=== PATIENT | male | born 1935 | race Caucasian/White ===

== ENCOUNTER → 2016-03-27 | Day surgery (SDC) | payer OTHER ==
[~2016-03-27] VITALS: Ht 175.3 cm; Wt 104.3 kg
[~2016-03-27] MED LIST: ASPIRIN EC81 M1 PO; COUMADIN2 M1 PO; COUMADIN3 M1 PO; CRESTOR10 M1 PO; DIOVAN40 MG PO; FLEXERIL10 MG PO; GLIPIZIDE10 M2 PO; IMDUR30 MG PO; IPRATROPIUM BRO15 M1 NAS; JANUVIA50 M1 PO; LANTUS SOLOS100 U/ML SC; LOPRESSOR50 M1 PO; NITROSTAT0.4 M1 SL; PERCOCET 325 MG1 TA2 PO; TOUJEO SOL300 UNIT/1 SC; TRAMADOL HCL50 M1 PO; TRESIBA FL200 UNIT/1 SC; WARFARIN SODIUM3 M1 PO; ZETIA10 M1 PO
[2016-03-27 06:43] LABS: PT 13.9 SEC (9.4-12.5); PTT 33 SEC (25-37)
--- NOTE | 2016-03-27 08:54 | Operative Report ---
Operative/Inv Procedure Report Surgery Date: 03/27/16 Name of Procedure: Pacemaker generator change Pre-Operative Diagnosis: End of battery life Post-Operative Diagnosis: pacemaker generator change Estimated Blood Loss: scant Surgeon/Baked Goods Stock Clerk: DAMIAN MISHRA MD Anesthesia: moderate sedation Operative/Procedure Note Note: Informed consent obtained. Patient was brought to OR in a fasting state. Time out performed. Moderate sedation provided by aneshesia. Skin was infiltrated with 1% lidocaine. Incision was made over the old generator. Using dull and sharp dissection pacer pocket was enter and old generator was removed. Pacer leads were tested. He is in a. fibrillation. (V lead threshold was 0.5, Impedance 564, R wave 9.9). New generator was attached to the leads and screws were tightened. Pocket flushes with atb solution. Generator was introduced to the pocket and closed with 3 layers of Vicryl. Wound covered with steri strips and Tegaderm dressing. Patient was brought to same day surgery in stable condition. No complications.
== END ==
LOC: STS 03-26 07:30
PROVIDERS: Internal Medicine Cardiovascular Disease
DX: Z45.018 Encounter for adjustment and management of other part of cardiac pacemaker (principal); I48.2 Chronic atrial fibrillation; I25.10 Atherosclerotic heart disease of native coronary artery without angina pectoris; I73.9 Peripheral vascular disease, unspecified; Z79.01 Long term (current) use of anticoagulants; E11.9 Type 2 diabetes mellitus without complications; Z79.84 Long term (current) use of oral hypoglycemic drugs; Z87.891 Personal history of nicotine dependence
CPT/HCPCS: 36415; C1785-KX; J0690

== ENCOUNTER 2016-07-24 16:32 | Emergency (ER) | payer OTHER ==
[~2016-07-24] VITALS: Ht 177.8 cm; Wt 100.2 kg
[~2016-07-24 16:32] MED LIST changes: -COUMADIN2 M1 PO; -IPRATROPIUM BRO15 M1 NAS; -TRAMADOL HCL50 M1 PO; -TRESIBA FL200 UNIT/1 SC; -WARFARIN SODIUM3 M1 PO
--- NOTE | 2016-07-24 17:29 | ED MVC/FALL/TRAUMA COMPLAINT ---
See Addendum History of Present Illness General Chief Complaint: Fall Stated Complaint: LEFT SIDED PAIN, S/P FALL Source: patient Exam Limitations: no limitations Vital Signs & Intake/Output Vital Signs & Intake/Output Vital Signs Date Time Temp Pulse Resp B/P B/P Pulse O2 O2 Flow FiO2 Mean Ox Delivery Rate 07/25 2011 97.0 103 20 160/52 97 Room Air 07/24 1846 98.6 72 20 142/58 98 Room Air 07/24 1637 97.2 87 18 149/95 97 Room Air Allergies Coded Allergies: NO KNOWN ALLERGIES (03/24/16) Reconcile Medications Aspirin (Ecotrin*) 81 MG TABLET.DR 1 TAB PO QAM HEART/BLOOD (Reported) Ezetimibe (Zetia) 10 MG TABLET 1 TAB PO DAILY CHOLESTEROL (Reported) Glipizide 10 MG TABLET 1 TAB PO BID DM (Reported) Insulin Degludec (Tresiba Flextouch U-200) 200 UNIT/ML (3 ML) INSULN.PEN 32 UNITS SC DAILY DM (Reported) Ipratropium [place] 42 MCG (0.06 %) SPRAY 2 SPRAY LOW PRN RHINITIS (Reported) Metoprolol Tartrate (Lopressor) 50 MG TABLET 1 TAB PO BID HEART/BP (Reported) Nitroglycerin (Nitrostat) 0.4 MG TAB.SUBL 1 TAB SL AD PRN CHEST PAIN ( Reported) 1st sign of attack; may repeat every 5 minutes until relief; if pain persists after 3 tablets in 15 minutes, prompt medical att Rosuvastatin Calcium (Crestor) 10 MG TABLET 1 TAB PO DAILY CHOLESTEROL ( Reported) Sitagliptin Phosphate (Januvia) 50 MG TABLET 1 TAB PO QAM DM (Reported) Tramadol HCl 50 MG TABLET 1-2 TAB PO BIDP PRN pain Valsartan (Diovan) 40 MG TABLET 1 TAB PO DAILY BP (Reported) Warfarin Sodium 3 MG TABLET 1 TAB PO AD BLOOD THINNER (Reported) Warfarin Sodium (Coumadin) 2 MG TABLET 1 TAB PO AD BLOOD THINNER (Reported) Triage Note: 80 Y/O MALE C/O L SIDED RIB PAIN S/P FALL TODAY. STATES HIS FOOT GOT CAUGHT WHILE HE WAS GETTING THE MAIL AND HE FELL FORWARD STRIKING L SIDE ON GROUND. PT DENIES STRIKING HEAD OR LOC. STATES HE WAS ABLE TO GET UP BY HIMSELF. OFFERS NO ADDITIONAL COMPLAINTS AT THIS TIME Triage Nurses Notes Reviewed? yes Onset: Abrupt Duration: hour(s): Timing: single episode today Severity: moderate, severe Injuries/Fall Location: chest Method of Injury: fall Loss of Consciousness: no loss of consciousness No Modifying Factors: none HPI: 80-year-old male comes into emergency room for further evaluation of left-sided rib pain. Patient reports that he was going down his front steps when he tripped and fell on his left side. He denies hitting his head. He denies any neck pain. Left-sided rib pain. Denies any extremity injuries. He reports he has a small cut on his left knee. Sharp pain. Worse with a deep breath. Denies any other associated symptoms. (CARLOS CROWE) Past History Travel History Traveled to [place] past 21 day No Medical History Any Pertinent Medical History? 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 No (CARLOS CROWE) Review of Systems Review of Systems Constitutional: Reports: no symptoms. Eyes: Reports: no symptoms. Ears, Nose, Throat, Mouth: Reports: no symptoms. Respiratory: Reports: no symptoms. Cardiovascular: Reports: no symptoms. Gastrointestinal/Abdominal: Reports: no symptoms. Genitourinary: Reports: no symptoms. Musculoskeletal: Reports: see HPI. Skin: Reports: no symptoms. Neurological/Psychological: Reports: no symptoms. All Other Systems: Reviewed and Negative (CARLOS CROWE) Physical Exam Physical Exam General Appearance: well developed/nourished, alert, awake Head: atraumatic Eyes: Bilateral: normal appearance, EOMI. Ears, Nose, Throat, Mouth: hearing grossly normal, moist mucous membrane Neck: normal inspection Respiratory: normal breath sounds, no respiratory distress, left sided rib pain Cardiovascular: regular rate/rhythm Gastrointestinal: soft, non-tender Back: normal inspection Extremities: normal range of motion Neurologic/Psych: awake, alert, oriented x 3, normal gait, normal mood/affect Skin: intact, normal color Core Measures ACS in differential dx? No Severe Sepsis Present: No Septic Shock Present: No (CARLOS CROWE) Progress Differential Diagnosis: abd injury, C/T/L spine injury, ext injury, ICH, pelvis injury, pnemothorax, spinal cord injury, rib fxs Plan of Care: Orders Procedure Date/time Status PROTHROMBIN TIME 07/25 1903 Complete Laboratory Tests 07/24/161939: PT 13.5 H, INR 1.29 H Diagnostic Imaging: Viewed by Me: CT Scan. Discussed w/RAD: CT Scan. Radiology Impression: XAM TYPE: CAT - CT ABD & PELVIS W/O IV CONTRAS; CT CHEST WO IV CONTRAST EXAMINATION: CT CHEST, ABDOMEN AND PELVIS WITH CONTRAST CLINICAL INFORMATION: Fall. Left-sided pain. COMPARISON: None. TECHNIQUE: Multidetector volumetric CT imaging of the chest, abdomen and pelvis was obtained after the administration of 50 mL of intravenous Ultravist without immediate adverse reactions. DLP: 723.64 mGy-cm. FINDINGS: CT CHEST: Lungs: Emphysematous changes of lungs mostly affecting the upper lobes. There is a irregular spiculated nodule at the right lung apex measuring 1.3 x 0.6 x 2 cm. This is suspicious. No infiltrate. No focal consolidation. No bronchiectasis. Mediastinum: Status post median sternotomy for CABG. Surgical clips in the mediastinum. There is atherosclerotic vascular wall calcifications of aorta and iliac vessels and coronary arteries. No aneurysm. No bulky lymphadenopathy. Pacemaker lead in right atrium and right ventricle. Pleura: There is no pleural effusion. No pleural mass or thickening. No pneumothorax. Axilla: No lymphadenopathy. CT ABDOMEN AND PELVIS: LIVER, GALLBLADDER, AND BILIARY TREE: The liver is normal in size, shape, and attenuation. No focal hepatic lesion or biliary ductal dilatation is present. Status post cholecystectomy. PANCREAS: Fatty atrophy of the pancreas. No inflammation or mass. SPLEEN: Spleen normal in size and contour. No focal lesion. ADRENAL GLANDS: Adrenal glands are normal in size. No focal mass. KIDNEYS AND URETERS: Cortical cyst at the upper pole of left kidney measures 4.4 x 3 x 3.7 cm. No renal or ureteral calculus. There is no hydronephrosis. BLADDER: Unremarkable. GASTROINTESTINAL TRACT: Diverticulosis of the colon. Diverticula seen throughout the colon but are more numerous at the sigmoid. No diverticulitis. No bowel wall thickening or edema. Moderate volume of stool in the colon. The appendix is normal. Small bowel loops are normal. MESENTERY: No focal inflammation. No free fluid. No free air. ABDOMINAL WALL: There is a small umbilical hernia containing fat only. LYMPH NODES: Normal. VASCULAR: Extensive vascular calcifications throughout the abdomen and pelvis. 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 OSSEOUS STRUCTURES: There is slightly displaced fracture of the posterior left 10th and 11th ribs. Degenerative spondylosis of spine with disc height narrowing and endplate spurs and facet joint arthrosis. Status post median sternotomy. IMPRESSION: 1. Fracture of the left posterior 10th and 11th ribs. 2. Emphysematous changes of lungs. 3. Spiculated nodule in the right upper lobe is suspicious. Consider radiology interventional consult for consideration of biopsy. 4. Diverticulosis of colon. No acute change of bowel. 5. Status post cholecystectomy. 6. 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 Comments: 07/24/2016 8:33:02 PM Patient was able to ambulate with no difficulty. Case discussed with Dr. Palacios. Home health aide set up. Patient is alert and oriented here in the emergency room and clinically looks well. Patient given prescription for pain control and counseled on pain medication. Also discussed CAT scan results with patient he needs to go over them with his doctor for suspicious lung nodule as well as other nonspecific findings. (KIT FAGAN,CARLOS) Departure Departure Disposition: HOME OR SELF CARE Condition: Stable Clinical Impression Primary Impression: Ribs, multiple fractures Referrals: JERALD MCCORMACK,SILVA Suarez (PCP/Family) Additional Instructions: Take tramadol as needed for pain. Case management has persisted even sitting up some home health aide. Return if you are unable to manage at home or feel unsafe or have any other concerns worsening symptoms. Please go over all results of today's visit with your primary care doctor. Contact your primary care doctor to let them know you were here in the emergency room. There may be nonspecific findings which may not be related to your visit today here in the emergency room but may require further evaluation and chronic monitoring by your primary care doctor. If you had a laceration today the chance of foreign body always remains. You should follow-up with your primary care doctor for recheck in 3-5 days for a wound check. If you had an x-ray done there is a chance that a fracture could have been missed on initial read and you should follow-up with your primary care doctor for repeat x-rays if symptoms persist. If your blood pressure was elevated here in the emergency room please have rechecked by her primary care doctor within the next 48 hours by your primary care doctor. If you were prescribed a narcotic here in the emergency room or any type of controlled substances you're not allowed to drive while taking this medication or operate any type of heavy machinery. Narcotics can make you feel lightheaded dizziness nausea and can cause constipation. You may need to cloth picker a stool softener. Thank you for choosing emergency room. Please return to the emergency room immediately if you have any other concerns worsening of symptoms. Departure Forms: Customer Survey General Discharge Information Prescriptions: Current Visit Scripts Tramadol HCl 1-2 TAB PO BIDP PRN pain #20 TAB (CARLOS CROWE) PA/CREATIVE SERVICES DESIGNER Co-Sign Statement Statement: ED Attending supervision documentation- [X] I saw and evaluated the patient. I have also reviewed all the pertinent lab results and diagnostic results. I agree with the findings and the plan of care as documented in the PA's/CREATIVE SERVICES DESIGNER's documentation. [X] I have reviewed the ED Record and agree with the PA's/CREATIVE SERVICES DESIGNER's documentation. [] Additions or exceptions (if any) to the PAs/CREATIVE SERVICES DESIGNER's note and plan are summarized below: [Patient ambulated in the emergency department without difficulty and is stable for discharge.] (ACOSTA MCCORMACK,SAMMY Byrd)
[2016-07-24] MEDS ORDERED: WARFARIN SODIUM3 M1 PO (18:01)
[2016-07-24] MEDS ORDERED: COUMADIN2 M1 PO (18:02)
[2016-07-24] MEDS ORDERED: TRESIBA FL200 UNIT/1 SC (18:02)
[2016-07-24] MEDS ORDERED: IPRATROPIUM BRO15 M1 NAS (18:03)
--- NOTE | 2016-07-24 19:02 | CT SCAN REPORT ---
EXAMINATION: CT CHEST, ABDOMEN AND PELVIS WITH CONTRAST CLINICAL INFORMATION: Fall. Left-sided pain. COMPARISON: None. TECHNIQUE: Multidetector volumetric CT imaging of the chest, abdomen and pelvis was obtained after the administration of 50 mL of intravenous Ultravist without immediate adverse reactions. DLP: 723.64 mGy-cm. FINDINGS: CT CHEST: Lungs: Emphysematous changes of lungs mostly affecting the upper lobes. There is a irregular spiculated nodule at the right lung apex measuring 1.3 x 0.6 x 2 cm. This is suspicious. No infiltrate. No focal consolidation. No bronchiectasis. Mediastinum: Status post median sternotomy for CABG. Surgical clips in the mediastinum. There is atherosclerotic vascular wall calcifications of aorta and iliac vessels and coronary arteries. No aneurysm. No bulky lymphadenopathy. Pacemaker lead in right atrium and right ventricle. Pleura: There is no pleural effusion. No pleural mass or thickening. No pneumothorax. Axilla: No lymphadenopathy. CT ABDOMEN AND PELVIS: LIVER, GALLBLADDER, AND BILIARY TREE: The liver is normal in size, shape, and attenuation. No focal hepatic lesion or biliary ductal dilatation is present. Status post cholecystectomy. PANCREAS: Fatty atrophy of the pancreas. No inflammation or mass. SPLEEN: Spleen normal in size and contour. No focal lesion. ADRENAL GLANDS: Adrenal glands are normal in size. No focal mass. KIDNEYS AND URETERS: Cortical cyst at the upper pole of left kidney measures 4.4 x 3 x 3.7 cm. No renal or ureteral calculus. There is no hydronephrosis. BLADDER: Unremarkable. GASTROINTESTINAL TRACT: Diverticulosis of the colon. Diverticula seen throughout the colon but are more numerous at the sigmoid. No diverticulitis. No bowel wall thickening or edema. Moderate volume of stool in the colon. The appendix is normal. Small bowel loops are normal. MESENTERY: No focal inflammation. No free fluid. No free air. ABDOMINAL WALL: There is a small umbilical hernia containing fat only. LYMPH NODES: Normal. VASCULAR: Extensive vascular calcifications throughout the abdomen and pelvis. 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 OSSEOUS STRUCTURES: There is slightly displaced fracture of the posterior left 10th and 11th ribs. Degenerative spondylosis of spine with disc height narrowing and endplate spurs and facet joint arthrosis. Status post median sternotomy. IMPRESSION: 1. Fracture of the left posterior 10th and 11th ribs. 2. Emphysematous changes of lungs. 3. Spiculated nodule in the right upper lobe is suspicious. Consider radiology interventional consult for consideration of biopsy. 4. Diverticulosis of colon. No acute change of bowel. 5. Status post cholecystectomy. 6. 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
[2016-07-24] MEDS ORDERED: TRAMADOL HCL50 M1 PO (19:59)
[2016-07-24 20:06] LABS: PT 13.5 SEC (9.4-12.5)
[2016-07-24 20:12] VITALS: BP 160/52
--- NOTE | 2016-07-25 13:23 | NUR ---
07/25 CASE MGMT- CALL TO [facility] SPOKE WITH [facility] FAXED W10 AND FACE SHEET.
== END 2016-07-24 20:40 ==
LOC: ERH 16:32
PROVIDERS: Physician Assistant Medical
DX: S22.42XA Multiple fractures of ribs, left side, initial encounter for closed fracture (principal); S81.012A Laceration without foreign body, left knee, initial encounter; W10.9XXA Fall (on) (from) unspecified stairs and steps, initial encounter; Y93.01 Activity, walking, marching and hiking; Y92.9 Unspecified place or not applicable
CPT/HCPCS: 74176

== ENCOUNTER 2016-09-14 08:34 | Observation (INO) | payer OTHER ==
[~2016-09-14] VITALS: Ht 177.8 cm; Wt 90.7 kg
[~2016-09-14 08:34] MED LIST changes: +COUMADIN2 M1 PO; +IPRATROPIUM BRO15 M1 NAS; +TRAMADOL HCL50 M1 PO; +TRESIBA FL200 UNIT/1 SC; +WARFARIN SODIUM3 M1 PO
--- NOTE | 2016-09-14 08:40 | NUR ---
TRIAGE: 80 Y/O MALE BIBA FROM HOME. REPORTS NO BREAKFAST CONSUMPTION THIS MORNING - REPORTED TO FAMILY, "DID NOT FEEL WELL". FINGERSTICK ON SCENE NOTED TO BE 34. (1) TUBE OF ORAL GLUCOSE ADMINISTERED ON SCENE, D10 INFUSING UPON ARRIVAL. FINGERSTICK UPON ARRIVAL: 119. A&O X3 - COOPERATIVE. NO OTHER COMPLAINTS. FOOD TRAY PROVIDED.
--- NOTE | 2016-09-14 08:44 | NUR ---
food try provided
--- NOTE | 2016-09-14 09:11 | NUR ---
DR CISSE AT BEDSIDE.
--- NOTE | 2016-09-14 09:17 | ED GENERAL ADULT ---
History of Present Illness General Chief Complaint: General Adult Stated Complaint: HYPOGLYCEMIC Source: patient, old records Exam Limitations: no limitations Vital Signs & Intake/Output Vital Signs & Intake/Output Vital Signs Date Time Temp Pulse Resp B/P B/P Pulse O2 O2 Flow FiO2 Mean Ox Delivery Rate 09/17 0750 142/64 09/17 0750 142/64 09/17 0630 98.5 71 18 126/60 94 Room Air 09/16 2208 98.7 70 20 120/70 95 Room Air 09/16 2044 70 120/70 09/16 1453 98.2 66 20 124/60 93 Room Air ED Intake and Output 09/17 0000 09/16 1200 Intake Total 2200 Output Total 400 Balance 1800 Intake, Oral 2200 Output, Urine 400 Allergies Coded Allergies: NO KNOWN ALLERGIES (03/24/16) Reconcile Medications Aspirin (Ecotrin*) 81 MG TABLET.DR 1 TAB PO QAM HEART/BLOOD (Reported) Ezetimibe (Zetia) 10 MG TABLET 1 TAB PO DAILY CHOLESTEROL (Reported) Ipratropium [place] 42 MCG (0.06 %) SPRAY 2 SPRAY LOW PRN RHINITIS (Reported) Metformin HCl (Glucophage) 850 MG TABLET 1 TAB PO BID DM Metoprolol Tartrate (Lopressor) 50 MG TABLET 1 TAB PO BID HEART/BP (Reported) Rosuvastatin Calcium (Crestor) 10 MG TABLET 1 TAB PO DAILY CHOLESTEROL ( Reported) Valsartan (Diovan) 40 MG TABLET 1 TAB PO DAILY BP (Reported) Warfarin Sodium 3 MG TABLET 1 TAB PO AD BLOOD THINNER (Reported) Warfarin Sodium (Coumadin) 2 MG TABLET 1 TAB PO AD BLOOD THINNER (Reported) THURSDAY AND THURSDAY Triage Note: TRIAGE: 80 Y/O MALE BIBWendy FROM HOME. REPORTS NO BREAKFAST CONSUMPTION THIS MORNING - REPORTED TO FAMILY, "DID NOT FEEL WELL". FINGERSTICK ON SCENE NOTED TO BE 34. (1) TUBE OF ORAL GLUCOSE ADMINISTERED ON SCENE, D10 INFUSING UPON ARRIVAL. FINGERSTICK UPON ARRIVAL: 119. A&O X3 - COOPERATIVE. NO OTHER COMPLAINTS. FOOD TRAY PROVIDED. Triage Nurses Notes Reviewed? yes HPI: 80M PMH HTN, IDDM presenting with episode of confusion, altered speech, called EMS and was found to have a fingerstick of 32, given glucose by EMS, now back to normal. Per patient and family patient is confused and forgetful at baseline. He is currently at his baseline mental status and speech. He denies chest pain, palpitations, SOB, lightheadedness, headache, vision changes, neurological symptoms, abdominal pain, dysuria. He did not eat breakfast this morning, but had a normal dinner last night. He takes long acting insulin 32 units every morning but did not take it this morning. He also takes Glipizide 10mg BID which he took last night and this morning. He handles his own medications. No current complaints. Past History Travel History Traveled to [place] past 21 day No Medical History Any Pertinent Medical History? 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 No Review of Systems Review of Systems Constitutional: Reports: no symptoms. EENTM: Reports: no symptoms. Respiratory: Reports: no symptoms. Cardiovascular: Reports: no symptoms. GI: Reports: no symptoms. Genitourinary: Reports: no symptoms. Musculoskeletal: Reports: no symptoms. Skin: Reports: no symptoms. Neurological/Psychological: Reports: no symptoms. Hematologic/Endocrine: Reports: no symptoms. Immunologic/Allergic: Reports: no symptoms. All Other Systems: Reviewed and Negative Physical Exam Physical Exam General Appearance: well developed/nourished, no apparent distress, alert, awake , comfortable Head: atraumatic, normal appearance Eyes: Bilateral: normal appearance. Ears, Nose, Throat: normal ENT inspection Neck: normal inspection, supple, full range of motion Respiratory: normal breath sounds, no respiratory distress, quiet respiration Cardiovascular: regular rate/rhythm Gastrointestinal: soft, non-tender Back: normal inspection Extremities: normal inspection, normal range of motion, no edema Neurologic/Psych: no motor/sensory deficits, awake, alert, oriented x 3, normal gait, normal mood/affect, forgetful but coherent and cooperative Skin: intact, normal color Core Measures ACS in differential dx? No CVA/TIA Diagnosis: No Severe Sepsis Present: No Septic Shock Present: No Progress Differential Diagnoses I considered the following diagnoses in my evaluation of the patient: hypoglycemia, CVA, TIA, orthostatic hypotension, KS, ACS, trauma Plan of Care: Orders Procedure Date/time Status VITAMIN B12 09/17 634 Complete PROTHROMBIN TIME 09/17 599 Complete CBC WITHOUT DIFFERENTIAL 09/17 599 Complete BASIC ELECTROLYTES PLUS BUN&CR 09/17 599 Complete Discharge Patient 09/17 UNK Active Lab Add-on Test 09/17 UNK Active Laboratory Tests 09/17/16 0635: Anion Gap 11, Estimated GFR 36 L, BUN/Creatinine Ratio 24.4, Vitamin B12 480, PT 19.5 H, INR 1.87 H, CBC w Diff NO MAN DIFF REQ, RBC 3.80 L, MCV 90.2, MCH 30.6, RDW 14.6 H, MPV 7.4, Gran % 65.3, Lymphocytes % 20.0 L, Monocytes % 11.1 H, Eosinophils % 2.9, Basophils % 0.7, Absolute Granulocytes 4.3, Absolute Lymphocytes 1.3, Absolute Monocytes 0.7 H, Absolute Eosinophils 0.2, Absolute Basophils 0, PUBS MCHC 33.9 Fingerstick continues to drop despite adequate oral intake, latest was 51. Will start D5 1/2 NS and bring in for observation. (BETITO MCCORMACK,MILTON) Initial ED EKG: VENTRICULAR PACED, NO ST OR T-WAVE CHANGES, NO PRIOR FOR COMPARISON Departure Departure Disposition: STILL A PATIENT Condition: Stable Clinical Impression Primary Impression: Hypoglycemia Referrals: JERALD MCCORMACK,SILVA Suarez (PCP/Family) Departure Forms: Customer Survey General Discharge Information Prescriptions: Current Visit Scripts Metformin HCl (Glucophage) 1 TAB PO BID #60 TAB Observation Note Spoke With: JORGE MCCORMACK,PETE Physician Advisor Notified: HARJEET MCCORMACK,EMILY [address] Place Patient In: Non-ED OBS Care Area Rationale for Observation: My rational for observation is as follows persistent hypoglycemia on oral hypoglycemics, symptomatic on arrival, requires hourly fingerstick monitoring and IV fluids for glucose replacement, endocrine consult. Critical Care Note Critical Care Note Critical Care Time: 30-74 min
--- NOTE | 2016-09-14 09:47 | NUR ---
LABS WILSON AND SENT, LAV,SST,BLUE,ANDERS TOP.
[2016-09-14 10:01] LABS: ABSOLUTE BASOPHIL COUNT 0 /CUMM (0.0-0.2); ABSOLUTE EOSINOPHIL COUNT 0.1 /CUMM (0.0-0.7); ABSOLUTE GRANULOCYTE CT 7.1 /CUMM (1.4-6.5); ABSOLUTE LYMPH COUNT 0.6 /CUMM (1.2-3.4); ABSOLUTE MONOCYTE COUNT 0.5 /CUMM (0.10-0.60); BASOPHIL % 0.4 % (0.0-2.0); EOSINOPHIL % 0.9 % (0-5); HEMATOCRIT 36.1 % (42-52); MEAN CORPUSCULAR HGB 30.2 PG (27.0-31.0); MEAN CORPUSCULAR HGB CONC 32.9 G/DL (33.0-37.0); MEAN CORPUSCULAR VOLUME 91.6 FL (80.0-94.0); MEAN PLATELET VOLUME 7.2 FL (7.4-10.4); PLATELET COUNT 227 /CUMM (130-400); RBC DISTRIBUTION WIDTH 14.9 % (11.5-14.5); RED BLOOD CELL CT 3.94 /CUMM (4.70-6.10); WHITE BLOOD CELL COUNT 8.3 /CUMM (4.8-10.8)
[2016-09-14 10:14] LABS: GRANULOCYTE % 86.1 % (42.2-75.2)
--- NOTE | 2016-09-14 11:00 | NUR ---
RESTING COMFORTABLY. WILL CONTINUE TO MONITOR.
--- NOTE | 2016-09-14 13:10 | NUR ---
RESTING COMFORTABLY WILL CONTINUE TO MONITOR.
--- NOTE | 2016-09-14 15:11 | NUR ---
D5NS INFUSING AT 75ML/HOUR.
--- NOTE | 2016-09-14 15:15 | NUR ---
REPORT RECEIVED AND CARE OF PT ASSUMED
--- NOTE | 2016-09-14 15:28 | History & Physical ---
NAVNEET NOGUERA 09/14/16 1528: General Information and HPI MD Statement: I have seen and personally examined BOOM NICK and documented this H&P. The patient is a 80 year old M who presented with a patient stated chief complaint of [HYPOGLYCEMIA]. Source of Information: patient Exam Limitations: no limitations History of Present Illness: 80-year-old male with a past medical history of diabetes mellitus, CKD stage IV, hypertension, hyperlipidemia, dementia, atrial fibrillation status post pacemaker on Coumadin who presented to the ER with chief complaints of altered mental status including confusion and speech and was found to have low blood sugar with a fingerstick of 32 upon arrival of EMS. States that he got up this morning, got dressed, and the next thing he remembers was that he was sitting on the couch and family was asking whether he was fine. His niece called 911, and brought him to the hospital. No recent change in meds, has been eating and drinking fine, had a casserole last night for dinner. Denies fever, chills, cough, no recent upper respiratory infection, diarrhea, constipation, chest pain, shortness of breath, diaphoresis, nausea, feeling lightheadedness, passing out, abdominal pain. States that he took his meds last night. Spoke with the patient's niece who states she found him slumped on the couch at around 7:45 AM. He was in a position, taking deep sighs, had slurred speech and was also found to have one shoe on and one shoe off. Of note, he hadn't taken his medications because his medication box still showed meds that were in from Thursday. Patient stated got overly concerned that he may have a stroke as his right arm was jerking around and he wasn't really moving much of his left side. They decided to bring him to the ER. Of note patient did have a fall a few weeks ago which was purely mechanical in nature and he ended up breaking his ribs. He states that he was waiting for his mailman and tripped down the stairs. Of note he does have lung nodules on his CAT scan which was followed with a head CT which didn't show any tumor related activity. Allergies/Medications Allergies: Coded Allergies: NO KNOWN ALLERGIES (03/24/16) Home Med list Aspirin (Ecotrin*) 81 MG TABLET.DR 1 TAB PO QAM HEART/BLOOD (Reported) Ezetimibe (Zetia) 10 MG TABLET 1 TAB PO DAILY CHOLESTEROL (Reported) Glipizide 10 MG TABLET 1 TAB PO BID DM (Reported) Insulin Degludec (Tresiba Flextouch U-200) 200 UNIT/ML (3 ML) INSULN.PEN 32 UNITS SC DAILY DM (Reported) Ipratropium [place] 42 MCG (0.06 %) SPRAY 2 SPRAY LOW PRN RHINITIS (Reported) Metoprolol Tartrate (Lopressor) 50 MG TABLET 1 TAB PO BID HEART/BP (Reported) Rosuvastatin Calcium (Crestor) 10 MG TABLET 1 TAB PO DAILY CHOLESTEROL ( Reported) Sitagliptin Phosphate (Januvia) 50 MG TABLET 1 TAB PO QAM DM (Reported) Valsartan (Diovan) 40 MG TABLET 1 TAB PO DAILY BP (Reported) Warfarin Sodium (Coumadin) 2 MG TABLET 1 TAB PO AD BLOOD THINNER (Reported) THURSDAY AND THURSDAY Warfarin Sodium 3 MG TABLET 1 TAB PO AD BLOOD THINNER (Reported) Compliance With Home Meds: GOOD Past History Travel History Traveled to [place] past 21 day No Medical History Neurological: NONE Cardiovascular: AFIB, hypertension, hyperlipidemia, PACEMAKER Gastrointestinal: NONE Hepatic: NONE Renal: NONE Musculoskeletal: NONE Psychiatric: NONE Endocrine: diabetes Blood Disorders: NONE Cancer(s): NONE POWDER HAND/Reproductive: NONE Surgical History Surgical History: BYPASS PACEMAKER Past Family/Social History Family History Relations & Conditions if any Relation not specified for: *No pertinent family history Psychosocial History Where do you live? Home Who Do You Live With? niece Primary Language: Andorran Smoking Status: Former Smoker (50 pack year smokinig history) ETOH Use: denies use Illicit Drug Use: denies illicit drug use Functional Ability ADLs Independent: dressing, eating, toileting, bathing. Ambulation: cane, walker IADLs Independent: shopping. 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 Cardiovascular: Denies: chest pain, edema, orthopena, palpitations, peripheral edema, syncope. Respiratory: Denies: cough, orthopnea, short of breath, wheezing. GI: Denies: abdominal pain, constipation, diarrhea, nausea, vomiting. Genitourinary: Denies: discharge, hematuria, pain, urgency. Musculoskeletal: Denies: back pain. Neurological/Psychological: Denies: headache, numbness, tingling, tremors. Exam & Diagnostic Data Last 24 Hrs of Vital Signs/I&O Vital Signs Date Time Temp Pulse Resp B/P B/P Pulse O2 O2 Flow FiO2 Mean Ox Delivery Rate 09/14 1432 60 18 195/87 97 09/14 1124 96.6 64 16 180/72 98 Room Air Room Air 09/14 0838 96.3 68 16 185/74 98 Room Air Room Air Intake & Output 09/14 1600 09/14 0800 09/14 0000 Intake Total Output Total 300 Balance -300 Output, Urine 300 Patient 200 lb Weight Weight Estimated Measurement Method Physical Exam General Appearance Alert, Oriented X3, Cooperative, No Acute Distress HEENT Atraumatic, PERRLA, EOMI, dry mucous membranes Neck Supple, No JVD, No thryomegaly, No LAD Cardiovascular Normal S1, Normal S2, garde III/ systolic murmer heard best at RSB Lungs Clear to Auscultation, Normal Air Movement Abdomen Normal Bowel Sounds, Soft, No Tenderness, dsitended Neurological Normal Speech, Strength at 5/5 X4 Ext, Normal Tone, Sensation Intact, Cranial Nerves 3-12 NL, Reflexes 2+ Extremities b/l 1+ edema Vascular Normal Pulses, Pulses Symmetrical Last 24 Hrs of Labs/Ace: Laboratory Tests 09/14/16 0938: Anion Gap 11, Estimated GFR 45 L, BUN/Creatinine Ratio 21.3, Glucose 109 H, Calcium 9.8, Total Bilirubin 0.9, AST 32, ALT 39, Alkaline Phosphatase 65, Total Protein 7.1, Albumin 4.1, Globulin 3.0, Albumin/Globulin Ratio 1.4, CBC w Diff NO MAN DIFF REQ, RBC 3.94 L, MCV 91.6, MCH 30.2, RDW 14.9 H, MPV 7.2 L, Gran % 86.1 H, Lymphocytes % 6.9 L, Monocytes % 5.7, Eosinophils % 0.9, Basophils % 0.4, Absolute Granulocytes 7.1 H, Absolute Lymphocytes 0.6 L, Absolute Monocytes 0.5, Absolute Eosinophils 0.1, Absolute Basophils 0, PUBS MCHC 32.9 L Diagnostic Data EKG Results Ventricular paced rythm, HR: 65, no ST-T changes Assessment/Plan Assessment: 80-year-old male with a past medical history of diabetes mellitus, CK D stage IV hypertension, hyperlipidemia, A. fib status post pacemaker on Coumadin who presented to the ER with chief complaints of altered mental status including confusion and speech and was found to have low blood sugar with a fingerstick of 32. Vitals at the time of admission blood pressure 185/74, respiratory rate of 16, pulse 68, afebrile saturating 98% on room air. Labs pertinent for a white blood cell count of 8300, H&H of 11.9/36.1, MCV of 91.6 with a platelet count 227,000. Serum chemistries revealed a sodium of 141, potassium of 4.6, bicarbonate of 23, anion gap of 11, BUN 32 with a creatinine 1.5. Serum glucose of 109. LFTs unremarkable with an AST/ALT of 32/39, alkaline phosphatase of 65. In the ER he was started on D5 half-normal saline. His fingersticks ranged from 119, 134, 103, 91 and 51 Assessment and plan Placed under observation on general medicine for episodes of hypoglycemia. #Episode of hypoglycemia Most likely secondary to being on glipizide We'll hold off all oral hypoglycemic agents as of this point. Start him on D5 half-normal saline at [address] him on NovoLog sliding scale coverage blood sugars more than 200 every 4 hours Endocrinology consult in a.m. As per Dr. Lara continue to hold basal insulin for now Nutrition consult in a.m. #A. fib on Coumadin He is subtherapeutic on his INR. We'll dose him Coumadin 5 mg 1. Follow-up INR in a.m. #Hypertension Most likely secondary to not taking medications this morning. Start him on his home medications which include Cozaar 25 mg daily, metoprolol 50 mg twice a day #Hyperlipidemia Continue on atorvastatin 40 mg daily DVT prophylaxis On warfarin Diet Diabetic CODE STATUS Full code As Ranked By This Provider Problem List: 1. Hypoglycemia Core Measures/Miscellaneous Acute Coronary Syndrome ACS Diagnosis: No Cerebrovascular Accident CVA/TIA Diagnosis: No Congestive Heart Failure CHF Diagnosis: No VTE (View Protocol) VTE Risk Factors: Age > 40 [facility] prophylaxis d/t: No contraindications No VTE Pharm Prophylaxis d/t: No contraindications VTE Diagnosis: No VTE Type: NONE VTE Confirmed by (Test): NONE Sepsis (View Protocol) Severe Sepsis Present: No Septic Shock Septic Shock Present: No Miscellaneous Documentation Attending Case Discussed With: Dr. Lyle Primary Care Physician: JERALD MCCORMACK,SILVA Suarez Patient sees these Specialists None Level of Patient Care: General Medicine Resident Review Statement Resident Statement: admitted by resident JORGE MCCORMACKPETE 09/14/16 1855: Attending MD Review Statement Attending Statement Attending MD Statement: examined this patient, discuss w/resident/PA/EMPLOYMENT APPEALS EXAMINER, agreed w/resident/PA/EMPLOYMENT APPEALS EXAMINER, reviewed EMR data (avail), discussed with nursing, discussed with case mgmt, amended to note Attending Assessment/Plan: 80-year-old male with past medical history significant for insulin-dependent diabetes mellitus, CK D stage 3, hypertension, hyperlipidemia, A. fib status post pacemaker on Coumadin who was brought in by a bolus secondary to having altered mental state and found to be hypoglycemic. Patient's niece found him confused this morning. He lives with his niece. Patient is on both insulin as well as oral hypoglycemic agents for his diabetes. Apparently as reported by his knees he takes his medications regularly. Patient could not remember if his blood sugars are under good control or if he's been having episodes of hypoglycemia lately. He currently denies any complaints. His mental state is improved and almost back to baseline although he still forgetful. In the emergency room he was consistent hypoglycemic and he was started on D5 IV fluids. Most recent blood sugar was and 160s. Vital Signs Date Time Temp Pulse Resp B/P B/P Pulse O2 O2 Flow FiO2 Mean Ox Delivery Rate 09/14 1744 98.7 76 18 181/83 09/14 1714 98.7 76 18 181/83 94 Room Air 09/14 1432 60 18 195/87 97 09/14 1124 96.6 64 16 180/72 98 Room Air Room Air 09/14 0838 96.3 68 16 185/74 98 Room Air Room Air on exam; aox2, nad. cv; s1,s2, rrr< + systolic murmur. resp; clear abd; soft, nt, bs+ ext; no edema. Laboratory Tests 09/14 0938 Chemistry Sodium (137 - 145 mmol/L) 141 Potassium (3.5 - 5.1 mmol/L) 4.6 Chloride (98 - 107 mmol/L) 107 Carbon Dioxide (22 - 30 mmol/L) 23 Anion Gap (5 - 16) 11 BUN (9 - 20 mg/dL) 32 H Creatinine (0.7 - 1.2 mg/dL) 1.5 H Estimated GFR (>60 ml/min) 45 L BUN/Creatinine Ratio (7 - 25 %) 21.3 Glucose (65 - 99 mg/dL) 109 H Insulin Level (3.0 - 25.0 mIU/mL) 155.0 H Calcium (8.4 - 10.2 mg/dL) 9.8 Total Bilirubin (0.2 - 1.3 mg/dL) 0.9 AST (17 - 59 U/L) 32 ALT (21 - 72 U/L) 39 Alkaline Phosphatase (< 127 U/L) 65 Total Protein (6.3 - 8.2 g/dL) 7.1 Albumin (3.5 - 5.0 g/dL) 4.1 Globulin (1.9 - 4.2 gm/dL) 3.0 Albumin/Globulin Ratio (1.1 - 2.2 %) 1.4 Cortisol AM Sample (4.46 - 22.7 ug/dL) 21.2 Coagulation PT (9.4 - 12.5 SEC) 12.5 INR (0.90 - 1.17) 1.19 H Hematology CBC w Diff NO MAN DIFF REQ WBC (4.8 - 10.8 /CUMM) 8.3 RBC (4.70 - 6.10 /CUMM) 3.94 L Hgb (14.0 - 18.0 G/DL) 11.9 L Hct (42 - 52 %) 36.1 L MCV (80.0 - 94.0 FL) 91.6 MCH (27.0 - 31.0 PG) 30.2 RDW (11.5 - 14.5 %) 14.9 H Plt Count (130 - 400 /CUMM) 227 MPV (7.4 - 10.4 FL) 7.2 L Gran % (42.2 - 75.2 %) 86.1 H Lymphocytes % (20.5 - 51.1 %) 6.9 L Monocytes % (1.7 - 9.3 %) 5.7 Eosinophils % (0 - 5 %) 0.9 Basophils % (0.0 - 2.0 %) 0.4 Absolute Granulocytes (1.4 - 6.5 /CUMM) 7.1 H Absolute Lymphocytes (1.2 - 3.4 /CUMM) 0.6 L Absolute Monocytes (0.10 - 0.60 /CUMM) 0.5 Absolute Eosinophils (0.0 - 0.7 /CUMM) 0.1 Absolute Basophils (0.0 - 0.2 /CUMM) 0 PUBS MCHC (33.0 - 37.0 G/DL) 32.9 L EKG shows paced rhythm. A/P; 80-year-old male with past medical history significant for insulin- dependent diabetes mellitus, CK D stage 3, hypertension, hyperlipidemia, A. fib status post pacemaker on Coumadin is placed on general medicine observation with hypoglycemia. Patient will be kept on D5 IV fluids. Endocrine will be consulted. For now will cover him with sliding scale insulin. INR is subtherapeutic, please dose Coumadin at higher dose 5 mg today. Hold all oral hypoglycemics. Patient will need nutrition consult. Please continue the rest of the home medications. DVT prophylaxis: Patient on Coumadin with subtherapeutic INR therefore he will require heparin subcutaneous to the INR gets therapeutic for DVT prophylaxis. Full code.
--- NOTE | 2016-09-14 15:45 | NUR ---
PT FOOD TRAY ARRIVED AND PT EATING
--- NOTE | 2016-09-14 16:03 | NUR ---
PT COMPLETE FOOD TRAY 100% EATEN
[2016-09-14 16:19] LABS: PT 12.5 SEC (9.4-12.5)
--- NOTE | 2016-09-14 17:02 | NUR ---
PT HAS BED 224-1
--- NOTE | 2016-09-14 17:47 | NUR ---
ORAL MEDICATION GIVEN ORDERED. NOVOLOG HELD UNTIL MEAL AVAILABLE. PER DR NOGUERA AT 1730, PT TO CONTINUE D5-1/2 NS UNTIL COMPLETE PRIOR TO CHANGE TO D5-NS.
--- NOTE | 2016-09-14 18:32 | NUR ---
PT FOOD TRAY ARRIVED AND EATING
--- NOTE | 2016-09-14 19:03 | NUR ---
NURSE FELICE FROM FLOOR CALLED EXT#[id number]
--- NOTE | 2016-09-14 19:22 | NUR ---
ATTEMPT TO CALL HAND-OFF. NURSES IN REPORT
--- NOTE | 2016-09-14 19:56 | NUR ---
REPORT TO JENNIFER ALVAREZ ON 2NA
[2016-09-14 22:50] VITALS: BP 154/60
--- NOTE | 2016-09-15 03:26 | NUR ---
NURSING NOTE: LATE ENTRY. PT ARRIVED TO FLOOR VIA STRETCHER ON 09/14/16 @ 2030. PT ALERT TO PERSON AND PLACE BUT CONFUSED TO TIME. PT ON ROOM AIR, NO DISTRESS NOTED. VSS. PTS BLOOD SUGAR 201. I UNIT INSULIN GIVEN. PER ALMOND PASTE MOLDER SANA BENDER ORDERS FOR Q4 ACU CHECKS W/COVERAGE NEEDED. PT HAS MULTIPLE SCABS, DISCOLORATION, BRUISING, AND DRY FLAKY SKIN TO HIS BL UPPER ARMS. SCAB TO PTS L KNEE CAP WHICH HE STATES IS FROM A FALL ON HIS FRONT PORCH A FEW WEEKS AGO. BLANCHABLE REDNESS NOTED TO PTS BOTTOM. TRACE BLLE NOTED. BARRIER CREAM AND REPOSITIONING DONE. SKIN MAN COMPLETED. FALL PRECAUTIONS IN PLACE. SEIZURE PRECAUTIONS IN PLACE PER MD ORDER. MD SANA BENDER INFORMED THIS RN THAT PTS SUGAR GOES UP AND DOWN. PTS BLOOD SUGAR RECHECKED AT 0114 AND WAS 100. PT DENIES SYMPTOMS. PT VOIDING SMALL AMOUNTS IN URINAL. PT STATES HE AMBULATES W/ CANE AT HOME. PT GETTING 1 BAG OF D5 1/2 NS AT 75 ML/HR. PT DENIES PAIN AT THIS TIME. NUTRITION CONSULT IN PLACE. PT SHOWN HOW TO USE CALL LIGHT SYSTEM, INFORMATION PACKET GIVEN. WILL CONTINUE TO MONITOR.
[2016-09-15 06:21] VITALS: BP 138/76
--- NOTE | 2016-09-15 07:55 | PN- Housestaff ---
Subjective Follow-up For: Hypoglycemia Subjective: Pt is doing well today. Pt's BG readings have been between 76 and 200. Denies n/ v, dizziness, lethargy, fever/chills, SOB, cough, chest pain or palpitations. Review of Systems Constitutional: Denies: see HPI. Cardiovascular: Denies: see HPI. Respiratory: Denies: see HPI. Gastrointestinal: Denies: see HPI. Objective Last 24 Hrs of Vital Signs/I&O Vital Signs Date Time Temp Pulse Resp B/P B/P Pulse O2 O2 Flow FiO2 Mean Ox Delivery Rate 09/15 1502 97.5 75 20 124/70 95 Room Air 09/15 1040 65 138/76 09/15 1038 65 138/76 09/15 0621 98.4 65 20 138/76 93 Room Air 09/14 2353 154/60 09/14 2250 98.1 78 20 154/60 94 Room Air 09/14 1934 98.7 76 14 181/83 96 Room Air 09/14 1744 98.7 76 18 181/83 Intake & Output 09/15 1600 09/15 0800 09/15 0000 Intake Total 360 840 465 Output Total 600 1000 800 Balance -240 -160 -335 Intake, IV 600 225 Intake, Oral 360 240 240 Number 1 1 Bowel Movements Output, Urine 600 1000 800 Patient 200 lb 200 lb Weight Physical Exam General Appearance: Alert, Cooperative, No Acute Distress Cardiovascular: Regular Rate, Normal S1, Normal S2 Lungs: Clear to Auscultation Abdomen: Normal Bowel Sounds, Soft, No Tenderness Extremities: Normal Pulses Assessment/Plan Assessment: 80-year-old male with a past medical history of diabetes mellitus, CK D stage IV hypertension, hyperlipidemia, A. fib status post pacemaker on Coumadin who presented to the ER with chief complaints of altered mental status including confusion and speech and was found to have low blood sugar with a fingerstick of 32. Admitted to general medicine for management of the followin. Episode of hypoglycemia - Most likely secondary to being on glipizide + 32 units of Tresiba - has had multiple low BG readings at home - We'll hold off all oral hypoglycemic agents at this point - As per Dr. Lara: - q4 checks before meals and at bedtime - sliding scale change: - <200 --> give no insulin - 201 to 250 --> give 2 units - 251 to 300 --> give 3 units - 301 to 350 --> give 4 units - 351 to 400 --> give 5 units 2. A. fib on Coumadin - Has subtherapeutic on his INR: 1.30, goal: 2 to 3 - We'll dose him Coumadin 4 mg 1. - Follow-up INR in a.m. 3. Hypertension Most likely secondary to not taking medications this morning. Start him on his home medications which include Cozaar 25 mg daily, metoprolol 50 mg twice a day 4. Hyperlipidemia Continue on atorvastatin 40 mg daily DVT PPX: On warfarin Diet: Diabetic CODE STATUS: Full code Problem List: 1. Hypoglycemia Pain Ratin Pain Location: none Pain Goal: Remain pain free Pain Plan: none Tomorrow's Labs & Rationales: INR TSH T4
--- NOTE | 2016-09-15 08:04 | Cons- Endocrinology ---
General Information and HPI Consulting Request Date of Consult: 09/15/16 Requested By: medical team Reason for Consult: Uncontrolled diabetes and hypoglycemia Source of Information: patient, old records Exam Limitations: poor historian History of Present Illness: This 80-year-old male with a known history of diabetes mellitus type 2 was brought to the emergency room after a low blood sugar reaction at home. The patient's sugar was 32 in the field. He was found sighing and minimally responsive by his niece at home. He states he lives with his niece and her family. He was given 50% glucose in the field.. When he came to the emergency room he was awake. Apparently the patient is on 32 units of Tresiba at home as well as glipizide 10 mg twice a day. In speaking with the patient he states that he has low blood sugars more often than he would like. In June of this year he did fall and fractured some ribs. He states he tripped that time and does not associate that episode with low sugar. Allergies/Medications Allergies: Coded Allergies: NO KNOWN ALLERGIES (03/24/16) Home Med List: Aspirin (Ecotrin*) 81 MG TABLET.DR 1 TAB PO QAM HEART/BLOOD (Reported) Ezetimibe (Zetia) 10 MG TABLET 1 TAB PO DAILY CHOLESTEROL (Reported) Glipizide 10 MG TABLET 1 TAB PO BID DM (Reported) Insulin Degludec (Tresiba Flextouch U-200) 200 UNIT/ML (3 ML) INSULN.PEN 32 UNITS SC DAILY DM (Reported) Ipratropium [place] 42 MCG (0.06 %) SPRAY 2 SPRAY LOW PRN RHINITIS (Reported) Metoprolol Tartrate (Lopressor) 50 MG TABLET 1 TAB PO BID HEART/BP (Reported) Rosuvastatin Calcium (Crestor) 10 MG TABLET 1 TAB PO DAILY CHOLESTEROL ( Reported) Sitagliptin Phosphate (Januvia) 50 MG TABLET 1 TAB PO QAM DM (Reported) Valsartan (Diovan) 40 MG TABLET 1 TAB PO DAILY BP (Reported) Warfarin Sodium (Coumadin) 2 MG TABLET 1 TAB PO AD BLOOD THINNER (Reported) THURSDAY AND THURSDAY Warfarin Sodium 3 MG TABLET 1 TAB PO AD BLOOD THINNER (Reported) Review of Systems Review of Systems Constitutional: Denies: chills, fever. Cardiovascular: Denies: chest pain. Respiratory: Denies: short of breath. Musculoskeletal: Denies: joint swelling. Skin: Reports: no symptoms. 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 Home Who Do You Live With? niece Primary Language: Pashto Smoking Status: Former Smoker (50 pack year smokinig history) ETOH Use: denies use Illicit Drug Use: denies illicit drug use Functional Ability ADLs Independent: dressing, eating, toileting, bathing. Ambulation: cane, walker IADLs Independent: shopping. 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 Exam & Diagnostic Data Last 24 Hrs of Vital Signs/I&O Vital Signs Date Time Temp Pulse Resp B/P B/P Pulse O2 O2 Flow FiO2 Mean Ox Delivery Rate 09/15 0621 98.4 65 20 138/76 93 Room Air 09/14 2353 154/60 09/14 2250 98.1 78 20 154/60 94 Room Air 09/14 1934 98.7 76 14 181/83 96 Room Air 09/14 1744 98.7 76 18 181/83 09/14 1714 98.7 76 18 181/83 94 Room Air 09/14 1432 60 18 195/87 97 09/14 1124 96.6 64 16 180/72 98 Room Air Room Air 09/14 0838 96.3 68 16 185/74 98 Room Air Room Air Intake & Output 09/15 1600 09/15 0800 09/15 0000 Intake Total 840 465 Output Total 1000 800 Balance -160 -335 Intake, IV 600 225 Intake, Oral 240 240 Number 1 Bowel Movements Output, Urine 1000 800 Patient 200 lb Weight Physical Exam General Appearance: awake, lethargic Head: normal appearance Neck: normal inspection Respiratory: normal breath sounds Cardiovascular: regular rate/rhythm Gastrointestinal: normal bowel sounds, soft Extremities: normal inspection Skin: intact Assessment/Plan Assessment/Plan This 80-year-old male was treated as an outpatient with both Tresiba and glipizide for type 2 diabetes. He had a severe low sugar at home with change in his mental status. He was unable to recognize the sugar early enough to correct it himself. He was found by his niece barely responsive and an ambulance was called . The patient does have some underlying heart disease and atrial fibrillation. In addition he has chronic renal insufficiency stage III. At the present time I would discontinue the Tresiba and glipizide and observe his blood sugars. He is eating this morning. His sugar this morning before breakfast was 76 and after some apple juice was in the 90s. I would monitor the patient sugar 4 times a day before each meal and bedtime. We can change his sliding scale NovoLog to 3 times a day before meals only for sugars above 200. Sliding-scale NovoLog 3 times a day before meals should be less than 200 give no insulin, 201-250 give 2 units NovoLog, 251-300 give 3 units NovoLog, 301-350 give 4 units NovoLog, 351-400 give 5 units NovoLog. Low blood sugars are extremely dangerous to this patient. In a patient of this age we must modify our enthusiasm for tight control of diabetes and shoot for only moderate control because of the risk of hypoglycemia outweighs the risk of future complications. After observing his blood sugars in the hospital we can design a diabetic regimen for him to go home on. The patient's thyroid tests should be checked including a free T4 and TSH. Consult Acknowledgment - Thank you for your consult request.
[2016-09-15 09:28] LABS: PT 13.6 SEC (9.4-12.5)
[2016-09-15 09:32] LABS: ABSOLUTE BASOPHIL COUNT 0.1 /CUMM (0.0-0.2); ABSOLUTE EOSINOPHIL COUNT 0 /CUMM (0.0-0.7); ABSOLUTE GRANULOCYTE CT 7.8 /CUMM (1.4-6.5); ABSOLUTE LYMPH COUNT 1.5 /CUMM (1.2-3.4); ABSOLUTE MONOCYTE COUNT 0.9 /CUMM (0.10-0.60); BASOPHIL % 0.6 % (0.0-2.0); EOSINOPHIL % 0.5 % (0-5); GRANULOCYTE % 75.4 % (42.2-75.2); HEMATOCRIT 36.6 % (42-52); MEAN CORPUSCULAR HGB 30.5 PG (27.0-31.0); MEAN CORPUSCULAR HGB CONC 33.4 G/DL (33.0-37.0); MEAN CORPUSCULAR VOLUME 91.3 FL (80.0-94.0); MEAN PLATELET VOLUME 7.3 FL (7.4-10.4); PLATELET COUNT 245 /CUMM (130-400); RBC DISTRIBUTION WIDTH 14.6 % (11.5-14.5); RED BLOOD CELL CT 4.01 /CUMM (4.70-6.10); WHITE BLOOD CELL COUNT 10.3 /CUMM (4.8-10.8)
--- NOTE | 2016-09-15 12:58 | PN- Att Addend ---
Attending Addendum Attending Brief Note Patient seen and examined. Plan of care discussed with the medical team and the patient. Available lab work and radiology test reports were reviewed. Patient' s family is at the bedside. Patient is awake alert and denies any new complaints. He denies any lightheadedness or fever or chills. he denies any nausea vomiting. Vital Signs Date Time Temp Pulse Resp B/P B/P Pulse O2 O2 Flow FiO2 Mean Ox Delivery Rate 09/15 1040 65 138/76 09/15 1038 65 138/76 09/15 0621 98.4 65 20 138/76 93 Room Air 09/14 2353 154/60 09/14 2250 98.1 78 20 154/60 94 Room Air 09/14 1934 98.7 76 14 181/83 96 Room Air 09/14 1744 98.7 76 18 181/83 09/14 1714 98.7 76 18 181/83 94 Room Air 09/14 1432 60 18 195/87 97 Intake & Output 09/15 1600 09/15 0800 09/15 0000 Intake Total 840 465 Output Total 1000 800 Balance -160 -335 Intake, IV 600 225 Intake, Oral 240 240 Number 1 Bowel Movements Output, Urine 1000 800 Patient 200 lb 200 lb Weight Exam: General: Patient awake alert oriented without any distress CVS: S1 plus S2 without any murmur or gallops Chest: Few scattered crepitation without any wheeze. There is no respiratory distress. Abdomen: Soft nontender, bowel sound present, no guarding or rebound RADIOLOGY MANAGER: Awake alert oriented without any focal neuro deficit and follows command appropriately Extremities: No edema; no clubbing or cyanosis noted Laboratory Tests 09/15 0625 Chemistry Sodium (137 - 145 mmol/L) 139 Potassium (3.5 - 5.1 mmol/L) 5.0 Chloride (98 - 107 mmol/L) 105 Carbon Dioxide (22 - 30 mmol/L) 21 L Anion Gap (5 - 16) 13 BUN (9 - 20 mg/dL) 27 H Creatinine (0.7 - 1.2 mg/dL) 1.4 H Estimated GFR (>60 ml/min) 49 L BUN/Creatinine Ratio (7 - 25 %) 19.3 Coagulation PT (9.4 - 12.5 SEC) 13.6 H INR (0.90 - 1.17) 1.30 H Hematology CBC w Diff NO MAN DIFF REQ WBC (4.8 - 10.8 /CUMM) 10.3 RBC (4.70 - 6.10 /CUMM) 4.01 L Hgb (14.0 - 18.0 G/DL) 12.2 L Hct (42 - 52 %) 36.6 L MCV (80.0 - 94.0 FL) 91.3 MCH (27.0 - 31.0 PG) 30.5 RDW (11.5 - 14.5 %) 14.6 H Plt Count (130 - 400 /CUMM) 245 MPV (7.4 - 10.4 FL) 7.3 L Gran % (42.2 - 75.2 %) 75.4 H Lymphocytes % (20.5 - 51.1 %) 15.0 L Monocytes % (1.7 - 9.3 %) 8.5 Eosinophils % (0 - 5 %) 0.5 Basophils % (0.0 - 2.0 %) 0.6 Absolute Granulocytes (1.4 - 6.5 /CUMM) 7.8 H Absolute Lymphocytes (1.2 - 3.4 /CUMM) 1.5 Absolute Monocytes (0.10 - 0.60 /CUMM) 0.9 H Absolute Eosinophils (0.0 - 0.7 /CUMM) 0 Absolute Basophils (0.0 - 0.2 /CUMM) 0.1 PUBS MCHC (33.0 - 37.0 G/DL) 33.4 Assessment * Hyperglycemia- improved this morning Accu-Chek was 174; patient being followed by Dr. Lara * Stage III CKD * History of for diabetes * His fibrillation on Coumadin * History of hypertension * History of hyperlipidemia * Status post pacemaker Plan * Continue sliding scale * Can discontinue D5W infusion * Extended observation; May need admission if endocrinology wants to monitor new drug regimen in the hospital * Plan of care discussed with the family members who were at the bedside
[2016-09-15 15:02] VITALS: BP 124/70
--- NOTE | 2016-09-15 16:00 | NUR ---
WOUND CARE: REQUESTED BY NURSING STAFF TO EVALUATE PT FOR SKIN ALTERATION PRESENT ON ADMISSION TO UPPER AND LOWER EXT - PT OBSERVED IN BED RESTELESS PICKING AT UPPER EXT SCABS - PT NOTED WITH MULTIPLE DRIED SCABBED LESIONS TO UPPER EXT, KNEE AND LEGS WITHOUT EVIDENCE OF INFECTION - EASILY REDIRECTED RECOMMEDNATION: APPLY MOISTURIZER TWICE DAILY FB TUPIGRIP SIZE F FROM WRISTS TO ELBOWS
--- NOTE | 2016-09-15 23:19 | NUR ---
PT DISORIENTED AND IMPULSIVE, MULTIPLE ATTEMPS MADE TO GET OUT OF BED WITHOUT CALLING NURSE DESPITE CALL MANLEY WITHIN REACH AND BED ALARM ON. MD MADE AWARE. PATIENT SAFETY MONITOR ORDERED TO KEEP SAFE.
[2016-09-15 23:27] VITALS: BP 120/58
[2016-09-16 06:43] VITALS: BP 140/66
--- NOTE | 2016-09-16 07:22 | PN- Housestaff ---
Subjective Follow-up For: Hypoglycemia Subjective: I saw and examined the patient. Pt is impulsive and tries to get out of bed. A safety monitor was placed with him last night. Pt is doing well today. Pt's bg has been between 80 and 200. Pt denies n/v, abdominal pain, lightheadedness/ dizziness, chest pain, SOB. Review of Systems Constitutional: Denies: no symptoms. Cardiovascular: Denies: no symptoms. Respiratory: Denies: no symptoms. Gastrointestinal: Denies: no symptoms. Genitourinary: Denies: no symptoms. Musculoskeletal: Denies: no symptoms. Objective Last 24 Hrs of Vital Signs/I&O Vital Signs Date Time Temp Pulse Resp B/P B/P Pulse O2 O2 Flow FiO2 Mean Ox Delivery Rate 09/16 0801 120/62 09/16 0801 120/62 09/16 0643 98.1 60 18 140/66 94 Room Air 09/15 2327 97.9 71 20 120/58 94 Room Air 09/15 2214 120/58 09/15 1502 97.5 75 20 124/70 95 Room Air Intake & Output 09/16 1600 09/16 0800 09/16 0000 Intake Total 1500 450 Output Total 400 1025 Balance 1100 -575 Intake, Oral 1500 450 Output, Urine 400 1025 Physical Exam General Appearance: Alert, Cooperative, No Acute Distress HEENT: Atraumatic, PERRLA, Mucous Membr. moist/pink Cardiovascular: Regular Rate, Normal S1, Normal S2 Lungs: Clear to Auscultation Abdomen: Normal Bowel Sounds, Soft, No Tenderness Extremities: Normal Pulses Assessment/Plan Assessment: 80-year-old male with a past medical history of diabetes mellitus, CK D stage IV hypertension, hyperlipidemia, A. fib status post pacemaker on Coumadin who presented to the ER with chief complaints of altered mental status including confusion and speech and was found to have low blood sugar with a fingerstick of 32. Admitted to general medicine for management of the followin. Episode of hypoglycemia - Most likely secondary to being on glipizide + 32 units of Tresiba - has had multiple low BG readings at home - We'll hold off all oral hypoglycemic agents at this point - As per Dr. Lara: - q4 checks before meals and at bedtime - sliding scale change: - <200 --> give no insulin - 201 to 250 --> give 2 units - 251 to 300 --> give 3 units - 301 to 350 --> give 4 units - 351 to 400 --> give 5 units - place on Metformin 500mg BID (smaller dose due to Cr: 1.4) 2. A. fib on Coumadin - Has subtherapeutic on his INR: 1.63, goal: 2 to 3 - We'll dose him Coumadin 5 mg 1. - Follow-up INR in a.m. 3. Hypertension Most likely secondary to not taking medications this morning. Start him on his home medications which include Cozaar 25 mg daily, metoprolol 50 mg twice a day 4. Hyperlipidemia Continue on atorvastatin 40 mg daily DVT PPX: On warfarin Diet: Diabetic CODE STATUS: Full code Problem List: 1. Hypoglycemia Pain Ratin Pain Location: n/a Pain Goal: Remain pain free Pain Plan: n/a Tomorrow's Labs & Rationales: cbc bep
--- NOTE | 2016-09-16 07:58 | PN- Diabetes ---
Assessment/Plan Assessment: The patient states he feels okay. Apparently he became somewhat confused and has a sitter with him. He has had no further low blood sugars. Review of the patient's blood sugars yesterday revealed that he was 97 before breakfast, 174 before lunch, 202 before dinner, and 181 at bedtime. Morning his sugar is 82 Looking at all the readings above, only one sugar would be covered and that was the one that was over 200 before dinner with a small dose of NovoLog. Plan: Suggest that with regard to the patient's diabetes we need\ to leave him off any basal insulin since his fasting sugars are good. Sugars became somewhat elevated later in the day yesterday. Since his creatinine is now 1.4, we could place him on a small dose of metformin. Suggest begin metformin 500 mg twice a day before breakfast and before dinner. The patient needs a workup for dementia. He probably should have a CT scan of his head in view of the confusion and we need to measure his vitamin B12 level. Patient's thyroid tests are okay. Subjective Subjective: Feels okay Review of Systems Constitutional: Denies: chills, fever. Cardiovascular: Denies: chest pain. Respiratory: Denies: cough, short of breath. Gastrointestinal: Denies: abdominal pain. Objective Last 24 Hrs of Vital Signs/I&O Vital Signs Date Time Temp Pulse Resp B/P B/P Pulse O2 O2 Flow FiO2 Mean Ox Delivery Rate 09/16 0801 120/62 09/16 0801 120/62 09/16 0643 98.1 60 18 140/66 94 Room Air 09/157 97.9 71 20 120/58 94 Room Air 09/15 2214 120/58 09/15 1502 97.5 75 20 124/70 95 Room Air 09/15 1040 65 138/76 09/15 1038 65 138/76 Intake & Output 09/16 1600 09/16 0800 09/16 0000 Intake Total 450 Output Total 1025 Balance -575 Intake, Oral 450 Output, Urine 1025 Vital Signs Date Time Temp Pulse Resp B/P B/P Pulse O2 O2 Flow FiO2 Mean Ox Delivery Rate 09/16 0801 120/62 09/16 0801 120/62 09/16 0643 98.1 60 18 140/66 94 Room Air 09/15 2327 97.9 71 20 120/58 94 Room Air 09/15 2214 120/58 09/15 1502 97.5 75 20 124/70 95 Room Air 09/15 1040 65 138/76 09/15 1038 65 138/76 Intake & Output 09/16 1600 09/16 0800 09/16 0000 Intake Total 450 Output Total 1025 Balance -575 Intake, Oral 450 Output, Urine 1025 Physical Exam General Appearance: alert, awake Head: normal appearance Respiratory: normal breath sounds Cardiovascular: regular rate/rhythm Abdomen: normal bowel sounds Extremities: normal inspection Current Medications: Current Medications Sig/Maribel Start time Last Medication Dose Route Stop Time Status Admin Acetaminophen 650 MG Q6P PRN 09/14 1600 AC PO Acetaminophen/ 1 TAB Q6P PRN 09/14 1600 AC Hydrocodone Bitart PO Aspirin Buffered 81 MG QAM 09/14 1649 AC 09/16 PO 0801 Atorvastatin Calcium 40 MG 1700 09/14 1700 AC 09/15 PO 1742 Ezetimibe 10 MG DAILY 09/14 1649 AC 09/16 PO 0801 Heparin Sodium 5,000 UNIT Q8 09/14 2200 AC 09/16 (Porcine) SC 0629 Insulin Aspart 0 Q4 09/14 2200 AC 09/15 SC 1800 Losartan Potassium 25 MG DAILY 09/14 1651 AC 09/16 PO 0801 Metoprolol Tartrate 50 MG BID 09/14 2200 AC 09/16 PO 0801 Morphine Sulfate 2 MG Q4P PRN 09/14 1600 AC IV Patient Medication 1 ED .STK-MED ONE 09/15 1409 DC Teaching ED 09/15 1410 Warfarin Sodium 4 MG COUMADIN 1700 ONE 09/15 1700 DC 09/15 PO 09/15 1701 1742
--- NOTE | 2016-09-16 08:18 | PN- Att Addend ---
Attending Addendum Attending Brief Note Patient seen and examined. Plan of care discussed with the medical team and the patient. Available lab work and radiology test reports were reviewed. Patient is awake alert and denies any new complaints. He denies any lightheadedness or fever or chills. he denies any nausea vomiting. Vital Signs Date Time Temp Pulse Resp B/P B/P Pulse O2 O2 Flow FiO2 Mean Ox Delivery Rate 09/16 0801 120/62 09/16 0801 120/62 09/16 0643 98.1 60 18 140/66 94 Room Air 09/15 2327 97.9 71 20 120/58 94 Room Air 09/15 2214 120/58 09/15 1502 97.5 75 20 124/70 95 Room Air 09/15 1040 65 138/76 09/15 1038 65 138/76 Intake & Output 09/16 1600 09/16 0800 09/16 0000 Intake Total 450 Output Total 1025 Balance -575 Intake, Oral 450 Output, Urine 1025 Exam: General: Patient awake alert oriented without any distress CVS: S1 plus S2 without any murmur or gallops Chest: Few scattered crepitation without any wheeze. There is no respiratory distress. 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 Lara * Stage III CKD * History of for diabetes * His fibrillation on Coumadin * History of hypertension * History of hyperlipidemia * Status post pacemaker Plan * Continue sliding scale * Agree with starting Glucophage 500 mg twice a day by mouth * Patient can be discharged home * Follow with PCP * Dementia workup can be done as outpatient * Ambulate patient with assist before discharge
[2016-09-16 14:53] VITALS: BP 124/60
[2016-09-16 22:08] VITALS: BP 120/70
[2016-09-17 06:30] VITALS: BP 126/60
--- NOTE | 2016-09-17 07:24 | PN- Housestaff ---
Subjective Follow-up For: Hypoglycemia Subjective: I saw and examined the patient. Pt is doing well today. Pt's bg has been between 82 and 238. Pt denies n/v, abdominal pain, lightheadedness/dizziness, chest pain, SOB. Review of Systems Constitutional: Denies: no symptoms. Cardiovascular: Denies: no symptoms. Respiratory: Denies: no symptoms. Gastrointestinal: Denies: no symptoms. Genitourinary: Denies: no symptoms. Musculoskeletal: Denies: no symptoms. Objective Last 24 Hrs of Vital Signs/I&O Vital Signs Date Time Temp Pulse Resp B/P B/P Pulse O2 O2 Flow FiO2 Mean Ox Delivery Rate 09/17 0750 142/64 09/17 0750 142/64 09/17 0630 98.5 71 18 126/60 94 Room Air 09/16 2208 98.7 70 20 120/70 95 Room Air 09/16 2044 70 120/70 Intake & Output 09/17 1600 09/17 0800 09/17 0000 Intake Total 700 Output Total Balance 700 Intake, Oral 700 Number 0 Bowel Movements Physical Exam General Appearance: Alert, Cooperative, No Acute Distress HEENT: Atraumatic, EOMI, Mucous Membr. moist/pink Cardiovascular: Regular Rate, Normal S1, Normal S2 Lungs: Clear to Auscultation Abdomen: Normal Bowel Sounds, Soft, No Tenderness Extremities: No Edema, Normal Pulses Assessment/Plan Assessment: 80-year-old male with a past medical history of diabetes mellitus, CK D stage IV hypertension, hyperlipidemia, A. fib status post pacemaker on Coumadin who presented to the ER with chief complaints of altered mental status including confusion and speech and was found to have low blood sugar with a fingerstick of 32. Admitted to general medicine for management of the followin. Episode of hypoglycemia - Most likely secondary to being on glipizide + 32 units of Tresiba and potentially taking too much (insulin level: 155) - has had multiple low BG readings at home - We'll hold off all oral hypoglycemic agents at this point - As per Dr. Lara: * q4 checks before meals and at bedtime * increased Metformin from 500mg BID to 850mg BID (smaller dose due to Cr: 1.4) * at home: check sugars before breakfast and before dinner, discontinue all meds except metformin 2. A. fib on Coumadin - Has subtherapeutic on his INR: 1.87, goal: 2 to 3 - Pt should continue home regimen of warfarin 3. Hypertension Most likely secondary to not taking medications this morning. Start him on his home medications which include Cozaar 25 mg daily, metoprolol 50 mg twice a day 4. Hyperlipidemia Continue on atorvastatin 40 mg daily 5. Confusion/Dementia: - pt is alert but not oriented to time, appears to be confused and forgetful which could have led to this admission as pt gives himself medicine and may have accidentally taken too much insulin (level: 155). - pt had normal B12 levels (480), TSH (2.220), T4 (1.23) and AM cortisol (21.2) - workup was started, but should be continued as outpatient. - pt had no indication of fall or head injury so CT of head was not performed this admission - consider head CT outpatient and completion of dementia workup by primary care provider DVT PPX: On warfarin Diet: Diabetic CODE STATUS: Full code Problem List: 1. Hypoglycemia Pain Ratin Pain Location: n/a Pain Goal: Remain pain free Pain Plan: n/a Tomorrow's Labs & Rationales: none
--- NOTE | 2016-09-17 07:37 | PN- Diabetes ---
Assessment/Plan Assessment: The patient states he feels better. He is less confused today. The patient was started on metformin yesterday but he did not receive the first dose until his suppertime meal. His blood sugars were 82 before breakfast, 190 before lunch, 238 before dinner, and to 75 at bedtime. This morning his fingerstick blood sugar was 132. A B12 level was not ordered as suggested Plan: Suggest increase the patient's metformin to 850 mg twice a day with breakfast and dinner. If the patient goes home today he can go home on metformin and a diabetic diet. He should monitor her sugars at home before breakfast and before supper. If they become significantly elevated and his diabetic regimen will be necessary. He should stay off insulin at present. There is no need to do Accu-Cheks every 4 hours. We can change them to 4 times a day before meals and bedtime while in the hospital and twice a day before breakfast and supper when at home. Subjective Subjective: Feels okay Objective Last 24 Hrs of Vital Signs/I&O Vital Signs Date Time Temp Pulse Resp B/P B/P Pulse O2 O2 Flow FiO2 Mean Ox Delivery Rate 09/17 0630 98.5 71 18 126/60 94 Room Air 09/16 2208 98.7 70 20 120/70 95 Room Air 09/16 2044 70 120/70 09/16 1453 98.2 66 20 124/60 93 Room Air 09/16 0801 120/62 18 0801 120/62 Intake & Output 09/17 0800 09/17 0000 09/16 1600 Intake Total 700 1500 Output Total 400 Balance 700 1100 Intake, Oral 700 1500 Number 0 Bowel Movements Output, Urine 400 Vital Signs Date Time Temp Pulse Resp B/P B/P Pulse O2 O2 Flow FiO2 Mean Ox Delivery Rate 09/17 0630 98.5 71 18 126/60 94 Room Air 09/16 2208 98.7 70 20 120/70 95 Room Air 09/16 2044 70 120/70 18 1453 98.2 66 20 124/60 93 Room Air 09/16 0801 120/62 18 0801 120/62 Intake & Output 09/17 0800 09/17 0000 09/16 1600 Intake Total 700 1500 Output Total 400 Balance 700 1100 Intake, Oral 700 1500 Number 0 Bowel Movements Output, Urine 400 Current Medications: Current Medications Sig/Maribel Start time Last Medication Dose Route Stop Time Status Admin Acetaminophen 650 MG Q6P PRN 09/14 1600 AC PO Acetaminophen/ 1 TAB Q6P PRN 09/14 1600 AC Hydrocodone Bitart PO Aspirin Buffered 81 MG QAM 09/14 1649 AC 09/16 PO 0801 Atorvastatin Calcium 40 MG 1700 09/14 1700 AC 09/16 PO 1657 Ezetimibe 10 MG DAILY 09/14 1649 AC 09/16 PO 0801 Heparin Sodium 5,000 UNIT Q8 09/14 2200 AC 09/17 (Porcine) SC 0543 Insulin Aspart 0 Q4 09/14 2200 AC 09/16 SC 2045 Losartan Potassium 25 MG DAILY 09/14 1651 AC 09/16 PO 0801 Metformin HCl 500 MG 0800,1700 09/16 1700 AC 09/16 PO 1657 Metoprolol Tartrate 50 MG BID 09/14 2200 AC 09/16 PO 2044 Morphine Sulfate 2 MG Q4P PRN 09/14 1600 AC IV Warfarin Sodium 4 MG COUMADIN 1700 ONE 09/16 1700 DC PO 09/16 1701 Warfarin Sodium 5 MG COUMADIN 1700 ONE 09/16 1700 DC 09/16 PO 09/16 1701 1657 Findings Pertinent Lab/Ace Results: Vital Signs Date Time Temp Pulse Resp B/P B/P Pulse O2 O2 Flow FiO2 Mean Ox Delivery Rate 09/17 0630 98.5 71 18 126/60 94 Room Air 09/16 2208 98.7 70 20 120/70 95 Room Air 09/16 2044 70 120/70 09/16 1453 98.2 66 20 124/60 93 Room Air 09/16 0801 120/62 09/16 0801 120/62 Intake & Output 09/17 0800 09/17 0000 09/16 1600 Intake Total 700 1500 Output Total 400 Balance 700 1100 Intake, Oral 700 1500 Number 0 Bowel Movements Output, Urine 400
[2016-09-17 07:50] VITALS: BP 142/64
[2016-09-17] MEDS ORDERED: GLUCOPHAGE500 M1 PO (08:05)
--- NOTE | 2016-09-17 08:09 | PN- Att Addend ---
Attending Addendum Attending Brief Note Patient seen and examined. Plan of care discussed with the medical team and the patient. Available lab work and radiology test reports were reviewed. Patient is awake alert and denies any new complaints. He denies any lightheadedness or fever or chills. he denies any nausea vomiting. Pt was able to walk with waker. Vital Signs Date Time Temp Pulse Resp B/P B/P Pulse O2 O2 Flow FiO2 Mean Ox Delivery Rate 09/17 0750 142/64 09/17 0750 142/64 09/17 0630 98.5 71 18 126/60 94 Room Air 09/16 2208 98.7 70 20 120/70 95 Room Air 09/16 2044 70 120/70 09/16 1453 98.2 66 20 124/60 93 Room Air Intake & Output 09/17 1600 09/17 0800 09/17 0000 Intake Total 700 Output Total Balance 700 Intake, Oral 700 Number 0 Bowel Movements Exam: General: Patient awake alert oriented without any distress CVS: S1 plus S2 without any murmur or gallops Chest: Few scattered crepitation without any wheeze. There is no respiratory distress. 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: Awake alert oriented without any focal neuro deficit and follows command appropriately Extremities: No edema; no clubbing or cyanosis noted Laboratory Tests 09/17 0635 Chemistry Sodium (137 - 145 mmol/L) 140 Potassium (3.5 - 5.1 mmol/L) 4.4 Chloride (98 - 107 mmol/L) 106 Carbon Dioxide (22 - 30 mmol/L) 23 Anion Gap (5 - 16) 11 BUN (9 - 20 mg/dL) 44 H Creatinine (0.7 - 1.2 mg/dL) 1.8 H Estimated GFR (>60 ml/min) 36 L BUN/Creatinine Ratio (7 - 25 %) 24.4 Vitamin B12 (239 - 931 pg/mL) 480 Coagulation PT (9.4 - 12.5 SEC) 19.5 H INR (0.90 - 1.17) 1.87 H Hematology CBC w Diff NO MAN DIFF REQ WBC (4.8 - 10.8 /CUMM) 6.6 RBC (4.70 - 6.10 /CUMM) 3.80 L Hgb (14.0 - 18.0 G/DL) 11.6 L Hct (42 - 52 %) 34.3 L MCV (80.0 - 94.0 FL) 90.2 MCH (27.0 - 31.0 PG) 30.6 RDW (11.5 - 14.5 %) 14.6 H Plt Count (130 - 400 /CUMM) 233 MPV (7.4 - 10.4 FL) 7.4 Gran % (42.2 - 75.2 %) 65.3 Lymphocytes % (20.5 - 51.1 %) 20.0 L Monocytes % (1.7 - 9.3 %) 11.1 H Eosinophils % (0 - 5 %) 2.9 Basophils % (0.0 - 2.0 %) 0.7 Absolute Granulocytes (1.4 - 6.5 /CUMM) 4.3 Absolute Lymphocytes (1.2 - 3.4 /CUMM) 1.3 Absolute Monocytes (0.10 - 0.60 /CUMM) 0.7 H Absolute Eosinophils (0.0 - 0.7 /CUMM) 0.2 Absolute Basophils (0.0 - 0.2 /CUMM) 0 PUBS MCHC (33.0 - 37.0 G/DL) 33.9 Assessment * Hyperglycemia- improved this morning Accu-Chek was 132; patient being followed by Dr. Lara * Stage III CKD- creatinine increased to 1.8 however this is close to his baseline * History of for diabetes * His fibrillation on Coumadin * History of hypertension * History of hyperlipidemia * Status post pacemaker Plan * Continue sliding scale * Patient can be discharged home * Follow with PCP * Dementia workup can be done as outpatient * increase dose of metformin to 850mg BID. Total time spent in preparation for discharge plan, patient education, and CMR preparation was 35 minutes.
--- NOTE | 2016-09-17 08:13 | Patient Discharge Instructions ---
Discharge Instructions General Discharge Information You were seen/treated for: Hypoglycemia Watch for these problems: 1. Dizziness, lightheadedness, confusion, falls 2. Fever, chills, nausea or vomitting Special Instructions: 1. Please follow up with your primary care provider in 1 week 2. Please follow up with your printing machine operator in 1 week 3. Please stop taking your home medications for diabetes 4. Please only take Metformin 5. Please check your sugars daily. monitor sugars at home before breakfast and before supper. 6. Start diabetic diet Diet Continue normal diet: No Recommended Diet: Diabetic Activity Full Activity/No Limits: No Activity Self Limited: Yes Acute Coronary Syndrome Inclusion Criteria At DC or during hospital stay patient has or had the following: ACS DIAGNOSIS No Discharge Core Measures Meds if any: Prescribed or Continued at Discharge Meds if any: NOT Prescribed or Continued at Discharge Congestive Heart Failure Inclusion Criteria At DC or during hospital stay patient has or had the following: CHF DIAGNOSIS No Discharge Core Measures Meds if any: Prescribed or Continued at Discharge Meds if any: NOT Prescribed or Continued at Discharge Cerebrovascular accident Inclusion Criteria At DC or during hospital stay patient has or had the following: CVA/TIA Diagnosis No Discharge Core Measures Meds if any: Prescribed or Continued at Discharge Meds if any: NOT Prescribed or Continued at Discharge Venous thromboembolism Inclusion Criteria VTE Diagnosis No VTE Type NONE VTE Confirmed by (Test) NONE Discharge Core Measures - Per Current guidelines, there needs to be overlap - treatment for the first 5 days of Warfarin therapy. - If discharged on Warfarin prior to 5 days of - overlap therapy, the patient will need to be - assessed for post discharge needs including - *Post discharge parental anticoagulation - *Warfarin and/or parental anticoagulation education - *Follow up date to check INR post discharge At least 5 days overlap therapy as Inpatient No Meds if any: Prescribed or Continued at Discharge Note: Overlap Therapy is Warfarin and Anticoagulant Meds if any: NOT Prescribed or Continued at Discharge
[2016-09-17 08:53] LABS: PT 19.5 SEC (9.4-12.5)
[2016-09-17 09:08] LABS: ABSOLUTE BASOPHIL COUNT 0 /CUMM (0.0-0.2); ABSOLUTE EOSINOPHIL COUNT 0.2 /CUMM (0.0-0.7); ABSOLUTE GRANULOCYTE CT 4.3 /CUMM (1.4-6.5); ABSOLUTE LYMPH COUNT 1.3 /CUMM (1.2-3.4); ABSOLUTE MONOCYTE COUNT 0.7 /CUMM (0.10-0.60); BASOPHIL % 0.7 % (0.0-2.0); EOSINOPHIL % 2.9 % (0-5); GRANULOCYTE % 65.3 % (42.2-75.2); HEMATOCRIT 34.3 % (42-52); MEAN CORPUSCULAR HGB 30.6 PG (27.0-31.0); MEAN CORPUSCULAR HGB CONC 33.9 G/DL (33.0-37.0); MEAN CORPUSCULAR VOLUME 90.2 FL (80.0-94.0); MEAN PLATELET VOLUME 7.4 FL (7.4-10.4); PLATELET COUNT 233 /CUMM (130-400); RBC DISTRIBUTION WIDTH 14.6 % (11.5-14.5); WHITE BLOOD CELL COUNT 6.6 /CUMM (4.8-10.8)
[2016-09-17] MEDS ORDERED: GLUCOPHAGE850 M2 PO ×2 (09:27→14:13)
--- NOTE | 2016-09-17 20:02 | Discharge Summary ---
Visit Information Visit Dates Admission Date: 09/14/16 Discharge Date: 09/17/16 Hospital Course Course Attending Physician: [place] MCCORMACK,JEREMIE Primary Care Physician: JERALD MCCORMACK,SILVA Suarez Hospital Course: 80-year-old male with a past medical history of diabetes mellitus, CKD stage IV hypertension, hyperlipidemia, A. fib status post pacemaker on Coumadin who presented to the ER with chief complaints of altered mental status including confusion and speech and was found to have low blood sugar with a fingerstick of 32. On admission: Vitals: blood pressure 185/74, respiratory rate of 16, pulse 68, afebrile saturating 98% on room air. Labs: white blood cell count of 8300, H&H of 11.9/36.1, MCV of 91.6 with a platelet count 227,000. Serum chemistries revealed a sodium of 141, potassium of 4.6, bicarbonate of 23, anion gap of 11, BUN 32 with a creatinine 1.5. Serum glucose of 109. LFTs unremarkable with an AST/ALT of 32/39, alkaline phosphatase of 65. In the ER he was started on D5 half-normal saline. His fingersticks ranged from 119, 134, 103, 91 and 51 Admitted to general medicine for management of the followin. Episode of hypoglycemia - Most likely secondary to being on glipizide + 32 units of Tresiba and potentially taking too much (insulin level: 155) - Has had multiple low BG readings at home - Stopped all home medications - Endocrinology was consulted. Appreciated recommendations. Per Dr. Lara: * q4 checks were done before meals and at bedtime * increased Metformin from 500mg BID to 850mg BID (smaller dose due to Cr: 1.8- close to baseline) * at home: check sugars before breakfast and before dinner, discontinue all meds except metformin 850mg BID 2. A. fib on Coumadin - Has subtherapeutic on his INR: 1.87, goal: 2 to 3 - Pt should continue home regimen of warfarin 3. Hypertension - Most likely secondary to not taking medications this morning. - Continue home medications: Cozaar 25 mg daily, metoprolol 50 mg twice a day 4. Hyperlipidemia - Continue on atorvastatin 40 mg daily 5. Confusion/Dementia: - Pt is alert but not oriented to time, appears to be confused and forgetful which could have led to this admission as pt gives himself medicine and may have accidentally taken too much insulin (level: 155). - Pt had normal B12 levels (480), TSH (2.220), T4 (1.23) and AM cortisol (21.2) - Workup was started, but should be continued as outpatient - Pt had no indication of fall or head injury so CT of head was not performed this admission - CT Head w/o Contrast (in 2014): showed no acute intracranial pathology, mild chronic microvascular ischemic changes are suspected throughout the supratentorial white matter. There is moderate diffuse prominence of the ventricles and sulcal spaces due to chronic volume loss. - Consider head CT outpatient and completion of dementia workup by primary care provider Allergies: Coded Allergies: NO KNOWN ALLERGIES (03/24/16) Disposition Summary Disposition Principal Diagnosis: Hypoglycemia Additional Diagnosis: Atrial fibrillation on Coumadin Hypertension Hyperlipidemia Confusion/Dementia Discharge Disposition: home health services Discharge Instructions General Discharge Information Code Status: Full Code Patient's Diet: Diabetic Patient's Activity: Walker dependent Follow-Up Instructions/Appts: 1. Follow up with PCP in 1 week 2. Follow up with Inspector Eyeglass in 1 week 3. Stop all home diabetic medications 4. Only take metformin 850mg twice a day 5. Check blood sugars before breakfast and before dinner daily 6. If pt has low blood sugars, nausea/vomitting, lightheadedness, confusion, fall, fever/chills, pt should call PCP or come to the ED. Medications at Discharge Discharge Medications: Stop taking the following medications: Sitagliptin Phosphate (Januvia) 50 MG TABLET ORAL Every Morning Glipizide (Glipizide) 10 MG TABLET ORAL TWICE DAILY Insulin Degludec (Tresiba Flextouch U-200) 200 UNIT/ML (3 ML) INSULN.PEN Inject into fatty tissue DAILY Qty = 27 Continue taking these medications: Aspirin (Ecotrin*) 81 MG TABLET.DR 1 Tablet ORAL Every Morning Comments: Last Taken:09/17/16 Time:9AM Valsartan (Diovan) 40 MG TABLET 1 Tablet ORAL DAILY Comments: Last Taken: Time:NOT GIVEN ON THIS ADMISSION Metoprolol Tartrate (Lopressor) 50 MG TABLET 1 Tablet ORAL TWICE DAILY Comments: Last Taken:09/17/16 Time:9AM Rosuvastatin Calcium (Crestor) 10 MG TABLET 1 Tablet ORAL DAILY Comments: Last Taken: Time:NOT GIVEN ON THIS ADMISSION Ezetimibe (Zetia) 10 MG TABLET 1 Tablet ORAL DAILY Comments: Last Taken:09/17/16 Time:9AM Warfarin Sodium (Warfarin Sodium) 3 MG TABLET 1 Tablet ORAL As Directed Qty = 90 Comments: Last Taken: Time:ALTERNATIVE DOSE GIVEN IN THE HOSPITAL Warfarin Sodium (Coumadin) 2 MG TABLET 1 Tablet ORAL As Directed Qty = 90 Instructions: THURSDAY AND THURSDAY Comments: Last Taken: Time:ALTERNATIVE DOSE GIVEN IN THE HOSPITAL Ipratropium [place] (Ipratropium [place]) 42 MCG (0.06 %) SPRAY 2 [place] In the nose as needed for RHINITIS Qty = 15 Comments: Last Taken: Time:NOT GIVEN ON THIS ADMISSION Start taking the following new medications: Metformin HCl (Glucophage) 850 MG TABLET 1 Tablet ORAL TWICE DAILY Qty = 60 No Refills Comments: Last Taken:09/17/16 Time:9AM Copies To: JERALD MCCORMACK,SILVA Suarez; BRYNN MCCORMACK,SAMMY Montalvo
== END 2016-09-17 13:20 | disposition home health service (06) ==
LOC: ERH 08:34 → ERHI 15:34 → 2NA 15:34 → ENRESERV 17:02 → ENTRNSPT 19:57 → EDTRNSPTSTS 20:15 → 2NA 20:29 → CMPTRNSPT 20:42 → ENPENDDIS 09-17 11:09 → 2NA 09-17 13:20
PROVIDERS: Internal Medicine; Internal Medicine Infectious Disease; Student in an Organized Health Care Education/Training Program; ADMIT Hospitalist
DX: E11.649 Type 2 diabetes mellitus with hypoglycemia without coma (principal); Z79.4 Long term (current) use of insulin; E11.22 Type 2 diabetes mellitus with diabetic chronic kidney disease; I12.9 Hypertensive chronic kidney disease with stage 1 through stage 4 chronic kidney disease, or unspecified chronic kidney disease; N18.4 Chronic kidney disease, stage 4 (severe); Z87.891 Personal history of nicotine dependence; E78.5 Hyperlipidemia, unspecified; I48.91 Unspecified atrial fibrillation; Z79.01 Long term (current) use of anticoagulants; F03.90 Unspecified dementia, unspecified severity, without behavioral disturbance, psychotic disturbance, mood disturbance, and anxiety; Z95.0 Presence of cardiac pacemaker
CPT/HCPCS: 36415; 82436; 86337; 93005; 93010; 96372; G0378; J1644; J7042

== ENCOUNTER 2017-04-06 11:58 | Inpatient (IN) | payer OTHER ==
[~2017-04-06] VITALS: Ht 177.8 cm; Wt 90.9 kg
[~2017-04-06 11:58] MED LIST changes: -COUMADIN2 M1 PO; +GLUCOPHAGE500 M1 PO; +GLUCOPHAGE850 M2 PO
--- NOTE | 2017-04-06 12:13 | ED GENERAL ADULT ---
History of Present Illness General Chief Complaint: Altered Mental Status Stated Complaint: LETHARGY AND COUGH Source: patient, family, old records, EMS Exam Limitations: poor historian Vital Signs & Intake/Output Vital Signs & Intake/Output Vital Signs Date Time Temp Pulse Resp B/P B/P Pulse O2 O2 Flow FiO2 Mean Ox Delivery Rate 04/07 1008 73 116/80 04/07 0919 96 Nasal 4.0L Cannula 04/07 0800 98.6 73 13 124/60 99 Nasal 50% Cannula 04/07 0800 99 Nasal 50% Cannula 04/07 0354 100 Nasal 50% Cannula 04/07 0206 99.8 04/07 0148 97 Nasal 50% Cannula 04/07 0100 102.1 02 0000 89 Venti Mask 55% 04/07 0000 102.1 76 32 116/62 89 Venti Mask 55% 04/06 2150 Nasal 6.0L Cannula 04/06 2148 88 20 140/74 04/06 1900 98.8 70 20 120/60 92 Nasal 2.0L Cannula 04/06 1900 92 Nasal 2.0L Cannula 04/06 1755 69 19 112/62 94 Nasal Cannula 04/06 1627 Room Air 04/06 1616 98.9 62 18 105/55 92 Nasal 2.0L Cannula 04/06 1356 99.8 90 18 130/63 95 02 1340 92 Nasal 2.0L Cannula ED Intake and Output 04/07 0000 02 1200 Intake Total 1661 Output Total 765 Balance 896 Intake, IV 1541 Intake, Oral 120 Output, Urine 765 Patient 205 lb 200 lb Weight Weight Bed scale Estimated Measurement Method Triage Note: PT BIBA FROM HOME WITH C/O INCREASED LETHARGY. PER EMS, PT WAS DIFFICULT TO AWAKEN THIS MORNING AROUND 0900. THEY WOKE HIM, GOT HIM FROM BED, CHECKED BLOOD GLUCOSE IN 250s AND GAVE HIM 6 UNITS NOVOLOG WITH BREAKFAST. FAMILY CONTACTED PCP WHO SUGGESTED HE BE BROUGHT TO THE ED. PT ARRIVES AWAKE, ALERT TO PERSON AND PLACE, PALE COMPLEXION. EMS REPORTS BG OF 356. O2 SAT IN 70s ON ARRIVAL ON RA. PLACED ON NC 2L; SAT IMPROVED TO 91% Triage Nurses Notes Reviewed? yes Onset: Gradual Duration: worse persistent since (1-2 DAYS) Timing: no prior history Injury Environment: home Severity: moderate No Modifying Factors: none HPI: Patient is an 81-year-old male with history of hypertension, diabetes, presenting from home via EMS with chief complaint of increased lethargy and altered mental status is been going on since this morning. According to family members and EMS patient was difficult to arouse this morning. They checked his blood glucose level and it was around 250. They then proceeded to give him NovoLog as directed with breakfast. They called the primary care physician who suggested that he go to the emergency department for evaluation. Patient reports generalized body weakness and fatigue. Denies any chest pain or palpitations. Patient denying any abdominal pain. Denies any diarrhea. Denies any urinary frequency or urgency or dysuria. Has not taken anything to help with symptoms at home. Patient does report that he received the influenza vaccine. According to the niece the patient went to bed around 5 PM yesterday without eating dinner, reported that he was very fatigued. He slept through the night, they checked on him around 9 AM this morning. Call the primary care physician who told them to wake him up and checked his blood glucose level. It was around 250. Patient then reported that he wanted T breakfast. He was able to eat in the left tibia without difficulty. His blood sugar remains stable, they called the primary care physician back in a suggested he come into the emergency department for evaluation. Patient denies any chest pain or palpitations. No shortness of breath. Patient's only complaint is generalized malaise and weakness. Denies any falls. DENIES any urinary frequency urgency or dysuria. (Jamilah FAGAN,Crys) Allergies Coded Allergies: NO KNOWN ALLERGIES (NONE 04/06/17) Reconcile Medications Aspirin (Ecotrin*) 81 MG TABLET.DR 1 TAB PO QAM HEART/BLOOD (Reported) Ezetimibe (Zetia) 10 MG TABLET 1 TAB PO DAILY CHOLESTEROL (Reported) Insulin Aspart, Recombinant (Novolog Flexpen) 100 UNIT/ML INSULN.PEN DIABETES ( Reported) Insulin Degludec (Tresiba Flextouch U-200) 200 UNIT/ML (3 ML) INSULN.PEN 16 UNITS SQ DAILY DIABETES (Reported) Ipratropium Zwingle 42 MCG (0.06 %) SPRAY 2 SPRAY LOW PRN RHINITIS (Reported) Metformin HCl (Glucophage) 850 MG TABLET 1 TAB PO BID DM Metoprolol Tartrate (Lopressor) 50 MG TABLET 1 TAB PO BID HEART/BP (Reported) Rosuvastatin Calcium (Crestor) 10 MG TABLET 1 TAB PO DAILY CHOLESTEROL ( Reported) Warfarin Sodium 3 MG TABLET 1 TAB PO AD BLOOD THINNER (Reported) (Priscilla MCCORMACK,Julia) Past History Medical History Any Pertinent Medical History? 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 No (Crys Bedolla) Review of Systems Review of Systems Constitutional: Reports: malaise, weakness. Comments Review of systems: See HPI, All other systems negative. Constitutional, no chills fever or weight loss HEENT: No visual changes no sore throat no congestion Cardiovascular: No chest pain ,palpitation , orthopnea or ankle swelling Skin, no jaundice no rashes Respiratory: No dyspnea sputum or hemoptysis GI: No nausea no vomiting : No dysuria No hematuria Muscle skeletal: no back pain, no neck pain, Neurologic: No numbness NO HEADACHES Psych: No stress anxiety or depression,. Heme/endocrine: No bruising no bleeding no polyuria or polydipsia Immunology: No splenectomy or history of AIDS (Crys Bedolla) Physical Exam Physical Exam General Appearance: no apparent distress, awake, lethargic, PALE Comments: Well-developed well-nourished person in no acute distress, LETHARGIC, PALE HEENT: extraocular motion intact, no nystagmus. Pupils equally round and reactive to light and accommodation. Nose is atraumatic. External auditory canal and Tympanic membranes clear. Pharynx normal. No swelling or edema. VERY DRY oral mucosa, dry lips. CRUSTING NOTED OVER UPPER EYELASHES BILATERALLY. Neck: Supple, no lymphadenopathy Back: NontendeR Cardiovascular: IRRegular rate and rhythms, POS AORTIC STENOSIS MURMUR, surgical incision noted over the chest into the abdomen, APPEARS VERY OLD. No surrounding erythema or edema. Nontender to palpation. Respiratory: Chest nontender. No respiratory distress.breath sounds clear to auscultation bilaterally Abdomen: Soft, mild pain to palpation in the lower quadrants bilaterally without rebound or guarding, nondistended, no appreciable organomegaly. Normal bowel sounds. No ascites Extremity: No edema, no calf tenderness to palpation, normal and equal pulses. Vending Machine Coin Collector strength is 2 out of 5 in upper and lower extremities. Shank Skinner strength is equal and symmetric bilaterally. Neuro: Alert oriented to person and place, confused about time and situation, motor sensory normal, cranial nerves II through XII grossly intact, Although take several redirection throughout exam. Skin: No appreciable rash on exposed skin, skin is warm and VERY dry. Psych: Mood and affect is normal, poor memory. Core Measures ACS in differential dx? Yes CVA/TIA Diagnosis: No Sepsis Present: No Sepsis Focused Exam Completed? No (Jamilah FAGAN,Crys) Physical Exam Head: atraumatic, normal appearance Eyes: Bilateral: normal appearance, PERRL, EOMI. Ears, Nose, Throat: normal pharynx, hearing grossly normal Neck: normal inspection, supple, full range of motion (Priscilla MCCORMACK,Julia) Progress Differential Diagnoses I considered the following diagnoses in my evaluation of the patient: Coronary syndrome, dehydration, electrolyte abnormality, pneumonia, bronchitis, influenza , TIA, CVA, respiratory failure Plan of Care: Orders Procedure Date/time Status ICU LAB BUNDLE 04/08 0500 Active CBC WITHOUT DIFFERENTIAL 04/08 0500 Active Transfer patient to 04/07 1113 Active Dominique, Insertion/Removal/Asses 04/07 0831 Active PROTHROMBIN TIME 04/07 0500 Complete ICU LAB BUNDLE 04/07 0500 Complete CBC WITHOUT DIFFERENTIAL 04/07 0500 Complete BLOOD CULTURE 04/07 0031 Active B-TYPE NATRIURETIC PEP (BNP) 04/07 0009 Complete TROPONIN LEVEL 04/07 0000 Complete EKG 04/07 0000 Active OXYGEN SETUP (GEN) 04/07 UNK Complete Transfer patient to 04/07 UNK Active Lab Add-on Test 04/07 UNK Active Consistent Carbohydrate 1 04/06 D Active ARTERIAL BLOOD GAS (GEN) 04/06 2336 Complete RT: Evaluation 04/06 2149 Active Weight 04/06 1922 Active VTE Mechanical Prophylaxis 04/06 1922 Active Vital Signs 04/06 1922 Active Turn and Reposition 04/06 1922 Active Teach/Educate 04/06 1922 Active Skin Integrity Protocol 04/06 1922 Active Skin/Pressure Ulcer Assess (Sk 04/06 1922 Active Precautions 04/06 1922 Active Pain Treatment and Response 04/06 192 Active Nutritional Intake, Monitor 04/06 192 Active Isolation 04/06 192 Active Activity/Ambulation 04/06 192 Active TROPONIN LEVEL 04/06 1800 Complete ICU LAB BUNDLE 04/06 1800 Complete EKG 04/06 1800 Active B-TYPE NATRIURETIC PEP (BNP) 04/06 1753 Complete Pathway - chart 04/06 1730 Active VRE ACTIVE SURVIELLANCE 04/06 1714 Active ACTIVE SURVEILLANCE NARES 04/06 1714 Active TRC EVALUATION (GEN) 04/06 1658 Complete Pathway - chart 04/06 1658 Active House Staff 04/06 1658 Active Code Status 04/06 1658 Active Intake & Output 04/06 1636 Active Dominique, Insertion/Removal/Asses 04/06 1635 Complete CULTURE,URINE 04/06 1635 Active Patient Data 04/06 1550 Active CULTURE,URINE 04/06 1546 Active STREP PNEUMO URINARY ANTIGEN 04/06 1546 Active LEGIONELLA URINARY ANTIGEN 04/06 1546 Active LOWER RESPIRATORY CULTURE 04/06 1546 Active ECHOCARDIOGRAM 04/06 1514 Active ED Holding Orders 04/06 1456 Active Admit to inpatient 04/06 1456 Active ARTERIAL BLOOD GAS (GEN) 04/06 1259 Complete THYROID STIMULATING HORMONE 04/06 1244 Complete FREE T4 04/06 1244 Complete VIRAL CULTURE 04/06 1212 Active OXYGEN SETUP CHG 04/06 UNK Complete AEROSOL CHG 04/06 UNK Complete OXYGEN 04/06 UNK Complete OXYGEN TRANSPORT 04/06 UNK Complete THERAPIST ORDERS 04/06 UNK Complete OXYGEN SETUP (GEN) 04/06 UNK Complete Lab Add-on Test 04/06 UNK Active Hemoccult 04/06 UNK Active FingerStick- Glucose 04/06 UNK Active Current Medications Sig/Maribel Start time Last Medication Dose Stop Time Status Admin Insulin Detemir 6 UNITS AT BEDTIME 04/07 2200 AC (Levemir) Aspirin Buffered 81 MG DAILY 04/07 1000 AC 04/07 (Ecotrin) 1008 Azithromycin 500 MG DAILY 04/07 1000 AC 04/07 (Zithromax) 1005 Dextrose/Water 250 ML (D5W) Ceftriaxone Sodium 1,000 MG DAILY 04/07 1000 AC 04/07 (Rocephin) 1005 Insulin Detemir 10 UNITS DAILY 04/07 1000 AC 04/07 (Levemir) 1006 Albuterol Sulfate 3 ML EVERY 4 HRS/AWAKE 04/07 0800 AC 04/07 (Proventil) 1209 Insulin Aspart 0 TIDAC 04/07 0800 AC 04/07 (NovoLOG) 1209 Ipratropium Zwingle 2.5 ML EVERY 4 HRS/AWAKE 04/07 0800 AC 04/07 (Atrovent) 1209 Acetaminophen 1,000 MG Q6P PRN 04/07 0030 AC 04/07 (Ofirmev) 0100 N/A 1 UNIT (No Carrier) Insulin Aspart 0 AT BEDTIME 04/06 2200 AC 04/06 (NovoLOG) 2157 Metoprolol Tartrate 25 MG BID 04/06 1915 AC 04/07 (Lopressor) 1008 Acetaminophen 650 MG Q6P PRN 04/06 1730 AC (Tylenol) Atorvastatin Calcium 40 MG 1700 04/06 1730 AC 04/06 (Lipitor) 1801 Ezetimibe 10 MG DAILY 04/06 1730 AC 04/07 (Zetia) 1006 Morphine Sulfate 2 MG Q4P PRN 04/06 173 AC (Morphine) Warfarin Sodium 2.5 MG COUMADIN 1700 ONE 04/06 1700 CAN (Coumadin) 04/06 170 Warfarin Sodium 2 MG COUMADIN 1700 ONE 04/06 1700 CAN (Coumadin) 04/06 170 Laboratory Tests 04/07/17 0442: Anion Gap 14, Estimated GFR 36 L, Glucose 269 H, Calcium 9.2, Phosphorus 3.0, Magnesium 2.0, Total Bilirubin 1.4 H, AST 111 H, ALT 43, Albumin 3.1 L, PT 29.3 H, INR 2.82 H, CBC w Diff NO MAN DIFF REQ, RBC 3.32 L, MCV 90.0, MCH 30.3, MCHC 33.7, RDW 14.0, MPV 7.4, Gran % 85.5 H, Lymphocytes % 8.0 L, Monocytes % 6.0, Eosinophils % 0, Basophils % 0.5, Absolute Granulocytes 8.3 H, Absolute Lymphocytes 0.8 L, Absolute Monocytes 0.6, Absolute Eosinophils 0, Absolute Basophils 0 04/07/17 0035: pH 7.50 H, pCO2 26 L, pO2 52 L, HCO3 20 L, ABG O2 Sat (Measured) 88.0 L, P- 50 (Temp Corrected) N, Carboxyhemoglobin 0.5 L, O2 Concentration % 55%, O2 Delivery Method V/M, Phlebotomy Draw Site RIGHT RADIAL 04/07/17 0009: Troponin I 18.80 *H, Hat-M-Aitjavkasjv Pept 19541 H 04/06/17 1753: Anion Gap 12, Estimated GFR 42 L, Glucose 339 H, Calcium 9.0, Phosphorus 2.7, Magnesium 2.1, Total Bilirubin 1.1, AST 98 H, ALT 33, Troponin I 29.50 *H, Pro- B-Natriuretic Pept 43741 H, Albumin 3.0 L 04/06/17 1610: Urine Color YEL, Urine Clarity CLEAR, Urine pH 6.0, Ur Specific [place] >= 1.030 , Urine Protein 30 H, Urine Ketones TRACE H, Urine Nitrite NEG, Urine Bilirubin NEG@ICTO, Urine Urobilinogen 0.2, Ur Leukocyte Esterase NEG, Ur Microscopic SEDIMENT EXAMINED, Urine RBC 3-5, Urine WBC RARE, Ur Epithelial Cells TRANS H, Urine Hemoglobin NEG, Urine Glucose 500 H 04/06/17 1531: Lactic Acid 1.7 04/06/17 1315: pH 7.46 H, pCO2 30 L, pO2 81, HCO3 21, ABG O2 Sat (Measured) 96.0, Carboxyhemoglobin 1.3 L, O2 Concentration % 6L, O2 Delivery Method NC, Phlebotomy Draw Site RIGHT RADIAL Microbiology 04/07 0052 URINE ROUT: Urine Culture - RECD 04/07 0045 BLOOD: Blood Culture - RECD 04/07 004 BLOOD: Blood Culture - RECD 04/06 1849 UPPER RESP: Surveillance Culture - RECD 04/06 185 GI: Surveillance Culture - RECD 04/06 161 URINE ROUT: Legionella Antigen - RES 04/06 161 URINE ROUT: Streptococcus pneumoniae Antigen (M - RES 04/06 161 URINE ROUT: Urine Culture - RES 04/06 1546 LOWER RESP: Respiratory Culture - COLB 04/06 154 LOWER RESP: Gram Stain - COLB 04/06/2017 2:36:01 PM spoke with NIECE extensively, she still wants patient to be full code at this time. She was aware of the current medical issues going on with the patient. Spoke with Dr. Fonseca, informed him of the positive troponin. Patient will be admitted to the ICU due to full CODE STATUS. Patient currently anticoagulated. Patient only complaint is generalized malaise and weakness. Patient does have EKG changes in the anterolateral leads. Diagnostic Imaging: Viewed by Me: Radiology Read, CT Scan. Discussed w/RAD: Radiology Read, CT Scan. Radiology Impression: ATIENT: BOOM NICK PRESENT AGE: 81 PATIENT ACCOUNT NO: [id number] : 34 LOCATION: ER ORDERING PHYSICIAN: Crys FAGAN SERVICE DATE: 04/06/17 EXAM TYPE: CAT - CT HEAD WO IV CONTRAST EXAMINATION: CT HEAD WITHOUT CONTRAST CLINICAL INFORMATION: Altered mental status. COMPARISON: 10/23/2014. TECHNIQUE: Contiguous axial imaging was performed from the skull base to vertex without intravenous administration of contrast. DLP: 673 mGy-cm FINDINGS: There is no evidence of acute intracranial hemorrhage or territorial infarction. No abnormal mass effect or midline shift is seen. Yanes to white matter differentiation is well preserved. No extra-axial fluid collections are identified. There is stable moderate generalized prominence of the ventricles, sulci, and extra-axial CSF spaces. There is stable mild to moderate hypoattenuation within the periventricular white matter of both hemispheres compatible with chronic microangiopathy. There is heavy atherosclerotic calcification involving the intradural vertebral arteries as well as the cavernous internal carotid arteries , unchanged. No acute osseous abnormalities. There is a retention cyst in the right maxillary sinus. The visualized nasal cavity and nasopharynx are clear. The mastoid air cells and middle ear cavities are clear. The temporal mandibular joints articulate normally. No acute soft tissue abnormalities. There have been bilateral ocular lens extractions and there are benign scleral calcifications bilaterally. IMPRESSION: No acute intracranial pathology. Stable moderate generalized volume loss and mild to moderate chronic microangiopathy. DICTATED BY: Monica Seymour MD DATE/TIME DICTATED:04/06/171337 SHAREPOINT ADMIN: NATALI DATE/TIME TRANSCRIBED:04/06/171337 CONFIDENTIAL, DO NOT COPY WITHOUT APPROPRIATE AUTHORIZATION. <Electronically signed in Other Vendor System> SIGNED BY: Monica Seymour MD 04/06/17 1345, ATIENT: BOOM NICK PRESENT AGE: 81 PATIENT ACCOUNT NO: [id number] : LOCATION: ER ORDERING PHYSICIAN: Crys FAGAN SERVICE DATE: 04/06/17-1212 EXAM TYPE: RAD - XRY-PORTABLE CHEST XRAY EXAMINATION: XR PORTABLE CHEST CLINICAL INFORMATION: Fever, shortness of breath, hypoxia COMPARISON: Chest CT 01/12/2017 TECHNIQUE: Portable frontal view of the chest was obtained. FINDINGS: There is right greater than left bilateral airspace opacity ( groundglass opacity) new from prior study. This is superimposed on a background of chronic emphysema. There are sternal wires, mediastinal vascular clips and a 2-lead pacemaker with contiguous, intact leads. Suture anchors in both humeral heads. No pleural effusion or pneumothorax. Normal heart size. Mildly tortuous aorta. IMPRESSION: New groundglass airspace opacity bilaterally concerning for multifocal infection. The pulmonary vascularity does not appear prominent and indistinct to suggest that this represents pulmonary edema. Other etiologies such as diffuse pulmonary hemorrhage, drug reaction, etc. could be considered in the appropriate clinical setting. DICTATED BY: Tres Queen MD DATE/TIME DICTATED:04/06/171303 SHAREPOINT ADMIN:NATALI DATE/TIME TRANSCRIBED:1303 CONFIDENTIAL, DO NOT COPY WITHOUT APPROPRIATE AUTHORIZATION. < Electronically signed in Other Vendor System> SIGNED BY: Tres Queen MD 04/06/17 1311 Initial ED EKG: ATRIAL FIBRILLATION AT 94 BPM, DEEP t WAVES IN Avl, v2 THROUGH v6 Prior EKG: changed (Jamilah FAGAN,Crys) Departure Departure Time of Disposition: 1437 Disposition: STILL A PATIENT Condition: Stable Clinical Impression Primary Impression: Acute coronary syndrome Secondary Impressions: Elevated troponin Lactic acidosis Pneumonia Qualifiers: Pneumonia type: due to unspecified organism Laterality: bilateral Lung location: unspecified part of lung Qualified Code: J18.9 - Pneumonia, unspecified organism Referrals: Koko MCCORMACK,Dayron Suarez (PCP/Family) Departure Forms: Customer Survey General Discharge Information Admission Note Spoke With: Cirilo Snow MD Documentation of Exam: Documentation of any treatments & extenuating circumstances including Concerns Regarding Discharge (functional status, medication knowledge or non-compliance, living conditions, etc.) that warrant an admission rather than observation: Patient requiring ICU level care for elevated troponin, EKG changes, telemetry monitoring, cardiology consultation, anticoagulation, serial breathing treatments, IV antibiotics for pneumonia, discharge at this time is medically harmful, case management discussion, potential rehabilitation placement after discharge due to weakness. Serial EKGs, serial troponins. (Crys Bedolla) PA/POULTRY SCIENTIST Co-Sign Statement Statement: ED Attending supervision documentation- [X] I saw and evaluated the patient. I have also reviewed all the pertinent lab results and diagnostic results. I agree with the findings and the plan of care as documented in the PA's/POULTRY SCIENTIST's documentation. [X] I have reviewed the ED Record and agree with the PA's/POULTRY SCIENTIST's documentation. [] Additions or exceptions (if any) to the PAs/POULTRY SCIENTIST's note and plan are summarized below: [D/W Dr. West and Dr Snow. Fever with weakness, lactic acidosis with new b/ l pulmonary infiltrates. Troponin 17 however no chest pain/weakness. Will treat infection and supportive measures, medical management of NSTEMI per Dr. Mckinley. Admitted to ICU. Niece would like patietn to remain Full CODE.] (Priscilla MCCORMACK,Julia) Critical Care Note Critical Care Note Critical Care Time: 30-74 min (Crys Bedolla)
[2017-04-06 13:00] LABS: ABSOLUTE BASOPHIL COUNT 0 /CUMM (0.0-0.2); ABSOLUTE EOSINOPHIL COUNT 0 /CUMM (0.0-0.7); ABSOLUTE GRANULOCYTE CT 6.5 /CUMM (1.4-6.5); ABSOLUTE LYMPH COUNT 0.2 /CUMM (1.2-3.4); ABSOLUTE MONOCYTE COUNT 0.5 /CUMM (0.10-0.60); BASOPHIL % 0.6 % (0.0-2.0); EOSINOPHIL % 0 % (0-5); HEMATOCRIT 31.2 % (42-52); MEAN CORPUSCULAR HGB 30.2 PG (27.0-31.0); MEAN CORPUSCULAR HGB CONC 33.8 G/DL (33.0-37.0); MEAN CORPUSCULAR VOLUME 89.3 FL (80.0-94.0); MEAN PLATELET VOLUME 7.3 FL (7.4-10.4); PLATELET COUNT 224 /CUMM (130-400); RBC DISTRIBUTION WIDTH 13.7 % (11.5-14.5); RED BLOOD CELL CT 3.49 /CUMM (4.70-6.10); WHITE BLOOD CELL COUNT 7.3 /CUMM (4.8-10.8)
--- NOTE | 2017-04-06 13:11 | RADIOLOGY REPORT ---
EXAMINATION: XR PORTABLE CHEST CLINICAL INFORMATION: Fever, shortness of breath, hypoxia COMPARISON: Chest CT 01/12/2017 TECHNIQUE: Portable frontal view of the chest was obtained. FINDINGS: There is right greater than left bilateral airspace opacity (groundglass opacity) new from prior study. This is superimposed on a background of chronic emphysema. There are sternal wires, mediastinal vascular clips and a 2-lead pacemaker with contiguous, intact leads. Suture anchors in both humeral heads. No pleural effusion or pneumothorax. Normal heart size. Mildly tortuous aorta. IMPRESSION: New groundglass airspace opacity bilaterally concerning for multifocal infection. The pulmonary vascularity does not appear prominent and indistinct to suggest that this represents pulmonary edema. Other etiologies such as diffuse pulmonary hemorrhage, drug reaction, etc. could be considered in the appropriate clinical setting.
[2017-04-06 13:19] LABS: GRANULOCYTE % 88.6 % (42.2-75.2)
--- NOTE | 2017-04-06 13:45 | CT SCAN REPORT ---
EXAMINATION: CT HEAD WITHOUT CONTRAST CLINICAL INFORMATION: Altered mental status. COMPARISON: 10/23/2014. TECHNIQUE: Contiguous axial imaging was performed from the skull base to vertex without intravenous administration of contrast. DLP: 673 mGy-cm FINDINGS: There is no evidence of acute intracranial hemorrhage or territorial infarction. No abnormal mass effect or midline shift is seen. Yanes to white matter differentiation is well preserved. No extra-axial fluid collections are identified. There is stable moderate generalized prominence of the ventricles, sulci, and extra-axial CSF spaces. There is stable mild to moderate hypoattenuation within the periventricular white matter of both hemispheres compatible with chronic microangiopathy. There is heavy atherosclerotic calcification involving the intradural vertebral arteries as well as the cavernous internal carotid arteries, unchanged. No acute osseous abnormalities. There is a retention cyst in the right maxillary sinus. The visualized nasal cavity and nasopharynx are clear. The mastoid air cells and middle ear cavities are clear. The temporal mandibular joints articulate normally. No acute soft tissue abnormalities. There have been bilateral ocular lens extractions and there are benign scleral calcifications bilaterally. IMPRESSION: No acute intracranial pathology. Stable moderate generalized volume loss and mild to moderate chronic microangiopathy.
[2017-04-06 13:46] LABS: PT 23.1 SEC (9.4-12.5); PTT 36 SEC (25-37)
--- NOTE | 2017-04-06 15:19 | History & Physical ---
Bria MCCORMACK,[facility] 04/06/17 1519: General Information and [facility] MD Statement: I have seen and personally examined BOOM NICK and documented this H&P. The patient is a 81 year old M who presented with a patient stated chief complaint of [lethargy, chest pain AND shortness of breath]. Source of Information: patient, family (NIECE) Exam Limitations: no limitations, poor historian History of Present Illness: The patient is an 81-year-old man with a past medical history of hypertension, hyperlipidemia, coronary artery disease status post CABG, atrial fibrillation status post pacemaker placement and on Coumadin for anticoagulation, diabetes mellitus, and prostate cancer. He was in his usual state of health until yesterday evening around suppertime when he was noted to be tired and sleepy. He went to bed around 5 PM which was earlier than usual without eating his supper and was increasingly lethargic. This morning the patient was difficult to arouse from his sleep and around 9 AM his blood sugar check was 250 mg/dl. He received 6 units of NovoLog and maintain their normal appetite and was able to eat breakfast. Around the same time this morning, the patient noticed some nonproductive cough associated with mild shortness of breath. He subsequently had an episode of chest pain which the patient could not characterize at this time but stated that this lasted only a short time. He also felt lightheaded and appeared pale, but denied diaphoresis, palpitations, or nausea. He also denied abdominal pains, change in bowel habits although he states that his last bowel movement had blood mixed with his stool. He denies subjective fevers however he did have a low grade fever of 100 F on presentation to the ER. He denied chills, dysuria or hematuria. He denied headaches, or localized weakness. On account of his symptoms his PCP Fidel Sutherland MD was called recommended that the patient come to the ER for further evaluation. 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 MOTHER FH: cholecystectomy BROTHER FH: myocardial infarction, Onset: 50-60. Psychosocial History Where do you live? Home Who Do You Live With? niece Primary Language: Italian Smoking Status: Former Smoker (Quit decades ago) ETOH Use: occasional use Functional Ability ADLs Independent: dressing, eating, toileting, bathing. Ambulation: cane, walker IADLs Independent: shopping. Review of Systems Review of Systems Constitutional: Reports: see HPI, malaise, weakness. Denies: chills, fever. EENTM: Denies: nasal congestion, nasal pain, throat pain. Cardiovascular: Denies: chest pain, edema, palpitations. Respiratory: Reports: cough, short of breath. Denies: sputum production. GI: Reports: bloody stool. Denies: abdominal pain, constipation, diarrhea. Genitourinary: Denies: dysuria, hematuria. Musculoskeletal: Denies: back pain, joint pain. Exam & Diagnostic Data Last 24 Hrs of Vital Signs/I&O Vital Signs Date Time Temp Pulse Resp B/P B/P Pulse O2 O2 Flow FiO2 Mean Ox Delivery Rate 04/06 1627 Room Air 04/06 1616 98.9 62 18 105/55 92 Nasal 2.0L Cannula 04/06 1356 99.8 90 18 130/63 95 04/06 1340 92 Nasal 2.0L Cannula 04/06 1222 77 Room Air 04/06 1205 100.0 81 16 144/65 77 Room Air Intake & Output 04/06 1600 04/06 0800 04/06 0000 Intake Total Output Total Balance Patient 200 lb Weight Weight Estimated Measurement Method Physical Exam General Appearance Alert, Oriented X3, Cooperative, No Acute Distress Skin No Rashes Skin Temp/Moisture Exam: Warm/Dry Sepsis Skin Exam (color): Normal for Ethnicity HEENT Atraumatic, PERRLA, EOMI, Mucous Membr. moist/pink Neck Supple, No JVD, No thryomegaly, +2 Carotid Pulse wo Bruit Lymphatic Cervical nl Cardiovascular Irregularly irregular Lungs Bilateral scattered crepitations Abdomen Normal Bowel Sounds, Soft, No Tenderness, No Hepatospenomegaly, No Masses Neurological Normal Speech, Strength at 5/5 X4 Ext, Normal Tone, Cranial Nerves 3-12 NL Extremities No Clubbing, No Edema, Normal Pulses Vascular Normal Pulses Sepsis Peripheral Pulse Location: Dorsalis Pedis Sepsis Peripheral Pulse Exam: Normal Sepsis Cap Refill Exam: <2 Sec Diagnostic Data EKG Results Atrial fib ablation. Heart rate 94 bpm. T-wave inversions in anterolateral leads: Leads 1, aVL and V1 through V6 with ST depressions. CXR Results New groundglass airspace opacity bilaterally concerning for multifocal infection. The pulmonary vascularity does not appear prominent and indistinct to suggest that this represents pulmonary edema. Other etiologies such as diffuse pulmonary hemorrhage, drug reaction, etc. could be considered in the appropriate clinical setting. Other Results Head CT IMPRESSION: No acute intracranial pathology. Stable moderate generalized volume loss and mild to moderate chronic microangiopathy. Chest CT IMPRESSION: 1. New diffuse ground-glass and patchy consolidative airspace opacities as detailed above are concerning for multifocal infectious process given the clinical history of fever and weakness. Possibility of pulmonary edema is thought to be very less likely given the appearance. Other differential possibilities may include inflammatory processes including drug reaction or diffuse pulmonary hemorrhage. Assessment/Plan Assessment: The patient is an 81-year-old man with a past medical history of hypertension, hyperlipidemia, coronary artery disease status post CABG, atrial fibrillation status post pacemaker placement and on Coumadin for anticoagulation, diabetes mellitus, and prostate cancer. He presents with a one-day history of generalized weakness and lethargy along with a nonproductive cough, chest pain and lightheadedness that started this morning. On presentation in the ER he had a low-grade fever of 100 Fahrenheit, with a pulse of 81 bpm and the blood pressure of 145 mmHg. However he was satting 77% on room air and this improved to 92% when was placed on 2 L of oxygen by nasal cannula. His white count is normal but, his chest x-ray and chest CT scan findings are consistent with pneumonia. His rapid flu is negative and it is noted that he did not have vaccination for flu. His chemistries show elevated BUN and creatinine which may be partly due to dehydration and he has received 2 L of normal saline bolus in the ER with stable blood pressure. He had a latic acid of 4 on admission which has trended down to 1.7. In addition he has elevated troponin and new anterolateral T-wave inversions and ST depressions which are consistent with an NSTEMI. He will be admitted to ICU for close monitoring of his NSTEMI, anticoagulation and treatment of his pneumonia. In addition his elevated blood glucose was monitored and corrected. Problem list 1. Community-acquired pneumonia with hypoxemic respiratory failure 2. NSTEMI 3. Hyperglycemia from diabetes mellitus 4. CKD stage III 5. History of Coronary artery disease status post CABG 6. A. fib status post pacemaker placement on Coumadin 7. History of hypertension Plan 1. Community-acquired pneumonia with hypoxemic respiratory failure * Admit to ICU * Follow-up blood cultures * Although patient already received 1 dose of antibiotics with ceftriaxone and azithromycin, will send sputum, urine cultures * Send urine Legionella and strep pneumo antigen; follow-up urinalysis * Continue IV ceftriaxone 1 g daily and IV azithromycin 500 mg daily * Patient received 2 L of normal saline and has normal blood pressures. We'll start IV normal saline at 75 mL an hour and monitor vital signs and blood pressure closely * Continue oxygen by nasal cannula to keep O2 sat greater than 92% * TRC evaluation for nebulizer therapy * Reduce home dose of metoprolol to 25 mg BID on account of borderline blood pressure 2. NSTEMI * ER physician Dr. Wells discussed with patient's counter cutter, Dr. Crews and he recommended continuing the patient on anticoagulation with his home dose of Coumadin. Patient's INR was 2.2 today * I also spoke with counter cutter, Dr. West and he recommended conservative management of patient's NSTEMI with continued anticoagulation with coumadin, continuing his aspirin home medication. He also recommended a reduced 25 mg BID dose of his metoprolol on account of his borderline blood pressure. He requested to be notified if patient becomes hemodynamically unstable * Reduce by mouth metoprolol to 25 mg BID on account of borderline blood pressures * Low-dose Coumadin 3 mg tonight * Daily INR and keep between 2-3 * Continue aspirin 81 daily * Will substitute this patient Crestor with atorvastatin 40 mg daily * Serial EKGs and troponins * Echocardiogram now * Follow Cardiology for additional recommendations * Add on TSH, free T4 3. Hyperglycemia from diabetes mellitus * Hold metformin and insulin Degludec home medications * As patient is on insulin Degludec 16 units daily at home, we will start levemir 6 units at bedtime and 10 units daily * Accu-Cheks 3 times a day before meals at bedtime * NovoLog sliding scale 3 times a day before meals at bedtime 4. CKD stage III * Current creatinine 1.7 BUN of 36 * Of note, patient received 2 L bolus of IV normal saline in the ER * Will continue IV normal saline at 75 mL an hour * Monitor creatinine and BUN 5. History of Coronary artery disease status post CABG * Continue aspirin * Reduce by mouth metoprolol to 25 mg BID on account of borderline blood pressures 6. A. fib status post pacemaker placement on Coumadin * Daily INR * Continue Coumadin according to INR 7. History of hypertension * Reduce by mouth metoprolol to 25 mg BID on account of borderline blood pressures * Monitor blood pressures closely DVT prophylaxis: By mouth Coumadin Diet: Consistent carb 1 diet Pain pathway around. Tylenol for mild to moderate pain; IV morphine for severe pain Please note patient lives with his niece Maciej Bedoya , and she is patient's primary contact and caregiver. As Ranked By This Provider Problem List: 1. Elevated troponin 2. Acute coronary syndrome 3. Pneumonia Qualifiers Pneumonia type: due to unspecified organism Laterality: bilateral Lung location : unspecified part of lung Qualified Code: J18.9 - Pneumonia, unspecified organism Core Measures/Misc (11/16) Acute Coronary Syndrome ACS Diagnosis: Yes Congestive Heart Failure Congestive Heart Failure Diagnosis No Cerebrovascular Accident CVA/TIA Diagnosis: No VTE (View Protocol) VTE Risk Factors Cancer/chemo/othr therapy No Mechanical VTE Prophylaxis d/t N/A MechProphylax Ordered No VTE Pharm Prophylaxis d/t NA PharmProphylax ordered Sepsis (View protocol) Sepsis Present: No Cirilo Snow MD 04/06/17 1544: General Information and HPI Allergies/Medications Home Med list Aspirin (Ecotrin*) 81 MG TABLET.DR 1 TAB PO QAM HEART/BLOOD (Reported) Ezetimibe (Zetia) 10 MG TABLET 1 TAB PO DAILY CHOLESTEROL (Reported) Insulin Aspart, Recombinant (Novolog Flexpen) 100 UNIT/ML INSULN.PEN DIABETES ( Reported) Insulin Degludec (Tresiba Flextouch U-200) 200 UNIT/ML (3 ML) INSULN.PEN 16 UNITS SQ DAILY DIABETES (Reported) Ipratropium [place] 42 MCG (0.06 %) SPRAY 2 SPRAY LOW PRN RHINITIS (Reported) Metformin HCl (Glucophage) 850 MG TABLET 1 TAB PO BID DM Metoprolol Tartrate (Lopressor) 50 MG TABLET 1 TAB PO BID HEART/BP (Reported) Rosuvastatin Calcium (Crestor) 10 MG TABLET 1 TAB PO DAILY CHOLESTEROL ( Reported) Warfarin Sodium 3 MG TABLET 1 TAB PO AD BLOOD THINNER (Reported) Attending MD Review Statement Attending Statement Attending MD Statement: examined this patient, discuss w/resident/PA/REMELT SUGAR BOILER, agreed w/resident/PA/REMELT SUGAR BOILER, discussed with family, reviewed EMR data (avail), discussed with nursing, discussed with case mgmt, reviewed images, amended to note Attending Assessment/Plan: Impression 81 year old man * new diffuse GGO and patchy consolidations - consistent with pneumonia - likely community acquired, this can also have CHF/pulmonary edema in the differential * spiculated lung nodule (previously seen 06/24/2016) unchnaged, this was PET negative 07/2016, other small scattered nodules * elevated troponins - likely type 2 NSTEMI - demand ischemia * CKD Plan -ceftriaxone, zithromax -cardiology consultation -trend troponins, trend ekgs -ECHO -anticoagulation per cardiology -lung nodules should be followed as outpatient - sees Dr. Clarke -jessica culture, sputum, legionella, strep ag DVT prophylaxis at all times TTS 40 min
[2017-04-06] MEDS ORDERED: TRESIBA FL200 UNIT/1 SQ (16:42)
[2017-04-06] MEDS ORDERED: NOVOLOG FL100 UNIT/1 SQ (16:45)
--- NOTE | 2017-04-06 16:45 | CT SCAN REPORT ---
EXAMINATION: CT CHEST WITHOUT CONTRAST CLINICAL INFORMATION: Fever and weakness. Rule out pneumonia. COMPARISON: Chest x-ray of 04/06/2017. CT chest of 01/12/2017 and 07/24/2016. TECHNIQUE: Multidetector volumetric CT imaging of the chest was done. Axial MIP volume rendering provided. Sagittal and coronal reformatted images were obtained. DLP: 412.33 mGy-cm FINDINGS: LUNGS: Moderate to severe changes of emphysema with upper lobe predominance are again noted however are better seen on the previous CT due to presence of new parenchymal abnormalities on the current examination. Diffuse ground-glass opacities are noted involving all the lobes. There are more consolidative opacities in the bilateral upper lobes posteriorly as well as bilateral lower lobes posteriorly in the mid chest. The greatest involvement is noted in the right upper and right lower lobes. An irregular somewhat elongated spiculated density in the right apex is again noted, without significant interval change compared to previous CT of 06/24/2016. It measures approximately 0.7 x 1.2 cm in AP and transverse dimensions (series 3 image 12). Note that this density did not demonstrate FDG uptake on previous PET/CT of 08/19/2016. A 4 mm subpleural nodule in the left upper lobe laterally (series 3 image 27) and a 3 mm nodule in the lingula (series 3 image 41) are stable since previous CT of 07/26/2016. A few scattered punctate calcified nodules are again noted bilaterally. MEDIASTINUM: Postsurgical changes of cardiac bypass are noted with multiple mediastinal surgical clips. There is cardiomegaly with greater enlargement of the left-sided cardiac chambers. A right-sided subcarinal lymph node measures 1.3 cm in short axis (series 2 image 35), previously 0.8 cm. No definite evidence of pathologically enlarged hilar lymph nodes. No pericardial effusion. Moderate calcific atherosclerosis of the aorta. The collapsed esophagus grossly appears unremarkable. Small hiatal hernia. Left pectoral bipolar pacemaker is in place with the pacer leads terminating in the right atrium and right ventricle. The trachea and central bronchi are well patent. Subcentimeter hypodense thyroid nodules are stable. PLEURA: Small left and trace right pleural effusions. No pleural plaques or thickening. AXILLA AND CHEST WALL SOFT TISSUES: No axillary lymphadenopathy. Bilateral mild symmetrical gynecomastia is redemonstrated. UPPER ABDOMEN: No focal adrenal nodule. 3.9 cm partially exophytic left renal upper pole cyst is partially seen. Stable [id number] pancreatic atrophy. The gallbladder is surgically absent. OSSEOUS STRUCTURES: The sternotomy is well fused. The sternotomy wires are intact. Changes of diffuse radiopathic skeletal hyperostosis are redemonstrated. No acute or suspicious osseous abnormality. A single surgical anchor is noted in the bilateral humeral heads. IMPRESSION: 1. New diffuse ground-glass and patchy consolidative airspace opacities as detailed above are concerning for multifocal infectious process given the clinical history of fever and weakness. Possibility of pulmonary edema is thought to be very less likely given the appearance. Other differential possibilities may include inflammatory processes including drug reaction or diffuse pulmonary hemorrhage. 2. Trace right and small left pleural effusions are new compared to last study. 3. Mildly prominent subcarinal lymph node is probably reactive. 4. Cardiomegaly. 5. A spiculated irregular right apical nodule and an additional 2 left lung 3-4 mm nodules are stable since previous CT of 07/26/2016. Known changes of emphysema. Consider followup chest CT in 3 to 6 months.
--- NOTE | 2017-04-06 17:03 | Admission Certification ---
Admission Certification Certification Statement - As attending physician, I certify that at the time of - admission, based on clinical presentation, severity of - symptoms, need for further diagnostic testing and - therapeutic interventions, and risk of adverse outcomes - without in-hospital treatment, in my clinical assessment, - this patient requires an acute hospital stay for a minimum - of two nights or longer. I have also considered psychsocial - factors such as support system, advanced age, financial - issues, cognitive issues, and failed out-patient treatments, - past re-admission history, safety of patient, and lack of - compliance as applicable. Specific rationale supporting this admission is: ICU admission for significant troponin elevation and CAP
--- NOTE | 2017-04-06 18:34 | Cons- Cardiology ---
General Information and HPI Consulting Request Date of Consult: 04/06/17 Requested By: Cirilo Snow MD Reason for Consult: Abnormal troponin Source of Information: patient, family Exam Limitations: no limitations History of Present Illness: I was asked by Dr. Snow to evaluate patient for abnormal troponin. 81 year old male with h/o SSS, chronic AF, PPM, CAD, CABG (more than 20 years ago), moderate , HTN, HLP, DM. According to his niece he was more tired and lethargic last night. He went to bed early and today in the morning she had hard time to wake him up and get out of the bed. His sugar was 280. She called Dr. Koko abraham recommended ER. Angel reports cough over the past 1-2 days. No dyspnea or chest pain but he is still somewhat confused. Allergies/Medications Allergies: Coded Allergies: NO KNOWN ALLERGIES (NONE 04/06/17) Home Med List: Aspirin (Ecotrin*) 81 MG TABLET.DR 1 TAB PO QAM HEART/BLOOD (Reported) Ezetimibe (Zetia) 10 MG TABLET 1 TAB PO DAILY CHOLESTEROL (Reported) Insulin Aspart, Recombinant (Novolog Flexpen) 100 UNIT/ML INSULN.PEN DIABETES ( Reported) Insulin Degludec (Tresiba Flextouch U-200) 200 UNIT/ML (3 ML) INSULN.PEN 16 UNITS SQ DAILY DIABETES (Reported) Ipratropium [place] 42 MCG (0.06 %) SPRAY 2 SPRAY LOW PRN RHINITIS (Reported) Metformin HCl (Glucophage) 850 MG TABLET 1 TAB PO BID DM Metoprolol Tartrate (Lopressor) 50 MG TABLET 1 TAB PO BID HEART/BP (Reported) Rosuvastatin Calcium (Crestor) 10 MG TABLET 1 TAB PO DAILY CHOLESTEROL ( Reported) Warfarin Sodium 3 MG TABLET 1 TAB PO AD BLOOD THINNER (Reported) Current Medications: Current Medications Sig/Maribel Start time Last Medication Dose Route Stop Time Status Admin Acetaminophen 650 MG Q6P PRN 04/06 1730 AC PO Acetaminophen 0 .STK-MED ONE 04/06 1411 DC IV Acetaminophen 1,000 MG ONCE ONE 04/06 1315 DC 04/06 N/A 1 UNIT IV 04/06 1329 1400 Albuterol Sulfate 3 ML ONCE ONE 04/06 1230 DC 04/06 INH 04/06 1231 1339 Aspirin 0 .STK-MED ONE 04/06 1752 DC PO Aspirin 0 .STK-MED ONE 04/06 1752 DC PO Aspirin 81 MG ONCE ONE 04/06 1730 DC 02 PO 04/06 1731 1801 Aspirin Buffered 81 MG DAILY 04/07 1000 AC PO Atorvastatin Calcium 40 MG 1700 04/06 1730 AC / PO 1801 Azithromycin 500 MG DAILY 04/07 1000 AC Dextrose/Water 250 ML IV Azithromycin 500 MG Q24H 04/06 1700 DC Sodium Chloride 250 ML IV Azithromycin 500 MG ONCE ONE 04/06 1315 DC 04/06 Dextrose/Water 250 ML IV 04/06 1414 1400 Ceftriaxone Sodium 1,000 MG DAILY 04/07 1000 AC IV Ceftriaxone Sodium 0 .STK-MED ONE 04/06 1411 DC .ROUTE Ceftriaxone Sodium 1,000 MG ONCE ONE 04/06 1315 DC 04/06 IV 04/06 1316 1400 Ezetimibe 10 MG DAILY 04/06 1730 AC 04/06 PO 1801 Insulin Aspart 0 TIDAC 04/07 0800 AC SC Insulin Aspart 0 AT BEDTIME 04/06 2200 AC SC Insulin Detemir 6 UNITS DAILY 04/07 1000 AC SC Ipratropium [place] 2.5 ML ONCE ONE 04/06 1230 DC 02 INH 04/06 1231 1339 Morphine Sulfate 2 MG Q4P PRN 04/06 1730 AC IV Sodium Chloride 1,000 ML .[id number] 04/06 1700 AC IV Sodium Chloride 1,000 ML BOLUS ONE 04/06 1330 DC 02 IV 04/06 1529 1400 Sodium Chloride 1,000 ML ONCE ONE 04/06 1315 AC / IV 04/06 2114 1400 Warfarin Sodium 3 MG COUMADIN 1700 ONE 04/06 1730 DC 02/ PO 04/06 1731 1802 Warfarin Sodium 2.5 MG COUMADIN 1700 ONE 04/06 1700 CAN PO 04/06 1701 Warfarin Sodium 2 MG COUMADIN 1700 ONE 04/06 1700 CAN PO 04/06 1701 Review of Systems Review of Systems Constitutional: Reports: fever, malaise, weakness. EENTM: Denies: no symptoms, see HPI, blurred vision, double vision, visual changes, eye pain, eye drainage, eye tearing, icterus, ear discharge, ear pain, ear redness, hearing changes, nasal congestion, epistaxis, nasal pain, throat pain, throat swelling, mouth pain, tooth pain. Cardiovascular: Denies: no symptoms, see HPI, chest pain, edema, orthopena, palpitations, peripheral edema, syncope. Respiratory: Reports: cough. Denies: no symptoms, see HPI, hemoptysis, orthopnea, short of breath, sputum production, stridor, wheezing. GI: Denies: no symptoms, see HPI, abdominal pain, bloating, constipation, diarrhea, distention, bowel incontinence, melena, nausea, bloody stool, changes in stool, vomiting, steatorrhea. Genitourinary: Denies: no symptoms, see HPI, discharge, dysuria, frequency, hematuria, hesitation, nocturia, pain, urgency. Musculoskeletal: Denies: no symptoms, see HPI, back pain, gout, joint pain, joint swelling, muscle pain, muscle stiffness, neck pain. Skin: Denies: no symptoms, see HPI, cysts, change in skin color, change in hair/nails, dryness, erythema, jaundice, lesions, lymphangitis, lumps, moles, rash. Neurological/Psychological: Denies: no symptoms, see HPI, anxiety, ataxia, cognitive dysfunction, confusion, depressed, dementia, emotional problems, headache, numbness, paresthesia, pre- existing deficit, petit mal seizures, tingling, tremors, tonic-clonic seizures, unable to move lower ext, unable to move upper ext, weakness, other. Hematologic/Endocrine: Denies: no symptoms, see HPI, bruising, bleeding, polyuria, polydipsia, other. Immunologic/Allergic: Denies: no symptoms, see HPI, splenectomy, HIV/AIDS, lymphadenopathy, other. Past History Travel History Traveled to [place] past 21 day No Medical History Neurological: NONE Cardiovascular: AFIB, hypertension, hyperlipidemia, PACEMAKER Gastrointestinal: NONE Hepatic: NONE Renal: Prostate cancer Musculoskeletal: NONE Psychiatric: NONE Endocrine: diabetes Blood Disorders: NONE Cancer(s): NONE CLINICAL PRODUCT SPECIALIST/Reproductive: NONE Surgical History Surgical History: BYPASS PACEMAKER Family History Relations & Conditions If Any: FATHER FH: myocardial infarction, Onset: 60+. MOTHER FH: cholecystectomy BROTHER FH: myocardial infarction, Onset: 50-60. Psychosocial History Where Do You Live? Home Who Do You Live With? niece Primary Language: Hungarian Smoking Status: Former Smoker (Quit decades ago) ETOH Use: occasional use Functional Ability ADLs Independent: dressing, eating, toileting, bathing. Ambulation: cane, walker IADLs Independent: shopping. Exam & Diagnostic Data Vital Signs and I&O Vital Signs Date Time Temp Pulse Resp B/P B/P Pulse O2 O2 Flow FiO2 Mean Ox Delivery Rate 04/06 1755 69 19 112/62 94 Nasal Cannula 04/06 1627 Room Air 04/06 1616 98.9 62 18 105/55 92 Nasal 2.0L Cannula 04/06 1356 99.8 90 18 130/63 95 04/06 1340 92 Nasal 2.0L Cannula 04/06 1222 77 Room Air 04/06 1205 100.0 81 16 144/65 77 Room Air Intake & Output 04/06 1600 04/06 0800 04/06 0000 04/05 1600 04/05 0800 04/05 0000 Intake Total Output Total Balance Patient 200 lb Weight Weight Estimated Measurement Method Physical Exam: No acute distress Skin-dry, no rash HEENT-PERRLA Neck-JVP normal, no bruits Lungs-bilateral crackles present Heart S1S2 irregular, 2/6 CED at the base Abdomen-soft, not tender, no organomegaly, BS+,no massess Extr-no edema, 1+ pulses, no cyanosis Neuro-non focal, not oriented to place and time Vascular-no bruits Labs/Ace Results: Laboratory Tests 04/06 04/06 04/06 1753 1610 1531 Chemistry Sodium Pending Potassium Pending Chloride Pending Carbon Dioxide Pending Anion Gap Pending BUN Pending Creatinine Pending Glucose Pending Lactic Acid (0.7 - 2.1 mmol/L) 1.7 Calcium Pending Phosphorus Pending Magnesium Pending Total Bilirubin Pending AST Pending ALT Pending Troponin I Pending Albumin Pending Urines Urine Color (YEL,AMB,STR) YEL Urine Clarity (CLEAR) CLEAR Urine pH (5.0 - 8.0) 6.0 Ur Specific [place] (1.001 - 1.035) >= 1.030 Urine Protein (NEG,<30 MG/DL) 30 H Urine Ketones (NEG) TRACE H Urine Nitrite (NEG) NEG Urine Bilirubin (NEG) NEG@ICTO Urine Urobilinogen (0.1 - 1.0 EU/dl) 0.2 Ur Leukocyte Esterase (NEG) NEG Ur Microscopic SEDIMENT EXAMINED Urine RBC (0 - 5 /HPF) 3-5 Urine WBC (0 - 2 /HPF) RARE Ur Epithelial Cells (NONE,FEW) TRANS H Urine Hemoglobin (NEG) NEG Urine Glucose (N MG/DL) 500 H 04/06 04/06 1315 1244 Blood Gas pH (7.35 - 7.45 PH) 7.46 H pCO2 (35 - 45 TORR) 30 L pO2 (80 - 100 TORR) 81 HCO3 (21 - 28 MEQ/L) 21 ABG O2 Sat (Measured) (>96.0 %) 96.0 Carboxyhemoglobin (1.5 - 5.0 %) 1.3 L O2 Concentration % 6L O2 Delivery Method NC Chemistry Sodium (137 - 145 mmol/L) 139 Potassium (3.5 - 5.1 mmol/L) 5.1 Chloride (98 - 107 mmol/L) 103 Carbon Dioxide (22 - 30 mmol/L) 19 L Anion Gap (5 - 16) 17 H BUN (9 - 20 mg/dL) 36 H Creatinine (0.7 - 1.2 mg/dL) 1.7 H Estimated GFR (>60 ml/min) 39 L BUN/Creatinine Ratio (7 - 25 %) 21.2 Glucose (65 - 99 mg/dL) 450 H Serum Osmolality (285 - 295 MOSM/KG) 315 H Lactic Acid (0.7 - 2.1 mmol/L) 4.2 H Calcium (8.4 - 10.2 mg/dL) 9.5 Total Bilirubin (0.2 - 1.3 mg/dL) 1.5 H AST (17 - 59 U/L) 89 H ALT (21 - 72 U/L) 34 Alkaline Phosphatase (< 127 U/L) 55 Troponin I (<0.11 ng/ml) 17.60 *H Total Protein (6.3 - 8.2 g/dL) 6.3 Albumin (3.5 - 5.0 g/dL) 3.5 Globulin (1.9 - 4.2 gm/dL) 2.8 Albumin/Globulin Ratio (1.1 - 2.2 %) 1.3 Coagulation PT (9.4 - 12.5 SEC) 23.1 H INR (0.90 - 1.17) 2.22 H APTT (25 - 37 SEC) 36 Hematology CBC w Diff NO MAN DIFF REQ WBC (4.8 - 10.8 /CUMM) 7.3 RBC (4.70 - 6.10 /CUMM) 3.49 L Hgb (14.0 - 18.0 G/DL) 10.6 L Hct (42 - 52 %) 31.2 L MCV (80.0 - 94.0 FL) 89.3 MCH (27.0 - 31.0 PG) 30.2 MCHC (33.0 - 37.0 G/DL) 33.8 RDW (11.5 - 14.5 %) 13.7 Plt Count (130 - 400 /CUMM) 224 MPV (7.4 - 10.4 FL) 7.3 L Gran % (42.2 - 75.2 %) 88.6 H Lymphocytes % (20.5 - 51.1 %) 3.4 L Monocytes % (1.7 - 9.3 %) 7.4 Eosinophils % (0 - 5 %) 0 Basophils % (0.0 - 2.0 %) 0.6 Absolute Granulocytes (1.4 - 6.5 /CUMM) 6.5 Absolute Lymphocytes (1.2 - 3.4 /CUMM) 0.2 L Absolute Monocytes (0.10 - 0.60 /CUMM) 0.5 Absolute Eosinophils (0.0 - 0.7 /CUMM) 0 Absolute Basophils (0.0 - 0.2 /CUMM) 0 Miscellaneous Phlebotomy Draw Site RIGHT RADIAL Toxicology Acetone Level (NEGATIVE) NEGATIVE Diagnostic Data EKG Results AF, deep T inversions in anterior leads CXR Results Bilateral infiltrates Other Results CT chest and head results reviewed. Assessment/Plan Assessment/Plan 81 year old male with h/o SSS, chronic AF, PPM, CAD, CABG (more than 20 years ago), moderate aortic stenosis, HTN, HLP, DM, CKD 3 presents with bilateral pneumonia and evidence of NSTEMI with abnormal ekg and elevated troponin. NSTEMI in the setting of acute infection. He is currently chest pain free, hemodynamically stable, more awake after iv fluids. Lactic acid is elevated and he is now being transported for abdominal CT scan. He is anticoagulated with warfarin. Plan: ICU serial troponins blood+sputum culture viral panel ekg in the morning echo tonight continue metoprolol, ASA, warfarin, statin abdominal CT being done now iv fluids overnight broad spectrum atbs as per pulmonary Medical management of CAD/NSTEMI for now in the setting of acute pneumonia, decompensated diabetes, renal insufficiency and absence of angina. Will decide at a later time based on clinical course regarding cathterization. Pland discussed in lenght with george Wing. Copies To: Koko MCCORMACK,Dayron Browne. Consult Acknowledgment - Thank you for your consult request.
[2017-04-06 19:00] VITALS: BP 120/60
--- NOTE | 2017-04-06 23:35 | Event Note ---
See Addendum Event Note Event Note: Patient developed worsening oxygen requirements and dyspnea tonight. He went from saturating 94 % on 2 L to only 88% on ventimask. Physical exam showed an elderly man with bilateral coarse crepitations on chest exam. Cardiovascular exam showed normal S1 and S 2 with elevated JVD. Chest X ray showed worsening pulmonary edema. IV lasix 40 mg was given with good diuresis. His O2 saturations were improved to 92% on ventimask. Patient spiked a fever to 102 F during this time so blood cultures were collected and IV acetaminophen started. ICU attending and injury prevention coordinator were notified. Multiple calls were placed to patient's marketing analytics analyst Dr. West's answering service who paged their on-call marketing analytics analyst for their service, Dr. Mendez. After no response was obtained a call was then placed to Abdifatah on-call Package Drier, Dr. Gee who recommended continued diuresis with IV Lasix. Plan * Place patient on High flow O2 * Will give repeat dose of IV lasix 40 mg in 6 hours
--- NOTE | 2017-04-06 23:45 | CT SCAN REPORT ---
EXAMINATION: CT ABDOMEN AND PELVIS WITHOUT CONTRAST CLINICAL INFORMATION: Fever. Lethargy. Sepsis. COMPARISON: PET/CT August 19, 2016 TECHNIQUE: Multidetector volumetric imaging was performed from the superior aspect of the liver through the pubic symphysis. Sagittal and coronal reformatted images were obtained on the technologist's workstation. DLP: 359.6 mGy-cm FINDINGS: LUNG BASES: Mosaic attenuation of the lungs at lung bases. There are small bilateral pleural effusion. Pacemaker right ventricle. LIVER, GALLBLADDER, AND BILIARY TREE: The liver is normal in size, shape, and attenuation. No focal hepatic lesion or biliary ductal dilatation is present. Status post cholecystectomy. PANCREAS: Unremarkable. SPLEEN: Unremarkable. ADRENAL GLANDS: Unremarkable. KIDNEYS AND URETERS: The kidneys are normal in size, shape, and attenuation. No hydronephrosis, hydroureter, or calculi seen. No perinephric stranding. There is a cortical cyst at the upper pole of left kidney measuring 4.1 x 4 cm x 3.8 cm. There is nonobstructive stone measuring 8 mm in the lower pole left kidney. There is a 2 mm stone lower pole of right kidney. There is no hydronephrosis. No ureteral calculi. BLADDER: Dominique catheter within the bladder. Bladder is empty. GASTROINTESTINAL TRACT: There is diffuse diverticulosis of colon. No diverticulitis. No acute change of the bowel. No bowel obstruction. There is no bowel wall thickening or edema. Moderate to large-volume of stool in the colon. The appendix is normal. The small bowel loops are unremarkable. MESENTERY: No inflammation. No free air or free fluid. ABDOMINAL WALL: No significant hernia is appreciated. LYMPH NODES: Normal. VASCULAR: Atherosclerotic vascular wall calcifications throughout the abdomen and pelvis. There is a vascular stent in the left common iliac artery. PELVIC VISCERA: Radiotherapy seeds within the prostate. OSSEOUS STRUCTURES: Degenerative spondylosis spine with bridging osteophytes and nonbridging endplate spurs of the vertebrae. Multilevel facet joint arthrosis. IMPRESSION: 1. No acute abnormality CT scan abdomen and pelvis. 2. Small bilateral pleural effusions. 3. Mosaic attenuation lung bases probably related to small airways disease.
--- NOTE | 2017-04-06 23:58 | RADIOLOGY REPORT ---
EXAMINATION: XR PORTABLE CHEST CLINICAL INFORMATION: Worsening hypoxemia. Abnormal chest sounds. COMPARISON: Chest x-ray April 06, 2017 , 12:13 PM TECHNIQUE: Portable frontal view of the chest was obtained. 11:24 PM FINDINGS: Status post median sternotomy for CABG. Pacemaker lead in right atrium and right ventricle. Heart size is normal. There is pulmonary vascular congestion with pulmonary edema. The severity has worsened since the exam previously performed today. There is increasing density in the lungs bilaterally. Orthopedic anchor in right humeral head. IMPRESSION: Worsening severity of the pulmonary edema since prior chest today.
[2017-04-07] VITALS: BP 116/62
[2017-04-07 05:36] LABS: PT 29.3 SEC (9.4-12.5)
[2017-04-07 05:37] LABS: ABSOLUTE BASOPHIL COUNT 0 /CUMM (0.0-0.2); ABSOLUTE EOSINOPHIL COUNT 0 /CUMM (0.0-0.7); ABSOLUTE GRANULOCYTE CT 8.3 /CUMM (1.4-6.5); ABSOLUTE LYMPH COUNT 0.8 /CUMM (1.2-3.4); ABSOLUTE MONOCYTE COUNT 0.6 /CUMM (0.10-0.60); BASOPHIL % 0.5 % (0.0-2.0); EOSINOPHIL % 0 % (0-5); GRANULOCYTE % 85.5 % (42.2-75.2); HEMATOCRIT 29.9 % (42-52); MEAN CORPUSCULAR HGB 30.3 PG (27.0-31.0); MEAN CORPUSCULAR HGB CONC 33.7 G/DL (33.0-37.0); MEAN PLATELET VOLUME 7.4 FL (7.4-10.4); PLATELET COUNT 182 /CUMM (130-400); RED BLOOD CELL CT 3.32 /CUMM (4.70-6.10); WHITE BLOOD CELL COUNT 9.6 /CUMM (4.8-10.8)
--- NOTE | 2017-04-07 07:46 | PN- Cardiology ---
Subjective Subjective: Patient awake, somewhat confused, no chest pain. Events noted, hypoxic, CXR showed CHF with infiltrates, received Lasix Review of Systems: ROS non obtainable due to confusion Objective Vital Signs and I&Os Vital Signs Date Time Temp Pulse Resp B/P B/P Pulse O2 O2 Flow FiO2 Mean Ox Delivery Rate 04/07 0354 100 Nasal 50% Cannula 04/07 0206 99.8 04/07 0148 97 Nasal 50% Cannula 04/07 0100 102.1 02 0000 89 Venti Mask 55% 04/07 0000 102.1 76 32 116/62 89 Venti Mask 55% 04/06 2150 Nasal 6.0L Cannula 04/06 2148 88 20 140/74 04/06 1900 98.8 70 20 120/60 92 Nasal 2.0L Cannula 04/06 1900 92 Nasal 2.0L Cannula 04/06 1755 69 19 112/62 94 Nasal Cannula 04/06 1627 Room Air 04/06 1616 98.9 62 18 105/55 92 Nasal 2.0L Cannula 04/06 1356 99.8 90 18 130/63 95 02 1340 92 Nasal 2.0L Cannula 04/06 1222 77 Room Air 04/06 1205 100.0 81 16 144/65 77 Room Air Intake & Output 04/07 0800 04/07 0000 04/06 1600 04/06 0800 04/06 0000 04/05 1600 Intake Total 325 1661 Output Total 970 765 Balance -645 896 Intake, IV 125 1541 Intake, Oral 200 120 Number 0 Bowel Movements Output, Urine 970 765 Patient 205 lb 200 lb Weight Weight Bed scale Estimated Measurement Method Physical Exam: No acute distress at rest Skin-dry, no rash HEENT-PERRLA Neck-JVP normal, no bruits Lungs-bilateral crackles present Heart S1S2 irregular, 2/6 CED at the base Abdomen-soft, not tender, no organomegaly, BS+,no massess Extr-trace edema, 1+ pulses, no cyanosis Neuro-non focal, not oriented to place and time Vascular-no bruits Current Medications: Current Medications Sig/Maribel Start time Last Medication Dose Route Stop Time Status Admin Acetaminophen 1,000 MG Q6P PRN 04/07 0030 AC 04/07 N/A 1 UNIT IV 0100 Acetaminophen 650 MG Q6P PRN 04/06 1730 AC PO Acetaminophen 0 .STK-MED ONE 04/06 1411 DC IV Acetaminophen 1,000 MG ONCE ONE 04/06 1315 DC 04/06 N/A 1 UNIT IV 04/06 1329 1400 Albuterol Sulfate 3 ML EVERY 4 HRS/AWAKE 04/07 0800 AC 02 INH 2100 Albuterol Sulfate 3 ML ONCE ONE 04/06 1230 DC 02 INH 04/06 1231 1339 Aspirin 0 .STK-MED ONE 04/06 1752 DC PO Aspirin 0 .STK-MED ONE 04/06 1752 DC PO Aspirin 81 MG ONCE ONE 04/06 1730 DC 02/ PO 04/06 1731 1801 Aspirin Buffered 81 MG DAILY 04/07 1000 AC PO Atorvastatin Calcium 40 MG 1700 04/06 1730 AC 04/06 PO 1801 Azithromycin 500 MG DAILY 04/07 1000 AC Dextrose/Water 250 ML IV Azithromycin 500 MG Q24H 04/06 1700 DC Sodium Chloride 250 ML IV Azithromycin 500 MG ONCE ONE 04/06 1315 DC 04/06 Dextrose/Water 250 ML IV 04/06 1414 1400 Ceftriaxone Sodium 1,000 MG DAILY 04/07 1000 AC IV Ceftriaxone Sodium 0 .STK-MED ONE 04/06 1411 DC .ROUTE Ceftriaxone Sodium 1,000 MG ONCE ONE 04/06 1315 DC 04/06 IV 04/06 1316 1400 Ezetimibe 10 MG DAILY 04/06 1730 AC 04/06 PO 1801 Furosemide 20 MG ONCE ONE 04/06 2345 DC 04/06 IV 04/06 2346 2350 Furosemide 20 MG ONCE ONE 04/06 2315 DC 04/06 IV 04/06 2316 2315 Insulin Aspart 0 TIDAC 04/07 0800 AC SC Insulin Aspart 0 AT BEDTIME 04/06 2200 AC 04/06 SC 2157 Insulin Detemir 6 UNITS DAILY 04/07 1000 AC SC Insulin Detemir 6 UNITS ONCE ONE 04/06 1930 DC 04/06 SC 04/06 193 1949 Ipratropium [place] 2.5 ML EVERY 4 HRS/AWAKE 04/07 0800 AC 04/06 INH 2100 Ipratropium [place] 2.5 ML ONCE ONE 04/06 1230 DC 02 INH 04/06 1231 1339 Metoprolol Tartrate 25 MG BID 04/06 1915 AC 04/06 PO 2148 Morphine Sulfate 2 MG Q4P PRN 04/06 1730 AC IV Sodium Chloride 1,000 ML .[id number] 04/06 1700 DC 04/06 IV 1906 Sodium Chloride 1,000 ML BOLUS ONE 04/06 1330 DC 04/06 IV 04/06 1529 1400 Sodium Chloride 1,000 ML ONCE ONE 04/06 1315 DC 04/06 IV 04/06 2114 1400 Warfarin Sodium 3 MG COUMADIN 1700 ONE 04/06 1730 DC 04/06 PO 04/06 173 1802 Warfarin Sodium 2.5 MG COUMADIN 1700 ONE 04/06 1700 CAN PO 04/06 1701 Warfarin Sodium 2 MG COUMADIN 1700 ONE 04/06 1700 CAN PO 04/06 170 Results Last 48 Hrs of Labs/Mics: Laboratory Tests 04/07/17 0442: Anion Gap 14, Estimated GFR 36 L, Glucose 269 H, Calcium 9.2, Phosphorus 3.0, Magnesium 2.0, Total Bilirubin 1.4 H, AST 111 H, ALT 43, Albumin 3.1 L, PT 29.3 H, INR 2.82 H, CBC w Diff NO MAN DIFF REQ, RBC 3.32 L, MCV 90.0, MCH 30.3, MCHC 33.7, RDW 14.0, MPV 7.4, Gran % 85.5 H, Lymphocytes % 8.0 L, Monocytes % 6.0, Eosinophils % 0, Basophils % 0.5, Absolute Granulocytes 8.3 H, Absolute Lymphocytes 0.8 L, Absolute Monocytes 0.6, Absolute Eosinophils 0, Absolute Basophils 0 04/07/17 0035: pH 7.50 H, pCO2 26 L, pO2 52 L, HCO3 20 L, ABG O2 Sat (Measured) 88.0 L, P- 50 (Temp Corrected) N, Carboxyhemoglobin 0.5 L, O2 Concentration % 55%, O2 Delivery Method V/M, Phlebotomy Draw Site RIGHT RADIAL 04/07/17 0009: Troponin I 18.80 *H 04/06/17 1753: Anion Gap 12, Estimated GFR 42 L, Glucose 339 H, Calcium 9.0, Phosphorus 2.7, Magnesium 2.1, Total Bilirubin 1.1, AST 98 H, ALT 33, Troponin I 29.50 *H, Albumin 3.0 L 04/06/17 1610: Urine Color YEL, Urine Clarity CLEAR, Urine pH 6.0, Ur Specific [place] >= 1.030 , Urine Protein 30 H, Urine Ketones TRACE H, Urine Nitrite NEG, Urine Bilirubin NEG@ICTO, Urine Urobilinogen 0.2, Ur Leukocyte Esterase NEG, Ur Microscopic SEDIMENT EXAMINED, Urine RBC 3-5, Urine WBC RARE, Ur Epithelial Cells TRANS H, Urine Hemoglobin NEG, Urine Glucose 500 H 04/06/17 1531: Lactic Acid 1.7 04/06/17 1315: pH 7.46 H, pCO2 30 L, pO2 81, HCO3 21, ABG O2 Sat (Measured) 96.0, Carboxyhemoglobin 1.3 L, O2 Concentration % 6L, O2 Delivery Method NC, Phlebotomy Draw Site RIGHT RADIAL 04/06/17 1244: Anion Gap 17 H, Estimated GFR 39 L, BUN/Creatinine Ratio 21.2, Glucose 450 H, Serum Osmolality 315 H, Lactic Acid 4.2 H, Calcium 9.5, Total Bilirubin 1.5 H , AST 89 H, ALT 34, Alkaline Phosphatase 55, Troponin I 17.60 *H, Total Protein 6.3, Albumin 3.5, Globulin 2.8, Albumin/Globulin Ratio 1.3, TSH 0.938, Free T4 0.99, PT 23.1 H, INR 2.22 H, APTT 36, CBC w Diff NO MAN DIFF REQ, RBC 3.49 L, MCV 89.3, MCH 30.2, MCHC 33.8, RDW 13.7, MPV 7.3 L, Gran % 88.6 H, Lymphocytes % 3.4 L, Monocytes % 7.4, Eosinophils % 0, Basophils % 0.6, Absolute Granulocytes 6.5, Absolute Lymphocytes 0.2 L, Absolute Monocytes 0.5, Absolute Eosinophils 0, Absolute Basophils 0, Acetone Level NEGATIVE Microbiology 04/06 1245 NASOPHARYN: Influenza Virus A & B Rapid Smear - COMP Recent Imaging Studies: CXR, CT brain, abdomen, chest results noted. Assessment/Plan Assessment/Plan 81 year old male with h/o SSS, chronic AF, PPM, CAD, CABG (more than 20 years ago), moderate aortic stenosis, HTN, HLP, DM, CKD 3 presents with bilateral pneumonia and evidence of NSTEMI with abnormal ekg and elevated troponin. NSTEMI in the setting of acute infection. He is currently chest pain free, but required more oxygen last night (hypoxic), febrile up to 102, CXR showed CHF, received Lasix with good response. Troponin now downtrending. Ekg unchanged showing anterolatera T inversions. He is anticoagulated with warfarin. Plan: metoprolol 25 mg po bid continue Warfarin, ASA, statin check BNP level lasix 40 mg iv x 1 today repeat CXR broad spectrum atbs as per pulmonary Medical management of CAD/NSTEMI for now in the setting of acute pneumonia, decompensated diabetes, renal insufficiency and absence of angina. Will decide at a later time based on clinical course regarding cathterization. Continue telemetry? Yes
--- NOTE | 2017-04-07 07:58 | PN- Resident CRCU ---
Aj MCCORMACK,Susan 04/07/17 0758: Subjective HPI/CRCU Issues: NSTEMI 24 Hour Events: Troponins have peaked since admission. Overnight the patient desaturated requiring high flow oxygen, however, this morning he has been transitioned to PR. Objective Vital Signs & I&O Last 8 Hrs of Vitals and I&O: Intake & Output 04/07 1600 Intake Total 1080 Output Total 1150 Balance -70 Intake, IV 280 Intake, Oral 800 Output, Urine 1150 Patient 193 lb Weight Weight Bed scale Measurement Method Exam General Appearance: alert, awake, mild distress Head: atraumatic, normal appearance Respiratory: chest non-tender, crackles Cardiovascular: systolic murmur, irregularly irregular Gastrointestinal: soft, non-tender Extremities: no edema Cranial Nerves: normal hearing, normal speech Skin: intact Skin Temp/Moisture Exam: Warm/Dry Sepsis Skin Exam (color): Normal for Ethnicity Current Medications: Current Medications Sig/Maribel Start time Last Medication Dose Route Stop Time Status Admin Acetaminophen 1,000 MG Q6P PRN 04/07 0030 AC 04/07 N/A 1 UNIT IV 0100 Acetaminophen 650 MG Q6P PRN 04/06 1730 AC PO Albuterol Sulfate 3 ML EVERY 4 HRS/AWAKE 04/07 0800 AC 04/07 INH 1209 Aspirin 0 .STK-MED ONE 04/06 1752 DC PO Aspirin 0 .STK-MED ONE 04/06 1752 DC PO Aspirin 81 MG ONCE ONE 04/06 1730 DC 04/06 PO 04/06 1731 1801 Aspirin Buffered 81 MG DAILY 04/07 1000 AC 04/07 PO 1008 Atorvastatin Calcium 40 MG 1700 04/06 1730 AC 04/06 PO 1801 Azithromycin 500 MG DAILY 04/07 1000 AC 04/07 Dextrose/Water 250 ML IV 1005 Azithromycin 500 MG Q24H 04/06 1700 DC Sodium Chloride 250 ML IV Ceftriaxone Sodium 1,000 MG DAILY 04/07 1000 AC 04/07 IV 1005 Ezetimibe 10 MG DAILY 04/06 1730 AC 04/07 PO 1006 Furosemide 40 MG ONCE ONE 04/07 0800 DC 04/07 IV 04/07 0801 0818 Furosemide 20 MG ONCE ONE 04/06 2345 DC 04/06 IV 04/06 2346 2350 Furosemide 20 MG ONCE ONE 04/06 2315 DC 04/06 IV 04/06 2316 2315 Insulin Aspart 0 TIDAC 04/07 0800 AC 04/07 SC 1209 Insulin Aspart 0 AT BEDTIME 04/06 2200 AC 04/06 SC 2157 Insulin Detemir 6 UNITS AT BEDTIME 04/07 2200 AC SC Insulin Detemir 6 UNITS DAILY 04/07 1000 DC SC Insulin Detemir 10 UNITS DAILY 04/07 1000 AC 04/07 SC 1006 Insulin Detemir 6 UNITS ONCE ONE 04/06 1930 DC 04/06 SC 04/06 193 194 Ipratropium [place] 2.5 ML EVERY 4 HRS/AWAKE 04/07 0800 AC 04/07 INH 1209 Metoprolol Tartrate 25 MG BID 04/06 1915 AC 04/07 PO 1008 Morphine Sulfate 2 MG Q4P PRN 04/06 1730 AC IV Sodium Chloride 1,000 ML .[id number] 04/06 1700 DC 04/06 IV 1906 Sodium Chloride 1,000 ML ONCE ONE 04/06 1315 DC 04/06 IV 04/06 2114 1400 Warfarin Sodium 3 MG COUMADIN 1700 ONE 04/07 1700 AC PO 04/07 1701 Warfarin Sodium 3 MG COUMADIN 1700 ONE 04/06 1730 DC 02/ PO 04/06 1731 1802 Warfarin Sodium 2.5 MG COUMADIN 1700 ONE 04/06 1700 CAN PO 04/06 1701 Warfarin Sodium 2 MG COUMADIN 1700 ONE 04/06 1700 CAN PO 04/06 1701 Impression/Plan Impression/Problem List Impression: 81-year-old man with a past medical history of hypertension, hyperlipidemia, coronary artery disease status post CABG, atrial fibrillation status post pacemaker placement and on Coumadin for anticoagulation, diabetes mellitus, and prostate cancer. He presents with a one-day history of generalized weakness and lethargy along with a nonproductive cough, chest pain and lightheadedness that started on the day of presentation. Assessment and Plan: Acute Hypoxic Respiratroy Failure likely secondary to CAP: * Blood and urine cultures show no growth so far. * Urine Legionella and strep pneumo antigen: negative * Continue IV ceftriaxone 1g and IV azithromycin 500 mg daily * Continue oxygen supplementation to keep O2 sat greater than 92%. Currently on 4L. Will wean off as tolerated. * TRC nebs as needed. * Will continue reduce home dose of metoprolol to 25 mg BID due to borderline low blood pressure. NSTEMI: * Patient's EKG showed ST depression with positive troponins on admission. * His troponins have peaked since admission. * No indication for IV heparin. * Reduce by mouth metoprolol to 25 mg BID on account of borderline blood pressures * Continue Coumadin 3 mg. Will dose it each day. * Daily INR. Target between 2-3 * Continue aspirin 81 daily * Will substitute Crestor with atorvastatin 40 mg daily * Echocardiogram shows EF of 40-45%. Moderate and hypokinesis of the septum and the inferior wall * Appreciate cardiology recs. * TSH, free T4 wnl Diabetes mellitus: * Hold metformin and insulin Degludec home medications * Levemir 10mg BID * Accu-Cheks * NovoLog sliding scale before meals and at bedtime History of Coronary artery disease status post CABG * Continue aspirin * Reduce by mouth metoprolol to 25 mg BID due to low blood pressures A. fib status post pacemaker placement: * Daily INR * Continue Coumadin according to INR History of hypertension * Continue reduce by mouth metoprolol to 25 mg BID due to borderline blood pressures * Monitor blood pressures closely DVT prophylaxis: Coumadin Diet: Consistent carb 1 diet Code Status: Full Code Please note patient lives with his niece Maciej Bedoya , and she is patient's primary contact and caregiver. Problem List: 1. Acute coronary syndrome Pain Ratin Tomorrow's Labs & Rationales: CBC, ICU bundle Plan DVT/Prophylaxis: pharmacological Cirilo Snow MD 04/07/17 1159: Attending MD Review Statement Attending Sign Off Attending Cosign Statement: I have: examined this patient, reviewed [facility] EMR data, personally reviewd images, discussd w/resident/PA/RADIOLOGY DIRECTOR, discussed mgmt plan w/abril, discussed mgmt plan w/CM, discussed mgmt plan w/pt, agreed w/resident/PA/RADIOLOGY DIRECTOR, amended to note. Other Findings: Impression 81 year old man * new diffuse GGO and patchy consolidations - consistent with pneumonia - likely community acquired, this can also have CHF/pulmonary edema in the differential * spiculated lung nodule (previously seen 06/24/2016) unchnaged, this was PET negative 07/2016, other small scattered nodules * elevated troponins - likely type 2 NSTEMI - demand ischemia * CKD Plan -ceftriaxone, zithromax -cardiology consultation appreciated -anticoagulation per cardiology -lung nodules should be followed as outpatient - sees Dr. Clarke DVT prophylaxis at all times TTS 35 min Downgrade to telemetry DVT prophylaxis at all times TTS 35 min Downgrade to telemetry
[2017-04-07 08:00] VITALS: BP 118/74; BP 124/60
--- NOTE | 2017-04-07 09:03 | RADIOLOGY REPORT ---
EXAMINATION: XR PORTABLE CHEST CLINICAL INFORMATION: Pulmonary edema. Worsening hypoxia. COMPARISON: Chest radiograph dated April 06, 2017. TECHNIQUE: Portable frontal view of the chest was obtained. FINDINGS: There are sternotomy sutures. There are surgical clips along the left heart border. Dual-lead pacemaker leads are unchanged in position. The heart is normal in size. There is improved aeration of the right lung compared with exam dated April 06, 2017. There is improved aeration of the left lung compared with prior examination from April 06, 2017. No pneumothorax. No large pleural effusion. There is a suture anchor within the right humeral head. IMPRESSION: Lungs demonstrate improved aeration bilaterally. Differential considerations for the groundglass airspace disease includes multifocal infection, diffuse pulmonary hemorrhage, and drug reaction. Pulmonary edema could also have a similar appearance.
--- NOTE | 2017-04-07 13:40 | ECHOCARDIOGRAM REPORT ---
BOOM NICK Age: 81 : 1935 Gender: M Exam Date: 04/06/2017 16:50 Exam Location: ER Ht (in): 70 Wt (lb): 200 BSA: 2.14 BP: 105 / 55 Ordering Physician: Julia Wells MD Referring Physician: Asif West M.D. Technologist: Kendal Palomino RDCS Room Number: [id number] Indications: MYOCARDIAL ISCHEMIA/[place] Rhythm: Atrial fibrillation Technical Quality: Fair FINDINGS Left Ventricle Normal size left ventricle. Moderate concentric left ventricular hypertrophy. Mildly decreased left ventricular systolic function with global hypokinesis. Left ventricular ejection fraction is estimated at 40-45 %. There is hypokinesis of the septum and the inferior wall. Right Ventricle Normal right ventricular size and function. Catheter/pacemaker wire in the right ventricular cavity. Right Atrium Normal right atrial size. Left Atrium Normal left atrial size. Mitral Valve Mitral valve thickened. Mild mitral regurgitation. Aortic Valve Diffuse thickening of the aortic valve cusps with reduced excursion. Moderate aortic stenosis. Trace aortic regurgitation. Tricuspid Valve Tricuspid valve not well visualized, grossly normal. Mild tricuspid regurgitation. No evidence of pulmonary hypertension. Pulmonic Valve Pulmonic valve not well visualized, grossly normal. Trace pulmonic regurgitation. Pericardium No pericardial effusion. Great Vessels Normal size aortic root. CONCLUSIONS Normal size left ventricle. Moderate concentric left ventricular hypertrophy. Mildly decreased left ventricular systolic function. There is hypokinesis of the septum and the inferior wall. Left ventricular ejection fraction is estimated at 40-45 %. Moderate aortic stenosis. Trace aortic regurgitation. Trace pulmonic regurgitation. Mild tricuspid regurgitation. Teofilo Xie M.D. (Electronically Signed) Final Date: 07 April 2017 13:39 MEASUREMENTS (Male / Female) Normal Values 2D ECHO LV Diastolic Diameter PLAX 5.0 cm 4.2 - 5.9 / 3.9 - 5.3 cm LV Systolic Diameter PLAX 3.7 cm 2.1 - 4.0 cm LV Fractional Shortening PLAX 26.0 % 25 - 46 % LV Ejection Fraction 2D Teich 50.8 % IVS Diastolic Thickness 1.5 cm LVPW Diastolic Thickness 1.5 cm LV Relative Wall Thickness 0.6 RV Internal Dim ED PLAX 2.8 cm 1.9 - 3.8 cm LVOT Diameter 2.2 cm Aortic Root Diameter 3.1 cm LA Systolic Diameter LX 3.8 cm 3.0 - 4.0 / 2.7 - 3.8 cm LA Volume 64.0 cm 18 - 58 / 22 - 52 cm Ascending Aorta Diameter 2.6 cm DOPPLER AV Peak Velocity 247.0 cm/s AV Peak Gradient 24.4 mmHg AV Mean Velocity 183.0 cm/s AV Mean Gradient 15.0 mmHg AV Velocity Time Integral 56.8 cm LVOT Peak Velocity 254.0 cm/s LVOT Peak Gradient 25.8 mmHg LVOT Mean Velocity 186.0 cm/s LVOT Mean Gradient 16.0 mmHg LVOT Velocity Time Integral 58.1 cm LVOT Stroke Volume 220.9 cm AV Area Cont Eq vti 3.9 cm AV Area Cont Eq pk 3.9 cm MV Peak Velocity 132.0 cm/s MV Peak Gradient 7.0 mmHg MV Mean Velocity 57.0 cm/s MV Mean Gradient 2.0 mmHg Mitral E Point Velocity 113.0 cm/s MV PHT Velocity 140.0 cm/s MV Deceleration [place] 650.0 cm/s MV Pressure Half Time 64.6 ms MV Area PHT 3.4 cm MV Deceleration Time 169.0 ms TR Peak Velocity 133.0 cm/s TR Peak Gradient 7.1 mmHg Right Atrial Pressure 5.0 mmHg Pulmonary Artery Systolic Pressu 12.1 mmHg Right Ventricular Systolic Press 12.1 mmHg LV E' Lateral Velocity 8.4 cm/s Mitral E to LV E' Lateral Ratio 13.5 LV E' Septal Velocity 4.9 cm/s Mitral E to LV E' Septal Ratio 23.2
[2017-04-07 16:00] VITALS: BP 128/70
[2017-04-07 20:47] VITALS: BP 142/78
[2017-04-08 07:08] VITALS: BP 120/60
--- NOTE | 2017-04-08 07:32 | PN- Cardiology ---
Subjective Subjective: Confused but no complaints Objective Vital Signs and I&Os Vital Signs Date Time Temp Pulse Resp B/P B/P Pulse O2 O2 Flow FiO2 Mean Ox Delivery Rate 04/08 0708 99.0 86 18 120/60 96 Nasal Cannula 04/07 2201 Nasal 4.0L Cannula 04/07 2153 95 152/72 04/07 2047 98.9 94 14 142/78 92 Nasal 5.0L Cannula 04/07 1630 92 Nasal 4.0L Cannula 04/07 1600 98 Nasal 4.0L Cannula 04/07 1600 97.7 74 18 128/70 98 Nasal 4.0L Cannula 04/07 1008 73 116/80 04/07 0919 96 Nasal 4.0L Cannula 04/07 0800 98.6 73 13 124/60 99 Nasal 50% Cannula 04/07 08 99 Nasal 50% Cannula Intake & Output 04/08 0800 / 0000 04/07 1600 04/07 0800 04/07 0000 04/06 1600 Intake Total 9998 481 4571 Output Total 366 049 9030 970 765 Balance -350 -635 -70 -645 896 Intake, IV 951 688 0431 Intake, Oral 800 200 120 Number 0 0 Bowel Movements Output, Urine 572 469 4176 970 765 Patient 193 lb 205 lb 200 lb Weight Weight Bed scale Bed scale Estimated Measurement Method Physical Exam: HEENT-PERRLA Neck-JVP normal, no bruits Lungs-improved crackles Heart-S1S2 irregular, 2/6SEM Abdomen-soft, not tender, BS+, no organomegaly Extr-trace edema, 2+ pulses Neuro-not oriented to place and time, non focal Assessment/Plan Assessment/Plan 81 year old male with h/o SSS, chronic AF, PPM, CAD, CABG (more than 20 years ago), moderate aortic stenosis, HTN, HLP, DM, CKD 3 presents with bilateral pneumonia and evidence of NSTEMI with abnormal ekg and elevated troponin. NSTEMI in the setting of acute infection. febrile up to 102, CXR showed CHF, received Lasix with good response. Plan: continue metoprolol 25 mg po bid continue Warfarin, ASA, statin lasix 40 mg iv x 1 today if creatinine below 2.0 repeat CXR Continue telemetry? Yes
[2017-04-08 08:06] LABS: ABSOLUTE BASOPHIL COUNT 0 /CUMM (0.0-0.2); ABSOLUTE EOSINOPHIL COUNT 0 /CUMM (0.0-0.7); ABSOLUTE GRANULOCYTE CT 6.4 /CUMM (1.4-6.5); ABSOLUTE MONOCYTE COUNT 0.6 /CUMM (0.10-0.60); BASOPHIL % 0.3 % (0.0-2.0); EOSINOPHIL % 0 % (0-5); GRANULOCYTE % 79.5 % (42.2-75.2); HEMATOCRIT 28.7 % (42-52); MEAN CORPUSCULAR HGB 30.5 PG (27.0-31.0); MEAN CORPUSCULAR HGB CONC 34.1 G/DL (33.0-37.0); MEAN CORPUSCULAR VOLUME 89.2 FL (80.0-94.0); MEAN PLATELET VOLUME 7.5 FL (7.4-10.4); PLATELET COUNT 186 /CUMM (130-400); RBC DISTRIBUTION WIDTH 13.8 % (11.5-14.5); RED BLOOD CELL CT 3.22 /CUMM (4.70-6.10); WHITE BLOOD CELL COUNT 8.1 /CUMM (4.8-10.8)
--- NOTE | 2017-04-08 08:22 | PN- Housestaff ---
Payal MCCORMACK,Steffanie 04/08/17 08: Subjective Follow-up For: Pneumonia, NSTEMI Complaints: no complaints Tele-Events Since Last Visit: Atrial fibrillation heart rate 81 Subjective: Patient was seen and examined at bedside today. No overnight events. Patient is alert, oriented 1, confused. He denies shortness of breath, chest pain, nausea, vomiting, difficulty in breathing. Review of Systems Constitutional: Reports: no symptoms. Cardiovascular: Reports: no symptoms. Respiratory: Reports: no symptoms. Gastrointestinal: Reports: no symptoms. Genitourinary: Reports: no symptoms. Musculoskeletal: Reports: no symptoms. Objective Last 24 Hrs of Vital Signs/I&O Vital Signs Date Time Temp Pulse Resp B/P B/P Pulse O2 O2 Flow FiO2 Mean Ox Delivery Rate 04/08 1035 68 04/08 0916 99 Nasal 4.0L Cannula 04/08 0900 94 Nasal 4.0L Cannula 04/08 0708 99.0 86 18 120/60 96 Nasal Cannula 04/07 2201 Nasal 4.0L Cannula 04/07 2153 95 152/72 04/07 2047 98.9 94 14 142/78 92 Nasal 5.0L Cannula 04/07 1630 92 Nasal 4.0L Cannula 04/07 1600 98 Nasal 4.0L Cannula 04/07 1600 97.7 74 18 128/70 98 Nasal 4.0L Cannula Intake & Output 04/08 1600 04/08 0800 04/08 0000 Intake Total Output Total 350 635 Balance -350 -635 Number 0 Bowel Movements Output, Urine 350 635 Patient 201 lb Weight Weight Bed scale Measurement Method Physical Exam General Appearance: Alert, Cooperative, No Acute Distress Cardiovascular: Normal S1, Normal S2, No Murmurs, IRREGULAR Lungs: Clear to Auscultation Abdomen: Soft, No Tenderness, No Hepatospenomegaly Neurological: Strength at 5/5 X4 Ext, Normal Tone, Sensation Intact Current Medications: Current Medications Sig/Maribel Start time Last Medication Dose Route Stop Time Status Admin Acetaminophen 1,000 MG Q6P PRN 04/07 0030 AC 04/07 N/A 1 UNIT IV 0100 Acetaminophen 650 MG Q6P PRN 04/06 1730 AC PO Albuterol Sulfate 3 ML BID 04/07 2200 AC 04/08 INH 0912 Albuterol Sulfate 3 ML EVERY 4 HRS/AWAKE 04/07 0800 DC 04/07 INH 1630 Aspirin Buffered 81 MG DAILY 04/07 1000 AC 02 PO 1034 Atorvastatin Calcium 40 MG 1700 04/06 1730 AC 04/07 PO 1729 Azithromycin 500 MG DAILY 04/07 1000 AC 04/08 Dextrose/Water 250 ML IV 1035 Ceftriaxone Sodium 1,000 MG DAILY 04/07 1000 AC 04/08 IV 1034 Ezetimibe 10 MG DAILY 04/06 1730 AC 04/08 PO 1034 Furosemide 40 MG ONCE ONE 04/08 0830 DC 04/08 IV 04/08 0831 1034 Insulin Aspart 0 TIDAC 04/07 0800 AC 04/08 SC 0844 Insulin Aspart 0 AT BEDTIME 04/06 2200 AC 04/06 SC 2157 Insulin Detemir 6 UNITS AT BEDTIME 04/07 2200 CAN SC Insulin Detemir 10 UNITS BID 04/07 2200 AC 04/08 SC 0844 Insulin Detemir 10 UNITS DAILY 04/07 1000 DC 04/07 SC 1006 Ipratropium [place] 2.5 ML BID 04/07 2200 AC 04/08 INH 0911 Ipratropium [place] 2.5 ML EVERY 4 HRS/AWAKE 04/07 0800 DC 04/07 INH 1630 Metoprolol Tartrate 25 MG BID 04/06 1915 AC 04/08 PO 1035 Morphine Sulfate 2 MG Q4P PRN 04/06 1730 AC IV Warfarin Sodium 3 MG COUMADIN 1700 ONE 04/07 1700 DC 04/07 PO 04/07 1701 1728 Last 24 Hrs of Lab/Ace Results Last 24 Hrs of Labs/Mics: Laboratory Tests 04/08/17 0650: Anion Gap 12, Estimated GFR 39 L, Glucose 222 H, Calcium 9.3, Phosphorus 3.1, Magnesium 2.0, Total Bilirubin 1.3, Direct Bilirubin 0.3, AST 79 H, ALT 44, Alkaline Phosphatase 47, Total Protein 5.8 L, Albumin 3.1 L, PT 25.8 H, INR 2.48 H, CBC w Diff NO MAN DIFF REQ, RBC 3.22 L, MCV 89.2, MCH 30.5, MCHC 34.1, RDW 13.8, MPV 7.5, Gran % 79.5 H, Lymphocytes % 12.2 L, Monocytes % 8.0, Eosinophils % 0, Basophils % 0.3, Absolute Granulocytes 6.4, Absolute Lymphocytes 1.0 L, Absolute Monocytes 0.6, Absolute Eosinophils 0, Absolute Basophils 0 Assessment/Plan Assessment: 81-year-old man with a past medical history of hypertension, hyperlipidemia, coronary artery disease status post CABG, atrial fibrillation status post pacemaker placement and on Coumadin for anticoagulation, diabetes mellitus, and prostate cancer. He presents with a one-day history of generalized weakness and lethargy along with a nonproductive cough, chest pain and lightheadedness that started on the day of presentation. Assessment and Plan: Acute Hypoxic Respiratroy Failure likely secondary to CAP: * Blood and urine cultures show no growth so far. * Urine Legionella and strep pneumo antigen: negative * Continue IV ceftriaxone 1g and IV azithromycin 500 mg daily PER pulmonology * Continue oxygen supplementation to keep O2 sat greater than 92%. Currently on 4L. Will wean off as tolerated. * TRC nebs as needed. * Will continue reduce home dose of metoprolol to 25 mg BID due to borderline low blood pressure. NSTEMI: * Patient's EKG showed ST depression with positive troponins on admission. * His troponins have peaked since admission. * No indication for IV heparin. * Continue Coumadin 3 mg. Will dose it each day. * Daily INR. Target between 2-3 * Continue aspirin 81 daily * Continue atorvastatin 40 mg daily * Echocardiogram shows EF of 40-45%. Moderate and hypokinesis of the septum and the inferior wall * Appreciate cardiology recs. * TSH, free T4 wnl Diabetes mellitus: * Hold metformin and insulin Degludec home medications * Levemir 10mg BID * Accu-Cheks * NovoLog sliding scale before meals and at bedtime History of Coronary artery disease status post CABG * Continue aspirin * Reduce by mouth metoprolol to 25 mg BID due to low blood pressures A. fib status post pacemaker placement: * Daily INR * Continue Coumadin according to INR History of hypertension * Continue metoprolol to 25 mg BID * Monitor blood pressures closely DVT prophylaxis: Coumadin Diet: Consistent carb 1 diet Code Status: Full Code Please note patient lives with his niece Maciej Bedoya , and she is patient's primary contact and caregiver. Plan-chest x-ray, physical therapy and wean oxygen as tolerated. Problem List: 1. Pneumonia 2. NSTEMI (non-ST elevated myocardial infarction) Pain Ratin Pain Location: NONE Pain Goal: Remain pain free Pain Plan: TYLENOL Tomorrow's Labs & Rationales: CBC,BEP Maureen MCCORMACK,Kikeevonnevishal 04/08/17 1413: Attending MD Review Statement Attending Statement Attending MD Statement: examined this patient, discuss w/resident/PA/CLINICAL TRAINING SPECIALIST, agreed w/resident/PA/CLINICAL TRAINING SPECIALIST, reviewed EMR data (avail), discussed with nursing, discussed with case mgmt, amended to note Attending Assessment/Plan: Patient seen and examined. Transferred out of the ICU overnight. EHR reviewed. Resting comfortably not in acute distress. Denies chest pain. Reports some shortness of breath. Reports nonproductive cough. He is afebrile and hemodynamically stable. No events on telemetry monitoring overnight. Creatinine level is stable. Cardiac enzymes are trending downwards. On examination he is not in acute distress. Heart sounds are irregular. Mild bilateral rhonchi. Abdomen soft and nontender. Trace peripheral edema. Continue current antibiotic regimen. If he remains afebrile overnight he may be transitioned to oral antibiotic therapy. Continue management for his non-ST elevation CT with aspirin therapy, beta liliane therapy and statin therapy. Patient is already on anticoagulation with Coumadin.
[2017-04-08 08:38] LABS: PT 25.8 SEC (9.4-12.5)
--- NOTE | 2017-04-08 10:55 | PN- Pulmonary ---
Subjective HPI/Critical Care Issues: pt seen and examined confused without new events on telemetry Objective Current Medications: Current Medications Sig/Maribel Start time Last Medication Dose Route Stop Time Status Admin Acetaminophen 1,000 MG Q6P PRN 04/07 0030 AC 04/07 N/A 1 UNIT IV 0100 Acetaminophen 650 MG Q6P PRN 04/06 1730 AC PO Albuterol Sulfate 3 ML BID 04/07 2200 AC 04/08 INH 0912 Albuterol Sulfate 3 ML EVERY 4 HRS/AWAKE 04/07 0800 DC 04/07 INH 1630 Aspirin Buffered 81 MG DAILY 04/07 1000 AC 04/08 PO 1034 Atorvastatin Calcium 40 MG 1700 04/06 1730 AC 04/07 PO 1729 Azithromycin 500 MG DAILY 04/07 1000 AC 04/08 Dextrose/Water 250 ML IV 1035 Ceftriaxone Sodium 1,000 MG DAILY 04/07 1000 AC 04/08 IV 1034 Ezetimibe 10 MG DAILY 04/06 1730 AC 04/08 PO 1034 Furosemide 40 MG ONCE ONE 04/08 0830 DC 04/08 IV 04/08 0831 1034 Insulin Aspart 0 TIDAC 04/07 0800 AC 04/08 SC 0844 Insulin Aspart 0 AT BEDTIME 04/06 2200 AC 04/06 SC 2157 Insulin Detemir 6 UNITS AT BEDTIME 04/07 2200 CAN SC Insulin Detemir 10 UNITS BID 04/07 2200 AC 04/08 SC 0844 Insulin Detemir 10 UNITS DAILY 04/07 1000 DC 04/07 SC 1006 Ipratropium [place] 2.5 ML BID 04/07 2200 AC 04/08 INH 0911 Ipratropium [place] 2.5 ML EVERY 4 HRS/AWAKE 04/07 0800 DC 04/07 INH 1630 Metoprolol Tartrate 25 MG BID 04/06 1915 AC 04/08 PO 1035 Morphine Sulfate 2 MG Q4P PRN 04/06 1730 AC IV Warfarin Sodium 3 MG COUMADIN 1700 ONE 04/07 1700 DC 04/07 PO 04/07 1701 1728 Vital Signs & I&O Last 24 Hrs of Vitals and I&O: Vital Signs Date Time Temp Pulse Resp B/P B/P Pulse O2 O2 Flow FiO2 Mean Ox Delivery Rate 04/08 1035 68 04/08 0816 99 Nasal 4.0L Cannula 04/08 899 94 Nasal 4.0L Cannula 02/07 0708 99.0 86 18 120/60 96 Nasal Cannula 04/07 2201 Nasal 4.0L Cannula 04/07 2153 95 152/72 04/07 2047 98.9 94 14 142/78 92 Nasal 5.0L Cannula 04/07 1630 92 Nasal 4.0L Cannula 04/07 1600 98 Nasal 4.0L Cannula 04/07 1600 97.7 74 18 128/70 98 Nasal 4.0L Cannula Intake & Output 04/08 1600 04/08 0800 04/08 0000 Intake Total Output Total 350 635 Balance -350 -635 Number 0 Bowel Movements Output, Urine 350 635 Patient 201 lb Weight Weight Bed scale Measurement Method Exam Other Physical Findings: gen awake heent ncat cvs s1, s2 lungs rare rhonchi abd soft ext trace edema confused Results Last 24 Hrs of Lab Results: Laboratory Tests 04/08/17 0650: Anion Gap 12, Estimated GFR 39 L, Glucose 222 H, Calcium 9.3, Phosphorus 3.1, Magnesium 2.0, Total Bilirubin 1.3, Direct Bilirubin 0.3, AST 79 H, ALT 44, Alkaline Phosphatase 47, Total Protein 5.8 L, Albumin 3.1 L, PT 25.8 H, INR 2.48 H, CBC w Diff NO MAN DIFF REQ, RBC 3.22 L, MCV 89.2, MCH 30.5, MCHC 34.1, RDW 13.8, MPV 7.5, Gran % 79.5 H, Lymphocytes % 12.2 L, Monocytes % 8.0, Eosinophils % 0, Basophils % 0.3, Absolute Granulocytes 6.4, Absolute Lymphocytes 1.0 L, Absolute Monocytes 0.6, Absolute Eosinophils 0, Absolute Basophils 0 Impression/Plan Impression/Plan Impression/Plan: Impression 81 year old man * new diffuse GGO and patchy consolidations - consistent with pneumonia - likely community acquired, this can also have CHF/pulmonary edema in the differential * spiculated lung nodule (previously seen 06/24/2016) unchnaged, this was PET negative 07/2016, other small scattered nodules * elevated troponins - likely type 2 NSTEMI - demand ischemia * CKD Plan -course of abx - ceftriaxone, zithromax -cardiology consultation appreciated -anticoagulation per cardiology -lung nodules should be followed as outpatient - sees Dr. Clarke DVT prophylaxis at all times call with any questions
[2017-04-08 14:47] VITALS: BP 110/60
--- NOTE | 2017-04-08 15:52 | Patient Discharge Instructions ---
Discharge Instructions General Discharge Information You were seen/treated for: Pneumonia pneumonia,NSTEMI Watch for these problems: In case of chest pain, chest pressure, shortness of breath, palpitation, nausea, abdominal pain and he scored the nearest emergency room Special Instructions: Please follow-up with the technology coach regarding your lung nodules as outpatient. Please follow up with your fill plant operator and PCP after your discharge. Please return to emergency if symptoms worsen. Diet Continue normal diet: No Recommended Diet: Diabetic Activity Full Activity/No Limits: No Activity Self Limited: Yes Acute Coronary Syndrome Inclusion Criteria At DC or during hospital stay patient has or had the following: ACS DIAGNOSIS Yes Discharge Core Measures Meds if any: Prescribed or Continued at Discharge Aspirin Yes Beta-Ruperto Yes Statin Yes Meds if any: NOT Prescribed or Continued at Discharge No ALBARO/ARB d/t EF>40% Congestive Heart Failure Inclusion Criteria At DC or during hospital stay patient has or had the following: CHF DIAGNOSIS No Discharge Core Measures Meds if any: Prescribed or Continued at Discharge Meds if any: NOT Prescribed or Continued at Discharge Cerebrovascular accident Inclusion Criteria At DC or during hospital stay patient has or had the following: CVA/TIA Diagnosis No Discharge Core Measures Meds if any: Prescribed or Continued at Discharge Meds if any: NOT Prescribed or Continued at Discharge Venous thromboembolism Inclusion Criteria VTE Diagnosis No VTE Type NONE VTE Confirmed by (Test) NONE Discharge Core Measures - Per Current guidelines, there needs to be overlap - treatment for the first 5 days of Warfarin therapy. - If discharged on Warfarin prior to 5 days of - overlap therapy, the patient will need to be - assessed for post discharge needs including - *Post discharge parental anticoagulation - *Warfarin and/or parental anticoagulation education - *Follow up date to check INR post discharge At least 5 days overlap therapy as Inpatient No Meds if any: Prescribed or Continued at Discharge Note: Overlap Therapy is Warfarin and Anticoagulant Meds if any: NOT Prescribed or Continued at Discharge
[2017-04-08 22:08] VITALS: BP 88/50
[2017-04-08 22:23] VITALS: BP 118/58
[2017-04-09 06:51] VITALS: BP 120/60
--- NOTE | 2017-04-09 06:56 | PN- Housestaff ---
Payal MCCORMACK,Steffanie 04/09/17 0655: Subjective Follow-up For: NSTEMI, pneumonia Complaints: no complaints Tele-Events Since Last Visit: Sinus paced rhythm heart rate 70 Subjective: Patient was seen and examined at bedside. He was sitting comfortably in his bed. He is on 3 L of nasal oxygen. No acute distress. He denies chest pain, chest pressure, nausea, vomiting, shortness of breath, palpitation. Review of Systems Constitutional: Reports: no symptoms. Cardiovascular: Reports: no symptoms. Respiratory: Reports: no symptoms. Gastrointestinal: Reports: no symptoms. Genitourinary: Reports: no symptoms. Musculoskeletal: Reports: no symptoms. Objective Last 24 Hrs of Vital Signs/I&O Vital Signs Date Time Temp Pulse Resp B/P B/P Pulse O2 O2 Flow FiO2 Mean Ox Delivery Rate 04/09 0953 Nasal 3.0L Cannula 04/09 0937 Nasal 3.0L Cannula 04/09 0933 70 120/60 04/09 0651 98.0 70 20 120/60 99 Nasal 3.0L Cannula 04/09 0000 Nasal 3.0L Cannula 04/08 2226 70 118/58 04/08 2223 118/58 04/08 2208 96.9 70 20 88/50 100 Nasal 3.0L Cannula 04/08 1657 94 Nasal 3.0L Cannula 04/08 1640 96 Nasal 3.0L Cannula 04/08 1447 98.1 70 20 110/60 99 Nasal 3.0L Cannula Intake & Output 04/09 1600 04/09 0800 04/09 0000 Intake Total Output Total 400 200 Balance -400 -200 Output, Urine 400 200 Physical Exam General Appearance: Alert, Cooperative, No Acute Distress HEENT: PERRLA Cardiovascular: Normal S1, Normal S2, No Murmurs Lungs: Normal Air Movement Abdomen: Soft, No Tenderness, No Hepatospenomegaly Neurological: Normal Speech, Strength at 5/5 X4 Ext, Normal Tone Extremities: No Edema Current Medications: Current Medications Sig/Maribel Start time Last Medication Dose Route Stop Time Status Admin Acetaminophen 1,000 MG Q6P PRN 04/07 0030 AC 04/07 N/A 1 UNIT IV 0100 Acetaminophen 650 MG Q6P PRN 04/06 1730 AC PO Albuterol Sulfate 3 ML BID 04/07 2200 AC 04/08 INH 1629 Amoxicillin/ 875 MG Q12 04/09 1000 AC 04/09 Clavulanate Potassium PO 0934 Aspirin Buffered 81 MG DAILY 04/07 1000 AC 04/09 PO 0933 Atorvastatin Calcium 40 MG 1700 04/06 1730 AC 04/08 PO 1618 Azithromycin 500 MG DAILY 04/07 1000 DC 04/08 Dextrose/Water 250 ML IV 1035 Ceftriaxone Sodium 1,000 MG DAILY 04/07 1000 DC 04/08 IV 1034 Ezetimibe 10 MG DAILY 04/06 1730 AC 04/09 PO 0932 Insulin Aspart 0 TIDAC 04/07 0800 AC 04/08 SC 1634 Insulin Aspart 0 AT BEDTIME 04/06 2200 AC 04/08 SC 2205 Insulin Detemir 10 UNITS BID 04/07 2200 AC 04/09 SC 0933 Ipratropium Aurelia 2.5 ML BID 04/07 2200 AC 04/08 INH 1629 Metoprolol Tartrate 25 MG BID 04/06 1915 AC 04/09 PO 0933 Morphine Sulfate 2 MG Q4P PRN 04/06 1730 AC IV Senna/Docusate Sodium 2 TAB DAILY 04/08 1715 AC 04/09 PO 0932 Warfarin Sodium 3 MG COUMADIN 1700 ONE 04/08 1730 DC PO 04/08 1731 Last 24 Hrs of Lab/Ace Results Last 24 Hrs of Labs/Mics: Laboratory Tests 04/09/17 0615: Anion Gap 12, Estimated GFR 39 L, BUN/Creatinine Ratio 30.6 H, PT 31.6 H, INR 3.04 H, CBC w Diff NO MAN DIFF REQ, RBC 3.01 L, MCV 89.5, MCH 30.4, MCHC 33.9, RDW 13.6, MPV 7.3 L, Gran % 67.6, Lymphocytes % 19.8 L, Monocytes % 9.9 H, Eosinophils % 1.9, Basophils % 0.8, Absolute Granulocytes 4.5, Absolute Lymphocytes 1.3, Absolute Monocytes 0.7 H, Absolute Eosinophils 0.1, Absolute Basophils 0.1 Assessment/Plan Assessment: 81-year-old man with a past medical history of hypertension, hyperlipidemia, coronary artery disease status post CABG, atrial fibrillation status post pacemaker placement and on Coumadin for anticoagulation, diabetes mellitus, and prostate cancer. He presents with a one-day history of generalized weakness and lethargy along with a nonproductive cough, chest pain and lightheadedness that started on the day of presentation. Assessment and Plan: Acute Hypoxic Respiratroy Failure likely secondary to CAP: * Blood and urine cultures show no growth so far. * Urine Legionella and strep pneumo antigen: negative * Continue IV ceftriaxone 1g and IV azithromycin 500 mg daily PER pulmonology * Continue oxygen supplementation to keep O2 sat greater than 92%. Currently on 4L. Will wean off as tolerated. * TRC nebs as needed. * Will continue reduce home dose of metoprolol to 25 mg BID due to borderline low blood pressure. We will discontinue IV antibiotics and started him on Augmentin. NSTEMI: * Patient's EKG showed ST depression with positive troponins on admission. * His troponins have peaked since admission. * No indication for IV heparin. * Continue Coumadin 3 mg. Will dose it each day. * Daily INR. Target between 2-3 * Continue aspirin 81 daily * Continue atorvastatin 40 mg daily * Echocardiogram shows EF of 40-45%. Moderate and hypokinesis of the septum and the inferior wall * Appreciate cardiology recs. * TSH, free T4 wnl Diabetes mellitus: * Hold metformin and insulin Degludec home medications * Levemir 10mg BID * Accu-Cheks * NovoLog sliding scale before meals and at bedtime History of Coronary artery disease status post CABG * Continue aspirin * Reduce by mouth metoprolol to 25 mg BID due to low blood pressures A. fib status post pacemaker placement: * Daily INR * Continue Coumadin according to INR History of hypertension * Continue metoprolol to 25 mg BID * Monitor blood pressures closely DVT prophylaxis: Coumadin Consistent carb 1 diet Code Status: Full Code Please note patient lives with his niece Maciej Bedoya , and she is patient's primary contact and caregiver. Physical therapy is suggested as short-term rehabilitation. Plan-chest x-ray today. Problem List: 1. NSTEMI (non-ST elevated myocardial infarction) 2. Pneumonia Pain Ratin Pain Location: none Pain Goal: Remain pain free Pain Plan: tylenol Tomorrow's Labs & Rationales: inr,bep Maureen MCCORMACK,Catrina 04/09/17 1200: Attending MD Review Statement Attending Statement Attending MD Statement: examined this patient, discuss w/resident/PA/NIGHT SUPERVISOR, agreed w/resident/PA/NIGHT SUPERVISOR, reviewed EMR data (avail), discussed with nursing, discussed with case mgmt, amended to note Attending Assessment/Plan: Patient seen and examined. Resting comfortably not in acute distress. No issues overnight. No new complaints this morning. Reports feeling better compared to presentation. No events on telemetry monitoring. He is maintaining saturation on 3 L of oxygen. On examination he has adequate entry bilaterally with mild bilateral rhonchi. Abdomen soft and nontender. He has no peripheral edema. Cardiology follow-up appreciated. Chest x-ray today shows improving pulmonary edema. Will administer a dose of Lasix intravenously today and transitioned to oral diuretics tomorrow. Continue antibiotic therapy for his community acquired pneumonia. Wean off oxygen supplementation as tolerated. Anticipate transition to oral antibiotic therapy tomorrow after the patient may be discharged. However due to his profound deconditioning he will need rehabilitation at the group home facility before being transitioned home. Patient has chronic normocytic anemia which is currently stable. Repeat hemoglobin levels tomorrow. This should be monitored by his primary care provider as an outpatient with further workup as indicated based on previous workup done by his primary care provider.
--- NOTE | 2017-04-09 07:32 | PN- Cardiology ---
Subjective Subjective: Patient appears more awake today. States he feels better. Objective Vital Signs and I&Os Vital Signs Date Time Temp Pulse Resp B/P B/P Pulse O2 O2 Flow FiO2 Mean Ox Delivery Rate 04/09 0651 98.0 70 20 120/60 99 Nasal 3.0L Cannula 04/09 0000 Nasal 3.0L Cannula 04/08 2226 70 118/58 04/08 2223 118/58 04/08 2208 96.9 70 20 88/50 100 Nasal 3.0L Cannula 04/08 1657 94 Nasal 3.0L Cannula 04/08 1640 96 Nasal 3.0L Cannula 04/08 1447 98.1 70 20 110/60 99 Nasal 3.0L Cannula 04/08 1035 68 04/08 0916 99 Nasal 4.0L Cannula 04/08 0900 94 Nasal 4.0L Cannula Intake & Output 04/09 0800 04/09 0000 04/08 1600 04/08 0800 04/08 0000 04/07 1600 Intake Total 850 1080 Output Total 400 200 600 621 860 0156 Balance -400 -200 250 -350 -635 -70 Intake, IV 250 280 Intake, Oral 600 800 Number 0 Bowel Movements Output, Urine 400 200 600 [phone] Patient 201 lb 193 lb Weight Weight Bed scale Bed scale Measurement Method Physical Exam: HEENT-PERRLA Neck-JVP normal, no bruits Lungs-improved crackles Heart-S1S2 irregular, 2/6SEM Abdomen-soft, not tender, BS+, no organomegaly Extr-trace edema, 2+ pulses Neuro-more awake and oriented, non focal Skin-dry, no rash Current Medications: Current Medications Sig/Maribel Start time Last Medication Dose Route Stop Time Status Admin Acetaminophen 1,000 MG Q6P PRN 04/07 0030 AC 04/07 N/A 1 UNIT IV 0100 Acetaminophen 650 MG Q6P PRN 04/06 1730 AC PO Albuterol Sulfate 3 ML BID 04/07 2200 AC 04/08 INH 1629 Amoxicillin/ 875 MG Q12 04/09 1000 AC Clavulanate Potassium PO Aspirin Buffered 81 MG DAILY 04/07 1000 AC 04/08 PO 1034 Atorvastatin Calcium 40 MG 1700 04/06 1730 AC 04/08 PO 1618 Azithromycin 500 MG DAILY 04/07 1000 DC 04/08 Dextrose/Water 250 ML IV 1035 Ceftriaxone Sodium 1,000 MG DAILY 04/07 1000 DC 04/08 IV 1034 Ezetimibe 10 MG DAILY 04/06 1730 AC 04/08 PO 1034 Furosemide 40 MG ONCE ONE 04/08 08 DC 04/08 IV 04/08 830 1034 Insulin Aspart 0 TIDAC 04/07 0800 AC 04/08 SC 1634 Insulin Aspart 0 AT BEDTIME 04/06 2199 AC 04/08 SC 2205 Insulin Detemir 10 UNITS BID 04/07 220 AC 04/08 SC 2205 Ipratropium Omer 2.5 ML BID 04/07 220 AC 04/08 INH 1629 Metoprolol Tartrate 25 MG BID 04/06 1915 AC 04/08 PO 1035 Morphine Sulfate 2 MG Q4P PRN 04/06 173 AC IV Senna/Docusate Sodium 2 TAB DAILY 04/08 1715 AC PO Warfarin Sodium 3 MG COUMADIN 1700 ONE 04/08 173 DC PO 04/08 1731 Results Last 48 Hrs of Labs/Mics: Laboratory Tests 04/09/17 0615: Sodium Pending, Potassium Pending, Chloride Pending, Carbon Dioxide Pending, Anion Gap Pending, BUN Pending, Creatinine Pending, BUN/Creatinine Ratio Pending , PT Pending, INR Pending, CBC w Diff Pending, WBC Pending, RBC Pending, Hgb Pending, Hct Pending, MCV Pending, MCH Pending, MCHC Pending, RDW Pending, Plt Count Pending, MPV Pending 04/08/17 0650: Anion Gap 12, Estimated GFR 39 L, Glucose 222 H, Calcium 9.3, Phosphorus 3.1, Magnesium 2.0, Total Bilirubin 1.3, Direct Bilirubin 0.3, AST 79 H, ALT 44, Alkaline Phosphatase 47, Total Protein 5.8 L, Albumin 3.1 L, PT 25.8 H, INR 2.48 H, CBC w Diff NO MAN DIFF REQ, RBC 3.22 L, MCV 89.2, MCH 30.5, MCHC 34.1, RDW 13.8, MPV 7.5, Gran % 79.5 H, Lymphocytes % 12.2 L, Monocytes % 8.0, Eosinophils % 0, Basophils % 0.3, Absolute Granulocytes 6.4, Absolute Lymphocytes 1.0 L, Absolute Monocytes 0.6, Absolute Eosinophils 0, Absolute Basophils 0 Assessment/Plan Assessment/Plan 81 year old male with h/o SSS, chronic AF, PPM, CAD, CABG (more than 20 years ago), moderate aortic stenosis, HTN, HLP, DM, CKD 3 presents with bilateral pneumonia and evidence of NSTEMI. Overall improved. Plan: continue metoprolol 25 mg po bid continue Warfarin, ASA, statin lasix 40 mg iv x 1 today if creatinine below 2.0, then stop repeat CXR tomorrow OOB, PT taper oxygen Continue telemetry? Yes
[2017-04-09 08:09] LABS: ABSOLUTE BASOPHIL COUNT 0.1 /CUMM (0.0-0.2); ABSOLUTE EOSINOPHIL COUNT 0.1 /CUMM (0.0-0.7); ABSOLUTE GRANULOCYTE CT 4.5 /CUMM (1.4-6.5); ABSOLUTE LYMPH COUNT 1.3 /CUMM (1.2-3.4); ABSOLUTE MONOCYTE COUNT 0.7 /CUMM (0.10-0.60); BASOPHIL % 0.8 % (0.0-2.0); EOSINOPHIL % 1.9 % (0-5); GRANULOCYTE % 67.6 % (42.2-75.2); MEAN CORPUSCULAR HGB 30.4 PG (27.0-31.0); MEAN CORPUSCULAR HGB CONC 33.9 G/DL (33.0-37.0); MEAN CORPUSCULAR VOLUME 89.5 FL (80.0-94.0); MEAN PLATELET VOLUME 7.3 FL (7.4-10.4); PLATELET COUNT 208 /CUMM (130-400); RBC DISTRIBUTION WIDTH 13.6 % (11.5-14.5); RED BLOOD CELL CT 3.01 /CUMM (4.70-6.10); WHITE BLOOD CELL COUNT 6.6 /CUMM (4.8-10.8)
[2017-04-09 08:14] LABS: PT 31.6 SEC (9.4-12.5)
--- NOTE | 2017-04-09 08:56 | Discharge Summary ---
Visit Information Visit Dates Admission Date: 04/06/17 Discharge Date: 04/10/17 Hospital Course Course Attending Physician: Catrina Reddy MD Primary Care Physician: Dayron Sutherland MD Hospital Course: 81 year old male with h/o SSS, chronic AF, PPM, CAD, CABG (more than 20 years ago), moderate aortic stenosis, HTN, HLP, DM, CKD 3 presented to the emergency department with shortness of breath, diagnosed as bilateral pneumonia and evidence of any systemic with abnormal EKG and elevated troponin. He was initially admitted in the ICU and later transferred to the telemetry unit for further management. Pneumonia was treated with IV antibiotics. He showed signs and symptoms of fluid overload as well and was given additional IV diuretics while watching his creatinine levels. Of note, he does not use additional oxygen at home, but was requiring 3 L of oxygen via nasal cannula, which was slowly tapered off. However due to his profound deconditioning, he will need short-term rehabilitation facility. His anemia has to be followed up with primary care physician as well as he is not actively bleeding, or hemolyzing. Of note, patient has imaging showing spiculated lung nodule (previously seen ) which is unchnaged, this was PET negative 07/2016, other small scattered nodules seen. There is noted by his waterside worker Dr. Cirilo Snow, for which the patient needs to follow-up on an outpatient basis as well. Allergies: Coded Allergies: NO KNOWN ALLERGIES (NONE 04/06/17) Pertinent Lab Results: Echocardiogram done on 04/07/2017: FINDINGS Left Ventricle Normal size left ventricle. Moderate concentric left ventricular hypertrophy. Mildly decreased left ventricular systolic function with global hypokinesis. Left ventricular ejection fraction is estimated at 40-45 %. There is hypokinesis of the septum and the inferior wall. Right Ventricle Normal right ventricular size and function. Catheter/pacemaker wire in the right ventricular cavity. Right Atrium Normal right atrial size. Left Atrium Normal left atrial size. Mitral Valve Mitral valve thickened. Mild mitral regurgitation. Aortic Valve Diffuse thickening of the aortic valve cusps with reduced excursion. Moderate aortic stenosis. Trace aortic regurgitation. Tricuspid Valve Tricuspid valve not well visualized, grossly normal. Mild tricuspid regurgitation. No evidence of pulmonary hypertension. Pulmonic Valve Pulmonic valve not well visualized, grossly normal. Trace pulmonic regurgitation. Pericardium No pericardial effusion. Great Vessels Normal size aortic root. CONCLUSIONS Normal size left ventricle. Moderate concentric left ventricular hypertrophy. Mildly decreased left ventricular systolic function. There is hypokinesis of the septum and the inferior wall. Left ventricular ejection fraction is estimated at 40-45 %. Moderate aortic stenosis. Trace aortic regurgitation. Trace pulmonic regurgitation. Mild tricuspid regurgitation. Teofilo Xie M.D. (Electronically Signed) Final Date: 07 April 2017 13:39 MEASUREMENTS (Male / Female) Normal Values 2D ECHO LV Diastolic Diameter PLAX 5.0 cm 4.2 - 5.9 / 3.9 - 5.3 cm LV Systolic Diameter PLAX 3.7 cm 2.1 - 4.0 cm LV Fractional Shortening PLAX 26.0 % 25 - 46 % LV Ejection Fraction 2D Teich 50.8 % IVS Diastolic Thickness 1.5 cm LVPW Diastolic Thickness 1.5 cm LV Relative Wall Thickness 0.6 RV Internal Dim ED PLAX 2.8 cm 1.9 - 3.8 cm LVOT Diameter 2.2 cm Aortic Root Diameter 3.1 cm LA Systolic Diameter LX 3.8 cm 3.0 - 4.0 / 2.7 - 3.8 cm LA Volume 64.0 cm 18 - 58 / 22 - 52 cm Ascending Aorta Diameter 2.6 cm DOPPLER AV Peak Velocity 247.0 cm/s AV Peak Gradient 24.4 mmHg AV Mean Velocity 183.0 cm/s AV Mean Gradient 15.0 mmHg AV Velocity Time Integral 56.8 cm LVOT Peak Velocity 254.0 cm/s LVOT Peak Gradient 25.8 mmHg LVOT Mean Velocity 186.0 cm/s LVOT Mean Gradient 16.0 mmHg LVOT Velocity Time Integral 58.1 cm LVOT Stroke Volume 220.9 cm AV Area Cont Eq vti 3.9 cm AV Area Cont Eq pk 3.9 cm MV Peak Velocity 132.0 cm/s MV Peak Gradient 7.0 mmHg MV Mean Velocity 57.0 cm/s MV Mean Gradient 2.0 mmHg Mitral E Point Velocity 113.0 cm/s MV PHT Velocity 140.0 cm/s MV Deceleration Blount 650.0 cm/s MV Pressure Half Time 64.6 ms MV Area PHT 3.4 cm MV Deceleration Time 169.0 ms TR Peak Velocity 133.0 cm/s TR Peak Gradient 7.1 mmHg Right Atrial Pressure 5.0 mmHg Pulmonary Artery Systolic Pressu 12.1 mmHg Right Ventricular Systolic Press 12.1 mmHg LV E' Lateral Velocity 8.4 cm/s Mitral E to LV E' Lateral Ratio 13.5 LV E' Septal Velocity 4.9 cm/s Mitral E to LV E' Septal Ratio 23.2 DICTATED BY: Teofilo Xie MD DATE/TIME DICTATED:04/07/171339 SEARCH MANAGER:NATALI DATE/TIME TRANSCRIBED:04/07/171339 CAT scan of the chest done on 04/06/2017: FINDINGS: LUNGS: Moderate to severe changes of emphysema with upper lobe predominance are again noted however are better seen on the previous CT due to presence of new parenchymal abnormalities on the current examination. Diffuse ground-glass opacities are noted involving all the lobes. There are more consolidative opacities in the bilateral upper lobes posteriorly as well as bilateral lower lobes posteriorly in the mid chest. The greatest involvement is noted in the right upper and right lower lobes. An irregular somewhat elongated spiculated density in the right apex is again noted, without significant interval change compared to previous CT of 06/24/2016. It measures approximately 0.7 x 1.2 cm in AP and transverse dimensions (series 3 image 12). Note that this density did not demonstrate FDG uptake on previous PET/CT of 08/19/2016. A 4 mm subpleural nodule in the left upper lobe laterally (series 3 image 27) and a 3 mm nodule in the lingula (series 3 image 41) are stable since previous CT of 07/26/2016. A few scattered punctate calcified nodules are again noted bilaterally. MEDIASTINUM: Postsurgical changes of cardiac bypass are noted with multiple mediastinal surgical clips. There is cardiomegaly with greater enlargement of the left-sided cardiac chambers. A right-sided subcarinal lymph node measures 1.3 cm in short axis (series 2 image 35), previously 0.8 cm. No definite evidence of pathologically enlarged hilar lymph nodes. No pericardial effusion. Moderate calcific atherosclerosis of the aorta. The collapsed esophagus grossly appears unremarkable. Small hiatal hernia. Left pectoral bipolar pacemaker is in place with the pacer leads terminating in the right atrium and right ventricle. The trachea and central bronchi are well patent. Subcentimeter hypodense thyroid nodules are stable. PLEURA: Small left and trace right pleural effusions. No pleural plaques or thickening. AXILLA AND CHEST WALL SOFT TISSUES: No axillary lymphadenopathy. Bilateral mild symmetrical gynecomastia is redemonstrated. UPPER ABDOMEN: No focal adrenal nodule. 3.9 cm partially exophytic left renal upper pole cyst is partially seen. Stable [id number] pancreatic atrophy. The gallbladder is surgically absent. OSSEOUS STRUCTURES: The sternotomy is well fused. The sternotomy wires are intact. Changes of diffuse radiopathic skeletal hyperostosis are redemonstrated. No acute or suspicious osseous abnormality. A single surgical anchor is noted in the bilateral humeral heads. IMPRESSION: 1. New diffuse ground-glass and patchy consolidative airspace opacities as detailed above are concerning for multifocal infectious process given the clinical history of fever and weakness. Possibility of pulmonary edema is thought to be very less likely given the appearance. Other differential possibilities may include inflammatory processes including drug reaction or diffuse pulmonary hemorrhage. 2. Trace right and small left pleural effusions are new compared to last study. 3. Mildly prominent subcarinal lymph node is probably reactive. 4. Cardiomegaly. 5. A spiculated irregular right apical nodule and an additional 2 left lung 3-4 mm nodules are stable since previous CT of 07/26/2016. Known changes of emphysema. Consider followup chest CT in 3 to 6 months. DICTATED BY: Dejuan MCCORMACK,Sheri DATE/TIME DICTATED:04/06/171553 SEARCH MANAGER:NATALI DATE/TIME TRANSCRIBED:04/06/171553 CAT scan of the abdomen/pelvis done on 04/06/2017: FINDINGS: LUNG BASES: Mosaic attenuation of the lungs at lung bases. There are small bilateral pleural effusion. Pacemaker right ventricle. LIVER, GALLBLADDER, AND BILIARY TREE: The liver is normal in size, shape, and attenuation. No focal hepatic lesion or biliary ductal dilatation is present. Status post cholecystectomy. PANCREAS: Unremarkable. SPLEEN: Unremarkable. ADRENAL GLANDS: Unremarkable. KIDNEYS AND URETERS: The kidneys are normal in size, shape, and attenuation. No hydronephrosis, hydroureter, or calculi seen. No perinephric stranding. There is a cortical cyst at the upper pole of left kidney measuring 4.1 x 4 cm x 3.8 cm. There is nonobstructive stone measuring 8 mm in the lower pole left kidney. There is a 2 mm stone lower pole of right kidney. There is no hydronephrosis. No ureteral calculi. BLADDER: Dominique catheter within the bladder. Bladder is empty. GASTROINTESTINAL TRACT: There is diffuse diverticulosis of colon. No diverticulitis. No acute change of the bowel. No bowel obstruction. There is no bowel wall thickening or edema. Moderate to large-volume of stool in the colon. The appendix is normal. The small bowel loops are unremarkable. MESENTERY: No inflammation. No free air or free fluid. ABDOMINAL WALL: No significant hernia is appreciated. LYMPH NODES: Normal. VASCULAR: Atherosclerotic vascular wall calcifications throughout the abdomen and pelvis. There is a vascular stent in the left common iliac artery. PELVIC VISCERA: Radiotherapy seeds within the prostate. OSSEOUS STRUCTURES: Degenerative spondylosis spine with bridging osteophytes and nonbridging endplate spurs of the vertebrae. Multilevel facet joint arthrosis. IMPRESSION: 1. No acute abnormality CT scan abdomen and pelvis. 2. Small bilateral pleural effusions. 3. Mosaic attenuation lung bases probably related to small airways disease. DICTATED BY: Sheldon Hernadez MD DATE/TIME DICTATED:04/06/172334 SEARCH MANAGER:NATALI DATE/TIME TRANSCRIBED:04/06/1723[address] done on 04/06/2017: FINDINGS: There is no evidence of acute intracranial hemorrhage or territorial infarction. No abnormal mass effect or midline shift is seen. Yanes to white matter differentiation is well preserved. No extra-axial fluid collections are identified. There is stable moderate generalized prominence of the ventricles, sulci, and extra-axial CSF spaces. There is stable mild to moderate hypoattenuation within the periventricular white matter of both hemispheres compatible with chronic microangiopathy. There is heavy atherosclerotic calcification involving the intradural vertebral arteries as well as the cavernous internal carotid arteries, unchanged. No acute osseous abnormalities. There is a retention cyst in the right maxillary sinus. The visualized nasal cavity and nasopharynx are clear. The mastoid air cells and middle ear cavities are clear. The temporal mandibular joints articulate normally. No acute soft tissue abnormalities. There have been bilateral ocular lens extractions and there are benign scleral calcifications bilaterally. IMPRESSION: No acute intracranial pathology. Stable moderate generalized volume loss and mild to moderate chronic microangiopathy. DICTATED BY: Monica Seymour MD DATE/TIME DICTATED:04/06/171337 SEARCH MANAGER:GARRETT DATE/TIME TRANSCRIBED:04/06/171337 Chest x-ray on admission on 04/06/2017: FINDINGS: There is right greater than left bilateral airspace opacity (groundglass opacity) new from prior study. This is superimposed on a background of chronic emphysema. There are sternal wires, mediastinal vascular clips and a 2-lead pacemaker with contiguous, intact leads. Suture anchors in both humeral heads. No pleural effusion or pneumothorax. Normal heart size. Mildly tortuous aorta. IMPRESSION: New groundglass airspace opacity bilaterally concerning for multifocal infection. The pulmonary vascularity does not appear prominent and indistinct to suggest that this represents pulmonary edema. Other etiologies such as diffuse pulmonary hemorrhage, drug reaction, etc. could be considered in the appropriate clinical setting. DICTATED BY: Tres Queen MD DATE/TIME DICTATED:04/06/171303 SEARCH MANAGER:GARRETT DATE/TIME TRANSCRIBED:04/06/171303 Disposition Summary Disposition Principal Diagnosis: Acute hypoxic respiratory failure Non-ST elevation myocardial infarction. Community-acquired pneumonia. Additional Diagnosis: Sick sinus syndrome. Status post pacemaker placement. Chronic atrial fibrillation. Coronary artery disease. Moderate aortic stenosis. Stage III chronic kidney disease. Hypertension. Diabetes mellitus. Discharge Disposition: SNF Discharge Instructions General Discharge Information Code Status: Full Code Patient's Diet: Consistent carbohydrate 1, diabetic diet. Patient's Activity: As tolerated, will require a walker Follow-Up Instructions/Appts: Follow-up with your primary care physician, and composite engineer after he gets discharged. We also need to follow-up with the lung doctor/waterside worker regarding her lung nodules after discharge. Please return to emergency if symptoms worsen. Medications at Discharge Discharge Medications: Stop taking the following medications: Metoprolol Tartrate (Lopressor) 50 MG TABLET ORAL TWICE DAILY Continue taking these medications: Aspirin (Ecotrin*) 81 MG TABLET.DR 1 Tablet ORAL Every Morning Comments: Last Taken:04/10/17 Time:9AM Rosuvastatin Calcium (Crestor) 10 MG TABLET 1 Tablet ORAL DAILY Comments: NOT TAKEN Ezetimibe (Zetia) 10 MG TABLET 1 Tablet ORAL DAILY Comments: Last Taken:04/10/17 Time:9AM Warfarin Sodium (Warfarin Sodium) 3 MG TABLET 1 Tablet ORAL As Directed Qty = 90 Comments: 1 MG GIVEN 04/09/16 @ 5PM Ipratropium [place] (Ipratropium [place]) 42 MCG (0.06 %) SPRAY 2 [place] In the nose as needed for RHINITIS Qty = 15 Comments: NOT GIVEN ON THIS ADMISSION Metformin HCl (Glucophage) 850 MG TABLET 1 Tablet ORAL TWICE DAILY Qty = 60 Comments: COVERED WITH INSULIN THIS ADMISSION Insulin Degludec (Tresiba Flextouch U-200) 200 UNIT/ML (3 ML) INSULN.PEN 16 Units SUB-Q DAILY Qty = 6 Insulin Aspart, Recombinant (Novolog Flexpen) 100 UNIT/ML INSULN.PEN Units SUB-Q THREE TIMES DAILY Qty = 15 Comments: Last Taken:04/09/17 Time:5PM Furosemide (Furosemide) 20 MG TABLET 1 Tablet ORAL DAILY Qty = 30 Comments: Last Taken:04/10/17 Time:9AM Start taking the following new medications: Metoprolol Tartrate (Metoprolol Tartrate) 25 MG TABLET 25 Milligram ORAL TWICE DAILY Qty = 60 No Refills Comments: Last Taken:04/10/17 Time:9AM Amoxicillin/Clavulanate Potass (Amox-Clav 875-125 MG Tablet) 875 MG-125 MG TABLET 875 Milligram ORAL EVERY 12 HOURS Qty = 11 No Refills Comments: Last Taken:04/10/17 Time:9AM Copies To: Koko MCCORMACK,Dayron Suarez; Jenna MCCORMACK,Asif; Gwendolyn MCCORMACK,Ciirlo Attending MD Review Statement Documenting Attending: Catrina Reddy MD Other Findings: Medically stable to be [facility] today.
--- NOTE | 2017-04-09 11:10 | RADIOLOGY REPORT ---
EXAMINATION: CR PORTABLE CHEST CLINICAL INFORMATION: Shortness of breath. Presumptive diagnosis of pneumonia. COMPARISON: Several prior chest x-rays, most recent of which is dated 04/07/2017. TECHNIQUE: Portable frontal view of the chest was obtained. FINDINGS: The patient is status post median sternotomy and CABG surgery. The cardiomediastinal silhouette is within normal limits in size. Pacer leads are seen in the right atrium and right ventricle, unchanged. Lungs are symmetrically inflated. The right CP angle is not fully included on this exam. There is mild central vascular congestion. Improvement in the previously seen diffuse reticular opacities is seen, consistent with improving interstitial edema. No focal dense consolidation seen. No effusion or pneumothorax noted. Bony structures grossly unremarkable. Nina are again noted along the lower left chest. Bilateral humeral head tacks are seen. IMPRESSION: 1. Right atrial and right ventricular pacer leads unchanged. 2. Improving interstitial pattern, likely representing improvement in pulmonary edema.
--- NOTE | 2017-04-09 11:58 | PN- Pulmonary ---
Subjective HPI/Critical Care Issues: pt seen and examined appears improved cxr improving as well Objective Current Medications: Current Medications Sig/Maribel Start time Last Medication Dose Route Stop Time Status Admin Acetaminophen 1,000 MG Q6P PRN 04/07 0030 AC 04/07 N/A 1 UNIT IV 0100 Acetaminophen 650 MG Q6P PRN 04/06 1730 AC PO Albuterol Sulfate 3 ML BID 04/07 2200 AC 04/08 INH 1629 Amoxicillin/ 875 MG Q12 04/09 1000 AC 04/09 Clavulanate Potassium PO 0934 Aspirin Buffered 81 MG DAILY 04/07 1000 AC 04/09 PO 0933 Atorvastatin Calcium 40 MG 1700 04/06 1730 AC 04/08 PO 1618 Azithromycin 500 MG DAILY 04/07 1000 DC 04/08 Dextrose/Water 250 ML IV 1035 Ceftriaxone Sodium 1,000 MG DAILY 04/07 1000 DC 04/08 IV 1034 Ezetimibe 10 MG DAILY 04/06 1730 AC 04/09 PO 0932 Furosemide 40 MG ONCE ONE 04/09 1130 DC IV 04/09 1131 Insulin Aspart 0 TIDAC 04/07 0800 AC 04/08 SC 1634 Insulin Aspart 0 AT BEDTIME 04/06 2200 AC 04/08 SC 2205 Insulin Detemir 10 UNITS BID 04/07 2200 AC 04/09 SC 0933 Ipratropium [place] 2.5 ML BID 04/07 2200 AC 04/08 INH 1629 Metoprolol Tartrate 25 MG BID 04/06 1915 AC 04/09 PO 0933 Morphine Sulfate 2 MG Q4P PRN 04/06 1730 AC IV Senna/Docusate Sodium 2 TAB DAILY 04/08 1715 AC 04/09 PO 0932 Warfarin Sodium 3 MG COUMADIN 1700 ONE 04/08 1730 DC PO 04/08 1731 Vital Signs & I&O Last 24 Hrs of Vitals and I&O: Vital Signs Date Time Temp Pulse Resp B/P B/P Pulse O2 O2 Flow FiO2 Mean Ox Delivery Rate 04/09 952 Nasal 3.0L Cannula 04/09 936 Nasal 3.0L Cannula 04/09 0833 70 120/60 04/09 0830 Nasal 3.0L Cannula 04/09 0651 98.0 70 20 120/60 99 Nasal 3.0L Cannula 04/09 0000 Nasal 3.0L Cannula 02/07 2226 70 118/58 02/07 2223 118/58 04/08 2208 96.9 70 20 88/50 100 Nasal 3.0L Cannula 04/08 1657 94 Nasal 3.0L Cannula 04/08 1640 96 Nasal 3.0L Cannula 04/08 1447 98.1 70 20 110/60 99 Nasal 3.0L Cannula Intake & Output 04/09 1600 04/09 0800 04/09 0000 Intake Total Output Total 400 200 Balance -400 -200 Output, Urine 400 200 Exam Other Physical Findings: gen awake heent ncat cvs s1, s2 lungs rare rhonchi abd soft ext trace edema confused Results Last 24 Hrs of Lab Results: Laboratory Tests 04/09/17 0615: Anion Gap 12, Estimated GFR 39 L, BUN/Creatinine Ratio 30.6 H, PT 31.6 H, INR 3.04 H, CBC w Diff NO MAN DIFF REQ, RBC 3.01 L, MCV 89.5, MCH 30.4, MCHC 33.9, RDW 13.6, MPV 7.3 L, Gran % 67.6, Lymphocytes % 19.8 L, Monocytes % 9.9 H, Eosinophils % 1.9, Basophils % 0.8, Absolute Granulocytes 4.5, Absolute Lymphocytes 1.3, Absolute Monocytes 0.7 H, Absolute Eosinophils 0.1, Absolute Basophils 0.1 Impression/Plan Impression/Plan Impression/Plan: Impression 81 year old man * new diffuse GGO and patchy consolidations - consistent with pneumonia - likely community acquired, this can also have CHF/pulmonary edema in the differential * spiculated lung nodule (previously seen 06/24/2016) unchnaged, this was PET negative 07/2016, other small scattered nodules * elevated troponins - likely type 2 NSTEMI - demand ischemia * CKD Plan -course of abx - ceftriaxone, zithromax -cardiology consultation appreciated -anticoagulation per cardiology -lung nodules should be followed as outpatient - sees Dr. Clarke DVT prophylaxis at all times call with any questions can repeat cxr a few weeks after completion of therapy
[2017-04-09 14:48] VITALS: BP 110/60
[2017-04-09 22:00] VITALS: BP 140/60
[2017-04-10 06:30] VITALS: BP 134/58
--- NOTE | 2017-04-10 07:08 | PN- Housestaff ---
Payal MCCORMACK,Steffanie 04/10/17 0707: Subjective Follow-up For: PNA,NSTEMI Complaints: no complaints Subjective: Pt was seen and examined at bediside. No overnight. No complaints. He denies chest pain, chest pressure, nausea, vomiting, abdominal pain, palpitation, short of breath Review of Systems Constitutional: Reports: no symptoms. Cardiovascular: Reports: no symptoms. Respiratory: Reports: no symptoms. Gastrointestinal: Reports: no symptoms. Genitourinary: Reports: no symptoms. Musculoskeletal: Reports: no symptoms. Objective Last 24 Hrs of Vital Signs/I&O Vital Signs Date Time Temp Pulse Resp B/P B/P Pulse O2 O2 Flow FiO2 Mean Ox Delivery Rate 04/10 1126 98.3 82 20 134/58 04/10 0910 Room Air 04/10 0851 82 134/58 04/10 0839 96 Room Air Room Air 04/10 0630 98.3 82 20 134/58 94 04/09 2357 Room Air 04/09 2200 70 140/60 04/09 2125 70 140/60 04/09 1840 97 Room Air Intake & Output 04/10 1600 04/10 0800 04/10 0000 Intake Total 200 200 Output Total 350 400 Balance -150 -200 Intake, Oral 200 200 Output, Urine 350 400 Physical Exam General Appearance: Alert, Oriented X3, Cooperative, No Acute Distress HEENT: PERRLA, EOMI, Mucous Membr. moist/pink Neck: No JVD, No thryomegaly, +2 Carotid Pulse wo Bruit Cardiovascular: Normal S1, Normal S2, No Murmurs Lungs: Normal Air Movement Abdomen: Soft, No Tenderness, No Hepatospenomegaly Neurological: Normal Speech, Normal Tone, Sensation Intact Current Medications: Current Medications Sig/Maribel Start time Last Medication Dose Route Stop Time Status Admin Acetaminophen 1,000 MG Q6P PRN 04/07 0030 DCD 04/07 N/A 1 UNIT IV 0100 Acetaminophen 650 MG Q6P PRN 04/06 1730 DCD PO Albuterol Sulfate 3 ML BID 04/07 2200 DC 04/10 INH 0838 Amoxicillin/ 875 MG Q12 04/09 1000 DCD 04/10 Clavulanate Potassium PO 0851 Aspirin Buffered 81 MG DAILY 04/07 1000 DCD 04/10 PO 0851 Atorvastatin Calcium 40 MG 1700 04/06 1730 DCD 04/09 PO 1732 Ezetimibe 10 MG DAILY 04/06 1730 DCD 04/10 PO 0852 Furosemide 20 MG DAILY 04/10 1000 CAN PO Furosemide 20 MG DAILY 04/10 1000 DCD 04/10 PO 0905 Insulin Aspart 0 TIDAC 04/07 08 DCD 04/10 SC 1211 Insulin Aspart 0 AT BEDTIME 04/06 2199 DCD 04/09 SC 2123 Insulin Detemir 10 UNITS BID 04/07 2199 DCD 04/10 SC 0905 Ipratropium [place] 2.5 ML BID 04/07 2199 DC 04/10 INH 0838 Metoprolol Tartrate 25 MG BID 04/06 1915 DCD 04/10 PO 0851 Morphine Sulfate 2 MG Q4P PRN 04/06 1729 DCD IV Senna/Docusate Sodium 2 TAB DAILY 04/08 171 DCD 04/10 PO 0851 Warfarin Sodium 1 MG COUMADIN 1700 ONE 04/09 1745 DC 04/09 PO 04/09 1746 1735 Last 24 Hrs of Lab/Ace Results Last 24 Hrs of Labs/Mics: Laboratory Tests 04/10/17 0620: Anion Gap 11, Estimated GFR 45 L, BUN/Creatinine Ratio 32.7 H, Iron 29 L, TIBC 279, % Saturation 10 L, Ferritin 173.0, Lactate Dehydrogenase 825 H, PT 28.1 H, INR 2.70 H, CBC w Diff NO MAN DIFF REQ, RBC 3.09 L, MCV 88.8, MCH 30.2, MCHC 34.0, RDW 14.0, MPV 7.2 L, Gran % 73.4, Lymphocytes % 13.4 L, Monocytes % 10.6 H, Eosinophils % 2.1, Basophils % 0.5, Absolute Granulocytes 4.9, Absolute Lymphocytes 0.9 L, Absolute Monocytes 0.7 H, Absolute Eosinophils 0.1, Absolute Basophils 0 04/10/17 0600: Haptoglobin Pending Assessment/Plan Assessment: 81-year-old man with a past medical history of hypertension, hyperlipidemia, coronary artery disease status post CABG, atrial fibrillation status post pacemaker placement and on Coumadin for anticoagulation, diabetes mellitus, and prostate cancer. He presents with a one-day history of generalized weakness and lethargy along with a nonproductive cough, chest pain and lightheadedness that started on the day of presentation. Assessment and Plan: Acute Hypoxic Respiratroy Failure likely secondary to CAP: * Blood and urine cultures show no growth so far. * Urine Legionella and strep pneumo antigen: negative * We started him on Augmentin yesterday and will continue the same for next 5 days. * Patient is weaned off oxygen * TRC nebs as needed. * Will continue reduce home dose of metoprolol to 25 mg BID due to borderline low blood pressure. NSTEMI: * Patient's EKG showed ST depression with positive troponins on admission. * His troponins have peaked since admission. * No indication for IV heparin. * Continue Coumadin 3 mg. Will dose it each day. * Daily INR. Target between 2-3 * Continue aspirin 81 daily * Continue atorvastatin 40 mg daily * Echocardiogram shows EF of 40-45%. Moderate and hypokinesis of the septum and the inferior wall * Appreciate cardiology recs. * TSH, free T4 wnl Diabetes mellitus: * Hold metformin and insulin Degludec home medications * Levemir 10mg BID * Accu-Cheks * NovoLog sliding scale before meals and at bedtime History of Coronary artery disease status post CABG * Continue aspirin * Reduce by mouth metoprolol to 25 mg BID due to low blood pressures A. fib status post pacemaker placement: * Daily INR * Continue Coumadin according to INR History of hypertension * Continue metoprolol to 25 mg BID * Monitor blood pressures closely DVT prophylaxis: Coumadin Consistent carb 1 diet Code Status: Full Code Please note patient lives with his niece Maciej Bedoya , and she is patient's primary contact and caregiver. Physical therapy is suggested as short-term rehabilitation. Patient is discharged to short-term rehabilitation today. Problem List: 1. NSTEMI (non-ST elevated myocardial infarction) 2. Pneumonia Pain Ratin Pain Location: none Pain Goal: Remain pain free Pain Plan: tylenol Tomorrow's Labs & Rationales: none Catrina Reddy MD 04/10/17 1044: Attending MD Review Statement Attending Statement Attending MD Statement: examined this patient, discuss w/resident/PA/MARKET RESEARCH LEAD, agreed w/resident/PA/MARKET RESEARCH LEAD, reviewed EMR data (avail), discussed with nursing, discussed with case mgmt, amended to note Attending Assessment/Plan: Patient seen and examined. Resting comfortably much in any acute distress. No issues overnight. He has been weaned off oxygen supplementation. He reports feeling better. He appears significantly less lethargic today. On examination he has good entry bilaterally with no added sounds. He has no peripheral edema. He is medically stable to be discharged today and will follow up with cardiology service as an outpatient.
--- NOTE | 2017-04-10 07:19 | PN- Cardiology ---
Subjective Subjective: Patient feels good, no chest pain,dyspnea or cough Objective Vital Signs and I&Os Vital Signs Date Time Temp Pulse Resp B/P B/P Pulse O2 O2 Flow FiO2 Mean Ox Delivery Rate 04/09 2357 Room Air 04/09 2200 70 140/60 04/09 2125 70 140/60 04/09 1840 97 Room Air 04/09 1448 98.0 80 20 110/60 98 04/09 1317 97 Nasal 2.0L Cannula 04/09 952 Nasal 3.0L Cannula 04/09 936 Nasal 3.0L Cannula 04/09 932 70 120/60 04/09 0830 Nasal 3.0L Cannula Intake & Output 04/10 0000 04/09 1600 04/09 0804/09 0000 04/08 1600 Intake Total 281 701 1351 850 Output Total 350 400 700 400 200 600 Balance -150 -200 300 -400 -200 250 Intake, IV 250 Intake, Oral 952 403 7531 600 Output, Urine 350 400 700 400 200 600 Patient 201 lb Weight Weight Bed scale Measurement Method Physical Exam: HEENT-PERRLa Neck-JVP normal, no bruits Lungs-minimal bibasilar crackles Heart-S1S2 irregular, 2/6 CED at the base Abdomen-soft, not tender, BS+, no organomegaly Extr-no edema, 2+ pulses, no cyanosis Neuro-more awake,non focal skin-dry, no rash Current Medications: Current Medications Sig/Maribel Start time Last Medication Dose Route Stop Time Status Admin Acetaminophen 1,000 MG Q6P PRN 04/07 0030 AC 04/07 N/A 1 UNIT IV 0100 Acetaminophen 650 MG Q6P PRN 04/06 1730 AC PO Albuterol Sulfate 3 ML BID 04/07 2200 AC 04/09 INH 1835 Amoxicillin/ 875 MG Q12 04/09 1000 AC 04/09 Clavulanate Potassium PO 2123 Aspirin Buffered 81 MG DAILY 04/07 1000 AC 04/09 PO 0933 Atorvastatin Calcium 40 MG 1700 04/06 1730 AC 04/09 PO 1732 Ezetimibe 10 MG DAILY 04/06 1730 AC 04/09 PO 0932 Furosemide 40 MG ONCE ONE 04/09 1130 DC /08 IV 04/09 1131 1237 Insulin Aspart 0 TIDAC 04/07 08 AC 04/09 SC 1735 Insulin Aspart 0 AT BEDTIME 04/06 2199 AC 04/09 SC 2123 Insulin Detemir 10 UNITS BID 04/07 220 AC 04/09 SC 212 Ipratropium [place] 2.5 ML BID 04/07 220 AC 04/09 INH 1835 Metoprolol Tartrate 25 MG BID 04/06 1915 AC 04/09 PO 2125 Morphine Sulfate 2 MG Q4P PRN 04/06 1730 AC IV Potassium Chloride 40 MEQ ONCE ONE 04/09 1415 DC 04/09 PO 04/09 1416 1731 Senna/Docusate Sodium 2 TAB DAILY 04/08 1715 AC 04/09 PO 0932 Warfarin Sodium 1 MG COUMADIN 1700 ONE 04/09 1745 DC 04/09 PO 04/09 1746 1735 Results Last 48 Hrs of Labs/Mics: Laboratory Tests 04/09/17 0615: Anion Gap 12, Estimated GFR 39 L, BUN/Creatinine Ratio 30.6 H, Magnesium 2.2, PT 31.6 H, INR 3.04 H, CBC w Diff NO MAN DIFF REQ, RBC 3.01 L, MCV 89.5, MCH 30.4, MCHC 33.9, RDW 13.6, MPV 7.3 L, Gran % 67.6, Lymphocytes % 19.8 L, Monocytes % 9.9 H, Eosinophils % 1.9, Basophils % 0.8, Absolute Granulocytes 4.5, Absolute Lymphocytes 1.3, Absolute Monocytes 0.7 H, Absolute Eosinophils 0.1, Absolute Basophils 0.1 Recent Imaging Studies: CXR improving Assessment/Plan Assessment/Plan 81 year old male with h/o SSS, chronic AF, PPM, CAD, CABG (more than 20 years ago), moderate aortic stenosis, HTN, HLP, DM, CKD 3 presents with bilateral pneumonia and evidence of NSTEMI+combined CHF. Overall improved, CXR improving as well Plan: continue metoprolol 25 mg po bid continue Warfarin, ASA, statin Lasix 20 mg po qd OK to d/c home or STR\ f/u with me in 2 weeks (will schedule) Continue telemetry? No
[2017-04-10 08:12] LABS: ABSOLUTE BASOPHIL COUNT 0 /CUMM (0.0-0.2); ABSOLUTE EOSINOPHIL COUNT 0.1 /CUMM (0.0-0.7); ABSOLUTE GRANULOCYTE CT 4.9 /CUMM (1.4-6.5); ABSOLUTE LYMPH COUNT 0.9 /CUMM (1.2-3.4); ABSOLUTE MONOCYTE COUNT 0.7 /CUMM (0.10-0.60); BASOPHIL % 0.5 % (0.0-2.0); EOSINOPHIL % 2.1 % (0-5); GRANULOCYTE % 73.4 % (42.2-75.2); HEMATOCRIT 27.4 % (42-52); MEAN CORPUSCULAR HGB 30.2 PG (27.0-31.0); MEAN CORPUSCULAR VOLUME 88.8 FL (80.0-94.0); MEAN PLATELET VOLUME 7.2 FL (7.4-10.4); PLATELET COUNT 231 /CUMM (130-400); RED BLOOD CELL CT 3.09 /CUMM (4.70-6.10); WHITE BLOOD CELL COUNT 6.7 /CUMM (4.8-10.8)
[2017-04-10 08:17] LABS: PT 28.1 SEC (9.4-12.5)
[2017-04-10] MEDS ORDERED: METOPROLOL TART25 M1 PO (08:49)
[2017-04-10] MEDS ORDERED: FUROSEMIDE20 M1 PO ×2 (08:49→09:56)
[2017-04-10] MEDS ORDERED: AMOX-CLAV 875-1 EACH PO (08:56)
--- NOTE | 2017-04-10 08:57 | PN- Student ---
Subjective Subjective: 81 year old male with a PMHx of HTN, HL, CAD s/p CABG, atrial fibrillation s/p pacemaker and on coumadin, DM, and prostate CA who was admitted to our service on 04/06/17 after presenting to the ED with a chief complaint of fatigue and difficulty to arouse with associated non productive cough, mild SOB, chest pain, lightheadedness, and pale appearing whose CXR supported a diagnosis of PNA, negative rapid flu test. Other active problems included NSTEMI found on EKG, elevated LA of 4 which subsequently declined to 1.7, an elevated BUN/Cr which did not correct with IV fluids. Overnight, he states he slept well and denied episodes of lightheadedness, chest pain, diaphoresis, or progressive fatigue. Objective Objective: DIAGNOSTIC DATA: EKG Results Atrial fib ablation. Heart rate 94 bpm. T-wave inversions in anterolateral leads: Leads 1, aVL and V1 through V6 with ST depressions. CXR Results [04/06/17] New groundglass airspace opacity bilaterally concerning for multifocal infection. The pulmonary vascularity does not appear prominent and indistinct to suggest that this represents pulmonary edema. Other etiologies such as diffuse pulmonary hemorrhage, drug reaction, etc. could be considered in the appropriate clinical setting. [04/06/17] Worsening severity of the pulmonary edema since prior chest today [04/07/17] Differentials include: multifocal infection, diffuse pulmonary hemorrhage, and drug reaction [04/09/17] Improving interstitial pattern, likely representing improvement in pulmonary edema Other Results Head CT IMPRESSION: No acute intracranial pathology. Stable moderate generalized volume loss and mild to moderate chronic microangiopathy. Chest CT IMPRESSION: 1. New diffuse ground-glass and patchy consolidative airspace opacities as detailed above are concerning for multifocal infectious process given the clinical history of fever and weakness. Possibility of pulmonary edema is thought to be very less likely given the appearance. Other differential possibilities may include inflammatory processes including drug reaction or diffuse pulmonary hemorrhage. ECHO CONCLUSIONS Normal size left ventricle. Moderate concentric left ventricular hypertrophy. Mildly decreased left ventricular systolic function. There is hypokinesis of the septum and the inferior wall. Left ventricular ejection fraction is estimated at 40-45 %. Moderate aortic stenosis. Trace aortic regurgitation. Trace pulmonic regurgitation. Mild tricuspid regurgitation. PHYSICAL EXAMINATION: General: Alert, oriented to place. Some cognitive decline noted compared to yesterday afternoon as he talked of his late as if she were still alive and present. Cardiovascular: RR, S1,S2, 3/6 CED and 2/6 diastolic murmur noted over all garcia. Pulmonary: Bronchial breath sounds noted b/l. No egophany. No crackes. GI: Soft, non tender Extremities: No edema Results Results: Laboratory Tests 04/10/17 0620: Sodium Pending, Potassium Pending, Chloride Pending, Carbon Dioxide Pending, Anion Gap Pending, BUN Pending, Creatinine Pending, BUN/Creatinine Ratio Pending , PT Pending, INR Pending, CBC w Diff Pending, WBC Pending, RBC Pending, Hgb Pending, Hct Pending, MCV Pending, MCH Pending, MCHC Pending, RDW Pending, Plt Count Pending, MPV Pending 04/09/17 0615: Anion Gap 12, Estimated GFR 39 L, BUN/Creatinine Ratio 30.6 H, Magnesium 2.2, PT 31.6 H, INR 3.04 H, CBC w Diff NO MAN DIFF REQ, RBC 3.01 L, MCV 89.5, MCH 30.4, MCHC 33.9, RDW 13.6, MPV 7.3 L, Gran % 67.6, Lymphocytes % 19.8 L, Monocytes % 9.9 H, Eosinophils % 1.9, Basophils % 0.8, Absolute Granulocytes 4.5, Absolute Lymphocytes 1.3, Absolute Monocytes 0.7 H, Absolute Eosinophils 0.1, Absolute Basophils 0.1 04/08/17 0650: Anion Gap 12, Estimated GFR 39 L, Glucose 222 H, Calcium 9.3, Phosphorus 3.1, Magnesium 2.0, Total Bilirubin 1.3, Direct Bilirubin 0.3, AST 79 H, ALT 44, Alkaline Phosphatase 47, Total Protein 5.8 L, Albumin 3.1 L, PT 25.8 H, INR 2.48 H, CBC w Diff NO MAN DIFF REQ, RBC 3.22 L, MCV 89.2, MCH 30.5, MCHC 34.1, RDW 13.8, MPV 7.5, Gran % 79.5 H, Lymphocytes % 12.2 L, Monocytes % 8.0, Eosinophils % 0, Basophils % 0.3, Absolute Granulocytes 6.4, Absolute Lymphocytes 1.0 L, Absolute Monocytes 0.6, Absolute Eosinophils 0, Absolute Basophils 0 Assessment/Plan Assessment: 81 year old male with a PMHx of HTN, HL, CAD s/p CABG, atrial fibrillation s/p pacemaker and on coumadin, DM, and prostate CA who was admitted to our service on 04/06/17 after presenting to the ED with a chief complaint of fatigue and difficulty to arouse with associated non productive cough, mild SOB, chest pain, lightheadedness, and pale appearing whose CXR supported a diagnosis of PNA, negative rapid flu test. Other active problems included NSTEMI found on EKG, elevated LA of 4 which subsequently declined to 1.7, an elevated BUN/Cr which did not correct with IV fluids. Problem list: CAP, NSTEMI, DM, CKD stage 3, CAD s/p CABG, afib s/p pacemaker, and HTN, Fe-deficient anemia, CED and diastolic murmur, elevated LDH. 1) CAP Evidence: CXR Groundglass airspace opacity b/l with improving intersitial pattern; negative rapid flu test. ABG 7.50, 26, 52, 20 as of 04/07/17. Current AG= 12. Bronchial breath sounds on PE. No egophany. Plan: Off O2, continue to monitor O2 saturation. Continue augmentin 875mg q12h. F/u on viral cultures. 2) NSTEMI Evidence: Atrial fib ablation. Heart rate 94 bpm. T-wave inversions in anterolateral leads: Leads 1, aVL and V1 through V6 with ST depressions. Troponin 18.80, Pro-BNP 47918 Plan: Continue ASA 81mg qd. Consider restarting coumadin. 3) DM Evidence: History. Urine glucose 500. Serum glucose >200. Plan: Consider titrating up SS insulin and outpatient f/u with endocrinology 4) CKD stage IIIb, nephrotic syndrome. Evidence: BUN/Cr 30.6 and eGFR 39. Blood TP 5.8 and albumin 3.1. Urine protein 30. Risk: Infection 2/2 lowered immunity. Hyperlipidemia. Thromboembolic events 2/2 loss of anticoagulant factors like ATIII. Hyperuremic symptoms. Plan: Ensure lipid levels are well controlled and continue lipid medications. Ensure properly anticoagulated with coumadin with INR of 2-3. Consider starting patient on an ACEi/ARB as these are renoprotective and help with cardiac remodeling. Ensure patient is up to date on vaccinations. Source: https://www.ncbi.nlm.nih.gov/pmc/articles/OXP0278524/ 5) CAD s/p CABG Evidence: History. Plan: Continue atorvostatin 40mg qd @ 1700 and ezetimibe 10mg qd. 6) Atrial Fibrillation s/p pacemaker Evidence: History. On ASA and coumadin. Plan: Continue anticoagulation therapy and consider outpatient f/u with cardiology. 7) HTN/HL Evidence: History. Well controlled with furosemide at 134/58. Goal is <150/<90. Lipid levels as of 02/15/17 TG 88, Chol 111, LDL 56, HDL 38 Plan: Continue furosemide 20mg qd and metoprolol 25mg BID; Continue atorvostatin 40mg qd @ 1700 and ezetimibe 10mg qd. Consider ordering lipids outpatient to ensure continued control. 8) Iron deficient anemia Evidence: H/H 9.3/27.4, Fe 29. 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 Plan: Consider hemoccult. Supplement Fe. 9) CED and diastolic murmurs Evidence: Noted on physical examination and confirmed with ECHO Plan: Continue BP and lipid medications 10) Elevated LDH of 825 Differentials: Malignancy, hemolysis, rhabdomyolysis Plan: Consider peripheral smear for evidence of extravacular hemolysis (ie schistocytes)
--- NOTE | 2017-04-10 10:54 | RADIOLOGY REPORT ---
EXAMINATION: CR PORTABLE CHEST CLINICAL INFORMATION: Undergoing diuretic therapy. Presumptive diagnosis of follow-up pneumonia, CHF. COMPARISON: Multiple prior chest x-rays, most recent of which is x-ray dated 04/09/2017. TECHNIQUE: Portable AP erect view of the chest was obtained. FINDINGS: The patient is status post median sternotomy and CABG surgery. Right atrial and right ventricular pacer leads are unchanged. The cardiomediastinal silhouette is borderline normal in size. No vascular congestion is seen. Lungs bilaterally are symmetrically expanded and demonstrate no evidence of pulmonary edema. There is slight residual diffuse increased reticular prominence in the right lung and the left lower lung, possibly representing subtle interstitial lung disease. No focal consolidation, effusion or pneumothorax is seen. Bony structures are unremarkable. IMPRESSION: 1. Interval resolution of pulmonary edema. 2. Slight diffuse reticular prominence in the lungs with relative sparing of the left upper lobe noted, perhaps due to subtle underlying interstitial lung disease. Clinical correlation requested.
[2017-04-10 11:26] VITALS: BP 134/58
== END 2017-04-10 13:10 | DRG 193 ==
LOC: ERH 11:58 → CRI 14:56 → 1NO 14:56 → ERHI 14:56 → ENRESERV 15:26 → EDBEDREQ 15:51 → ERHI 16:04 → ENTRNSPT 17:55 → EDTRNSPT 18:13 → EDTRNSPTSTS 18:13 → CRI 18:42 → CMPTRNSPT 18:43 → 1NO 04-07 20:44 → ENPENDDIS 04-10 11:15 → 1NO 04-10 13:10
PROVIDERS: Internal Medicine; Physician Assistant; Student in an Organized Health Care Education/Training Program
DX: J18.9 Pneumonia, unspecified organism (principal); J96.01 Acute respiratory failure with hypoxia; I21.4 Non-ST elevation (NSTEMI) myocardial infarction; I13.0 Hypertensive heart and chronic kidney disease with heart failure and stage 1 through stage 4 chronic kidney disease, or unspecified chronic kidney disease; E11.22 Type 2 diabetes mellitus with diabetic chronic kidney disease; E11.65 Type 2 diabetes mellitus with hyperglycemia; I48.2 Chronic atrial fibrillation; I50.9 Heart failure, unspecified; Z95.1 Presence of aortocoronary bypass graft; I35.0 Nonrheumatic aortic (valve) stenosis; N18.3 Chronic kidney disease, stage 3 (moderate); Z79.4 Long term (current) use of insulin; Z79.84 Long term (current) use of oral hypoglycemic drugs; D50.9 Iron deficiency anemia, unspecified; I25.10 Atherosclerotic heart disease of native coronary artery without angina pectoris; E78.5 Hyperlipidemia, unspecified; R91.8 Other nonspecific abnormal finding of lung field; Z87.891 Personal history of nicotine dependence; Z95.0 Presence of cardiac pacemaker; Z85.46 Personal history of malignant neoplasm of prostate
CPT/HCPCS: 1NP; CCU; 36415; 71045; 74176; 81001; 82436; 87040; 87070; 87086; 87449; 87450; 87804; 87804-59; 93005; 93010; 93306; 96374; 96375; 97110-GO; 97112-GO; 97161-GP; 97530-GO; 99291; J0131; J0456; J0696; J1940; J3490; J7040; J7060

== ENCOUNTER 2017-05-27 12:45 | Inpatient (IN) | payer OTHER ==
[~2017-05-27] VITALS: Ht 177.8 cm; Wt 86.4 kg
[~2017-05-27 12:45] MED LIST changes: +AMOX-CLAV 875-1 EACH PO; +COUMADIN1 M1 PO; +FUROSEMIDE20 M1 PO; +METOPROLOL TART25 M1 PO; +NOVOLOG FL100 UNIT/1 SQ; +TRESIBA FL200 UNIT/1 SQ; -WARFARIN SODIUM3 M1 PO
--- NOTE | 2017-05-27 13:47 | ED GENERAL ADULT ---
History of Present Illness General Chief Complaint: Male Genitourinary Problems Stated Complaint: ?UTI, WEAKNESS, INCONTINENCE Source: patient, family Exam Limitations: poor historian Vital Signs & Intake/Output Vital Signs & Intake/Output Vital Signs Date Time Temp Pulse Resp B/P B/P Pulse O2 O2 Flow FiO2 Mean Ox Delivery Rate 05/28 1420 97.1 60 20 118/58 97 Room Air 05/28 1126 Room Air Room Air 05/28 0910 97.6 59 20 124/66 05/28 0657 97.6 59 20 124/66 97 Room Air 05/27 2131 73 138/60 05/27 2004 97.3 78 20 112/50 95 Room Air 05/27 1950 Room Air 05/27 1847 97.8 69 18 144/66 98 Room Air Room Air 05/27 1754 97.9 64 18 128/58 99 Room Air 05/27 1554 96 Room Air Room Air ED Intake and Output 05/28 0000 05/27 1200 Intake Total 800 Output Total 0 Balance 800 Intake, IV 650 Intake, Oral 150 Number 0 Bowel Movements Output, Urine 0 Patient 190 lb Weight Weight Bed scale Measurement Method Allergies Coded Allergies: NO KNOWN ALLERGIES (NONE 04/06/17) Reconcile Medications Aspirin (Ecotrin*) 81 MG TABLET.DR 1 TAB PO QAM HEART/BLOOD (Reported) Ezetimibe (Zetia) 10 MG TABLET 1 TAB PO QPM CHOLESTEROL (Reported) Furosemide 20 MG TABLET 1 TAB PO BID WATER RETENTION (Reported) Insulin Aspart, Recombinant (Novolog Flexpen) 100 UNIT/ML INSULN.PEN DIABETES ( Reported) Insulin Degludec (Tresiba Flextouch U-200) 200 UNIT/ML (3 ML) INSULN.PEN 12 UNITS SQ DAILY DIABETES (Reported) Metoprolol Tartrate 25 MG TABLET 25 MG PO BID heart Rosuvastatin Calcium (Crestor) 10 MG TABLET 1 TAB PO QPM CHOLESTEROL ( Reported) Warfarin Sodium (Coumadin) 1 MG TABLET 1 TAB PO DAILY BLOOD THINNER (Reported ) Triage Note: RECEIVED 81 YO MALE WITH NIECE C/O BEING OFF BALANCE, SHAKY, MULTIPLE EPISODES OF INCONTINENCE, WEAKNESS. P REPORTS HIS LEGS DON'T WANT TO WORK. NO C/O CP/SOB, NO C/O N/V/D. Triage Nurses Notes Reviewed? yes Onset: Just prior to arrival Duration: week(s): (1) Timing: recent history Injury Environment: home Severity: mild, moderate No Modifying Factors: none HPI: 81 year old male with history of DM presents to the ER with urinary incontinence for the past one week but worse for the past 2 days. Patient denies any dysuria or hematuris. He is unable to make it to the toilet and reports increased frequency. No fever or chills. He also reports leg weakness for the past few years. He uses both a cane and walker at home, reports no falls. Patient was hospitalized in april for pneumonia and [place]. He lives at home with his niece who his is his primary conditioning room worker who has noticed a dramatic decline in his ability to walk and function for the last 2 days. He was just seen on Thursday by his physical therapist/occupational therapist and was doing well with them. They had intended to discharge him from their services after being home for a month from [facility] however today when they evaluated him and they noticed also that he had a dramatic decline in function and recommended he come to the hospital for evaluation. Past History Travel History Traveled to [facility] past 21 day No Medical History Any Pertinent Medical History? see below for history Neurological: NONE EENT: NONE Cardiovascular: AFIB, hypertension, hyperlipidemia, PACEMAKER Respiratory: NONE Gastrointestinal: NONE Hepatic: NONE Renal: Prostate cancer, ckd Musculoskeletal: NONE Psychiatric: NONE Endocrine: diabetes Blood Disorders: NONE Cancer(s): NONE STEM LEAD FORMER/Reproductive: NONE History of MRSA: No History of VRE: No History of CDIFF: No Surgical History Surgical History: cholecystectomy, BYPASS PACEMAKER Psychosocial History What is your primary language Slovak Tobacco Use: Quit >30 days ago ETOH Use: denies use Illicit Drug Use: denies illicit drug use Family History Family History, If Any: FATHER FH: myocardial infarction, Onset: 60+. MOTHER FH: cholecystectomy BROTHER FH: myocardial infarction, Onset: 50-60. Hx Contributory? No Review of Systems Review of Systems Constitutional: Denies: chills, fever. EENTM: Reports: no symptoms. Respiratory: Denies: cough, short of breath, sputum production. Cardiovascular: Denies: chest pain. GI: Denies: abdominal pain, nausea. Genitourinary: Reports: frequency, nocturia, urgency. Denies: discharge, dysuria, hematuria, hesitation. Musculoskeletal: Denies: back pain. Skin: Reports: no symptoms. Neurological/Psychological: Reports: no symptoms. Hematologic/Endocrine: Reports: polyuria. Denies: bruising, bleeding, polydipsia. Immunologic/Allergic: Denies: splenectomy. All Other Systems: Reviewed and Negative Physical Exam Physical Exam General Appearance: well developed/nourished, alert, awake, mild distress, moderate distress, PALE, DRY MUCUS MEMBRANES Head: atraumatic, normal appearance Eyes: Bilateral: PERRL, pale conjunctivae. Neck: normal inspection, supple, full range of motion Respiratory: normal breath sounds, chest non-tender, no respiratory distress Cardiovascular: systolic murmur (4/6) Peripheral Pulses: 2+ radial (R), 2+ radial (L) Gastrointestinal: normal bowel sounds, soft, non-tender Rectal: heme negative stool Extremities: no edema Neurologic/Psych: no motor/sensory deficits, alert, oriented x 3 Skin: intact, normal color, warm/dry Core Measures ACS in differential dx? Yes CVA/TIA Diagnosis: No Sepsis Present: No Sepsis Focused Exam Completed? No Progress Differential Diagnoses I considered the following diagnoses in my evaluation of the patient: [uti, prostatitis, HYPERGLYCEMIC, AMI, NSTEMI ] Plan of Care: Orders Procedure Date/time Status PROTHROMBIN TIME 05/29 0600 Active BASIC ELECTROLYTES PLUS BUN&CR 05/29 0600 Active Consistent Carbohydrate 3 05/28 B Active PROTHROMBIN TIME 05/28 0929 Complete CBC WITHOUT DIFFERENTIAL 05/28 0600 Complete BASIC ELECTROLYTES PLUS BUN&CR 05/28 0600 Complete Therapeutic Activities 05/28 UNK Complete PT EVAL LOW COMPLEX 20 MIN 05/28 UNK Complete Change service to 05/28 UNK Active Straight Cath 05/28 UNK Active Turn and Reposition 05/27 2037 Active Weight 05/27 2018 Active Vital Signs 05/27 2018 Active Teach/Educate 05/27 2018 Active Pain Treatment and Response 05/27 2018 Active Nutritional Intake, Monitor 05/27 2018 Active Isolation 05/27 2018 Active Intake & Output 05/27 2018 Active Patient Care Conference 05/27 2018 Active Activity/Ambulation 05/27 2018 Active PT Evaluate & Treat 05/27 1845 Active Pathway - chart 05/27 1845 Active House Staff 05/27 1845 Active Patient Data 05/27 1845 Active Code Status 05/27 1845 Active TROPONIN LEVEL 05/27 1823 Complete Patient Data 05/27 1734 Active ED Holding Orders 05/27 1728 Active Admit to inpatient 05/27 1728 Active Intake & Output 05/27 1553 Active VTE Mechanical Prophylaxis 05/27 UNK Active Vital Signs 05/27 UNK Active MISTAKE 05/27 UNK Active Telemetry/Silversmith Apprentice 05/27 UNK Active Intake & Output 05/27 UNK Complete FingerStick- Glucose 05/27 UNK Active Current Medications Sig/Maribel Start time Last Medication Dose Stop Time Status Admin Atorvastatin Calcium 40 MG 1700 05/28 1700 AC (Lipitor) Warfarin Sodium 3 MG COUMADIN 1700 ONE 05/28 1700 AC (Coumadin) 05/28 1701 Insulin Aspart 0 TIDAC 05/28 0800 AC 05/28 (NovoLOG) 1224 Ezetimibe 10 MG QPM 05/27 2200 AC 05/27 (Zetia) 2129 Insulin Detemir 10 UNITS BID 05/27 2200 AC 05/28 (Levemir) 0855 Metoprolol Tartrate 25 MG BID 05/27 220 AC 05/28 (Lopressor) 0910 Nystatin 1 LIZABETH BID PRN 05/27 2145 AC (Mycostatin) Aspirin Buffered 81 MG QAM 05/27 1901 AC 05/28 (Ecotrin) 0910 Acetaminophen 650 MG Q6P PRN 05/27 1845 AC (Tylenol) Laboratory Tests 05/28/17 1040: PT 15.8 H, INR 1.44 H 05/28/17 0620: Anion Gap 11, Estimated GFR 45 L, BUN/Creatinine Ratio 28.0 H, CBC w Diff NO MAN DIFF REQ, RBC 3.21 L, MCV 89.8, MCH 30.3, MCHC 33.8, RDW 15.3 H, MPV 7.9, Gran % 62.4, Lymphocytes % 22.3, Monocytes % 12.2 H, Eosinophils % 2.3, Basophils % 0.8, Absolute Granulocytes 3.4, Absolute Lymphocytes 1.2, Absolute Monocytes 0.7 H, Absolute Eosinophils 0.1, Absolute Basophils 0 05/27/17 1840: Troponin I 0.19 *H 05/27/17 1734: Urinalysis LIGHT H, Urine Color YEL, Urine Clarity HAZY H, Urine pH 5.5, Ur Specific [place] 1.020, Urine Protein TRACE H, Urine Ketones NEG, Urine Nitrite NEG, Urine Bilirubin NEG, Urine Urobilinogen 0.2, Ur Leukocyte Esterase NEG, Ur Microscopic SEDIMENT EXAMINED, Urine Hemoglobin SMALL H, Urine Glucose 100 H MILD ELEVATION OF TROPONIN, D/W DR MISHRA. NO CHEST PAIN. PATIENT IS ALREADY ON COUMADIN FOR HISTORY OF AFIB. WILL KEEP OVERNIGHT. U/A NOT SIGNIFICANT TO EXPLAIN WEAKNESS, INCONTINENCE. PATIENT WILL LIKELLY NEED PT CONSULT HE IS TOO WEAK TO GET UP. GENTLE IV HYDRATION STARTED. D/W CASE MANAGEMENT AND HOSPITALIST. Diagnostic Imaging: Viewed by Me: Radiology Read. Discussed w/RAD: Radiology Read. CXR Impression: PATIENT: BOOM NICK PRESENT AGE: 81 PATIENT ACCOUNT NO: [id number] : 34 LOCATION: [facility] ORDERING PHYSICIAN: Julia Wells MD SERVICE DATE: 05/27/17 EXAM TYPE: RAD - XRY-PORTABLE CHEST XRAY EXAMINATION: XR PORTABLE CHEST CLINICAL INFORMATION: Weakness COMPARISON: 04/10/17 TECHNIQUE: Portable frontal view of the chest was obtained. FINDINGS: Power source left pectoral soft tissues with leads projecting in the region of the right atrium and right ventricle. Evidence of sternotomy and mediastinal surgery. No consolidation or edema. There is a small opacity in the periphery of the right upper chest projecting between the anterolateral right second and third ribs which is unchanged over a short interval. No pneumothorax. There are surgical clips in the left cervical soft tissues. There is a surgical anchor associated with the left proximal humerus. I suspect resection of the distal clavicle on each side. IMPRESSION: No acute pneumonia. No edema. A curvilinear density in the right upper chest is likely overlying the patient. Small opacity in the periphery the right upper chest unchanged. Previous CT and PET/CT have been performed for further evaluation of the right apical nodule. DICTATED BY: Jake Mcghee MD DATE/TIME DICTATED:05/27/171521 INSIDE CONTRACTOR SALES:[employer] DATE/TIME TRANSCRIBED:05/27/171521 CONFIDENTIAL, DO NOT COPY WITHOUT APPROPRIATE AUTHORIZATION. <Electronically signed in Other Vendor System> SIGNED BY: Jake Mcghee MD 05/27/17 1530 Initial ED EKG: pacemaker rhythm Departure Departure Disposition: STILL A PATIENT Condition: Stable Clinical Impression Primary Impression: NSTEMI (non-ST elevated myocardial infarction) Secondary Impressions: Weakness Referrals: Koko MCCORMACK,Dayron Suarez (PCP/Family) Departure Forms: Customer Survey General Discharge Information Admission Note Spoke With: Avtar MCCORMACK,Dorene Spencer Documentation of Exam: Documentation of any treatments & extenuating circumstances including Concerns Regarding Discharge (functional status, medication knowledge or non-compliance, living conditions, etc.) that warrant an admission rather than observation: [ GENTLE HYDRATION, SERIAL EKG/TROPONIN, CARDIOLOGY EVALUATION DR MISHRA, CONSIDER ECHO, F/U URINE CULTURE, PT EVALUATION, CASE MANAGEMENT CONSULTATION] Critical Care Note Critical Care Note Critical Care Time: non-applicable
[2017-05-27 14:24] LABS: ABSOLUTE BASOPHIL COUNT 0.1 /CUMM (0.0-0.2); ABSOLUTE EOSINOPHIL COUNT 0 /CUMM (0.0-0.7); ABSOLUTE GRANULOCYTE CT 5.9 /CUMM (1.4-6.5); ABSOLUTE LYMPH COUNT 1.4 /CUMM (1.2-3.4); ABSOLUTE MONOCYTE COUNT 1.1 /CUMM (0.10-0.60); BASOPHIL % 1.7 % (0.0-2.0); EOSINOPHIL % 0.5 % (0-5); GRANULOCYTE % 69.3 % (42.2-75.2); HEMATOCRIT 32.1 % (42-52); MEAN CORPUSCULAR HGB 30.3 PG (27.0-31.0); MEAN CORPUSCULAR HGB CONC 33.7 G/DL (33.0-37.0); MEAN CORPUSCULAR VOLUME 90.2 FL (80.0-94.0); MEAN PLATELET VOLUME 7.4 FL (7.4-10.4); PLATELET COUNT 199 /CUMM (130-400); RBC DISTRIBUTION WIDTH 15.1 % (11.5-14.5); RED BLOOD CELL CT 3.56 /CUMM (4.70-6.10); WHITE BLOOD CELL COUNT 8.6 /CUMM (4.8-10.8)
[2017-05-27 14:29] LABS: PT 13.4 SEC (9.4-12.5); PTT 24 SEC (25-37)
--- NOTE | 2017-05-27 15:30 | RADIOLOGY REPORT ---
EXAMINATION: XR PORTABLE CHEST CLINICAL INFORMATION: Weakness COMPARISON: 04/10/17 TECHNIQUE: Portable frontal view of the chest was obtained. FINDINGS: Power source left pectoral soft tissues with leads projecting in the region of the right atrium and right ventricle. Evidence of sternotomy and mediastinal surgery. No consolidation or edema. There is a small opacity in the periphery of the right upper chest projecting between the anterolateral right second and third ribs which is unchanged over a short interval. No pneumothorax. There are surgical clips in the left cervical soft tissues. There is a surgical anchor associated with the left proximal humerus. I suspect resection of the distal clavicle on each side. IMPRESSION: No acute pneumonia. No edema. A curvilinear density in the right upper chest is likely overlying the patient. Small opacity in the periphery the right upper chest unchanged. Previous CT and PET/CT have been performed for further evaluation of the right apical nodule.
--- NOTE | 2017-05-27 17:38 | PN- Att Addend ---
Attending Addendum Attending Brief Note 81-year-old male fairly complex past medical history with multiple medical problems including diabetes on insulin, hypertension, sick sinus syndrome with a pacemaker and A. fib on Coumadin, CAD with remote history of CABG, Moderate and stage III CKD. He was recently here from April 06 to April 10 where his stay included an ICU stay and telemetry stay and he was treated for acute non-ST elevation PA, acute hypoxemic respiratory failure and pneumonia. He was discharged to short-term rehabilitation and was recently discharged from short- term rehabilitation and was getting outpatient physical therapy. He is brought in by his niece for weakness, difficulty with ambulation and malaise. There is also question of urinary incontinence. When he first came into the emergency room he appeared dehydrated with a blood pressure 100/70, dry mucosa and a BUN and creatinine of 52 and 2 that's about his usual baseline. His creatinine normally runs in the 1.7-1.8 range. He's gotten a fluid bolus and is actively getting IV fluids in the ER. They have to straight cath him for a urine specimen. His EKG is unchanged but his troponin is 0.2. He has no complaints of chest pain and I'm not sure if this troponin reflects the fact that his troponin was markedly elevated on his last admission and he has CKD or whether this is true new ischemic insult. We will bring him into telemetry, continue the gentle hydration (echo in April did show hypokinesis and an EF of 40-45%. ) And hold the Lasix watching his BUN and creatinine closely. Continue the insulin, continue the aspirin and continue the statin. The ED notified Dr. West his usual surgical attendant will see him in consult. His chest x-ray is not impressive for pneumonia and will follow- up in the UA to make sure there is no urinary tract infection. His INR is not therapeutic despite warfarin being listed on his medication sheet. We'll continue his warfarin, confirm the medications with his pharmacy and his neice. He certainly has no focality on exam suggestive of an acute stroke. We'll get a PT eval put him on DVT prophylaxis and follow closely.
--- NOTE | 2017-05-27 17:44 | History & Physical ---
[place] 05/27/17 1742: General Information and HPI MD Statement: I have seen and personally examined BOOM NICK and documented this H&P. The patient is a 81 year old M who presented with a patient stated chief complaint of generalized weakness, inability to ambulate and urinary incontinence for 1 day []. Source of Information: patient, family, old records Exam Limitations: poor historian History of Present Illness: 81 YO M with PMH of Angelita on coumadin, Sick sinus syndrom s/p PPM, CAD s/p CABG (more than 20 years ago), moderate aortic stenosis, HTN, HLP, DM, CKD 3 and prostate cancer brought to ED by her niece with chief complaint of generalized weakness, uninability to ambulate and generally incontinence for 1 day. According to patient he was feeling weak and unable to ambulate with urine draining continuous that started on Thursday. Before that patient was in his usual state of health after he being discharged from [facility] one month back and he was doing physiotherapy at home. The physical therapist saw the patient on Thursday. She told her niece that he is doing good and she will sign off and couple of days. On Thursday when she came to see him she found the patient very weak and he was not able to get out of his bed. Patient also reported having urinary incontinence and frequency. Patient denied any chest pain, shortness breath, palpitation, fever, chills, abdominal pain, lightheadedness, diarrhea, constipation and dysuria. According to his niece patient was eating drinking without any difficulty before Thursday. Patient doesn't know when did he saw his kiln packer last time. We' ll talk to her niece today on phone she told us that he didn't take his medication today except for insulin. Patient's INR is subtherapeutic for last couple of weeks and his primary care physician checking the INR. Last echocardiogram was done in April 2017 that showed ejection fraction 40- 45% with moderate aortic stenosis and moderate left ventricular hypertrophy. Last admission was in April 2017 and he was treated for bilateral pneumonia with the NSTEMI and CHF. Initially admitted in ICU and then downgraded to telemetry. ED course: Vitals: Temperature 96.5, pulse 74, respiratory rate 18, blood pressure 100/70, oxygen saturation 97% on room air Labs: WBC count 8.6, hemoglobin 10.8, hematocrit 32.1, platelet count 199, sodium 142, potassium 4.0, BUN 52, creatinine 2.0, BUN/creatinine ratio 26.0, glucose 264, calcium 10.4, AST 87, ALT 49, alkaline phosphatase 57, troponin 0.01, PT 13.4, INR 1.23 Allergies/Medications Allergies: Coded Allergies: NO KNOWN ALLERGIES (NONE 04/06/17) Home Med list Aspirin (Ecotrin*) 81 MG TABLET.DR 1 TAB PO QAM HEART/BLOOD (Reported) Ezetimibe (Zetia) 10 MG TABLET 1 TAB PO QPM CHOLESTEROL (Reported) Furosemide 20 MG TABLET 1 TAB PO BID WATER RETENTION (Reported) Insulin Aspart, Recombinant (Novolog Flexpen) 100 UNIT/ML INSULN.PEN DIABETES ( Reported) Insulin Degludec (Tresiba Flextouch U-200) 200 UNIT/ML (3 ML) INSULN.PEN 12 UNITS SQ DAILY DIABETES (Reported) Metoprolol Tartrate 25 MG TABLET 25 MG PO BID heart Rosuvastatin Calcium (Crestor) 10 MG TABLET 1 TAB PO QPM CHOLESTEROL ( Reported) Warfarin Sodium (Coumadin) 1 MG TABLET 1 TAB PO DAILY BLOOD THINNER (Reported ) Past History Travel History Traveled to [place] past 21 day No Medical History Neurological: NONE EENT: NONE Cardiovascular: AFIB, hypertension, hyperlipidemia, PACEMAKER Respiratory: NONE Gastrointestinal: NONE Hepatic: NONE Renal: Prostate cancer ckd Musculoskeletal: NONE Psychiatric: NONE Endocrine: diabetes Blood Disorders: NONE Cancer(s): NONE RESOURCE CONSERVATION SPECIALIST/Reproductive: NONE History of MRSA: No History of VRE: No History of CDIFF: No Surgical History Surgical History: cholecystectomy, BYPASS PACEMAKER Past Family/Social History Family History Relations & Conditions if any FATHER FH: myocardial infarction, Onset: 60+. MOTHER FH: cholecystectomy BROTHER FH: myocardial infarction, Onset: 50-60. Psychosocial History Who Do You Live With? niece Primary Language: Khmer ETOH Use: denies use Illicit Drug Use: denies illicit drug use Functional Ability ADLs Independent: dressing, eating, toileting, bathing. Ambulation: cane, walker IADLs Independent: shopping. Review of Systems Review of Systems Constitutional: Reports: weakness. EENTM: Reports: no symptoms. Cardiovascular: Reports: no symptoms. Respiratory: Reports: no symptoms. GI: Reports: no symptoms. Genitourinary: Reports: frequency. Musculoskeletal: Reports: no symptoms. Skin: Reports: no symptoms. Neurological/Psychological: Reports: no symptoms. Hematologic/Endocrine: Reports: no symptoms. Exam & Diagnostic Data Last 24 Hrs of Vital Signs/I&O Vital Signs Date Time Temp Pulse Resp B/P B/P Pulse O2 O2 Flow FiO2 Mean Ox Delivery Rate 05/27 1554 96 Room Air Room Air 05/27 1415 97.8 64 18 141/65 100 Room Air 05/27 1328 96.5 74 18 100/70 97 Room Air Intake & Output 05/27 1600 05/27 0800 05/27 0000 Intake Total 500 Output Total Balance 500 Intake, IV 500 Patient 194 lb Weight Weight Estimated Measurement Method Physical Exam General Appearance Alert, Oriented X3, Cooperative, No Acute Distress Skin No Rashes Skin Temp/Moisture Exam: Warm/Dry Sepsis Skin Exam (color): Normal for Ethnicity HEENT Atraumatic, PERRLA, EOMI, scab on right side of face after removal of growth by salesperson men's hats Neck Supple Cardiovascular Normal S1, Normal S2 Lungs Clear to Auscultation Abdomen Soft, No Tenderness Neurological Normal Speech, Strength at 5/5 X4 Ext, Normal Tone Extremities No Edema, chronic venous changes b/l Last 24 Hrs of Labs/Ace: Laboratory Tests 05/27/17 1734: Urine Color Pending, Urine Clarity Pending, Urine pH Pending, Ur Specific [place] Pending, Urine Protein Pending, Urine Ketones Pending, Urine Nitrite Pending, Urine Bilirubin Pending, Urine Urobilinogen Pending, Ur Leukocyte Esterase Pending, Ur Microscopic Pending, Urine Hemoglobin Pending, Urine Glucose Pending 05/27/17 1411: Anion Gap 14, Estimated GFR 32 L, BUN/Creatinine Ratio 26.0 H, Glucose 264 H, Calcium 10.4 H, Total Bilirubin 1.2, AST 87 H, ALT 49, Alkaline Phosphatase 57 , Troponin I 0.21 *H, Total Protein 7.0, Albumin 3.8, Globulin 3.2, Albumin/ Globulin Ratio 1.2, PT 13.4 H, INR 1.23 H, APTT 24 L, CBC w Diff NO MAN DIFF REQ, RBC 3.56 L, MCV 90.2, MCH 30.3, MCHC 33.7, RDW 15.1 H, MPV 7.4, Gran % 69.3, Lymphocytes % 15.9 L, Monocytes % 12.6 H, Eosinophils % 0.5, Basophils % 1.7, Absolute Granulocytes 5.9, Absolute Lymphocytes 1.4, Absolute Monocytes 1.1 H, Absolute Eosinophils 0, Absolute Basophils 0.1 Assessment/Plan Assessment: 81 YO M with PMH of Angelita on coumadin, Sick sinus syndrom s/p PPM, CAD s/p CABG (more than 20 years ago), moderate aortic stenosis, HTN, HLP, DM, CKD 3 and prostate cancer brought to ED by her niece with chief complaint of generalized weakness, uninability to ambulate and generally incontinence for 1 day. We will admit the patient on telemetry floor to rule out ACS considering patient 's significant cardiac history. Elevated troponin: -Patient troponin is elevated on admission possibly due to demand ischemia or could be due to his chronic kidney injury. -We will trend his troponin -We will continue his home medications -Cardiology consult Acute on chronic kidney injury; -Patient's baseline creatinine is 1.7 but on admission his creatinine is 2.0 -Possibly due to dehydration -Gentle IV hydration -We will hold Lasix for now -Avoid nephrotoxic medications -Follow-up input and output Urinary incontinence; -Possibly due to generalized weakness -We will check his potassium level -We will follow UA to rule out any infection -We will rule out BPH symptoms Subtherapeutic INR: -We will check his INR -We will dose his Coumadin according to INR History of Johanna sigala: -Continue Coumadin -We will follow his INR History of CHF status post CABG: -Continue home medications -Hold Lasix for now considering his acute on chronic kidney injury History of hypertension and hyperlipidemia: -Continue home medications. History of diabetes: -Accu-Cheks -Insulin NovoLog according to sliding scale -HbA1c DVT prophylaxis: -Mechanical and patient is already on warfarin CODE STATUS: Full code As Ranked By This Provider Problem List: 1. Weakness 2. Elevated troponin Core Measures/Misc (11/16) Acute Coronary Syndrome ACS Diagnosis: Yes Congestive Heart Failure Congestive Heart Failure Diagnosis No Cerebrovascular Accident CVA/TIA Diagnosis: No VTE (View Protocol) VTE Risk Factors Age>40 No Mechanical VTE Prophylaxis d/t N/A MechProphylax Ordered No VTE Pharm Prophylaxis d/t NA PharmProphylax ordered Sepsis (View protocol) Sepsis Present: No Haroon MCCORMACK,[facility] 05/27/17 2008: Resident Review Statement Resident Statement: examined this patient, discussed with software development intern, agreed with software development intern, discussed with family, reviewed images Other Findings: Mr. Nick is 81-year-old male with past medical history significant for diabetes mellitus, hypertension, sick sinus syndrome status post pacemaker, atrial fibrillation on Coumadin, CABG, moderate aortic stenosis, hyperlipidemia, CKD stage III, recent discharge April 10 after treated for pneumonia and an STEMI presented to ED from home with chief complaint of urine incontinence in 1 day and weakness for 2 days. Patient was recently discharged from [facility] a month ago after completed rehab status post his last hospitalization, was doing well however on Thursday the physical therapist who used to come home to evaluate him noticed weakness, today was worsening and asked him to go to ED for evaluation. Patient denied any abdominal pain, nausea, vomiting, chills, fever, weight loss. Problem list #Urine incontinence #Weakness #Subtherapeutic warfarin in setting of atrial fibrillation #Elevated tropes type II ME versus trending of his last elevated troponin during his last admission troponin was 18.8 on April 07, 2017 Plan -Admit to telemetry floor -Vitals every shift -Orthostatic -Ins and outs -Gentle hydration -Hold Lasix -Cardiac consultation was placed by ED -Continue home medication including warfarin -Accu-Chek and Levemir 10 twice daily and NovoLog sliding scale medium dose 3 times daily before meals -DVT prophylaxis Alps and warfarin -Diet diabetic diet, with sodium restriction -Code full Avtar MCCORMACK,Dorene 05/27/172128: Attending MD Review Statement Attending Statement Attending MD Statement: examined this patient, discuss w/resident/PA/DOVETAIL MACHINE OPERATOR, agreed w/resident/PA/DOVETAIL MACHINE OPERATOR, discussed with family, reviewed EMR data (avail), reviewed images Attending Assessment/Plan: See Medical brief addendum note
[2017-05-27 20:05] VITALS: BP 112/50
--- NOTE | 2017-05-27 21:32 | Admission Certification ---
Admission Certification Certification Statement - As attending physician, I certify that at the time of - admission, based on clinical presentation, severity of - symptoms, need for further diagnostic testing and - therapeutic interventions, and risk of adverse outcomes - without in-hospital treatment, in my clinical assessment, - this patient requires an acute hospital stay for a minimum - of two nights or longer. I have also considered psychsocial - factors such as support system, advanced age, financial - issues, cognitive issues, and failed out-patient treatments, - past re-admission history, safety of patient, and lack of - compliance as applicable. Specific rationale supporting this admission is: Dehydration, ARYA, weakness and inability to ambulate
[2017-05-28 06:57] VITALS: BP 124/66
--- NOTE | 2017-05-28 07:05 | Cons- Cardiology ---
General Information and HPI Consulting Request Date of Consult: 05/28/17 Requested By: Avtar MCCORMACK,Dorene Spencer Reason for Consult: abnormal troponin Source of Information: patient Exam Limitations: no limitations History of Present Illness: I was asked by Dr. Dorene Nova to evaluate patient for abnormal troponin. 81 year old male with h/o SSS, chronic AF, PPM, CAD, CABG (more than 20 years ago), moderate , HTN, HLP, DM admitted in April with CHF, mild LV dysfunction, NSTEMI (treated conservatively), pneumonia. Patient recovered well, I saw him 2 weeks ago and he has been doing well. He was brought by his niece yesterday due to weakness, fatigue, urinary incontinence. He does not c/o chest pain,dyspnea, palpitations, cough, fever or diarrhea. He now feels good. Allergies/Medications Allergies: Coded Allergies: NO KNOWN ALLERGIES (NONE 04/06/17) Home Med List: Aspirin (Ecotrin*) 81 MG TABLET.DR 1 TAB PO QAM HEART/BLOOD (Reported) Ezetimibe (Zetia) 10 MG TABLET 1 TAB PO QPM CHOLESTEROL (Reported) Furosemide 20 MG TABLET 1 TAB PO BID WATER RETENTION (Reported) Insulin Aspart, Recombinant (Novolog Flexpen) 100 UNIT/ML INSULN.PEN DIABETES ( Reported) Insulin Degludec (Tresiba Flextouch U-200) 200 UNIT/ML (3 ML) INSULN.PEN 12 UNITS SQ DAILY DIABETES (Reported) Metoprolol Tartrate 25 MG TABLET 25 MG PO BID heart Rosuvastatin Calcium (Crestor) 10 MG TABLET 1 TAB PO QPM CHOLESTEROL ( Reported) Warfarin Sodium (Coumadin) 1 MG TABLET 1 TAB PO DAILY BLOOD THINNER (Reported ) Current Medications: Current Medications Sig/Maribel Start time Last Medication Dose Route Stop Time Status Admin Acetaminophen 650 MG Q6P PRN 05/27 1845 AC PO Aspirin Buffered 81 MG QAM 05/27 1901 AC 05/27 PO 2128 Atorvastatin Calcium 40 MG 1700 05/28 1700 AC PO Ezetimibe 10 MG QPM 05/27 2200 AC 05/27 PO 2128 Insulin Aspart 0 TIDAC 05/28 0800 AC SC Insulin Detemir 10 UNITS BID 05/27 2200 AC 05/27 SC 2128 Metoprolol Tartrate 25 MG BID 05/27 2200 AC 05/27 PO 2130 Nystatin 1 LIZABETH BID PRN 05/27 2145 AC TOP Sodium Chloride 1,000 ML .[id number] 05/27 1845 AC 05/27 IV 2056 Sodium Chloride 500 ML BOLUS ONE 05/27 1515 DC 05/27 IV 05/27 1614 1545 Warfarin Sodium 2 MG COUMADIN 1700 ONE 05/27 191 DC 05/27 PO 05/27 Review of Systems Review of Systems Constitutional: Reports: malaise. Denies: no symptoms, see HPI, chills, diaphoresis, fever, weakness, unexplained weight loss. EENTM: Denies: no symptoms, see HPI, blurred vision, double vision, visual changes, eye pain, eye drainage, eye tearing, icterus, ear discharge, ear pain, ear redness, hearing changes, nasal congestion, epistaxis, nasal pain, throat pain, throat swelling, mouth pain, tooth pain. Cardiovascular: Denies: no symptoms, see HPI, chest pain, edema, orthopena, palpitations, peripheral edema, syncope. Respiratory: Denies: no symptoms, see HPI, cough, hemoptysis, orthopnea, short of breath, sputum production, stridor, wheezing. GI: Denies: no symptoms, see HPI, abdominal pain, bloating, constipation, diarrhea, distention, bowel incontinence, melena, nausea, bloody stool, changes in stool, vomiting, steatorrhea. Genitourinary: Denies: no symptoms, see HPI, discharge, dysuria, frequency, hematuria, hesitation, nocturia, pain, urgency. Musculoskeletal: Denies: no symptoms, see HPI, back pain, gout, joint pain, joint swelling, muscle pain, muscle stiffness, neck pain. Skin: Denies: no symptoms, see HPI, cysts, change in skin color, change in hair/nails, dryness, erythema, jaundice, lesions, lymphangitis, lumps, moles, rash. Neurological/Psychological: Denies: no symptoms, see HPI, anxiety, ataxia, cognitive dysfunction, confusion, depressed, dementia, emotional problems, headache, numbness, paresthesia, pre- existing deficit, petit mal seizures, tingling, tremors, tonic-clonic seizures, unable to move lower ext, unable to move upper ext, weakness, other. Hematologic/Endocrine: Denies: no symptoms, see HPI, bruising, bleeding, polyuria, polydipsia, other. Immunologic/Allergic: Denies: no symptoms, see HPI, splenectomy, HIV/AIDS, lymphadenopathy, other. Past History Travel History Traveled to [place] past 21 day No Medical History Blood Transfusion Hx: No Neurological: NONE EENT: NONE Cardiovascular: AFIB, hypertension, hyperlipidemia, PACEMAKER Respiratory: NONE Gastrointestinal: NONE Hepatic: NONE Renal: Prostate cancer ckd Musculoskeletal: NONE Psychiatric: NONE Endocrine: diabetes Blood Disorders: NONE Cancer(s): NONE LEAVE COORDINATOR/Reproductive: NONE Surgical History Surgical History: cholecystectomy, BYPASS PACEMAKER Family History Relations & Conditions If Any: FATHER FH: myocardial infarction, Onset: 60+. MOTHER FH: cholecystectomy BROTHER FH: myocardial infarction, Onset: 50-60. Psychosocial History Where Do You Live? Home Who Do You Live With? niece Services at Home: None Primary Language: Tajik Smoking Status: Former Smoker ETOH Use: denies use Illicit Drug Use: denies illicit drug use Functional Ability ADLs Independent: dressing, eating, toileting, bathing. Ambulation: cane, walker IADLs Independent: shopping. Exam & Diagnostic Data Vital Signs and I&O Vital Signs Date Time Temp Pulse Resp B/P B/P Pulse O2 O2 Flow FiO2 Mean Ox Delivery Rate 05/28 656 97.6 59 20 124/66 97 Room Air 05/27 2131 73 138/60 05/27 2004 97.3 78 20 112/50 95 Room Air 05/27 1950 Room Air 05/27 1847 97.8 69 18 144/66 98 Room Air Room Air 05/27 1754 97.9 64 18 128/58 99 Room Air 05/27 1554 96 Room Air Room Air 05/27 1415 97.8 64 18 141/65 100 Room Air 05/27 1328 96.5 74 18 100/70 97 Room Air Intake & Output 05/28 0805/28 0000 05/27 1600 05/27 0805/27 0000 05/26 1600 Intake Total 500 300 500 Output Total 0 Balance 500 300 500 Intake, IV 400 150 500 Intake, Oral 100 150 Number 0 Bowel Movements Output, Urine 0 Patient 190 lb 194 lb Weight Weight Bed scale Estimated Measurement Method Physical Exam: No acute distress Skin-no rash HEENT-PERRLA Neck-JVP normal Lungs-clear bilaterally Heart-S1S2 regular, 3/6 CED at the base radiating to both carotids ABdomen-soft, not tender, BS+, no organomegaly Extremity-no edema,no cyanosis, 2+ pulses Neuro-non focal Vascular-good distal pulses, bilateral carotid bruit likey referred from AV Labs/Ace Results: Laboratory Tests 05/27 05/27 1840 1734 Chemistry Troponin I (<0.11 ng/ml) 0.19 *H Urines Urinalysis LIGHT H Urine Color (YEL,AMB,STR) YEL Urine Clarity (CLEAR) HAZY H Urine pH (5.0 - 8.0) 5.5 Ur Specific [place] (1.001 - 1.035) 1.020 Urine Protein (NEG,<30 MG/DL) TRACE H Urine Ketones (NEG) NEG Urine Nitrite (NEG) NEG Urine Bilirubin (NEG) NEG Urine Urobilinogen (0.1 - 1.0 EU/dl) 0.2 Ur Leukocyte Esterase (NEG) NEG Ur Microscopic SEDIMENT EXAMINED Urine Hemoglobin (NEG) SMALL H Urine Glucose (N MG/DL) 100 H 05/27 1411 Chemistry Sodium (137 - 145 mmol/L) 142 Potassium (3.5 - 5.1 mmol/L) 4.0 Chloride (98 - 107 mmol/L) 98 Carbon Dioxide (22 - 30 mmol/L) 29 Anion Gap (5 - 16) 14 BUN (9 - 20 mg/dL) 52 H Creatinine (0.7 - 1.2 mg/dL) 2.0 H Estimated GFR (>60 ml/min) 32 L BUN/Creatinine Ratio (7 - 25 %) 26.0 H Glucose (65 - 99 mg/dL) 264 H Calcium (8.4 - 10.2 mg/dL) 10.4 H Total Bilirubin (0.2 - 1.3 mg/dL) 1.2 AST (17 - 59 U/L) 87 H ALT (21 - 72 U/L) 49 Alkaline Phosphatase (< 127 U/L) 57 Troponin I (<0.11 ng/ml) 0.21 *H Total Protein (6.3 - 8.2 g/dL) 7.0 Albumin (3.5 - 5.0 g/dL) 3.8 Globulin (1.9 - 4.2 gm/dL) 3.2 Albumin/Globulin Ratio (1.1 - 2.2 %) 1.2 Coagulation PT (9.4 - 12.5 SEC) 13.4 H INR (0.90 - 1.17) 1.23 H APTT (25 - 37 SEC) 24 L Hematology CBC w Diff NO MAN DIFF REQ WBC (4.8 - 10.8 /CUMM) 8.6 RBC (4.70 - 6.10 /CUMM) 3.56 L Hgb (14.0 - 18.0 G/DL) 10.8 L Hct (42 - 52 %) 32.1 L MCV (80.0 - 94.0 FL) 90.2 MCH (27.0 - 31.0 PG) 30.3 MCHC (33.0 - 37.0 G/DL) 33.7 RDW (11.5 - 14.5 %) 15.1 H Plt Count (130 - 400 /CUMM) 199 MPV (7.4 - 10.4 FL) 7.4 Gran % (42.2 - 75.2 %) 69.3 Lymphocytes % (20.5 - 51.1 %) 15.9 L Monocytes % (1.7 - 9.3 %) 12.6 H Eosinophils % (0 - 5 %) 0.5 Basophils % (0.0 - 2.0 %) 1.7 Absolute Granulocytes (1.4 - 6.5 /CUMM) 5.9 Absolute Lymphocytes (1.2 - 3.4 /CUMM) 1.4 Absolute Monocytes (0.10 - 0.60 /CUMM) 1.1 H Absolute Eosinophils (0.0 - 0.7 /CUMM) 0 Absolute Basophils (0.0 - 0.2 /CUMM) 0.1 Diagnostic Data EKG Results AF, VVI pacing CXR Results No acute disease Assessment/Plan Assessment/Plan 81 year old male with h/o SSS, chronic AF, PPM, CAD, CABG (more than 20 years ago), moderate , HTN, HLP, DM, CKD 3,recent NSTEMI, CHF, mild LV dysfunction, pneumonia presents with fatigue, urinary incontinence. Troponin borderline elevated but flat. Ekg shows paced rhythm. I suspect intravascular volume depletion, his BUN and creatinine is elevated compared to baseline. I doubt new ACS, troponin may be residual from last month NSTEMI or due to demand ischemia. No symptoms of acute CHF. AFis controlled with paced rhytm, INR not therapeutic. Plan: adjust warfarin to keep INR 2-3 continue metoprolol stop Lasix even for discharge iv fluids given overnight, OK to stop monitor renal function continue ASA, statin ambulate If renal function stable and he is able to ambulate, he can be discharged from cardiac standpoint. He is scheduled for nuclear stress test next week in our office for risk stratification post LA. Consult Acknowledgment - Thank you for your consult request.
--- NOTE | 2017-05-28 07:11 | PN- Housestaff ---
[facility] Subjective Follow-up For: Elevated troponin Acute on chronic kidney injury Subtherapeutic INR Urinary incontinence possibly due to secondary to BPH. Tele-Events Since Last Visit: Single pacing, patient remained in A. fib with heart rate 5967. Subjective: No overnight events. Patient remained afebrile. Seen and examined this morning. Patient is poor historian. He denied any chest pain, short of breath, nausea, vomiting, abdominal pain and dysuria. Patient told us that he is using urinale for urination and he is able to control his urine. Patient reported having weakness and he is below his baseline. We will get PT evaluation today. Review of Systems Constitutional: Reports: weakness. EENTM: Reports: no symptoms. Cardiovascular: Reports: no symptoms. Respiratory: Reports: no symptoms. Gastrointestinal: Reports: no symptoms. Genitourinary: Reports: no symptoms. Musculoskeletal: Reports: no symptoms. Neurological/Psychological: Reports: no symptoms. Objective Last 24 Hrs of Vital Signs/I&O Vital Signs Date Time Temp Pulse Resp B/P B/P Pulse O2 O2 Flow FiO2 Mean Ox Delivery Rate 05/28 0657 97.6 59 20 124/66 97 Room Air 05/27 2131 73 138/60 05/27 2004 97.3 78 20 112/50 95 Room Air 05/27 1950 Room Air 05/27 1847 97.8 69 18 144/66 98 Room Air Room Air 05/27 1754 97.9 64 18 128/58 99 Room Air 05/27 1554 96 Room Air Room Air 05/27 1415 97.8 64 18 141/65 100 Room Air 05/27 1328 96.5 74 18 100/70 97 Room Air Intake & Output 05/28 1600 05/28 0800 05/28 0000 Intake Total 700 300 Output Total 150 0 Balance 550 300 Intake, IV 600 150 Intake, Oral 100 150 Number 0 Bowel Movements Output, Urine 150 0 Patient 190 lb Weight Weight Bed scale Measurement Method Physical Exam General Appearance: Alert, Cooperative Skin: No Rashes Skin Temp/Moisture Exam: Warm/Dry Sepsis Skin Exam (color): Normal for Ethnicity HEENT: Atraumatic, PERRLA, EOMI Neck: Supple Cardiovascular: Normal S1, Normal S2 Lungs: Clear to Auscultation Abdomen: Soft, No Tenderness Neurological: Normal Speech, Normal Tone Extremities: No Edema, b/l chronic venous changes Assessment/Plan Assessment: 81 YO M with PMH of Angelita on coumadin, Sick sinus syndrom s/p PPM, CAD s/p CABG (more than 20 years ago), moderate aortic stenosis, HTN, HLP, DM, CKD 3 and prostate cancer brought to ED by her niece with chief complaint of generalized weakness, uninability to ambulate and generally incontinence for 1 day. We are following the patient on telemetry floor for following problems. Elevated troponin: -ACS is ruled out and not demand ischemia. -Trops are trended. -We will continue his home medications -From a cardiac standpoint patient is stable to be discharged. Patient is scheduled for outpatient stress test next month for risk stratification after [place]. -PT evaluation Acute on chronic kidney injury: -Patient's baseline creatinine is 1.7 but on admission his creatinine is 2.0 -Possibly due to dehydration -Gentle IV hydration -We will hold Lasix for now -Avoid nephrotoxic medications -Follow-up input and output Urinary incontinence: -UA is negative -Patient has has residual more than 200 mL we will straight cath him. -Possibly patient's urinary incontinence due to overflow incontinence secondary to BPH. Subtherapeutic INR: -We will check his INR -We will dose his Coumadin according to INR History of Johanna sigala: -Continue Coumadin -We will follow his INR History of CHF status post CABG: -EF from last echo is 40-45%, systolic heart failure. -Continue home medications -Hold Lasix for now considering his acute on chronic kidney injury History of hypertension and hyperlipidemia: -Continue home medications. History of diabetes: -Accu-Cheks -Insulin NovoLog according to sliding scale -HbA1c DVT prophylaxis: -Mechanical and patient is already on warfarin CODE STATUS: Full code Problem List: 1. Elevated troponin 2. Weakness 3. Urinary incontinence Pain Ratin Pain Location: none Pain Goal: Remain pain free Pain Plan: pain pathway Tomorrow's Labs & Rationales: bep/cbc/inr Margaux Thakkar 05/28/17 1557: Attending Review Statement Attending Statement Attending MD Statement: examined this patient, discuss w/resident/PA/SUTURE GAUGER, agreed w/resident/PA/SUTURE GAUGER, reviewed EMR data (avail), discussed with nursing, discussed with case mgmt Attending Assessment/Plan: ARYA on ckd- improved . Cr down to 1.5. Will dc fluids. INR- subtherapeutic- will give 3 mg coumadin tonight. PT consulted and they will reevaluate again tomorrow for final recommendations. d/w pt the care plan.
[2017-05-28 08:40] LABS: ABSOLUTE BASOPHIL COUNT 0 /CUMM (0.0-0.2); ABSOLUTE EOSINOPHIL COUNT 0.1 /CUMM (0.0-0.7); ABSOLUTE GRANULOCYTE CT 3.4 /CUMM (1.4-6.5); ABSOLUTE LYMPH COUNT 1.2 /CUMM (1.2-3.4); ABSOLUTE MONOCYTE COUNT 0.7 /CUMM (0.10-0.60); BASOPHIL % 0.8 % (0.0-2.0); EOSINOPHIL % 2.3 % (0-5); GRANULOCYTE % 62.4 % (42.2-75.2); HEMATOCRIT 28.8 % (42-52); MEAN CORPUSCULAR HGB 30.3 PG (27.0-31.0); MEAN CORPUSCULAR HGB CONC 33.8 G/DL (33.0-37.0); MEAN CORPUSCULAR VOLUME 89.8 FL (80.0-94.0); MEAN PLATELET VOLUME 7.9 FL (7.4-10.4); PLATELET COUNT 184 /CUMM (130-400); RBC DISTRIBUTION WIDTH 15.3 % (11.5-14.5); RED BLOOD CELL CT 3.21 /CUMM (4.70-6.10); WHITE BLOOD CELL COUNT 5.5 /CUMM (4.8-10.8)
[2017-05-28 11:13] LABS: PT 15.8 SEC (9.4-12.5)
[2017-05-28 14:20] VITALS: BP 118/58
[2017-05-29 06:47] VITALS: BP 120/62
--- NOTE | 2017-05-29 07:07 | PN- Housestaff ---
[facility] Subjective Follow-up For: Elevated troponin Acute on chronic kidney injury Subtherapeutic INR Tele-Events Since Last Visit: Single pacing with heart rate 60-77 with couple of PVCs Subjective: No overnight events. Patient remained afebrile overnight. Is seen and examined this morning. He denied any chest pain, short of breath, nausea, vomiting, abdominal pain and dysuria. He has pacemaker on the left side of the chest patient reported that he slept well and his appetite is improving. Patient walked around with PT yesterday with assist of 2. Review of Systems Constitutional: Reports: no symptoms. EENTM: Reports: no symptoms. Cardiovascular: Reports: no symptoms. Respiratory: Reports: no symptoms. Gastrointestinal: Reports: no symptoms. Genitourinary: Reports: no symptoms. Musculoskeletal: Reports: no symptoms. Neurological/Psychological: Reports: no symptoms. Objective Last 24 Hrs of Vital Signs/I&O Vital Signs Date Time Temp Pulse Resp B/P B/P Pulse O2 O2 Flow FiO2 Mean Ox Delivery Rate 05/29 0647 97.6 59 18 120/62 96 Room Air 05/28 2300 98.1 59 20 95 05/28 2137 74 144/66 05/28 1420 97.1 60 20 118/58 97 Room Air 05/28 1126 Room Air Room Air 05/28 0910 97.6 59 20 124/66 Intake & Output 05/29 1600 05/29 0800 05/29 0000 Intake Total 360 Output Total 200 475 Balance -200 -115 Intake, Oral 360 Output, Urine 200 475 Physical Exam General Appearance: Alert, Cooperative Skin: No Rashes Skin Temp/Moisture Exam: Warm/Dry Sepsis Skin Exam (color): Normal for Ethnicity HEENT: Atraumatic, PERRLA, EOMI Neck: Supple Cardiovascular: Normal S1, Normal S2 Lungs: Clear to Auscultation Abdomen: Soft, No Tenderness Neurological: Normal Speech, Normal Tone Extremities: No Edema, B/L chronic venous changes Assessment/Plan Assessment: 81 YO M with PMH of Angelita on coumadin, Sick sinus syndrom s/p PPM, CAD s/p CABG (more than 20 years ago), moderate aortic stenosis, HTN, HLP, DM, CKD 3 and prostate cancer brought to ED by her niece with chief complaint of generalized weakness, uninability to ambulate and generally incontinence for 1 day. We are following the patient on telemetry floor for following problems. Elevated troponin: -ACS is ruled out and not demand ischemia. -Trops are trended. -We will continue his home medications -From a cardiac standpoint patient is stable to be discharged. Patient is scheduled for outpatient stress test next month for risk stratification after [place]. -PT evaluation Acute on chronic kidney injury: -His creatinine level is close to his baseline. 1.5 yesterday -Encourage oral intake -We will hold Lasix for now -Avoid nephrotoxic medications -Follow-up input and output Urinary incontinence:(improving) -UA is negative -Possibly patient's urinary incontinence due to overflow incontinence secondary to BPH. Subtherapeutic INR: -We will check his INR -We will dose his Coumadin according to INR History of A. fib: -Continue Coumadin -We will follow his INR History of CHF status post CABG: -EF from last echo is 40-45%, systolic heart failure. -Continue home medications -Hold Lasix for now considering his acute on chronic kidney injury History of hypertension and hyperlipidemia: -Continue home medications. History of diabetes: -Accu-Cheks -Insulin NovoLog according to sliding scale -HbA1c DVT prophylaxis: -Mechanical and patient is already on warfarin CODE STATUS: Full code Problem List: 1. Weakness 2. Elevated troponin 3. [id number] kidney injury Pain Ratin Pain Location: none Pain Goal: Remain pain free Pain Plan: pain pathway Tomorrow's Labs & Rationales: bep/inr Wilbur Thakkarmaciel 05/29/17 1213: Attending MD Review Statement Attending Statement Attending MD Statement: examined this patient, discuss w/resident/PA/IC ENGINEER, agreed w/resident/PA/IC ENGINEER, reviewed EMR data (avail), discussed with nursing, discussed with case mgmt Attending Assessment/Plan: ARYA resolved. Pt back to baseline medically. INR subtherapeutic. will give 4 mg coumadin tonight. will await PT recommendations regarding disposition. STR vs home with home PT.
[2017-05-29 08:44] LABS: PT 16.2 SEC (9.4-12.5)
--- NOTE | 2017-05-29 08:53 | Patient Discharge Instructions ---
Discharge Instructions General Discharge Information You were seen/treated for: Elevated troponin Acute on chronic kidney injury Dehydration Subtherapeutic INR Watch for these problems: Chest pain, short of breath, sweating, nausea, vomiting, palpitation and lightheadedness If you experience any of these symptoms please come to hospital protocol to your primary care physician. Special Instructions: -Follow-up with primary care physician in one week. -Follow-up with your transmission worker in 1 week. -We'll holding Lasix considering dehydration and acute on chronic kidney injury. Please talk to your transmission worker to reassess to start Lasix. -His INR subtherapeutic so we will start coumadin 3mg daily and he will check INR on Thursday and then dose accordingly. Diet Recommended Diet: Heart Healthy Activity Activity Self Limited: Yes Acute Coronary Syndrome Inclusion Criteria At DC or during hospital stay patient has or had the following: ACS DIAGNOSIS No Discharge Core Measures Meds if any: Prescribed or Continued at Discharge Meds if any: NOT Prescribed or Continued at Discharge Congestive Heart Failure Inclusion Criteria At DC or during hospital stay patient has or had the following: CHF DIAGNOSIS No Discharge Core Measures Meds if any: Prescribed or Continued at Discharge Meds if any: NOT Prescribed or Continued at Discharge Cerebrovascular accident Inclusion Criteria At DC or during hospital stay patient has or had the following: CVA/TIA Diagnosis No Discharge Core Measures Meds if any: Prescribed or Continued at Discharge Meds if any: NOT Prescribed or Continued at Discharge Venous thromboembolism Inclusion Criteria VTE Diagnosis No VTE Type NONE VTE Confirmed by (Test) NONE Discharge Core Measures - Per Current guidelines, there needs to be overlap - treatment for the first 5 days of Warfarin therapy. - If discharged on Warfarin prior to 5 days of - overlap therapy, the patient will need to be - assessed for post discharge needs including - *Post discharge parental anticoagulation - *Warfarin and/or parental anticoagulation education - *Follow up date to check INR post discharge At least 5 days overlap therapy as Inpatient No Meds if any: Prescribed or Continued at Discharge Note: Overlap Therapy is Warfarin and Anticoagulant Meds if any: NOT Prescribed or Continued at Discharge
[2017-05-29 08:56] VITALS: BP 120/64
--- NOTE | 2017-05-29 13:12 | Discharge Summary ---
Visit Information Visit Dates Admission Date: 05/27/17 Discharge Date: 05/29/17 Hospital Course Course Attending Physician: Margaux Thakkar MD Primary Care Physician: Dayron Sutherland MD Hospital Course: 81 YO M with PMH of Angelita on coumadin, Sick sinus syndrom s/p PPM, CAD s/p CABG (more than 20 years ago), moderate aortic stenosis, HTN, HLP, DM, CKD 3 and prostate cancer brought to ED by her niece with chief complaint of generalized weakness, uninability to ambulate and generally incontinence for 1 day. ED course: Vitals: Temperature 96.5, pulse 74, respiratory rate 18, blood pressure 100/70, oxygen saturation 97% on room air Labs: WBC count 8.6, hemoglobin 10.8, hematocrit 32.1, platelet count 199, sodium 142, potassium 4.0, BUN 52, creatinine 2.0, BUN/creatinine ratio 26.0, glucose 264, calcium 10.4, AST 87, ALT 49, alkaline phosphatase 57, troponin 0.01, PT 13.4, INR 1.23 Elevated troponin: On admission patient's troponins were elevated. Serial EKGs and troponins were done to rule out ACS or demand ischemia. Troponins were trended, probably elevated troponins were from his previous admission one month back and also due to his chronic kidney injury. Cardiology consult was placed. Any possibility of ACS or demand ischemia was ruled out. Patient remained asymptomatic during the hospital stay. His home medications were continued. Court Usher cleared the patient to be discharged from cardiac standpoint after his assessment. Patient is already scheduled for outpatient cardiac stress test next month for risk stratification after [facility]. Patient was instructed to follow cardiology as outpatient for further recommendations in future. Acute on chronic kidney injury: Patient was admitted with acute on chronic kidney injury probably due to dehydration secondary to low oral intake. Gentle IV hydration was done. His BUN and creatinine levels were checked everyday. Nephrotoxic medications were provided. His Lasix was discontinued considering dehydration and acute on chronic kidney injury, emergency management coordinator agreed with the plane. Court Usher recommended to keep it discontinued even after the discharge and he will reassess the patient for Lasix dose doing his outpatient visit. Patient's creatinine level came back close to his baseline. Urinary incontinence: Patient's was negative for any infection. Probably it could be overflow incontinence due to BPH as patient's postvoiding residual volume was 350ml and straight cath was done. Later on patient remained asymptomatic and he didn't complain of any incontinence. Subtherapeutic INR: Patient was dosed with Coumadin according to INR to keep his INR in therapeutic range. Patient's Coumadin dose was changed from 1to3 mg every day. He was instructed to check his INR 2 days after the discharge and dose Coumadin according to INR to keep it between 2-3. Patient was instructed to follow his primary care physician for further recommendation and an INR check. History of A. fib: We continued his Coumadin. History of CHF status post CABG: Patient has systolic heart failure considering his ejection fraction 4045 percent. Will continued his home medication except Lasix that was discontinued considering his dehydration and acute on chronic kidney injury. His emergency management coordinator is aware of it. History of hypertension and hyperlipidemia: We continue home medications. History of diabetes: Accu-Cheks were done. Patient was given insulin NovoLog according to sliding scale and his blood sugar level remained under control. DVT prophylaxis: -Mechanical and patient is already on warfarin CODE STATUS: Full code Allergies: Coded Allergies: NO KNOWN ALLERGIES (NONE 04/06/17) Pertinent Lab Results: X-ray on 05/27/2017: IMPRESSION: No acute pneumonia. No edema. A curvilinear density in the right upper chest is likely overlying the patient. Small opacity in the periphery the right upper chest unchanged. Previous CT and PET/CT have been performed for further evaluation of the right apical nodule. WBC 5.5, hemoglobin 9.7, hematocrit 28.8, platelet count 184, sodium 142, potassium 4.0, BUN 34, creatinine 1.5, INR 1.48 Disposition Summary Disposition Principal Diagnosis: Elevated troponin Acute on chronic kidney injury Dehydration Subtherapeutic INR Additional Diagnosis: H/O A.fib HTN HLD DM Systolic heart failure Discharge Disposition: home health services Discharge Instructions General Discharge Information Code Status: Full Code Patient's Diet: Heart healthy diet Patient's Activity: Self limited Follow-Up Instructions/Appts: -Follow-up with primary care physician in one week. -Follow-up with your emergency management coordinator in 1 week. -We'll holding Lasix considering dehydration and acute on chronic kidney injury. Please talk to your emergency management coordinator to reassess to start Lasix. Medications at Discharge Discharge Medications: Stop taking the following medications: Warfarin Sodium (Coumadin) 1 MG TABLET ORAL DAILY Furosemide (Furosemide) 20 MG TABLET ORAL TWICE DAILY Qty = 30 Continue taking these medications: Aspirin (Ecotrin*) 81 MG TABLET.DR 1 Tablet ORAL Every Morning Comments: Last Taken:05/29/17 Time:9AM Rosuvastatin Calcium (Crestor) 10 MG TABLET 1 Tablet ORAL Every night Comments: Last Taken:05/28/17 GIVEN LIPITOR Time:5PM Ezetimibe (Zetia) 10 MG TABLET 1 Tablet ORAL Every night Comments: Last Taken:05/28/17 Time:9PM Insulin Degludec (Tresiba Flextouch U-200) 200 UNIT/ML (3 ML) INSULN.PEN 12 Units SUB-Q DAILY Qty = 6 Comments: Last Taken:05/29/17 GIVEN LEVIMIR Time:1000 Insulin Aspart, Recombinant (Novolog Flexpen) 100 UNIT/ML INSULN.PEN Units SUB-Q THREE TIMES DAILY Qty = 15 Comments: Last Taken:05/29/17 Time:12PM Metoprolol Tartrate (Metoprolol Tartrate) 25 MG TABLET 25 Milligram ORAL TWICE DAILY Qty = 60 Comments: Last Taken:05/29/17 Time:9AM Start taking the following new medications: Warfarin Sodium (Coumadin) 3 MG TABLET 1 Tablet ORAL DAILY Qty = 30 No Refills Instructions: Please check INR on 05/31/17 and dose accordingly to keep INR in therapeutic range(2-3). THANKS Comments: Last Taken:05/29/17 Time:7330 Copies To: Koko MCCORMACK,Dayron Suarez; Jenna MCCORMACK,Asif
[2017-05-29] MEDS ORDERED: COUMADIN3 M1 PO (13:38)
== END 2017-05-29 16:00 | disposition home health service (06) | DRG 683 ==
LOC: ERH 12:45 → ERHI 17:28 → 1NO 17:28 → ENRESERV 18:21 → ENTRNSPT 19:31 → EDTRNSPTSTS 19:47 → EDTRNSPT 19:47 → 1NO 19:51 → CMPTRNSPT 20:13 → 1NO 05-28 07:44 → ENPENDDIS 05-29 14:25 → 1NO 05-29 16:00
PROVIDERS: Emergency Medicine; Student in an Organized Health Care Education/Training Program
DX: N17.9 Acute kidney failure, unspecified (principal); I13.0 Hypertensive heart and chronic kidney disease with heart failure and stage 1 through stage 4 chronic kidney disease, or unspecified chronic kidney disease; E11.22 Type 2 diabetes mellitus with diabetic chronic kidney disease; I48.91 Unspecified atrial fibrillation; I49.5 Sick sinus syndrome; E86.0 Dehydration; I50.22 Chronic systolic (congestive) heart failure; E78.5 Hyperlipidemia, unspecified; R32 Unspecified urinary incontinence; R79.89 Other specified abnormal findings of blood chemistry; Z79.01 Long term (current) use of anticoagulants; Z79.4 Long term (current) use of insulin; Z95.0 Presence of cardiac pacemaker; N18.3 Chronic kidney disease, stage 3 (moderate); Z79.82 Long term (current) use of aspirin; Z90.49 Acquired absence of other specified parts of digestive tract; Z82.49 Family history of ischemic heart disease and other diseases of the circulatory system; Z95.1 Presence of aortocoronary bypass graft
CPT/HCPCS: 1NSP; 36415; 36592; 71045; 81001; 82436; 93005; 93010; 96360; 97116-GO; 97161-GP; 97530-GO; J7040

== ENCOUNTER 2017-07-14 10:44 | Inpatient (IN) | payer OTHER ==
[~2017-07-14] VITALS: Ht 177.8 cm; Wt 85.4 kg
--- NOTE | 2017-07-14 11:36 | ED AMS/SEIZURE/WEAK/DIZZY ---
History of Present Illness General Chief Complaint: General Adult Stated Complaint: FALL OUT OF BED SAT. NOW FEELING TIRED/WEAK/?AMS Source: patient, family Exam Limitations: clinical condition, confusion Vital Signs & Intake/Output Vital Signs & Intake/Output Vital Signs Date Time Temp Pulse Resp B/P B/P Pulse O2 O2 Flow FiO2 Mean Ox Delivery Rate 07/14 1750 98.9 77 22 157/89 98 Room Air 07/14 1512 75 162/67 98 07/14 1418 98.5 73 20 146/66 97 Room Air 07/14 1228 77 196/90 07/14 1216 Room Air 07/14 1131 140/70 07/14 1113 98.5 74 18 73/49 96 Allergies Coded Allergies: NO KNOWN ALLERGIES (NONE 04/06/17) Triage Note: PER NIECE, PT FELL 4 DAYS AGO, (UNWITNESSED), NOW C/O WEAKNESS WITH DIFFICULTY WALKING, POOR APPETITE, WITH INCONTNENCE. PT C/O LOWER ABDOMINAL PAIN. Triage Nurses Notes Reviewed? yes Onset: Abrupt Duration: day(s):, constant Timing: recent history Injury Environment: home No Modifying Factors: none HPI: 81-year-old male comes into the emergency room for further evaluation of increased confusion weakness. Patient reportedly fell out of the bed approximately 4 days ago. Since then he's been increasingly weak. Some increased confusion. Daughter reports that he has some baseline confusion but is significantly more confused. He couldn't get out of bed today As he was profoundly weak. He complained of some lower abdominal pain. He currently denies any pain. Denies any chest pain shortness of breath. This been no reports of vomiting. He is on Coumadin. (Yemi Lira) Reconcile Medications Aspirin (Ecotrin*) 81 MG TABLET. 1 TAB PO QAM HEART/BLOOD (Reported) Cholecalciferol (Vitamin D3) 1,000 UNIT TABLET 1 TAB PO DAILY VITAMIN SUPPORT (Reported) Ezetimibe (Zetia) 10 MG TABLET 1 TAB PO QPM CHOLESTEROL (Reported) Insulin Aspart, Recombinant (Novolog Flexpen) 100 UNIT/ML INSULN.PEN DIABETES ( Reported) Insulin Degludec (Tresiba Flextouch U-200) 200 UNIT/ML (3 ML) INSULN.PEN 13 UNITS SQ DAILY DIABETES (Reported) Metoprolol Tartrate 25 MG TABLET 25 MG PO BID heart Rosuvastatin Calcium (Crestor) 10 MG TABLET 1 TAB PO QPM CHOLESTEROL ( Reported) Warfarin Sodium (Coumadin) 3 MG TABLET 1 TAB PO DAILY Blood thinner Please check INR on 05/31/17 and dose accordingly to keep INR in therapeutic range(2-3). THANKS (Tyron Serrano DO) Past History Travel History Traveled to [place] past 21 day No Medical History Any Pertinent Medical History? 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 MOTHER FH: cholecystectomy BROTHER FH: myocardial infarction, Onset: 50-60. Hx Contributory? No (Yemi Lira) Review of Systems Review of Systems Constitutional: Reports: see HPI. EENTM: Reports: no symptoms. Respiratory: Reports: no symptoms. Cardiovascular: Reports: no symptoms. GI: Reports: no symptoms. Genitourinary: Reports: no symptoms. Musculoskeletal: Reports: see HPI. Skin: Reports: no symptoms. Neurological/Psychological: Reports: see HPI. Hematologic/Endocrine: Reports: no symptoms. Immunologic/Allergic: Reports: no symptoms. All Other Systems: Reviewed and Negative (Yemi Lira) Physical Exam Physical Exam General Appearance: alert, awake Head: atraumatic Eyes: Bilateral: normal appearance. Ears, Nose, Throat: normal ENT inspection, hearing grossly normal Neck: normal inspection Respiratory: normal breath sounds, no respiratory distress Cardiovascular: murmur, irregularly irregular Gastrointestinal: soft, tenderness Back: decreased range of motion Extremities: no edema, normal inspection Neurologic/Psych: awake, alert, oriented times x2 Skin: intact Core Measures ACS in differential dx? Yes CVA/TIA Diagnosis No Sepsis Present: No Sepsis Focused Exam Completed? No (Yemi Lira) Progress Differential Diagnosis: arrythmia, anemia, CVA/stroke, dehydration, encephalitis , electrolyte imbalance, GI bleed, intracranial Hem., intracranial mass/tumor, pneumonia, sepsis, UTI/pyelo Plan of Care: Orders Procedure Date/time Status Heart Healthy Diet 07/15 B Active Patient Data 07/14 1635 Active ED Holding Orders 07/14 1629 Active Admit to inpatient 07/14 1629 Active Vital Signs 07/14 1629 Active Code Status 07/14 1629 Active LACTIC ACID 07/14 1432 Active Intake & Output 07/14 1215 Active Add-on Test (ER Only) 07/14 1214 Active PARTIAL THROMBOPLASTIN TIME 07/14 1155 Complete PROTHROMBIN TIME 07/14 1155 Complete Straight Cath 07/14 1136 Active CULTURE,URINE 07/14 1132 Active BLOOD CULTURE 07/14 1132 Active URINALYSIS 07/14 1132 Complete TROPONIN LEVEL 07/14 1132 Complete LACTIC ACID 07/14 1132 Complete COMPREHENSIVE METABOLIC PANEL 07/14 1132 Complete CBC WITHOUT DIFFERENTIAL 07/14 1132 Complete EKG 07/14 1132 Active Laboratory Tests 07/14/17 1210: Urinalysis LIGHT H, Urine Color YEL, Urine Clarity CLEAR, Urine pH 6.0, Ur Specific [place] 1.025, Urine Protein 100 H, Urine Ketones TRACE H, Urine Nitrite NEG, Urine Bilirubin NEG, Urine Urobilinogen 0.2, Ur Leukocyte Esterase NEG, Ur Microscopic SEDIMENT EXAMINED, Urine RBC 25-50 H, Urine WBC RARE, Urine Mucus FEW, Urine Hemoglobin LARGE H, Urine Glucose >=1000 H 07/14/17 1155: Anion Gap 11, Estimated GFR 27 L, BUN/Creatinine Ratio 16.5, Glucose 277 H, Lactic Acid 2.0, Calcium 9.6, Total Bilirubin 2.2 H, AST 17, ALT 29, Alkaline Phosphatase 61, Troponin I 0.06, Total Protein 6.9, Albumin 3.6, Globulin 3.3, Albumin/Globulin Ratio 1.1, PT 47.1 *H, INR 4.26 *H, APTT 44 H, CBC w Diff NO MAN DIFF REQ, RBC 3.62 L, MCV 87.6, MCH 30.2, MCHC 34.5, RDW 13.5, MPV 7.2 L, Gran % 82.1 H, Lymphocytes % 8.1 L, Monocytes % 9.4 H, Eosinophils % 0, Basophils % 0.4, Absolute Granulocytes 8.0 H, Absolute Lymphocytes 0.8 L, Absolute Monocytes 0.9 H, Absolute Eosinophils 0, Absolute Basophils 0 Microbiology 07/14 1215 BLOOD: Blood Culture - RECD 07/14 1210 URINE ROUT: Urine Culture - RECD 07/14 1155 BLOOD: Blood Culture - RECD Diagnostic Imaging: Viewed by Me: CT Scan. Discussed w/RAD: CT Scan. Radiology Impression: PATIENT: BOOM NICK PRESENT AGE: 81 PATIENT ACCOUNT NO: [id number] : 34 LOCATION: [facility] ORDERING PHYSICIAN: Yemi FAGAN SERVICE DATE: 07/14/17 EXAM TYPE: CAT - CT CERV SPINE WO IV CONTRAST; CT HEAD WO IV CONTRAST EXAMINATION: CT HEAD WITHOUT CONTRAST CT CERVICAL SPINE WITHOUT CONTRAST CLINICAL INFORMATION: Trauma. Fall. COMPARISON: CT scan of the head 04/06/2017. TECHNIQUE: Multidetector CT imaging of the head and cervical spine was performed without the use of intravenous contrast. Coronal and sagittal reformatted images were generated at the technologist workstation. DLP: 928.82 mGy-cm. FINDINGS: CT head : There is no evidence of acute intracranial hemorrhage or territorial infarction. No abnormal mass-effect or midline shift is seen. Yanes to white matter differentiation is well preserved. No extra-axial fluid collections are identified. The ventricles and sulci commensurately prominent consistent with moderate diffuse volume loss, similar compared to the prior study. There are multiple areas of low attenuation in the periventricular and subcortical white matter, consistent with chronic microvascular ischemic change. There are are atheromatous calcifications of the cavernous internal carotid and vertebral arteries bilaterally. There are no acute osseous findings. There are no large scalp contusions or hematomas. There are sequelae of bilateral lens extractions. A retention cyst in the right maxillary sinus is partially visualized. The mastoid air cells and visualized portions of the other paranasal sinuses are well-aerated. CT cervical spine: There is a mild levoscoliosis. There is multilevel narrowing of intervertebral disc height. There are large flowing osteophytes anteriorly between the levels of C4-C5 and C7-T1. Lucencies between the osteophytes at C4-C5 and C5 C6 C1 are well-corticated with vacuum changes, consistent with chronic findings. Vertebral body heights are maintained. No acute fractures are demonstrated. There are multilevel facet arthropathic changes. The lateral masses of C1 and C2 are normally aligned. The dens is intact. The atlantooccipital articulations are normal. There are sequelae of a left carotid endarterectomy. There are atheromatous calcifications of the right carotid bifurcation. There are emphysematous changes at the lung apices bilaterally with biapical pleural scarring. IMPRESSION: 1. There are no acute bleeds or territorial infarcts. No masses are demonstrated. 2. There are no acute fractures. There are no large scalp contusions or hematomas. 3. There is diffuse volume loss and there are chronic microvascular ischemic changes. 4. There are no acute fractures or subluxations in the cervical spine. There are severe multilevel spondylitic changes. DICTATED BY: Karan Reza MD DATE/TIME DICTATED:07/14/171310 PYROTECHNICS PRESS TENDER:NATALI DATE/TIME TRANSCRIBED:1310 CONFIDENTIAL, DO NOT COPY WITHOUT APPROPRIATE AUTHORIZATION. < Electronically signed in Other Vendor System> SIGNED BY: Karan Reza MD 1330, PATIENT: BOOM NICK PRESENT AGE: 81 PATIENT ACCOUNT NO: [id number] : 34 LOCATION: [facility] ORDERING PHYSICIAN: Yemi FAGAN SERVICE DATE: 07/14/17 EXAM TYPE: CAT - CT ABD & PELVIS W/O IV CONTRAS; CT CHEST WO IV CONTRAST EXAMINATION: CT CHEST WITHOUT CONTRAST CT ABDOMEN AND PELVIS WITHOUT CONTRAST CLINICAL INFORMATION: Fall. Abdominal pain. Hypertension. Altered mental status. Rule out trauma. COMPARISON : CT abdomen pelvis dated 04/06/[address] chest dated 01/12/2017. PET and CT dated 08/19/2016 CT chest dated 07/24/2016. TECHNIQUE: Multidetector volumetric imaging was performed from the thoracic inlet through the pubic symphysis without intravenous contrast material. Sagittal and coronal images were reformatted. DOSE: 746.8 mGy-cm FINDINGS: -CHEST- LUNG: Pleural parenchymal scarring is again noted at the lung apices. At the right lung apex, there is a spiculated, partially calcified angular nodule measuring 1.3 x 0.9 cm which min unchanged from 07/24/2016. A perifissural nodule is present at the right minor fissure. No new or suspicious pulmonary nodules are identified. There is dependent atelectasis in the lower lobes. Multiple calcified granulomas are present in the left lower lobe. Centrilobular and paraseptal emphysema are moderate in severity. Dependent groundglass opacities in the lower lobes are most likely due to atelectasis. There is interlobular septal thickening in the lung bases which may be due to mild interstitial edema. MEDIASTINUM: Calcific atherosclerosis is present in the coronary arteries. Patient is status post CABG. Calcifications are present on the aortic valve. AICD leads terminate in the right atrium and right ventricle. Cardiomegaly is again noted with relative enlargement of the left heart. Previously seen right-sided subcarinal lymph node is again noted, measuring 1.2 cm in short axis, unchanged from prior. There is enlargement identified. Calcific atherosclerosis is present in the thoracic aorta. No aneurysmal dilatation. Thyroid gland is diminutive. PERICARDIUM/PLEURA : Trace left pleural effusion. Pleural peripheral scarring is present at the apices. CHEST WALL/AXILLA: Pleural parenchymal scarring is present at the apices. Mild gynecomastia. No axillary adenopathy. -ABDOMEN/PELVIS- LIVER, GALLBLADDER, BILIARY TREE: The liver is normal in size, shape, and attenuation. No focal hepatic lesion or biliary ductal dilatation is present. Gallbladder is surgically absent. PANCREAS: Mild atrophy. Otherwise unremarkable without focal abnormalities. SPLEEN: Unremarkable. ADRENAL GLANDS: Unremarkable. KIDNEYS AND URETERS: A 0.5 cm calculus is present within a lower pole calyx in the left kidney. There is moderate left hydroureteronephrosis. The right-sided hydronephrosis or hydroureter. Again seen is a 4.5 cm water density cyst at the anterior cortex of the left kidney. No right renal lesions are identified. Kidneys otherwise normal in size. No suspicious lesions are identified. BLADDER: Unremarkable. GASTROINTESTINAL TRACT: Stomach, small bowel, and colon are normal in caliber. No bowel wall thickening or surrounding inflammatory changes. There is marked diverticulosis in the colon diffusely. No acute diverticulitis. Appendix is normal. No intraperitoneal free fluid or free air. ABDOMINAL WALL: Tiny fat-containing umbilical hernia. No bowel involvement. VASCULATURE: Extensive calcific atherosclerosis is present in the abdominal aorta and its branch vessels. There is a stent in the left common iliac artery. The pattern of calcific atherosclerosis in the infrarenal abdominal aorta suggests a prior dissection. LYMPH NODES: No adenopathy.. PELVIC VISCERA: Radiotherapy seeds are present within the prostate. OSSEUS STRUCTURES: Multilevel degenerative disc disease is present in the right the thoracolumbar spine with large marginal osteophytes. There is scoliotic curvature with left convexity in the lumbar spine. Vertebral body heights are normal. No fractures are identified. Multiple old healed left-sided rib fractures are identified. No acute rib fractures are appreciated. Chronic changes of prior rotator cuff repairs are evident. 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 Mild osteoarthritis present in the hips. IMPRESSION: 1. No acute traumatic abnormalities in the chest, abdomen, and pelvis. No acute fractures are identified. 2. Moderate pulmonary emphysema and a trace left pleural effusion. A 1.3 cm spiculated nodule at the right lung apex which was PET negative on prior CT is unchanged since 07/24/2016. 3. A 0.5 cm calculus in the left lower renal pole. 4. Moderate left hydroureteronephrosis. No obstructing stones or clear cause of ureteral obstruction is identified. 5. Marked colonic diverticulosis. No acute diverticulitis. DICTATED BY: Maurice Frank MD DATE/TIME DICTATED:1349 PYROTECHNICS PRESS TENDER:NATALI DATE/TIME TRANSCRIBED:07/14/171349 CONFIDENTIAL, DO NOT COPY WITHOUT APPROPRIATE AUTHORIZATION. <Electronically signed in Other Vendor System> SIGNED BY: Maurice Frank MD 07/14/17 1412 Initial ED EKG: rate (74), AFIB, New T-wave inversions in V1 through V6, new T- wave inversion in lead 2 Prior EKG: changed (Wu FAGAN,Yemi) Departure Departure Disposition: STILL A PATIENT Condition: Stable Clinical Impression Primary Impression: Acute electrocardiogram changes Secondary Impressions: Acute kidney injury Referrals: Koko MCCORMACK,Dayron Suarez (PCP/Family) Departure Forms: Customer Survey General Discharge Information Admission Note Spoke With: Mark Robertson MD Documentation of Exam: Documentation of any treatments & extenuating circumstances including Concerns Regarding Discharge (functional status, medication knowledge or non-compliance, living conditions, etc.) that warrant an admission rather than observation: Cardiac telemetry. Serial troponins. Cardiac consultation. Repeat labs. Physical therapy consult. Patient can ambulate. (Yemi Lira) PA/STEVEDORING SUPERINTENDENT Co-Sign Statement Statement: ED Attending supervision documentation- [x] I saw and evaluated the patient. I have also reviewed all the pertinent lab results and diagnostic results. I agree with the findings and the plan of care as documented in the PA's/STEVEDORING SUPERINTENDENT's documentation. [] I have reviewed the ED Record and agree with the PA's/STEVEDORING SUPERINTENDENT's documentation. [] Additions or exceptions (if any) to the PAs/STEVEDORING SUPERINTENDENT's note and plan are summarized below: [] Saw and personally examined the patient and I agree with the PAs evaluation. His EKG shows diffuse T-wave inversions that are significantly changed from the prior tracing. On my exam he denied any complaints other than weakness. He has a Steri- Stripped wound to the right side of his cheek. He is pale. (Tyron Serrano DO)
[2017-07-14 12:07] LABS: ABSOLUTE BASOPHIL COUNT 0 /CUMM (0.0-0.2); ABSOLUTE EOSINOPHIL COUNT 0 /CUMM (0.0-0.7); ABSOLUTE LYMPH COUNT 0.8 /CUMM (1.2-3.4); ABSOLUTE MONOCYTE COUNT 0.9 /CUMM (0.10-0.60); BASOPHIL % 0.4 % (0.0-2.0); EOSINOPHIL % 0 % (0-5); GRANULOCYTE % 82.1 % (42.2-75.2); HEMATOCRIT 31.7 % (42-52); MEAN CORPUSCULAR HGB 30.2 PG (27.0-31.0); MEAN CORPUSCULAR HGB CONC 34.5 G/DL (33.0-37.0); MEAN CORPUSCULAR VOLUME 87.6 FL (80.0-94.0); MEAN PLATELET VOLUME 7.2 FL (7.4-10.4); PLATELET COUNT 245 /CUMM (130-400); RBC DISTRIBUTION WIDTH 13.5 % (11.5-14.5); RED BLOOD CELL CT 3.62 /CUMM (4.70-6.10); WHITE BLOOD CELL COUNT 9.8 /CUMM (4.8-10.8)
[2017-07-14] MEDS ORDERED: VITAMIN D31000 UNI2 PO (12:15)
[2017-07-14 12:46] LABS: PTT 44 SEC (25-37)
[2017-07-14 12:55] LABS: PT 47.1 SEC (9.4-12.5)
--- NOTE | 2017-07-14 13:30 | CT SCAN REPORT ---
EXAMINATION: CT HEAD WITHOUT CONTRAST CT CERVICAL SPINE WITHOUT CONTRAST CLINICAL INFORMATION: Trauma. Fall. COMPARISON: CT scan of the head 04/06/2017. TECHNIQUE: Multidetector CT imaging of the head and cervical spine was performed without the use of intravenous contrast. Coronal and sagittal reformatted images were generated at the technologist workstation. DLP: 928.82 mGy-cm. FINDINGS: CT head: There is no evidence of acute intracranial hemorrhage or territorial infarction. No abnormal mass-effect or midline shift is seen. Yanes to white matter differentiation is well preserved. No extra-axial fluid collections are identified. The ventricles and sulci commensurately prominent consistent with moderate diffuse volume loss, similar compared to the prior study. There are multiple areas of low attenuation in the periventricular and subcortical white matter, consistent with chronic microvascular ischemic change. There are are atheromatous calcifications of the cavernous internal carotid and vertebral arteries bilaterally. There are no acute osseous findings. There are no large scalp contusions or hematomas. There are sequelae of bilateral lens extractions. A retention cyst in the right maxillary sinus is partially visualized. The mastoid air cells and visualized portions of the other paranasal sinuses are well-aerated. CT cervical spine: There is a mild levoscoliosis. There is multilevel narrowing of intervertebral disc height. There are large flowing osteophytes anteriorly between the levels of C4-C5 and C7-T1. Lucencies between the osteophytes at C4-C5 and C5 C6 C1 are well-corticated with vacuum changes, consistent with chronic findings. Vertebral body heights are maintained. No acute fractures are demonstrated. There are multilevel facet arthropathic changes. The lateral masses of C1 and C2 are normally aligned. The dens is intact. The atlantooccipital articulations are normal. There are sequelae of a left carotid endarterectomy. There are atheromatous calcifications of the right carotid bifurcation. There are emphysematous changes at the lung apices bilaterally with biapical pleural scarring. IMPRESSION: 1. There are no acute bleeds or territorial infarcts. No masses are demonstrated. 2. There are no acute fractures. There are no large scalp contusions or hematomas. 3. There is diffuse volume loss and there are chronic microvascular ischemic changes. 4. There are no acute fractures or subluxations in the cervical spine. There are severe multilevel spondylitic changes.
--- NOTE | 2017-07-14 14:12 | CT SCAN REPORT ---
EXAMINATION: CT CHEST WITHOUT CONTRAST CT ABDOMEN AND PELVIS WITHOUT CONTRAST CLINICAL INFORMATION: Fall. Abdominal pain. Hypertension. Altered mental status. Rule out trauma. COMPARISON: CT abdomen pelvis dated 04/06/[address] chest dated 01/12/2017. PET and CT dated 08/19/2016 CT chest dated 07/24/2016. TECHNIQUE: Multidetector volumetric imaging was performed from the thoracic inlet through the pubic symphysis without intravenous contrast material. Sagittal and coronal images were reformatted. DOSE: 746.8 mGy-cm FINDINGS: -CHEST- LUNG: Pleural parenchymal scarring is again noted at the lung apices. At the right lung apex, there is a spiculated, partially calcified angular nodule measuring 1.3 x 0.9 cm which min unchanged from 07/24/2016. A perifissural nodule is present at the right minor fissure. No new or suspicious pulmonary nodules are identified. There is dependent atelectasis in the lower lobes. Multiple calcified granulomas are present in the left lower lobe. Centrilobular and paraseptal emphysema are moderate in severity. Dependent groundglass opacities in the lower lobes are most likely due to atelectasis. There is interlobular septal thickening in the lung bases which may be due to mild interstitial edema. MEDIASTINUM: Calcific atherosclerosis is present in the coronary arteries. Patient is status post CABG. Calcifications are present on the aortic valve. AICD leads terminate in the right atrium and right ventricle. Cardiomegaly is again noted with relative enlargement of the left heart. Previously seen right-sided subcarinal lymph node is again noted, measuring 1.2 cm in short axis, unchanged from prior. There is enlargement identified. Calcific atherosclerosis is present in the thoracic aorta. No aneurysmal dilatation. Thyroid gland is diminutive. PERICARDIUM/PLEURA: Trace left pleural effusion. Pleural peripheral scarring is present at the apices. CHEST WALL/AXILLA: Pleural parenchymal scarring is present at the apices. Mild gynecomastia. No axillary adenopathy. -ABDOMEN/PELVIS- LIVER, GALLBLADDER, BILIARY TREE: The liver is normal in size, shape, and attenuation. No focal hepatic lesion or biliary ductal dilatation is present. Gallbladder is surgically absent. PANCREAS: Mild atrophy. Otherwise unremarkable without focal abnormalities. SPLEEN: Unremarkable. ADRENAL GLANDS: Unremarkable. KIDNEYS AND URETERS: A 0.5 cm calculus is present within a lower pole calyx in the left kidney. There is moderate left hydroureteronephrosis. The right-sided hydronephrosis or hydroureter. Again seen is a 4.5 cm water density cyst at the anterior cortex of the left kidney. No right renal lesions are identified. Kidneys otherwise normal in size. No suspicious lesions are identified. BLADDER: Unremarkable. GASTROINTESTINAL TRACT: Stomach, small bowel, and colon are normal in caliber. No bowel wall thickening or surrounding inflammatory changes. There is marked diverticulosis in the colon diffusely. No acute diverticulitis. Appendix is normal. No intraperitoneal free fluid or free air. ABDOMINAL WALL: Tiny fat-containing umbilical hernia. No bowel involvement. VASCULATURE: Extensive calcific atherosclerosis is present in the abdominal aorta and its branch vessels. There is a stent in the left common iliac artery. The pattern of calcific atherosclerosis in the infrarenal abdominal aorta suggests a prior dissection. LYMPH NODES: No adenopathy.. PELVIC VISCERA: Radiotherapy seeds are present within the prostate. OSSEUS STRUCTURES: Multilevel degenerative disc disease is present in the right the thoracolumbar spine with large marginal osteophytes. There is scoliotic curvature with left convexity in the lumbar spine. Vertebral body heights are normal. No fractures are identified. Multiple old healed left-sided rib fractures are identified. No acute rib fractures are appreciated. Chronic changes of prior rotator cuff repairs are evident. 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 Mild osteoarthritis present in the hips. IMPRESSION: 1. No acute traumatic abnormalities in the chest, abdomen, and pelvis. No acute fractures are identified. 2. Moderate pulmonary emphysema and a trace left pleural effusion. A 1.3 cm spiculated nodule at the right lung apex which was PET negative on prior CT is unchanged since 07/24/2016. 3. A 0.5 cm calculus in the left lower renal pole. 4. Moderate left hydroureteronephrosis. No obstructing stones or clear cause of ureteral obstruction is identified. 5. Marked colonic diverticulosis. No acute diverticulitis.
--- NOTE | 2017-07-14 16:50 | History & Physical ---
Rosa MCCORMACK,[place] 07/14/17 7529: General Information and HPI MD Statement: I have seen and personally examined BOOM NICK and documented this H&P. The patient is a 81 year old M who presented with a patient stated chief complaint of [ARYA on CKD, altered mental status]. Source of Information: family, old records Exam Limitations: dementia, poor historian History of Present Illness: Patient is an 81-year-old male with a PMH significant for A. fib on Coumadin, sick sinus syndrome status post pacemaker placement, CAD status post CABG approximately 2024 years ago, moderate aortic stenosis, HTN, HLD, DM, CKD stage III, prostate cancer who presented to the [facility] ED due to concerns of the neice that the patient is acting strangely and more confused than baseline, and also having mild complaints of abdominal pain and poor p.o. intake. Over the past several days the patient's niece who lives with the patient and his status full-time take sewing pattern layout technician, noticed that the patient was having poor p.o. intake. Patient claimed that he fell out of his bed 3 days prior to admission, however per the physical therapists who have been working with him, it is unlikely that he would have been able to get back up to about by himself and he phone. She also noted that he has been unsteady on his feet. He uses a cane at home for ambulation, and a walker when he is outside of the house. The niece has not witnessed any falls has seen him running into furniture. She also noted that the day prior to admission the patient had put his underwear on over his pants, patient is usually able to dress himself without issue. The day prior to admission the patient complained of mild abdominal pain, and apparently complained of abdominal pain while in the ED to the knees, but did not vocalize this complaint to any healthcare workers. She denies the patient complaining of any chest pain, chest discomfort, shortness of breath, loss of consciousness, fever, chills, nausea, vomiting, hematuria, bloody stool. Patient follows with Dr. West, Cardiology Allergies/Medications Allergies: Coded Allergies: NO KNOWN ALLERGIES (NONE 04/06/17) Home Med list Aspirin (Ecotrin*) 81 MG TABLET. 1 TAB PO QAM HEART/BLOOD (Reported) Cholecalciferol (Vitamin D3) 1,000 UNIT TABLET 1 TAB PO DAILY VITAMIN SUPPORT (Reported) Ezetimibe (Zetia) 10 MG TABLET 1 TAB PO QPM CHOLESTEROL (Reported) Insulin Aspart, Recombinant (Novolog Flexpen) 100 UNIT/ML INSULN.PEN DIABETES ( Reported) BEFORE MEALS Blood Insulin Sugar Units <80 0 81-150 0 151-200 2 251-300 4 301-350 6 351-400 8 >400 10 call MD >400 Call Doctor Insulin Degludec (Tresiba Flextouch U-200) 200 UNIT/ML (3 ML) INSULN.PEN 13 UNITS SQ DAILY DIABETES (Reported) Metoprolol Tartrate 25 MG TABLET 25 MG PO BID heart Rosuvastatin Calcium (Crestor) 10 MG TABLET 1 TAB PO QPM CHOLESTEROL ( Reported) Warfarin Sodium (Coumadin) 3 MG TABLET 1 TAB PO DAILY Blood thinner Please check INR on 05/31/17 and dose accordingly to keep INR in therapeutic range(2-3). THANKS Past History Travel History Traveled to [place] past 21 day No Medical History Neurological: NONE EENT: NONE Cardiovascular: AFIB, CAD, hypertension, hyperlipidemia, PACEMAKER Respiratory: NONE Gastrointestinal: NONE Hepatic: NONE Renal: Prostate cancer ckd Musculoskeletal: NONE Psychiatric: NONE Endocrine: diabetes Blood Disorders: NONE Cancer(s): NONE CAFETERIA SERVER/Reproductive: NONE History of MRSA: No History of VRE: No History of CDIFF: No Influenza Vaccine: 12/29/16 Surgical History Surgical History: cholecystectomy, BYPASS PACEMAKER Past Family/Social History Family History Relations & Conditions if any FATHER FH: myocardial infarction, Onset: 60+. MOTHER FH: cholecystectomy BROTHER FH: myocardial infarction, Onset: 50-60. Psychosocial History Who Do You Live With? niece Services at Home: Physical Therapy Primary Language: Polish ETOH Use: denies use Illicit Drug Use: denies illicit drug use Living Will? yes Functional Ability ADLs Independent: dressing, eating, toileting, bathing. Ambulation: cane, walker IADLs Independent: shopping. Review of Systems Review of Systems Constitutional: Denies: chills, fever, malaise. EENTM: Reports: no symptoms. Cardiovascular: Denies: chest pain, orthopena, palpitations, syncope. Respiratory: Denies: cough, short of breath. GI: Reports: abdominal pain. Denies: diarrhea, melena, nausea, bloody stool, vomiting. Genitourinary: Reports: no symptoms. Musculoskeletal: Reports: no symptoms. Exam & Diagnostic Data Last 24 Hrs of Vital Signs/I&O Vital Signs Date Time Temp Pulse Resp B/P B/P Pulse O2 O2 Flow FiO2 Mean Ox Delivery Rate 07/14 1512 75 162/67 98 07/14 1418 98.5 73 20 146/66 97 Room Air 07/14 1228 77 196/90 07/14 1216 Room Air 07/14 1131 140/70 07/14 1113 98.5 74 18 73/49 96 Intake & Output 07/14 1600 07/14 0800 07/14 0000 Intake Total 1000 Output Total Balance 1000 Intake, IV 1000 Patient 200 lb Weight Physical Exam General Appearance Alert, Cooperative, No Acute Distress, oriented to person but not place or time Skin Temp/Moisture Exam: Warm/Dry Cardiovascular Normal S1, Normal S2, irregularly irregular rhythm, 3/6 systolic murmur loudest at the base radiating to the R carotid Lungs Clear to Auscultation, Normal Air Movement Abdomen Normal Bowel Sounds, No Tenderness, mildly distended Neurological Normal Speech, Strength at 5/5 X4 Ext, Normal Tone, Sensation Intact, Cranial Nerves 3-12 NL Extremities No Clubbing, No Cyanosis, No Edema, abrasion on the R posterior arm and L knee Last 24 Hrs of Labs/Ace: Laboratory Tests 07/14/17 1845: Troponin I 0.06 07/14/17 184: Lactic Acid 1.2 07/14/17 1210: Urinalysis LIGHT H, Urine Color YEL, Urine Clarity CLEAR, Urine pH 6.0, Ur Specific [place] 1.025, Urine Protein 100 H, Urine Ketones TRACE H, Urine Nitrite NEG, Urine Bilirubin NEG, Urine Urobilinogen 0.2, Ur Leukocyte Esterase NEG, Ur Microscopic SEDIMENT EXAMINED, Urine RBC 25-50 H, Urine WBC RARE, Urine Mucus FEW, Urine Hemoglobin LARGE H, Urine Glucose >=1000 H 07/14/17 1155: Anion Gap 11, Estimated GFR 27 L, BUN/Creatinine Ratio 16.5, Glucose 277 H, Lactic Acid 2.0, Calcium 9.6, Total Bilirubin 2.2 H, AST 17, ALT 29, Alkaline Phosphatase 61, Troponin I 0.06, Total Protein 6.9, Albumin 3.6, Globulin 3.3, Albumin/Globulin Ratio 1.1, PT 47.1 *H, INR 4.26 *H, APTT 44 H, CBC w Diff NO MAN DIFF REQ, RBC 3.62 L, MCV 87.6, MCH 30.2, MCHC 34.5, RDW 13.5, MPV 7.2 L, Gran % 82.1 H, Lymphocytes % 8.1 L, Monocytes % 9.4 H, Eosinophils % 0, Basophils % 0.4, Absolute Granulocytes 8.0 H, Absolute Lymphocytes 0.8 L, Absolute Monocytes 0.9 H, Absolute Eosinophils 0, Absolute Basophils 0 Microbiology 07/14 1215 BLOOD: Blood Culture - RECD 07/14 1210 URINE ROUT: Urine Culture - RECD 07/14 1155 BLOOD: Blood Culture - RECD Diagnostic Data EKG Results a fib with HR 72, diffusely inverted T waves but difficult to compare with old, as patient is no longer paced Other Results CT Chest/abd/pelvis -CHEST- LUNG: Pleural parenchymal scarring is again noted at the lung apices. At the right lung apex, there is a spiculated, partially calcified angular nodule measuring 1.3 x 0.9 cm which min unchanged from 07/24/2016. A perifissural nodule is present at the right minor fissure. No new or suspicious pulmonary nodules are identified. There is dependent atelectasis in the lower lobes. Multiple calcified granulomas are present in the left lower lobe. Centrilobular and paraseptal emphysema are moderate in severity. Dependent groundglass opacities in the lower lobes are most likely due to atelectasis. There is interlobular septal thickening in the lung bases which may be due to mild interstitial edema. MEDIASTINUM: Calcific atherosclerosis is present in the coronary arteries. Patient is status post CABG. Calcifications are present on the aortic valve. AICD leads terminate in the right atrium and right ventricle. Cardiomegaly is again noted with relative enlargement of the left heart. Previously seen right-sided subcarinal lymph node is again noted, measuring 1.2 cm in short axis, unchanged from prior. There is enlargement identified. Calcific atherosclerosis is present in the thoracic aorta. No aneurysmal dilatation. Thyroid gland is diminutive. PERICARDIUM/PLEURA: Trace left pleural effusion. Pleural peripheral scarring is present at the apices. CHEST WALL/AXILLA: Pleural parenchymal scarring is present at the apices. Mild gynecomastia. No axillary adenopathy. -ABDOMEN/PELVIS- LIVER, GALLBLADDER, BILIARY TREE: The liver is normal in size, shape, and attenuation. No focal hepatic lesion or biliary ductal dilatation is present. Gallbladder is surgically absent. PANCREAS: Mild atrophy. Otherwise unremarkable without focal abnormalities. SPLEEN: Unremarkable. ADRENAL GLANDS: Unremarkable. KIDNEYS AND URETERS: A 0.5 cm calculus is present within a lower pole calyx in the left kidney. There is moderate left hydroureteronephrosis. The right-sided hydronephrosis or hydroureter. Again seen is a 4.5 cm water density cyst at the anterior cortex of the left kidney. No right renal lesions are identified. Kidneys otherwise normal in size. No suspicious lesions are identified. BLADDER: Unremarkable. GASTROINTESTINAL TRACT: Stomach, small bowel, and colon are normal in caliber. No bowel wall thickening or surrounding inflammatory changes. There is marked diverticulosis in the colon diffusely. No acute diverticulitis. Appendix is normal. No intraperitoneal free fluid or free air. ABDOMINAL WALL: Tiny fat-containing umbilical hernia. No bowel involvement. VASCULATURE: Extensive calcific atherosclerosis is present in the abdominal aorta and its branch vessels. There is a stent in the left common iliac artery. The pattern of calcific atherosclerosis in the infrarenal abdominal aorta suggests a prior dissection. LYMPH NODES: No adenopathy.. PELVIC VISCERA: Radiotherapy seeds are present within the prostate. OSSEUS STRUCTURES: Multilevel degenerative disc disease is present in the right the thoracolumbar spine with large marginal osteophytes. There is scoliotic curvature with left convexity in the lumbar spine. Vertebral body heights are normal. No fractures are identified. Multiple old healed left-sided rib fractures are identified. No acute rib fractures are appreciated. Chronic changes of prior rotator cuff repairs are evident. 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 Mild osteoarthritis present in the hips. IMPRESSION: 1. No acute traumatic abnormalities in the chest, abdomen, and pelvis. No acute fractures are identified. 2. Moderate pulmonary emphysema and a trace left pleural effusion. A 1.3 cm spiculated nodule at the right lung apex which was PET negative on prior CT is unchanged since 07/24/2016. 3. A 0.5 cm calculus in the left lower renal pole. 4. Moderate left hydroureteronephrosis. No obstructing stones or clear cause of ureteral obstruction is identified. 5. Marked colonic diverticulosis. No acute diverticulitis. CT head and C spine CT head: There is no evidence of acute intracranial hemorrhage or territorial infarction. No abnormal mass-effect or midline shift is seen. Yanes to white matter differentiation is well preserved. No extra-axial fluid collections are identified. The ventricles and sulci commensurately prominent consistent with moderate diffuse volume loss, similar compared to the prior study. There are multiple areas of low attenuation in the periventricular and subcortical white matter, consistent with chronic microvascular ischemic change. There are are atheromatous calcifications of the cavernous internal carotid and vertebral arteries bilaterally. There are no acute osseous findings. There are no large scalp contusions or hematomas. There are sequelae of bilateral lens extractions. A retention cyst in the right maxillary sinus is partially visualized. The mastoid air cells and visualized portions of the other paranasal sinuses are well-aerated. CT cervical spine: There is a mild levoscoliosis. There is multilevel narrowing of intervertebral disc height. There are large flowing osteophytes anteriorly between the levels of C4-C5 and C7-T1. Lucencies between the osteophytes at C4-C5 and C5 C6 C1 are well-corticated with vacuum changes, consistent with chronic findings. Vertebral body heights are maintained. No acute fractures are demonstrated. There are multilevel facet arthropathic changes. The lateral masses of C1 and C2 are normally aligned. The dens is intact. The atlantooccipital articulations are normal. There are sequelae of a left carotid endarterectomy. There are atheromatous calcifications of the right carotid bifurcation. There are emphysematous changes at the lung apices bilaterally with biapical pleural scarring. IMPRESSION: 1. There are no acute bleeds or territorial infarcts. No masses are demonstrated. 2. There are no acute fractures. There are no large scalp contusions or hematomas. 3. There is diffuse volume loss and there are chronic microvascular ischemic changes. 4. There are no acute fractures or subluxations in the cervical spine. There are severe multilevel spondylitic changes. Assessment/Plan Assessment: Patient is an 81-year-old male with a PMH significant for A. fib on Coumadin, sick sinus syndrome status post pacemaker placement, CAD status post CABG approximately 5 years ago, moderate aortic stenosis, HTN, HLD, DM, CKD stage III, prostate cancer who presented to the [facility] ED due to concerns of the neice that the patient is acting strangely and more confused than baseline, and also having mild complaints of abdominal pain and poor p.o. intake. VS on admission: T 98.5, P 74, RR 18, BP 73/49 (improved to 140/70), pulse ox 96 % on room air Pertinent labs labs: CBC unremarkable, BUN 38, creatinine 2.3, glucose 277, lactic acid 2.0 (trended down to 1.2), T bili 2.2, INR 4.77, UA showed proteinuria, ketonuria, RBCs with hemoglobin, glucosuria Problem list #Acute EKG changes #ARYA on CKD #Worsening cognitive decline in the setting of dementia #Supratherapeutic INR #Chronic medical problems Plan -Admit to telemetry -Continuous telemetry monitoring -Rule out ACS with serial troponins and EKGs -Cardiology consult placed with patient's manager hydraulic, Dr. West -We will avoid nephrotoxic medications -CT head, neck ruled out any acute pathology, with diffuse volume loss and chronic microvascular ischemic changes -CT chest, abdomen, pelvis showed moderate left hydroureteronephrosis with no obstructing stone seen, and on exam patient's abdomen is soft with very mild distention and no pain -We will avoid any nephrotoxic medications -Continue home medical regimen, hold warfarin until INR becomes therapeutic Diet: Diabetic diet, heart healthy DVT prophylaxis: Warfarin with subtherapeutic INR CODE STATUS: Full code As Ranked By This Provider Problem List: 1. Acute electrocardiogram changes 2. [id number] kidney injury Core Measures/Misc (11/16) Acute Coronary Syndrome ACS Diagnosis: No Congestive Heart Failure Congestive Heart Failure Diagnosis No Cerebrovascular Accident CVA/TIA Diagnosis: No VTE (View Protocol) VTE Risk Factors Age>40 No Mechanical VTE Prophylaxis d/t N/A MechProphylax Ordered No VTE Pharm Prophylaxis d/t NA PharmProphylax ordered Sepsis (View protocol) Sepsis Present: No Mark Robertson MD 07/14/171957: Attending MD Review Statement Attending Statement Attending Statement: examined this patient, discuss w/resident/PA/RESEARCH PROGRAMMER, agreed w/resident/PA/RESEARCH PROGRAMMER, reviewed EMR data (avail) Sonia Medina 07/14/172146: Resident Review Statement Resident Statement: examined this patient, discussed with university intern, agreed with university intern Other Findings: 80-year-old gentleman from home with a past medical history of diabetes mellitus , CKD stage IV hypertension, hyperlipidemia, A. fib on Coumadin, moderate aortic stenosis, sick sinus syndrome status post pacemaker placement, Coronary artery disease status post CABG, Chronic urinary incontinence, brought by nurse who is his primary sewing pattern layout technician for evaluation of worsening confusion and recent complaints of abdominal pain and decreased p.o. intake over the past few days. Patient also gives history of falling out of bed approximately 4 days ago prior to admission. Review of systems positive for difficulty walking. Vitals and examination as above. In ED he is documented as having hypotension (73/49) which improved within half an hour without any intervention to 140 x 70. Labs significant for acute on HPI on CKD, anemia of chronic disease, elevated T bili of 2.2, with normal ALP and liver enzymes, elevated INR at 4.26. EKG showed nonspecific ST-T wave changes in lateral leads. Imaging ruled out any acute bleed or fractures. CT abdomen and pelvis without contrast was significant for 0.5 cm calculus in the left lower renal pole. Moderate left hydroureteronephrosis. No obstructing stones or clear cause of ureteral obstruction is identified. Marked colonic diverticulosis. No acute diverticulitis. Problem list: Acute EKG changes Arya on CKD [possibly secondary to decreased p.o. intake versus dehydration versus hydroureteronephrosis Acute delirium on chronic dementia Supratherapeutic INR Atrial fibrillation coronary artery disease Diabetes Plan: Admit to telemetry floor, continuous telemetry monitoring Trend troponin EKG Cardiology consult with Dr. Fonseca in a.m. Last echo done April 2017 showed moderate ES, EF of 40-45% hypokinesis of the septum and LVH Avoid nephrotoxic medications Check orthostatics in a.m. We will be cautious with hydration as he has moderate We will continue monitor creatinine and assess for need for urology consult in a.m. We will continue his home meds except for warfarin Accu-Cheks, insulin sliding scale, continue long-acting insulin DVT prophylaxis supra therapeutic INR Diabetic diet Full code
[2017-07-14 18:32] VITALS: BP 156/80
[2017-07-14 19:34] VITALS: BP 162/70
[2017-07-14 23:13] VITALS: BP 130/84
[2017-07-15 06:24] VITALS: BP 136/84
--- NOTE | 2017-07-15 07:13 | PN- Housestaff ---
Rosa MCCORMACK,[place] 07/15/17 0712: Subjective Follow-up For: Hematuria Altered mental status EKG changes Tele-Events Since Last Visit: Johanna sigala with HR 70s90s Subjective: Patient was seen and examined at bedside. He is resting comfortably. He had no acute events overnight. He remains confused, but answers questions appropriately. When questioned he denies any abdominal pain which he had been complaining of to his niece/caregiver prior to admission. He has no complaints at this time, and denies any chest pain, shortness of breath, nausea, vomiting, fever, chills. Review of Systems Constitutional: Reports: see HPI. Objective Last 24 Hrs of Vital Signs/I&O Vital Signs Date Time Temp Pulse Resp B/P B/P Pulse O2 O2 Flow FiO2 Mean Ox Delivery Rate 07/15 0624 98.4 87 16 136/84 97 Room Air 07/14 2313 97.3 77 16 130/84 97 07/14 2117 83 160/78 07/14 1934 84 162/70 07/14 1930 98 Room Air 07/14 1832 98.9 75 20 156/80 96 Room Air 07/14 1750 98.9 77 22 157/89 98 Room Air 07/14 1512 75 162/67 98 07/14 1418 98.5 73 20 146/66 97 Room Air 07/14 1228 77 196/90 07/14 1216 Room Air 07/14 1131 140/70 07/14 1113 98.5 74 18 73/49 96 Intake & Output 07/15 0800 16 0000 07/14 1600 Intake Total 763 127 0058 Output Total 675 225 Balance -012 58 4001 Intake, IV 1000 Intake, Oral 200 320 Output, Urine 675 225 Patient 201 lb 200 lb Weight Weight Bed scale Measurement Method Physical Exam General Appearance: Alert, Cooperative, No Acute Distress, oriented only to person Skin Temp/Moisture Exam: Warm/Dry Cardiovascular: Regular Rate, irregularly irregular rhythm, 3/6 systolic murmur radiating to R carotid Lungs: Clear to Auscultation, Normal Air Movement Abdomen: mild distension, mild tenderness to palpation of the lower abdomen Neurological: Normal Speech, Normal Tone, Sensation Intact Extremities: No Clubbing, No Cyanosis, No Edema Current Medications: Current Medications Sig/Maribel Start time Last Medication Dose Route Stop Time Status Admin Aspirin Buffered 81 MG QAM 07/15 0900 AC PO Atorvastatin Calcium 40 MG 1700 07/15 1700 AC PO Cholecalciferol 1,000 IU DAILY 07/15 899 AC PO Ezetimibe 10 MG QPM 07/14 2099 AC 07/14 PO 2116 Insulin Aspart 0 TIDAC 07/15 08 AC SC Insulin Detemir 13 UNITS DAILY 07/15 899 AC SC Metoprolol Tartrate 25 MG BID 07/14 2099 AC 07/14 PO 2116 Last 24 Hrs of Lab/Ace Results Last 24 Hrs of Labs/Mics: Laboratory Tests 07/15/17 0850: CBC w Diff NO MAN DIFF REQ, RBC 3.69 L, MCV 87.4, MCH 29.8, MCHC 34.0, RDW 13.6 , MPV 7.2 L, Gran % 80.3 H, Lymphocytes % 9.0 L, Monocytes % 10.4 H, Eosinophils % 0, Basophils % 0.3, Absolute Granulocytes 8.9 H, Absolute Lymphocytes 1.0 L, Absolute Monocytes 1.1 H, Absolute Eosinophils 0, Absolute Basophils 0 07/15/17 0630: Anion Gap 14, Estimated GFR 27 L, BUN/Creatinine Ratio 15.7, Magnesium 1.9, PT 45.3 *H, INR 4.10 *H 07/15/17 0050: Troponin I 0.08 07/14/17 1845: Troponin I 0.06 07/14/17 1845: Lactic Acid 1.2 Assessment/Plan Assessment: Patient is an 81-year-old male with a PMH significant for A. fib on Coumadin, sick sinus syndrome status post pacemaker placement, CAD status post CABG approximately 2024 years ago, moderate aortic stenosis, HTN, HLD, DM, CKD stage III, prostate cancer who presented to the [facility] ED due to concerns of the neice that the patient is acting strangely and more confused than baseline, and also having mild complaints of abdominal pain and poor p.o. intake. VS on admission: T 98.5, P 74, RR 18, BP 73/49 (improved to 140/70), pulse ox 96 % on room air Pertinent labs labs: CBC unremarkable, BUN 38, creatinine 2.3, glucose 277, lactic acid 2.0 (trended down to 1.2), T bili 2.2, INR 4.77, UA showed proteinuria, ketonuria, RBCs with hemoglobin, glucosuria Problem list #Acute EKG changes Serial troponins have been negative. T-wave inversions seen on the EKG. patient denies any chest pain. -Given extensive cardiac history, consult was placed with Dr. West #ARYA on CKD CT scan showed moderate left hydroureteronephrosis with no clear source of obstruction -This is concerning given patient's history of prostate cancer, urology was consulted both for this finding and due to patient's hematuria. -Gentle IV hydration, patient had history of poor p.o. intake prior to presentation, we will monitor closely for volume overload given patient's history of aortic stenosis #Worsening cognitive decline in the setting of dementia, possible UTI Patient has small increase in white count today, CT evidence for hydroureteronephrosis -We will continue to monitor off of antibiotics and follow-up final culture results #Supratherapeutic INR, with hematuria Given patient's age and history of prostate malignancy, this is a concerning finding -Urology has been consulted -We will continue to monitor daily CBCs -Continue to hold warfarin, and monitor INR daily #Chronic medical problems -Continue rest of home medical regimen, holding warfarin -NovoLog sliding scale, Accu-Cheks 3 times daily before meals and at bedtime Diet: Diabetic diet, heart healthy DVT prophylaxis: Supratherapeutic INR, Alps CODE STATUS: Full code Problem List: 1. Hydroureteronephrosis 2. Capjs-hd-bukkuhk kidney injury Pain Ratin Pain Location: none Pain Goal: Remain pain free Pain Plan: pain pathway Tomorrow's Labs & Rationales: cbc, bep Mila Robertson MD 07/15/17 1117: Attending MD Review Statement Attending Statement Attending MD Statement: examined this patient, discuss w/resident/PA/WARRANTY MANAGER, agreed w/resident/PA/WARRANTY MANAGER, reviewed EMR data (avail) Attending Assessment/Plan: 81M PMH T2DM, CKD stage IV hypertension, HLD, paroxysmal atrial fibrillation on Coumadin, moderate aortic stenosis, sick sinus syndrome s/p pacemaker placement, CAD s/p CABG, chronic urinary incontinence admitted for weakness, delirium, acute on chronic kidney injury. Patient has no complaints and feels well. He appears weak. He is having mild hematuria with clots today. Hgb and vitals stable. 1. Deconditioning and generalized weakness 2. Acute on chronic kidney injury, stage 3 3. Acute EKG changes 4. Gross hematuria 5. Supratherapeutic INR Plan - Continue on telemetry - Cardiology and urology consults - Gentle IV hydration - Follow urine culture - Monitor renal function - PT eval - ALPS for DVT PPx
[2017-07-15 08:14] VITALS: BP 172/88
[2017-07-15 08:51] LABS: PT 45.3 SEC (9.4-12.5)
[2017-07-15 09:23] LABS: ABSOLUTE BASOPHIL COUNT 0 /CUMM (0.0-0.2); ABSOLUTE EOSINOPHIL COUNT 0 /CUMM (0.0-0.7); ABSOLUTE GRANULOCYTE CT 8.9 /CUMM (1.4-6.5); ABSOLUTE MONOCYTE COUNT 1.1 /CUMM (0.10-0.60); BASOPHIL % 0.3 % (0.0-2.0); EOSINOPHIL % 0 % (0-5); GRANULOCYTE % 80.3 % (42.2-75.2); HEMATOCRIT 32.3 % (42-52); MEAN CORPUSCULAR HGB 29.8 PG (27.0-31.0); MEAN CORPUSCULAR VOLUME 87.4 FL (80.0-94.0); MEAN PLATELET VOLUME 7.2 FL (7.4-10.4); PLATELET COUNT 255 /CUMM (130-400); RBC DISTRIBUTION WIDTH 13.6 % (11.5-14.5); RED BLOOD CELL CT 3.69 /CUMM (4.70-6.10); WHITE BLOOD CELL COUNT 11.1 /CUMM (4.8-10.8)
[2017-07-15 14:16] VITALS: BP 148/70
--- NOTE | 2017-07-15 16:50 | PN- Student ---
Subjective Subjective: No overnight events reported. Mr. Lau denies any abdominal pain, chest pain , palpitations, dizziness, n/v, diarrhea, or difficulty urinating. He also denied feeling feverish or having night sweats. His neice was present later this afternoon and was able to provide more information as the patient has been confused. She was able to clarify that the patient had a dermatologic procedure (Mohs surgery) with Dr. Mueller on the right side of his face, thursday on week ago on 07/08/17. He has stitches in place and had a f/u appoitment scheduled for 07/16/17 to have the stitches removed. His neice also reports that he was started on Keflex following the procedure, but did not start the medication until Thursday morning. Mr. Lau only recieved 2/5 days of his Keflex as he was not eating. Mr. Jj miller reports he has had decreased appetite since the weekend and last ate a bowl of cereal Thursday morning (07/13/17). She also reported that she first noticed a change when he was sleeping more, which also started over the weekend and on Thursday (07/13/17) went back to bed immediately after eating cereal. She states that at no time did she see Mr. Lau hit his head or lose conscioussness. She also stated that at no time while at home did he not know where he was, not recognize her or forget her name or the dogs name. In addition to his dermatologic procedure, he did have an appoitment with his PCP on 07/09/17. At this visit with Dr. Sutherland he had wax removed from his ears. Mr. Jj miller also confirmed that since his UT in April, PT has come to the house 2x per week. He uses a walker for longer distances and a cane for short distances. His neclara reports a baseline shuffling gate. Surgical Hx: Mohs procedure-dermatologic procedure right preauricular region 07/08/17 Broken right wrist 09/2014 Cataract surgery- 04/2014 Moh's procedure 2015 Skin cancer removal- top of head and right ear 2010, 2009 Pace maker - 03/28/2008 Colonoscopy- 03/16/2007 Radioactive seeds (prostate)- 04/01/2004 CABG-bypass- 10/1992 CCY-1986 Social: Lives with angela in shared living space, previous smoker quit 20-25 years ago (unknown pack years), no ETOH, no illicit drug use. Has a dog at home. Objective Objective: Current Medications Sig/Maribel Start time Last Medication Dose Route Stop Time Status Admin Aspirin Buffered 81 MG QAM 07/15 0900 AC 07/15 PO 0814 Atorvastatin Calcium 40 MG 1700 07/15 1700 AC PO Cholecalciferol 1,000 IU DAILY 07/15 0900 AC 07/15 PO 0814 Ezetimibe 10 MG QPM 07/14 2100 AC 07/14 PO 2117 Insulin Aspart 0 TIDAC 07/15 0800 AC 07/15 SC 1344 Insulin Detemir 13 UNITS DAILY 07/15 0900 AC 07/15 SC 0815 Metoprolol Tartrate 25 MG BID 07/14 2100 AC 07/15 PO 0814 Sodium Chloride 1,000 ML ONCE ONE 07/15 0930 AC 07/15 IV 07/15 2249 1014 Laboratory Tests 07/15 07/15 07/15 07/14 0850 0630 0050 1845 Chemistry Sodium (137 - 145 mmol/L) 136 L Potassium (3.5 - 5.1 mmol/L) 4.5 Chloride (98 - 107 mmol/L) 99 Carbon Dioxide (22 - 30 mmol/L) 23 Anion Gap (5 - 16) 14 BUN (9 - 20 mg/dL) 36 H Creatinine (0.7 - 1.2 mg/dL) 2.3 H Estimated GFR (>60 ml/min) 27 L BUN/Creatinine Ratio (7 - 25 %) 15.7 Magnesium (1.6 - 2.3 mg/dL) 1.9 Troponin I (<0.11 ng/ml) 0.08 0.06 Coagulation PT (9.4 - 12.5 SEC) 45.3 *H INR (0.90 - 1.17) 4.10 *H Hematology CBC w Diff NO MAN DIFF REQ WBC (4.8 - 10.8 /CUMM) 11.1 H RBC (4.70 - 6.10 /CUMM) 3.69 L Hgb (14.0 - 18.0 G/DL) 11.0 L Hct (42 - 52 %) 32.3 L MCV (80.0 - 94.0 FL) 87.4 MCH (27.0 - 31.0 PG) 29.8 MCHC (33.0 - 37.0 G/DL) 34.0 RDW (11.5 - 14.5 %) 13.6 Plt Count (130 - 400 /CUMM) 255 MPV (7.4 - 10.4 FL) 7.2 L Gran % (42.2 - 75.2 %) 80.3 H Lymphocytes % (20.5 - 51.1 %) 9.0 L Monocytes % (1.7 - 9.3 %) 10.4 H Eosinophils % (0 - 5 %) 0 Basophils % (0.0 - 2.0 %) 0.3 Absolute Granulocytes (1.4 - 6.5 /CUMM) 8.9 H Absolute Lymphocytes (1.2 - 3.4 /CUMM) 1.0 L Absolute Monocytes (0.10 - 0.60 /CUMM) 1.1 H Absolute Eosinophils (0.0 - 0.7 /CUMM) 0 Absolute Basophils (0.0 - 0.2 /CUMM) 0 07/14 1845 Chemistry Lactic Acid (0.7 - 2.1 mmol/L) 1.2 Vital Signs Date Time Temp Pulse Resp B/P B/P Pulse O2 O2 Flow FiO2 Mean Ox Delivery Rate 07/15 1416 97.9 75 16 148/70 96 Room Air 07/15 0814 88 172/88 07/15 0814 88 172/88 07/15 0800 Room Air 07/15 0624 98.4 87 16 136/84 97 Room Air 07/14 2313 97.3 77 16 130/84 97 07/14 2117 83 160/78 07/14 1934 84 162/70 07/14 1930 98 Room Air 07/14 1832 98.9 75 20 156/80 96 Room Air 07/14 1750 98.9 77 22 157/89 98 Room Air Intake & Output 07/15 1600 07/15 0800 07/15 0000 Intake Total 550 200 320 Output Total 450 675 225 Balance 100 -475 95 Intake, IV 310 Intake, Oral 240 200 320 Output, Urine 450 675 225 Patient 201 lb Weight Weight Bed scale Measurement Method EKG 07/15/17 Atrial fibrillation, with ventricular rate 78 bpm, no evidence of pacing spikes, T wave inversion in leads I, AvL, V1-V6, normal axis Physical Examination General apperance: AOx2 not to time, no evidence of acute distress CV: normal S1&S2, irreguraly iregular rhythm, ejection cresendo murmur heard throughout precordium best heard at the apex, holosystolic that radiates to the right carotid, nondisplaced PMI <2cm, ?palpable thrill at right 2nd intercostal space, murmur grade 4/6 Lungs: clear to ausculatation in posterior lung garcia, no evidence of rubs, rales, ronchi or wheezing Abdomen: normal bowel sounds, slightly distended and firm abdomen with slight tenderness in epigastric region GI/: errythema in groin region, some dried blood surrounding glans of penis, no evidence of open wounds or skin breakdown of groin, scrotum or penis Extremities: No evident peripheral edema, dorsal pedis, posterior tibial and radial artery pulses 2+ bilaterally Skin: approx 3 cm laceration right preauricular region with suture and steri strips in place, no peripheral edema noted, approx 1 cm scab on left knee Assessment/Plan Assessment: Mr. Lau is an 81 year old man with a PMHx significant for A. fib, SSS, CAD s/p CABG (1992), aortic stenosis, HTN, hyperlipidemia, DM, CKD stage III, prostate cancer s/p radiologic seed implantation, and skin cancer presented to the ED on 07/14/17 with increasing confusion and weakness over 3 days. These changes were noticed by his neice, with whom he lives with. His neice who is his primary zoo caretaker states that there is some mild baseline confusion but began to be concerned when she noticed Mr. Lau sleeping more than usual and on Thursday when he put his underwear on over his pants. Mr. Lau usually dresses and feeds himself without assistance, however his neice takes care of shopping and paying bills. She also reports that Mr. Lau has had decreased appettite over this time with his last meal being Thursday morning 07/13/17. After presenting to the ED he was subsequently admited to the telemetry unit for observation. Plan: Problem List: 1. EKG changes 2. ARYA 3. Confusion 4. Elevated INR 5. Normocytic Anemia 6. Chronic medical conditions #EKG changes: Last EKG on file from 3/28/18 indicates ventricular paced rhythm, however EKGs from 07/14 & 07/15 shows new T wave inversion in anterior and lateral leads, without evidence of pacing from pacemaker. Troponin x3 has been consistently negative. However patient has a history of UT in April, along with many previous procedures including CABG (1992). Mr. Lau has a history of a. fib and is also on coumadin as well as a baby aspirin daily. Mr. Lau' s pacemaker was placed in 2008. Patient's survival equipment repairer is Dr. West, and consultation request has been placed. -appreciate cardiology recommendations -continue on monitoring and evaluation advisor -continue serial troponin levels -Monitor EKG -consider pacemaker investigation #ARYA: Patient has history of CKD stage III, a well as presenting with elevated BUN and Cr. CT scan of abdomen showed moderate left hydroureteronephrosis and 0.5 cm calculus present within a lower pole calyx in the left kidnwy. Additionally, there is right sided hydronephrosis/hydrourter. However the kidneys are normal in size with no suspicious lesions. The patient is an insulin dependent diabetic and on u/a there was proteinuria and hematuria present. Given this history and lab findings I would consider starting an ACEI or ARB, as he also has persistently elevated blood pressure. It is also worth consideration that the patient has not had any oral intake of any kind since Thursday. The hematuria may also be related to the patient's elevated INR and due to this his coumadin was stopped and a request for urology consult was placed. -appreciate urology recommendations -DC coumadin -continue to monitor coag studies -consider starting ACEI or ARB -NaCl 0.9% IV fluid -avoid nephrotoxins #Confusion: Patient was brought in, due to concerns from his neice over increasing confusion. Patient had recent procedure done by dermatology, however the incision appeared clean with no evidence of infection. However the patient was given a 5 day course of Keflex following the procedure which he did not complete due to poor oral intake, only taking 2 of the 5 days. Patient denies feeling feverish and has been afebrile. Although there was a slight elevation of the patient's white blood cell count today. With CT abdomen findings consisting of hydrourteronephrosis it is possible he may have a UTI. So far urine culture has been negative for any organisms. CT of the chest also did not reveal any consolidation or fluid accumulation to indicate possible pneumonia. He also has had clear sounding lungs on ausculatation with no evidence of rub, ronchi or wheezing. Patient's CT of the brain revealed chronic microvascular ischemic changes, as well as internal carotid and vertebral artery calcifications. There was no evidence of acute intracranial bleeding or thromboembolism. However the ventricles were prominent and given his history of urinary incontenince, and mental status change as well consideration can be made for NPH. -Consider diagnostic/therapeutic LP -continue to monitor CBC -continue to monitor cultures -continue cardiac monitoring #Elevated INR: Patient has been on coumadin 3 mg PO QD for A. Fib. Patient had elevated INR and additional coag studies upon admission to the hospital. Coupled with hematuria for this reason coumadin was stopped. -continue to monitor off coumadin -follow coag studies #Normocytic Anemia: Decreased RBC, Hgb and Hct on lab work up. Patient has hematuria and is likely the reason for apparent anemia. However patient also has a history of , and consideration for Heyde's syndrome is being made. This is unlikely given the fact that there has been no reported bloody stools or coffee ground stool production, but FOBT will be performed. In addition given the patient has a history of unsteady gate differential included B12 deficiency, however macrocytic anemia would likely be present. -FOBT -hold coumadin -appreciate urology recommendations #Chronic medical conditions -Sutures in place, were to be removed 07/16/17, evaluate incision and possible removal of sutures tomorrow -continue diabetes monitoring and medications -hold coumadin DVT ppx: ALPS Diet: ADA diet Full code
[2017-07-15 22:05] VITALS: BP 144/78
[2017-07-16 06:25] VITALS: BP 118/58
--- NOTE | 2017-07-16 07:08 | PN- Housestaff ---
Rosa MCCORMACK,[place] 07/16/17 0707: Subjective Follow-up For: Hematuria AMS supratherapeutic INR Tele-Events Since Last Visit: 3 beat run of NSVT yesterday afternoon, other than that A. fib with some pacing heart rate 60s80s Subjective: Patient was seen and examined at bedside. He is resting comfortably. He had no acute events overnight. He is more alert and oriented today, oriented to person and place rather than just person. He states that he is hungry today, he has had poor p.o. intake so far on this admission but states that he was able to eat his entire breakfast this morning. He has no complaints currently, per the nursing staff his hematuria has resolved. He denies any chest pain, palpitations, nausea, vomiting, fever, chills. Review of Systems Constitutional: Reports: see HPI. Objective Last 24 Hrs of Vital Signs/I&O Vital Signs Date Time Temp Pulse Resp B/P B/P Pulse O2 O2 Flow FiO2 Mean Ox Delivery Rate 07/16 0625 98.1 82 20 118/58 97 07/15 2205 98.1 70 17 144/78 98 07/15 203 83 160/64 07/15 1416 97.9 75 16 148/70 96 Room Air 07/15 08 88 172/88 07/15 0814 88 172/88 07/15 0800 Room Air Intake & Output 07/16 0800 07/16 0000 07/15 1600 Intake Total 200 730 550 Output Total 250 525 450 Balance -50 205 100 Intake, IV 200 450 310 Intake, Oral 280 240 Output, Urine 250 525 450 Patient 192 lb Weight Physical Exam General Appearance: Alert, Cooperative, No Acute Distress, oriented x2, person and place Cardiovascular: Regular Rate, Normal S1, Normal S2, systolic murmur 3/6 Lungs: Clear to Auscultation, Normal Air Movement Abdomen: Normal Bowel Sounds, Soft, mild distension, no tenderness to palpation Current Medications: Current Medications Sig/Maribel Start time Last Medication Dose Route Stop Time Status Admin Aspirin Buffered 81 MG QAM 07/15 0900 AC 07/15 PO 0814 Atorvastatin Calcium 40 MG 1700 07/15 1700 AC 07/15 PO 1633 Cholecalciferol 1,000 IU DAILY 07/15 0900 AC 07/15 PO 0814 Ezetimibe 10 MG QPM 07/14 2100 AC 07/15 PO 203 Insulin Aspart 0 TIDAC 07/15 0800 AC 07/15 SC 1344 Insulin Detemir 13 UNITS DAILY 07/15 0900 AC 07/15 SC 0815 Metoprolol Tartrate 25 MG BID 07/14 2100 AC 07/15 PO 2030 Sodium Chloride 1,000 ML ONCE ONE 07/15 0930 DC 07/15 IV 07/15 2249 1014 Last 24 Hrs of Lab/Ace Results Last 24 Hrs of Labs/Mics: Laboratory Tests 07/16/17 0745: PT 33.8 H, INR 3.07 H 07/16/17 0615: Anion Gap 11, Estimated GFR 30 L, BUN/Creatinine Ratio 19.0, CBC w Diff NO MAN DIFF REQ, RBC 3.80 L, MCV 87.8, MCH 29.8, MCHC 33.9, RDW 13.9, MPV 7.5, Gran % 72.6, Lymphocytes % 14.0 L, Monocytes % 12.8 H, Eosinophils % 0.3, Basophils % 0.3, Absolute Granulocytes 7.2 H, Absolute Lymphocytes 1.4, Absolute Monocytes 1.3 H, Absolute Eosinophils 0, Absolute Basophils 0 Assessment/Plan Assessment: Patient is an 81-year-old male with a PMH significant for A. fib on Coumadin, sick sinus syndrome status post pacemaker placement, CAD status post CABG approximately 2024 years ago, moderate aortic stenosis, HTN, HLD, DM, CKD stage III, prostate cancer who presented to the [facility] ED due to concerns of the neice that the patient is acting strangely and more confused than baseline, and also having mild complaints of abdominal pain and poor p.o. intake. #Acute EKG changes EKGs were reviewed with the patient's microcomputer support specialist, Dr. West. Patient requires no further cardiac workup. Troponins were mildly elevated but have plateaued. -Patient will follow up with Dr. Joyner as an outpatient #ARYA on CKD Renal function mildly improvement. CT scan showed hydroureteronephrosis -Patient's p.o. intake is improving -Consult was placed to urology, we are waiting to hear back If not seen as inpatient, will refer as an outpatient #Worsening cognitive decline in the setting of dementia Patient's mental status improved today, he is now oriented 2 and appears more alert. His appetite is also improving -We will continue to monitor off of antibiotics and follow-up final culture results -PT is recommending STR -Anticipated discharge tomorrow if patient continues to show improvement #Supratherapeutic INR, with hematuria Hematuria has resolved -Urology has been consulted, will await recommendations -We will continue to monitor daily CBCs -Continue to hold warfarin, and monitor INR daily until it is within the therapeutic range #Chronic medical problems -Continue rest of home medical regimen, holding warfarin -NovoLog sliding scale, Accu-Cheks 3 times daily before meals and at bedtime Diet: Diabetic diet, heart healthy DVT prophylaxis: Supratherapeutic INR, Alps CODE STATUS: Full code Problem List: 1. Altered mental status 2. Hydroureteronephrosis 3. Husye-ar-dcmeeuv kidney injury Pain Ratin Pain Location: none Pain Goal: Remain pain free Pain Plan: pain pathway Tomorrow's Labs & Rationales: cbc, bep Mark Robertson MD 07/16/17 1246: Attending MD Review Statement Attending Statement Attending MD Statement: examined this patient, discuss w/resident/PA/DIAMOND SAW OPERATOR, agreed w/resident/PA/DIAMOND SAW OPERATOR, reviewed EMR data (avail) Attending Assessment/Plan: 81M PMH T2DM, CKD stage IV hypertension, HLD, paroxysmal atrial fibrillation on Coumadin, moderate aortic stenosis, sick sinus syndrome s/p pacemaker placement, CAD s/p CABG, chronic urinary incontinence admitted for weakness, delirium, acute on chronic kidney injury. Patient has no complaints and feels well. Mental status improved today, as did renal function. 1. Deconditioning and generalized weakness 2. Acute on chronic kidney injury, stage 3 3. Acute EKG changes 4. Gross hematuria 5. Supratherapeutic INR Plan - Continue on telemetry - Follow cardiology recommendations - Outpatient urology and cardiology follow up - Gentle IV hydration - Follow urine culture - Monitor renal function - PT eval - ALPS for DVT PPx - Anticipated discharge tomorrow
--- NOTE | 2017-07-16 07:33 | Cons- Cardiology ---
General Information and HPI Consulting Request Date of Consult: 07/16/17 Requested By: Mark Robertson MD Reason for Consult: Abnormal electrocardiogram Source of Information: patient, old records Exam Limitations: no limitations History of Present Illness: 81 year old male with h/o SSS, chronic AF, PPM, CAD, CABG (more than 20 years ago), moderate , HTN, HLP, DM admitted in April with CHF, mild LV dysfunction, NSTEMI (treated conservatively), pneumonia. Patient recovered well, but he was readmitted few weeks later with dehydration, diuretics were stopped. He underwent nuclear stress in our office 6 weeks ago which reveal inferolateral infarct but no significant ischemia. Patient was admitted 2 days ago with decreased appetite, "acting strangely", weakness, inability to perform ADL's. He lives with his niece. Angel currently does not report any chest pain, dyspnea, palpitations, or dizziness. Allergies/Medications Allergies: Coded Allergies: NO KNOWN ALLERGIES (NONE 04/06/17) Home Med List: Aspirin (Ecotrin*) 81 MG TABLET.DR 1 TAB PO QAM HEART/BLOOD (Reported) Cholecalciferol (Vitamin D3) 1,000 UNIT TABLET 1 TAB PO DAILY VITAMIN SUPPORT (Reported) Ezetimibe (Zetia) 10 MG TABLET 1 TAB PO QPM CHOLESTEROL (Reported) Insulin Aspart, Recombinant (Novolog Flexpen) 100 UNIT/ML INSULN.PEN DIABETES ( Reported) Insulin Degludec (Tresiba Flextouch U-200) 200 UNIT/ML (3 ML) INSULN.PEN 13 UNITS SQ DAILY DIABETES (Reported) Metoprolol Tartrate 25 MG TABLET 25 MG PO BID heart Rosuvastatin Calcium (Crestor) 10 MG TABLET 1 TAB PO QPM CHOLESTEROL ( Reported) Warfarin Sodium (Coumadin) 3 MG TABLET 1 TAB PO DAILY Blood thinner Please check INR on 05/31/17 and dose accordingly to keep INR in therapeutic range(2-3). THANKS Current Medications: Current Medications Sig/Maribel Start time Last Medication Dose Route Stop Time Status Admin Aspirin Buffered 81 MG QAM 07/15 0900 AC 07/15 PO 0814 Atorvastatin Calcium 40 MG 1700 / 1700 AC 07/15 PO 1633 Cholecalciferol 1,000 IU DAILY 07/15 0900 AC 07/15 PO 0814 Ezetimibe 10 MG QPM 07/14 2100 AC 07/15 PO 2031 Insulin Aspart 0 TIDAC 07/15 0800 07/15 UT 1344 Insulin Detemir 13 UNITS DAILY 07/15 0900 07/15 UT 0815 Metoprolol Tartrate 25 MG BID 07/14 2100 AC 07/15 PO 2030 Sodium Chloride 1,000 ML ONCE ONE 07/15 0930 DC 07/15 IV 07/15 4759 1014 Review of Systems Review of Systems Constitutional: Reports: malaise, weakness. Denies: no symptoms, see HPI, chills, diaphoresis, fever, unexplained weight loss. EENTM: Denies: no symptoms, see HPI, blurred vision, double vision, visual changes, eye pain, eye drainage, eye tearing, icterus, ear discharge, ear pain, ear redness, hearing changes, nasal congestion, epistaxis, nasal pain, throat pain, throat swelling, mouth pain, tooth pain. Cardiovascular: Denies: no symptoms, see HPI, chest pain, edema, orthopena, palpitations, peripheral edema, syncope. Respiratory: Denies: no symptoms, see HPI, cough, hemoptysis, orthopnea, short of breath, sputum production, stridor, wheezing. GI: Reports: abdominal pain. Denies: no symptoms, see HPI, bloating, constipation, diarrhea, distention, bowel incontinence, melena, nausea, bloody stool, changes in stool, vomiting, steatorrhea. Genitourinary: Denies: no symptoms, see HPI, discharge, dysuria, frequency, hematuria, hesitation, nocturia, pain, urgency. Musculoskeletal: Denies: no symptoms, see HPI, back pain, gout, joint pain, joint swelling, muscle pain, muscle stiffness, neck pain. Skin: Denies: no symptoms, see HPI, cysts, change in skin color, change in hair/nails, dryness, erythema, jaundice, lesions, lymphangitis, lumps, moles, rash. Neurological/Psychological: Reports: cognitive dysfunction. Denies: no symptoms, see HPI, anxiety, ataxia, confusion, depressed, dementia, emotional problems, headache, numbness, paresthesia, pre-existing deficit, petit mal seizures, tingling, tremors, tonic- clonic seizures, unable to move lower ext, unable to move upper ext, weakness, other. Hematologic/Endocrine: Denies: no symptoms, see HPI, bruising, bleeding, polyuria, polydipsia, other. Immunologic/Allergic: Denies: no symptoms, see HPI, splenectomy, HIV/AIDS, lymphadenopathy, other. 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 MOTHER FH: cholecystectomy BROTHER FH: myocardial infarction, Onset: 50-60. Psychosocial History Where Do You Live? Home Who Do You Live With? niece Services at Home: Physical Therapy Primary Language: Bengali Smoking Status: Former Smoker ETOH Use: denies use Illicit Drug Use: denies illicit drug use Living Will? yes Functional Ability ADLs Independent: dressing, eating, toileting, bathing. Ambulation: cane, walker IADLs Independent: shopping. Exam & Diagnostic Data Vital Signs and I&O Vital Signs Date Time Temp Pulse Resp B/P B/P Pulse O2 O2 Flow FiO2 Mean Ox Delivery Rate 07/16 0625 98.1 82 20 118/58 97 07/15 2205 98.1 70 17 144/78 98 07/15 2031 83 160/64 07/15 1416 97.9 75 16 148/70 96 Room Air 07/15 0814 88 172/88 07/15 0814 88 172/88 07/15 0800 Room Air Intake & Output 07/16 0800 07/16 0000 07/15 1600 07/15 0800 07/15 0000 07/14 1600 Intake Total 200 730 550 984 937 0300 Output Total 250 525 450 675 225 Balance -50 205 100 -178 59 1625 Intake, IV 200 949 233 6082 Intake, Oral 280 240 200 320 Output, Urine 250 525 450 675 225 Patient 192 lb 201 lb 200 lb Weight Weight Bed scale Measurement Method Physical Exam: No acute distress Skin-no rash HEENT-PERRLA Neck-JVP normal,supple Lungs-few bibasilar crackles Heart-S1S2 irregular, 2/6 CED at the base radiating to carotids Abdomen-soft,not tender, BS+, no organomegaly, no masses Vascular-2+ distal pulses, bilateral carotid bruits Extremities-no significant edema,no cyanosis, 2+ pulses Neuro-oriented to place, person, nono focal Labs/Ace Results: Laboratory Tests 07/16 07/15 07/15 0615 0850 0630 Chemistry Sodium (137 - 145 mmol/L) Pending 136 L Potassium (3.5 - 5.1 mmol/L) Pending 4.5 Chloride (98 - 107 mmol/L) Pending 99 Carbon Dioxide (22 - 30 mmol/L) Pending 23 Anion Gap (5 - 16) Pending 14 BUN (9 - 20 mg/dL) Pending 36 H Creatinine (0.7 - 1.2 mg/dL) Pending 2.3 H Estimated GFR (>60 ml/min) 27 L BUN/Creatinine Ratio (7 - 25 %) Pending 15.7 Magnesium (1.6 - 2.3 mg/dL) 1.9 Coagulation PT (9.4 - 12.5 SEC) 45.3 *H INR (0.90 - 1.17) 4.10 *H Hematology CBC w Diff Pending NO MAN DIFF REQ WBC (4.8 - 10.8 /CUMM) Pending 11.1 H RBC (4.70 - 6.10 /CUMM) Pending 3.69 L Hgb (14.0 - 18.0 G/DL) Pending 11.0 L Hct (42 - 52 %) Pending 32.3 L MCV (80.0 - 94.0 FL) Pending 87.4 MCH (27.0 - 31.0 PG) Pending 29.8 MCHC (33.0 - 37.0 G/DL) Pending 34.0 RDW (11.5 - 14.5 %) Pending 13.6 Plt Count (130 - 400 /CUMM) Pending 255 MPV (7.4 - 10.4 FL) Pending 7.2 L Gran % (42.2 - 75.2 %) 80.3 H Lymphocytes % (20.5 - 51.1 %) 9.0 L Monocytes % (1.7 - 9.3 %) 10.4 H Eosinophils % (0 - 5 %) 0 Basophils % (0.0 - 2.0 %) 0.3 Absolute Granulocytes (1.4 - 6.5 /CUMM) 8.9 H Absolute Lymphocytes (1.2 - 3.4 /CUMM) 1.0 L Absolute Monocytes (0.10 - 0.60 /CUMM) 1.1 H Absolute Eosinophils (0.0 - 0.7 /CUMM) 0 Absolute Basophils (0.0 - 0.2 /CUMM) 0 07/15 07/14 07/14 07/14 0050 1845 1845 1210 Chemistry Lactic Acid (0.7 - 2.1 mmol/L) 1.2 Troponin I (<0.11 ng/ml) 0.08 0.06 Urines Urinalysis LIGHT H Urine Color (YEL,AMB,STR) YEL Urine Clarity (CLEAR) CLEAR Urine pH (5.0 - 8.0) 6.0 Ur Specific [place] (1.001 - 1.035) 1.025 Urine Protein (NEG,<30 MG/DL) 100 H Urine Ketones (NEG) TRACE H Urine Nitrite (NEG) NEG Urine Bilirubin (NEG) NEG Urine Urobilinogen (0.1 - 1.0 EU/dl) 0.2 Ur Leukocyte Esterase (NEG) NEG Ur Microscopic SEDIMENT EXAMINED Urine RBC (0 - 5 /HPF) 25-50 H Urine WBC (0 - 2 /HPF) RARE Urine Mucus (FEW,NONE) FEW Urine Hemoglobin (NEG) LARGE H Urine Glucose (N MG/DL) >=1000 H 07/14 1155 Chemistry Sodium (137 - 145 mmol/L) 135 L Potassium (3.5 - 5.1 mmol/L) 5.0 Chloride (98 - 107 mmol/L) 100 Carbon Dioxide (22 - 30 mmol/L) 24 Anion Gap (5 - 16) 11 BUN (9 - 20 mg/dL) 38 H Creatinine (0.7 - 1.2 mg/dL) 2.3 H Estimated GFR (>60 ml/min) 27 L BUN/Creatinine Ratio (7 - 25 %) 16.5 Glucose (65 - 99 mg/dL) 277 H Lactic Acid (0.7 - 2.1 mmol/L) 2.0 Calcium (8.4 - 10.2 mg/dL) 9.6 Total Bilirubin (0.2 - 1.3 mg/dL) 2.2 H AST (17 - 59 U/L) 17 ALT (21 - 72 U/L) 29 Alkaline Phosphatase (< 127 U/L) 61 Troponin I (<0.11 ng/ml) 0.06 Total Protein (6.3 - 8.2 g/dL) 6.9 Albumin (3.5 - 5.0 g/dL) 3.6 Globulin (1.9 - 4.2 gm/dL) 3.3 Albumin/Globulin Ratio (1.1 - 2.2 %) 1.1 Coagulation PT (9.4 - 12.5 SEC) 47.1 *H INR (0.90 - 1.17) 4.26 *H APTT (25 - 37 SEC) 44 H Hematology CBC w Diff NO MAN DIFF REQ WBC (4.8 - 10.8 /CUMM) 9.8 RBC (4.70 - 6.10 /CUMM) 3.62 L Hgb (14.0 - 18.0 G/DL) 10.9 L Hct (42 - 52 %) 31.7 L MCV (80.0 - 94.0 FL) 87.6 MCH (27.0 - 31.0 PG) 30.2 MCHC (33.0 - 37.0 G/DL) 34.5 RDW (11.5 - 14.5 %) 13.5 Plt Count (130 - 400 /CUMM) 245 MPV (7.4 - 10.4 FL) 7.2 L Gran % (42.2 - 75.2 %) 82.1 H Lymphocytes % (20.5 - 51.1 %) 8.1 L Monocytes % (1.7 - 9.3 %) 9.4 H Eosinophils % (0 - 5 %) 0 Basophils % (0.0 - 2.0 %) 0.4 Absolute Granulocytes (1.4 - 6.5 /CUMM) 8.0 H Absolute Lymphocytes (1.2 - 3.4 /CUMM) 0.8 L Absolute Monocytes (0.10 - 0.60 /CUMM) 0.9 H Absolute Eosinophils (0.0 - 0.7 /CUMM) 0 Absolute Basophils (0.0 - 0.2 /CUMM) 0 Diagnostic Data EKG Results atrial fibrillation 80 bpm, early transition, T inversion in the anterolateral leads CXR Results CT chest abdomen-COPD, aortic atherosclerosis, left hydroureteronephrosis, diverticulosis Head CT-no acute abnormality Assessment/Plan Assessment/Plan 81 year old male with h/o SSS, chronic AF, PPM, CAD, CABG (more than 20 years ago), moderate , HTN, HLP, DM admitted in April with CHF, mild LV dysfunction, NSTEMI (treated conservatively), pneumonia (04/2017). Problems: 1. Abnormal ekg-patient is known to have CAD, I reviewed office ekg. he is mainly V paced. 1 ekg in the office showed anterior T inversion and I think current abnormal ekg is not new. No evidence of acute coronary syndrome. troponin is borderline elevated but flat. Recent nuclear stress revealed old inferolateral infarct but no ischemia. 2. ARF on CRI, left hydronephrosis by CT 3. Borderline troponin 4. Supratherapetuic INR-likely due to poor oral intake 5. Weakness-probably due to dehydration, ARF-no clinical evidence of infection, urine and blood cultures negative 6 Moderate aortic stenosis-stable, no clinical evidence of CHF 7. Permanent atrial fibrillation-rate controlled Plan: f/u labs today encourage oral fluid intake no need for more fluids unless he is unable to drink urology consult to assess left hydronephrosis continue ASA restart warfarin at lower dose when INR below 3.0 and if no hematuria continue statin, metoprolol no cardiac tests necessary at this time Consult Acknowledgment - Thank you for your consult request.
[2017-07-16 07:45] VITALS: BP 146/68
[2017-07-16 08:23] LABS: ABSOLUTE BASOPHIL COUNT 0 /CUMM (0.0-0.2); ABSOLUTE EOSINOPHIL COUNT 0 /CUMM (0.0-0.7); ABSOLUTE GRANULOCYTE CT 7.2 /CUMM (1.4-6.5); ABSOLUTE LYMPH COUNT 1.4 /CUMM (1.2-3.4); ABSOLUTE MONOCYTE COUNT 1.3 /CUMM (0.10-0.60); BASOPHIL % 0.3 % (0.0-2.0); EOSINOPHIL % 0.3 % (0-5); GRANULOCYTE % 72.6 % (42.2-75.2); HEMATOCRIT 33.4 % (42-52); MEAN CORPUSCULAR HGB 29.8 PG (27.0-31.0); MEAN CORPUSCULAR HGB CONC 33.9 G/DL (33.0-37.0); MEAN CORPUSCULAR VOLUME 87.8 FL (80.0-94.0); MEAN PLATELET VOLUME 7.5 FL (7.4-10.4); PLATELET COUNT 233 /CUMM (130-400); RBC DISTRIBUTION WIDTH 13.9 % (11.5-14.5); WHITE BLOOD CELL COUNT 9.9 /CUMM (4.8-10.8)
--- NOTE | 2017-07-16 08:28 | PN- Student ---
Subjective Subjective: /No overnight events. Patient is not complaining of any pain, and now has an appetite. He did not have a bowel movement last night or this morning. Mr. Lau had an appointment scheduled for this morning with his catalog specialist, Dr. Dorsey for suture removal following Moh's procedure on 07/08/17. Today Mr. Lau denies headache, n/v, chest pain, chest discomfort, difficulty breathing, abdominal pain, or dysuria. Objective Objective: Current Medications Sig/Maribel Start time Last Medication Dose Route Stop Time Status Admin Aspirin Buffered 81 MG QAM 07/15 0900 AC 07/16 PO 0746 Atorvastatin Calcium 40 MG 1700 07/15 1700 AC 07/15 PO 1633 Cholecalciferol 1,000 IU DAILY 07/15 0900 AC 07/16 PO 0746 Ezetimibe 10 MG QPM 07/14 2100 AC 07/15 PO 2031 Insulin Aspart 0 TIDAC 07/15 0800 AC 07/15 SC 1344 Insulin Detemir 13 UNITS DAILY 07/15 0900 AC 07/16 SC 0747 Metoprolol Tartrate 25 MG BID 07/14 2100 AC 07/16 PO 0746 Sodium Chloride 1,000 ML ONCE ONE 07/15 0930 DC 07/15 IV 07/15 2249 1014 Laboratory Tests 07/16 07/16 07/15 0745 0615 0850 Chemistry Sodium (137 - 145 mmol/L) 137 Potassium (3.5 - 5.1 mmol/L) 4.6 Chloride (98 - 107 mmol/L) 101 Carbon Dioxide (22 - 30 mmol/L) 25 Anion Gap (5 - 16) 11 BUN (9 - 20 mg/dL) 40 H Creatinine (0.7 - 1.2 mg/dL) 2.1 H Estimated GFR (>60 ml/min) 30 L BUN/Creatinine Ratio (7 - 25 %) 19.0 Coagulation PT Pending INR Pending Hematology CBC w Diff Pending NO MAN DIFF REQ WBC (4.8 - 10.8 /CUMM) Pending 11.1 H RBC (4.70 - 6.10 /CUMM) Pending 3.69 L Hgb (14.0 - 18.0 G/DL) Pending 11.0 L Hct (42 - 52 %) Pending 32.3 L MCV (80.0 - 94.0 FL) Pending 87.4 MCH (27.0 - 31.0 PG) Pending 29.8 MCHC (33.0 - 37.0 G/DL) Pending 34.0 RDW (11.5 - 14.5 %) Pending 13.6 Plt Count (130 - 400 /CUMM) Pending 255 MPV (7.4 - 10.4 FL) Pending 7.2 L Gran % (42.2 - 75.2 %) 80.3 H Lymphocytes % (20.5 - 51.1 %) 9.0 L Monocytes % (1.7 - 9.3 %) 10.4 H Eosinophils % (0 - 5 %) 0 Basophils % (0.0 - 2.0 %) 0.3 Absolute Granulocytes (1.4 - 6.5 /CUMM) 8.9 H Absolute Lymphocytes (1.2 - 3.4 /CUMM) 1.0 L Absolute Monocytes (0.10 - 0.60 /CUMM) 1.1 H Absolute Eosinophils (0.0 - 0.7 /CUMM) 0 Absolute Basophils (0.0 - 0.2 /CUMM) 0 Vital Signs Date Time Temp Pulse Resp B/P B/P Pulse O2 O2 Flow FiO2 Mean Ox Delivery Rate 07/16 0800 Room Air 07/16 0746 70 146/68 07/16 0745 70 146/68 07/16 0625 98.1 82 20 118/58 97 07/15 2205 98.1 70 17 144/78 98 07/15 2031 83 160/64 07/15 1416 97.9 75 16 148/70 96 Room Air Intake & Output 07/16 1600 07/16 0800 07/16 0000 Intake Total 200 730 Output Total 250 525 Balance -50 205 Intake, IV 200 450 Intake, Oral 280 Output, Urine 250 525 Patient 192 lb Weight Physical Exam General Apperance: AOx2, not oriented to time, no evidence of acute distress CV: normal S1 & S2, holosystolic cresendo type ejection murmur heard best at the apex but heard throughout the precordium that radiates to the right carotid, no palpable thrill, likely Grade 3/5 Pulm: Posterior lung garcia clear to ausculatation, no rubs, rales, ronchi or wheezes Abd: normal bowel sounds, slightly distended abdomen, tender in hypogastric region that elicits sensation of needing to urinate : no evidence of blood or errythema surrounding the penis or scrotum Extremities: no peripheral edema noted, 2+ pulses at dorsal pedis, posterior tibial, and radial arteries bilaterally Skin: approx 3 cm vertical inscion, on right side of face in preauricular region with sutures and steri strips in place, no surrounding edema, drainage, errythema or warmth Assessment/Plan Assessment: Mr. Lau is an 81 year old man with a PMHx signigicant for A. fib, SSS, CAD s/p CABG 1992, moderate , HTN, hyperlipidemia, DM, CKD stage III, prostate cancer s/p radiologic seed implantation and skin cancer presented to the ED on with increasing confusion and weakness. These symptoms were noticed by his neice with which Mr. Lau lives with. His neice who is his primary adult daycare coordinator states that there is some mild baseline confusion but began to be concerned when she noticed Mr. Lau sleeping more than usual and on Thursday when he put his underwear on over his pants. Mr. Lau usually dresses and feeds himself without assistance, however his neice takes care of shopping and paying bills. She also reports that Mr. Lau has had decreased appettite over this time with his last meal prior to hospitalization being Thursday morning 07/13/17. Mr. Lau reported a return in his appettite this morning and ate a full breakfast. Plan: Problem List: 1. EKG changes 2. ARYA 3. Confusion 4. Elevated INR 5. Normocytic Anemia 6. Chronic medical conditions #EKG changes: In comparisson to EKG from 05/27/17, which showed a ventricular paced rhythm. Mr. Lau's EKG since presenting to the hospital has shown T wave inversion in the anterior and lateral leads, without evidence of pacing. Troponin x3 have been negative. Given his extensive cardiac history and recent WA in April, on the differential acute WA was considered. However Dr. West was consulted and previous EKGs in his office do show T wave inversion in anterior leads. He also stated that a nuclear stress test performed after the patient's WA in April showed an old inferolateral infarct but no evidence of ischemia. Per Dr. Plavec's recommendations Coumadin will be restarted once his INR decreases below 3.0. Also on the differential, these EKG changes may be the result of Mr. Lau's pacemaker no longer firing for some reason. Either the sensory setting is such that his heart is overiding the need for pacing or the pacemaker itself is not operational. As he remains hemodynamically stable it would be appropriate for this to be investigated in an outpatient setting. -continue to monitor coagulation studies -continue cardiac monitoring -Restart Coumadin when INR falls below 3.0 -f/u with cardiology when discharged #ARYA: There has been slight improvement in patient's creatinine however his BUN is still elevated with slight increase. This may also be related to the patient' s poor oral intake and state of dehydration. Now that he is more alert and has a return in appetite, these numbers should improve with adequate oral intake of fluids. However the patient's urine did also indicate proteinuria, which given his history of DM may be contributing to the patient's ARYA. As the patient has been hypertensive and is excreting protein in the urine, he might benefit from the addition of an ACEI or ARB. This also may be influenced by the fact the patient may have some issue with urinary outlet obstruction. On PE the patient did have a tender, slightly distended lower abdomen that when pressed on did elicit the urge to urinate. Given his elevated INR, hematuria and blood draining from the meatus it was determined that the risk of traumatic dela cruz outweighed the benefit. However the patient's INR is downtrending towards the normal limit. For this reason urology was consulted. -appreciate urology recommendations -continue to monitor INR -continue to monitor I&O's -consider ACEI/ARB initiation #Confusion: Patient had an acute onset of confusion for a few days in duration. However Mr. Lau is more alert and is oriented x2 today just not oriented to time, this is an improvement from when he first presented to the hospital. On the differential was infectious causes however there was no evidence of fever or marked leukocytosis. Mr. Lau also had some urinary incontenince along with a history of unsteady gate and confusion which prompted NPH to be included on the differential as well, however CT of the head did not show overt enlargment of his ventricles. CT of the head also did not show any evidence of bleeding. Mr. Armando has had some lower abdominal tenderness on palpation, and when palpated states that he feels as if he needs to urinate. Given his history of Prostate cancer s/p seed implantation, he may have some outlet obstruction leading to urinary retention, thus leading to his hydrouretronephrosis and prompting a delerium type state. Due to patient's increased INR, evidence of hematuria, and blood coming from the penile meatus, it was determined the risk of a traumatic dela cruz outweighed the benefit, as Mr. Lau has been able to urinate. Urology consult was placed and also recommended by Dr. West after his cardiac consultation. -Appreciate urology recommendations -consider straight cath if INR falls wnl -continue to monitor for mental status changes #Elevated INR: Coagulation studies are improving off of coumadin, continue to withold coumadin and monitor INR, PT, PTT. Mr. Lights INR when he first presented indicated supratherapeutic range due to coumadin. He did have evidence of hematuria, and blood coming from his penile meatus during his hospitalization. However today there was no indication of fresh or dried blood around his penile or scrotal region. -Continue to monitor coagulation studies -Restart coumadin when INR drops below 3.0 #Normocytic Anemia: Labs today indicate improvement and is likely related to the hematuria he first presented with. As the patient has , Heyde's syndrome was thought of, however he did not have any indication of a GI bleed. 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 Anemia of chronic disease and Iron deficiency anemia are also on the differential, however with improvement in his hematolgic work up it is likely the combination of poor oral intake and hematuria contributed to these findings. -continue to monitor CBC -f/u with PCP #Chronic medical conditions -hold coumadin until INR drops below 3.0 -avoid nephrotoxins -3 running sutures, from Moh's procedure on 07/08/17 removed today, with no evidence of erythema, warm to touch or exudate. The edges of the incision were together with no areas of bleeding or drainage. Prior to the removal of the sutures it was discussed and approved for by Dr. Dorsey's office who is his catalog specialist. Mr. Lau will f/u with Dr. Dorsey upon discharge. DVT ppx: ALPS Diet: ADA/heart healthy diet full code
[2017-07-16 09:43] LABS: PT 33.8 SEC (9.4-12.5)
[2017-07-16 14:33] VITALS: BP 122/60
--- NOTE | 2017-07-16 16:53 | Discharge Summary ---
Visit Information Visit Dates Admission Date: 07/14/17 Discharge Date: 07/18/17 Hospital Course Course Attending Physician: Mark Robertson MD Primary Care Physician: Dayron Sutherland MD Hospital Course: 80-year-old gentleman from home with a past medical history significant for diabetes mellitus, CKD, hypertension, hyperlipidemia, A. fib on Coumadin, moderate aortic stenosis, A-V anna dysfunction status post pacemaker placement, Coronary artery disease status post CABG, Chronic urinary incontinence,admitted to [facility] for evaluation of worsening confusion, abdominal pain and decreased p.o. intake over a few days duration. Labs significant for acute on ARYA on CKD, anemia of chronic disease, elevated T bili of 2.2, with normal ALP and liver enzymes, elevated INR at 4.26. EKG showed nonspecific ST-T wave changes in lateral leads. CT head ruled out any acute bleed or fractures. CT abdomen and pelvis without contrast was significant for 0.5 cm calculus in the left lower renal pole. Moderate left hydroureteronephrosis. No obstructing stones or clear cause of ureteral obstruction is identified. Marked colonic diverticulosis. No acute diverticulitis. He was admitted to the telemetry floor and the following issues were addressed: Acute EKG changes EKGs were reviewed with the patient's shirrer, Dr. West. Troponins were negative X3 with no further EKG changes. Instructed to follow up with Dr. Joyner as an outpatient ARYA on CKD CT scan showed hydroureteronephrosis. Urology was consulted and he underwent left ureteroscopy with laser lithotripsy and stent placement. Multiple bladder stones and multiple midpole kidney stones without ureteral stones were noted . He tolerated the procedure well. Worsening cognitive decline in the setting of dementia There were no indication of underlying infection. Patient's mental status imoroved with mild hydration. His appetite is also noted to be improving. PT evaluated and recommended STR Supratherapeutic INR, with hematuria Hematuria resolved with stable H/H. INR was monitored daily and warfarin restarted once INR was in therapeutic range. INR on day of discharge was 2.21 and he was given 3mg of coumadin prior to discharge. Diabetic His fingerstick were well controlled and he was continued on his long acting and ISS surgical scar on the right side of face Patient had a Mohs procedure approximately 2 weeks prior to admission. Discussion was had with the office of Dr. Dorsey about suture removal, and sutures removed during his hospitalization. Diet: Diabetic diet/heart healthy DVT prophylaxis: Supratherapeutic INR, Alps CODE STATUS: Full code Allergies: Coded Allergies: NO KNOWN ALLERGIES (NONE 04/06/17) Significant Procedures: Operative/Inv Procedure Report Surgery Date: 07/17/17 Name of Procedure: left ureteroscopy with laser lithotripsy and stent placement Pre-Operative Diagnosis: presumed left ureteral stone with hydroureteronephrosis. left LP stone as well 5mm Post-Operative Diagnosis: same Estimated Blood Loss: scant Surgeon/Motorcycle Builder: Mark Robertson MD Anesthesia: laryngeal mask airway Drains: 6x 26cm stent Specimens: stones Complications: none Condition: stable Operative Indication: left ureterohydronephrosis Operative/Procedure Note Note: This an 81-year-old male with multiple medical problems with a history of bilateral kidney stones. He presented with mental status changes and change in behavior and was brought to [facility] by his niece. He has had loss of appetite and CT scan imaging revealed left hydroureteronephrosis with no stone appreciated on CAT scan causing the obstruction but he did have a 5 mm lower pole left kidney stone. Given his history of kidney stones bilaterally and hydroureteronephrosis with a K I on CK DD it was deemed appropriate to place a ureteral stent versus possible stone management prior to discharge. His niece was given the risks benefits and alternatives of the surgery and all questions were answered. Consent was obtained over the phone with the nurse Kinsey as a witness. Patient was identified in the holding area. Patient was brought to the operating placed on the operating table in supine position. IV antibiotics were infused. Timeout was performed. Patient was placed in the dorsolithotomy position and prepped and draped in standard sterile fashion. Cystoscopy was performed and bladder was globally inspected. There were 3 stones in the bladder that were removed with the graspers. The bladder was globally inspected and grade 1 trabeculation and no tumors or masses. Solo guidewire was placed into the left ureteral orifice up into the renal pelvis with fluoroscopic guidance. A semirigid ureteroscope was attempted to be passed but was unable to due to J hooking. A dual-lumen catheter was then used to place a superstiff wire. There was some difficulty in passing the dual-lumen catheter so a retropyelogram was performed. There was narrowing in the mid to lower ureter as well as J hooking at the UPJ. The superstiff wire was left in place and used to pass the 35 cm ureteral access sheath in hopes that the J hooking would be straightened out with the superstiff wire. 35 cm ureteral access sheath was then placed with the inner sheath first followed by the inner and outer sheath together over the Super Stiff wire. The digital flexible ureteroscope was then placed up into the renal pelvis and the calyces were examined. There were multiple stones seen in the midpole was one larger stone. The smaller stones were removed with the 0 tip basket first a total of approximately 15 stones. The larger stone was then fragmented with a 276 fiber and the fragments were removed with the 0 tip basket. The calyces were examined again upper middle and lower pole and no remaining stones or fragments were appreciated. The flexible ureteroscope was removed along with the access sheath as the ureter was examined on the way out. No remaining stones were appreciated. The Solo wire was then used to place a 6 x 26 cm ureteral access sheath using the cystoscopy. Stent was seen to be in good position and the wire was removed. KUB was taken. The bladder was emptied and there was no remaining stones in the bladder. Stones were sent for stone analysis. The patient tolerated the procedure well. He was transferred to the recovery room in stable condition. Findings: No ureteral stones. Multiple bladder stones and multiple midpole kidney stones. They were yellow in color and brittle in nature. DICTATED BY: Zuly Negrete MD DATE/TIME DICTATED:07/17/171853 CUSTOMER RETENTION SPECIALIST:RIP DATE/TIME TRANSCRIBED:07/17/171853 REPORT NUMBER:[id number] Disposition Summary Disposition Principal Diagnosis: Hydroureteronephrosis Additional Diagnosis: Altered mental status Diabetes mellitus Supratherapeutic INR Dementia ARYA on CKD Acute EKG changes Discharge Disposition: SNF Discharge Instructions General Discharge Information Code Status: Full Code Patient's Diet: Diabetic diet with 2 g sodium restriction Patient's Activity: As tolerated Follow-Up Instructions/Appts: follow up with primary care within two of weeks of disharge follow up with urologist within one week of dishcharge follow up with shirrer within two weeks of discharge Medications at Discharge Discharge Medications: Continue taking these medications: Aspirin (Ecotrin*) 81 MG TABLET. 1 Tablet ORAL Every Morning Comments: Last Taken:05/29/17 Time:9AM Rosuvastatin Calcium (Crestor) 10 MG TABLET 1 Tablet ORAL Every night Comments: Last Taken:05/28/17 GIVEN LIPITOR Time:5PM Ezetimibe (Zetia) 10 MG TABLET 1 Tablet ORAL Every night Comments: Last Taken:05/28/17 Time:9PM Insulin Degludec (Tresiba Flextouch U-200) 200 UNIT/ML (3 ML) INSULN.PEN 13 Units SUB-Q DAILY Qty = 6 Comments: Last Taken:05/29/17 GIVEN LEVIMIR Time:1000 Insulin Aspart, Recombinant (Novolog Flexpen) 100 UNIT/ML INSULN.PEN Units SUB-Q THREE TIMES DAILY Qty = 15 Instructions: BEFORE MEALS Blood Insulin Sugar Units <80 0 81-150 0 151-200 2 251-300 4 301-350 6 351-400 8 >400 10 call MD >400 Call Doctor Metoprolol Tartrate (Metoprolol Tartrate) 25 MG TABLET 25 Milligram ORAL TWICE DAILY Qty = 60 Comments: Last Taken:05/29/17 Time:9AM Warfarin Sodium (Coumadin) 3 MG TABLET 1 Tablet ORAL DAILY Qty = 30 Instructions: Please check INR on 05/31/17 and dose accordingly to keep INR in therapeutic range(2-3). THANKS Comments: Last Taken:05/29/17 Time:1445 Cholecalciferol (Vitamin D3) 1,000 UNIT TABLET 1 Tablet ORAL DAILY Copies To: Koko MCCORMACK,Dayron Suarez Attending Review Statement Documenting Attending: Mark Robertson MD
--- NOTE | 2017-07-16 17:06 | Cons- Urology ---
General Information and HPI Consulting Request Date of Consult: 07/15/17 Requested By: Mark Robertson MD Reason for Consult: gross hematuria Source of Information: old records Exam Limitations: unable to give history, not alert/orientated History of Present Illness: This is an 81-year-old male with a PMH of atrial fibrillation, sick sinus syndrome s/p pacemaker, CAD status post CABG 20 yrs ago, aortic stenosis, HTN, HLD, DM, CKD stage III, with a hx of prostate cancer who was brought to the ER by the neice due to change in behavior and more confused than baseline with complaints of abdominal pain and poor p.o. intake. She stated he recently fell and had been unsteady on his feet. He uses a cane at home for ambulation, and a walker when he is outside of the house. She denies the patient complaining of any chest pain, chest discomfort, shortness of breath, loss of consciousness, fever, chills, nausea, vomiting, hematuria, bloody stool. It is unclear when he was diagnosed with CaP and if he had any treatment for it. Unclear hx of He has had kidney stones in the past based on previous CT scans obtained in 04/19 and 07/16 which showed a stone on the right side at one time and no hydronephrosis on either side and left renal 8mm stone on 04/[address] scan 07/14/17, he had renal stone and hydroureteronephrosis on the left side. Allergies/Medications Allergies: Coded Allergies: NO KNOWN ALLERGIES (NONE 04/06/17) Home Med List: Aspirin (Ecotrin*) 81 MG TABLET.DR 1 TAB PO QAM HEART/BLOOD (Reported) Cholecalciferol (Vitamin D3) 1,000 UNIT TABLET 1 TAB PO DAILY VITAMIN SUPPORT (Reported) Ezetimibe (Zetia) 10 MG TABLET 1 TAB PO QPM CHOLESTEROL (Reported) Insulin Aspart, Recombinant (Novolog Flexpen) 100 UNIT/ML INSULN.PEN DIABETES ( Reported) Insulin Degludec (Tresiba Flextouch U-200) 200 UNIT/ML (3 ML) INSULN.PEN 13 UNITS SQ DAILY DIABETES (Reported) Metoprolol Tartrate 25 MG TABLET 25 MG PO BID heart Rosuvastatin Calcium (Crestor) 10 MG TABLET 1 TAB PO QPM CHOLESTEROL ( Reported) Warfarin Sodium (Coumadin) 3 MG TABLET 1 TAB PO DAILY Blood thinner Please check INR on 05/31/17 and dose accordingly to keep INR in therapeutic range(2-3). 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 MOTHER FH: cholecystectomy BROTHER FH: myocardial infarction, Onset: 50-60. Psychosocial History Where Do You Live? Home Who Do You Live With? niece Services at Home: Physical Therapy Primary Language: Ugandan Smoking Status: Former Smoker ETOH Use: denies use Illicit Drug Use: denies illicit drug use Living Will? yes Functional Ability ADLs Independent: dressing, eating, toileting, bathing. Ambulation: cane, walker IADLs Independent: shopping. Exam & Diagnostic Data Vital Signs and I&O Vital Signs Date Time Temp Pulse Resp B/P B/P Pulse O2 O2 Flow FiO2 Mean Ox Delivery Rate 07/16 1518 Room Air 07/16 1433 97.8 67 20 122/60 97 Room Air 07/16 0800 Room Air 07/16 0746 70 146/68 07/16 0745 70 146/68 07/16 0625 98.1 82 20 118/58 97 07/15 2205 98.1 70 17 144/78 98 07/15 2031 83 160/64 Intake & Output 07/16 1600 07/16 0800 07/16 0000 07/15 1600 07/15 0800 07/15 0000 Intake Total 910 200 730 550 200 320 Output Total 400 250 525 450 675 225 Balance 510 -50 205 100 -475 95 Intake, IV 10 200 450 310 Intake, Oral 900 280 240 200 320 Output, Urine 400 250 525 450 675 225 Patient 87.26 kg 87.26 kg 90.945 kg Weight Weight Bed scale Measurement Method Physical Exam General Appearance: no apparent distress, alert, awake, comfortable Head: atraumatic, normal appearance Eyes: Bilateral: normal appearance. Ears, Nose, Throat: normal ENT inspection Respiratory: no respiratory distress Gastrointestinal: soft, non-tender Rectal: deferred Back: normal inspection Extremities: no edema Neurologic/Psych: awake, alert Cranial Nerves: normal hearing, normal speech Skin: normal color, warm/dry Reproductive: one testicle Last 24 Hours of Labs: Laboratory Tests 07/16 07/16 0716 0606 Chemistry Sodium (137 - 145 mmol/L) 137 Potassium (3.5 - 5.1 mmol/L) 4.6 Chloride (98 - 107 mmol/L) 101 Carbon Dioxide (22 - 30 mmol/L) 25 Anion Gap (5 - 16) 11 BUN (9 - 20 mg/dL) 40 H Creatinine (0.7 - 1.2 mg/dL) 2.1 H Estimated GFR (>60 ml/min) 30 L BUN/Creatinine Ratio (7 - 25 %) 19.0 Coagulation PT (9.4 - 12.5 SEC) 33.8 H INR (0.90 - 1.17) 3.07 H Hematology CBC w Diff NO MAN DIFF REQ WBC (4.8 - 10.8 /CUMM) 9.9 RBC (4.70 - 6.10 /CUMM) 3.80 L Hgb (14.0 - 18.0 G/DL) 11.3 L Hct (42 - 52 %) 33.4 L MCV (80.0 - 94.0 FL) 87.8 MCH (27.0 - 31.0 PG) 29.8 MCHC (33.0 - 37.0 G/DL) 33.9 RDW (11.5 - 14.5 %) 13.9 Plt Count (130 - 400 /CUMM) 233 MPV (7.4 - 10.4 FL) 7.5 Gran % (42.2 - 75.2 %) 72.6 Lymphocytes % (20.5 - 51.1 %) 14.0 L Monocytes % (1.7 - 9.3 %) 12.8 H Eosinophils % (0 - 5 %) 0.3 Basophils % (0.0 - 2.0 %) 0.3 Absolute Granulocytes (1.4 - 6.5 /CUMM) 7.2 H Absolute Lymphocytes (1.2 - 3.4 /CUMM) 1.4 Absolute Monocytes (0.10 - 0.60 /CUMM) 1.3 H Absolute Eosinophils (0.0 - 0.7 /CUMM) 0 Absolute Basophils (0.0 - 0.2 /CUMM) 0 Imaging Results: CT scan with left 5mm LP stone and left hydroureteronephrosis Assessment/Plan Assessment/Plan 81yo male with mult med problems with hematuria, elevated CR and CT findings consistent with ureteral obstructing stone with hydroureteronephrosis. He has no flank pain. Recommend stent vs stone surgery for ureteral obstructing stone possibly. Will need to be NPO p MN. Obtain consent from Niece. Consult Acknowledgment - Thank you for your consult request.
[2017-07-16 20:14] VITALS: BP 122/54
[2017-07-16 22:18] VITALS: BP 142/60
[2017-07-17 06:19] VITALS: BP 146/57
--- NOTE | 2017-07-17 07:11 | PN- Housestaff ---
Rosa MCCORMACK,[place] 07/17/17 0711: Subjective Follow-up For: Hydroureteronephrosis Supratherapeutic INR Tele-Events Since Last Visit: Paced rhythm HR 60s70s Subjective: Patient was seen and examined at bedside. He was resting comfortably. He had no acute events overnight. He currently offers no complaints. He is again alert today, answering questions appropriately. States that he feels well. He denies any recurrence of his abdominal pain, and denies any recurrent hematuria. He also denies any chest pain, palpitations, shortness of breath, vomiting, fever, chills. Review of Systems Constitutional: Reports: see HPI. Objective Last 24 Hrs of Vital Signs/I&O Vital Signs Date Time Temp Pulse Resp B/P B/P Pulse O2 O2 Flow FiO2 Mean Ox Delivery Rate 07/17 0619 97.6 66 18 146/57 96 07/16 2218 97.9 62 20 142/60 98 Room Air 07/16 2014 78 122/54 07/16 2013 78 122/54 07/16 1518 Room Air 07/16 1433 97.8 67 20 122/60 97 Room Air 07/16 0800 Room Air 07/16 0746 70 146/68 07/16 0745 70 146/68 Intake & Output 07/17 0800 07/17 0000 07/16 1600 Intake Total 582 910 Output Total 200 475 400 Balance -200 107 510 Intake, IV 10 Intake, Oral 582 900 Output, Urine 200 475 400 Patient 193 lb 192 lb Weight Physical Exam General Appearance: Alert, Oriented X3, Cooperative, No Acute Distress Cardiovascular: Regular Rate, Normal S1, Normal S2, systolic murmur 3/6 Lungs: Clear to Auscultation, Normal Air Movement Abdomen: Normal Bowel Sounds, Soft, No Tenderness Neurological: Normal Speech, Normal Tone, Sensation Intact Extremities: No Clubbing, No Cyanosis, No Edema Current Medications: Current Medications Sig/Maribel Start time Last Medication Dose Route Stop Time Status Admin Aspirin Buffered 81 MG QAM 07/15 0900 AC 07/16 PO 0746 Atorvastatin Calcium 40 MG 1700 07/15 1700 AC 07/16 PO 1743 Cholecalciferol 1,000 IU DAILY 07/15 09 AC 07/16 PO 0746 Ezetimibe 10 MG QPM 07/14 2100 AC 07/16 PO 2014 Insulin Aspart 0 TIDAC 07/15 0800 AC 07/16 [place] 1744 Insulin Detemir 13 UNITS DAILY 07/15 0900 07/16 [place] 0747 Metoprolol Tartrate 25 MG BID 07/14 2100 07/16 PO 2014 Patient Medication 1 ED ONE ONE 07/16 1645 [facility] ED 07/16 1646 Assessment/Plan Assessment: Patient is an 81-year-old male with a PMH significant for A. fib on Coumadin, sick sinus syndrome status post pacemaker placement, CAD status post CABG approximately 2024 years ago, moderate aortic stenosis, HTN, HLD, DM, CKD stage III, prostate cancer who presented [facility] ED due to concerns of the neice that the patient is acting strangely and more confused than baseline, and also having mild complaints of abdominal pain and poor p.o. intake. #Acute EKG changes EKGs were reviewed with the patient's casino supervisor, Dr. West. Patient requires no further cardiac workup. Troponins were mildly elevated but have plateaued. -Patient will follow up with Dr. West as an outpatient #ARYA on CKD Renal function mildly improvement. CT scan showed hydroureteronephrosis -N.p.o. for urologic procedure, stent placement or stone surgery -This procedure was discussed with the patient's niece who is power of title attorney, she agrees to move forward with the procedure and understands the risks and benefits. -Patient n.p.o. pending urologic procedure #Worsening cognitive decline in the setting of dementia Patient's mental remains at baseline, per discussion with patient's niece yesterday, he is improving and close to baseline -PT is recommending STR #Supratherapeutic INR, with hematuria Hematuria has resolved -Urology has been consulted, will await recommendations -We will continue to monitor daily CBCs -Continue to hold warfarin, and monitor INR daily until it is within the therapeutic range #surgical scar on the right side of face Patient had a Mohs procedure approximately 2 weeks prior to admission. Discussion was had with the office of Dr. Dorsey about suture removal, and sutures removed at bedside yesterday. #Chronic medical problems -Continue rest of home medical regimen, holding warfarin -NovoLog sliding scale, Accu-Cheks 3 times daily before meals and at bedtime Diet: Diabetic diet, heart healthy DVT prophylaxis: Supratherapeutic INR, Alps CODE STATUS: Full code Problem List: 1. Hydroureteronephrosis 2. Acute kidney injury 3. Supratherapeutic INR Pain Ratin Pain Location: none Pain Goal: Remain pain free Pain Plan: pain pathway Tomorrow's Labs & Rationales: cbc, bep, INR Mark Robertson MD 07/17/17 1410: Attending MD Review Statement Attending Statement Attending MD Statement: examined this patient, discuss w/resident/PA/SUPERINTENDENT FISH HATCHERY, agreed w/resident/PA/SUPERINTENDENT FISH HATCHERY, reviewed EMR data (avail) Attending Assessment/Plan: 81M PMH T2DM, CKD stage IV hypertension, HLD, paroxysmal atrial fibrillation on Coumadin, moderate aortic stenosis, sick sinus syndrome s/p pacemaker placement, CAD s/p CABG, chronic urinary incontinence admitted for weakness, delirium, acute on chronic kidney injury. Patient has no complaints and feels well. Mental status improved today, as did renal function. Imaging shows obstructive stone with left hydroureteronephrosis. 1. Deconditioning and generalized weakness 2. Acute on chronic kidney injury, stage 3 3. Acute EKG changes 4. Gross hematuria 5. Supratherapeutic INR 6. Left hydroureteronephrosis Plan - Continue on telemetry - Will go for cystoscopy and stent placement today - Follow cardiology and urology recommendations - Outpatient urology and cardiology follow up on discharge - Gentle IV hydration - Follow urine culture - Monitor renal function - ALPS for DVT PPx - Anticipated discharge tomorrow to STR
[2017-07-17 08:16] LABS: PT 22.5 SEC (9.4-12.5)
[2017-07-17 08:20] LABS: ABSOLUTE BASOPHIL COUNT 0 /CUMM (0.0-0.2); ABSOLUTE EOSINOPHIL COUNT 0.3 /CUMM (0.0-0.7); ABSOLUTE GRANULOCYTE CT 4.8 /CUMM (1.4-6.5); ABSOLUTE LYMPH COUNT 1.2 /CUMM (1.2-3.4); ABSOLUTE MONOCYTE COUNT 0.9 /CUMM (0.10-0.60); BASOPHIL % 0.7 % (0.0-2.0); EOSINOPHIL % 3.9 % (0-5); GRANULOCYTE % 66.1 % (42.2-75.2); HEMATOCRIT 30.7 % (42-52); MEAN CORPUSCULAR HGB 29.8 PG (27.0-31.0); MEAN CORPUSCULAR HGB CONC 33.9 G/DL (33.0-37.0); MEAN PLATELET VOLUME 7.1 FL (7.4-10.4); PLATELET COUNT 249 /CUMM (130-400); RBC DISTRIBUTION WIDTH 13.8 % (11.5-14.5); RED BLOOD CELL CT 3.49 /CUMM (4.70-6.10); WHITE BLOOD CELL COUNT 7.3 /CUMM (4.8-10.8)
--- NOTE | 2017-07-17 13:58 | PN- Student ---
Subjective Subjective: No overnight events reported. Mr. Lau's only complaint this morning is some slight lightheadedness. He reports that he is not experiencing a room spinning sensation, n/v, visual disturbances, headache, palpatations, coughing, chest pain or discomfort. He was seen by urology yesterday and recommended ureteral stent placement to be done today. His niece, is his PA and consent will be obtained by urology with his niece. Objective Objective: Current Medications Sig/Maribel Start time Last Medication Dose Route Stop Time Status Admin Aspirin Buffered 81 MG QAM 07/15 0900 AC 07/16 PO 0746 Atorvastatin Calcium 40 MG 1700 07/15 1700 AC 07/16 PO 1743 Cholecalciferol 1,000 IU DAILY 07/15 0900 AC 07/16 PO 0746 Dextrose/Sodium 1,000 ML Q13H 07/17 0730 07/17 Chloride IV 0806 Ezetimibe 10 MG QPM 07/14 2100 AC 07/16 PO 2015 Insulin Aspart 0 TIDAC 07/15 0800 DE 07/16 UT 1744 Insulin Detemir 13 UNITS DAILY 07/15 0900 DE 07/16 UT 0747 Insulin Human Regular 0 Q6 07/17 0723 07/17 UT 1137 Metoprolol Tartrate 25 MG BID 07/14 2100 AC 07/17 PO 0805 Patient Medication 1 ED ONE ONE 07/16 1645 DE Teaching ED 07/16 1646 Laboratory Tests 07/17 0716 Chemistry Sodium (137 - 145 mmol/L) 142 Potassium (3.5 - 5.1 mmol/L) 3.8 Chloride (98 - 107 mmol/L) 104 Carbon Dioxide (22 - 30 mmol/L) 27 Anion Gap (5 - 16) 11 BUN (9 - 20 mg/dL) 43 H Creatinine (0.7 - 1.2 mg/dL) 1.9 H Estimated GFR (>60 ml/min) 34 L BUN/Creatinine Ratio (7 - 25 %) 22.6 Coagulation PT (9.4 - 12.5 SEC) 22.5 H INR (0.90 - 1.17) 2.05 H Hematology CBC w Diff NO MAN DIFF REQ WBC (4.8 - 10.8 /CUMM) 7.3 RBC (4.70 - 6.10 /CUMM) 3.49 L Hgb (14.0 - 18.0 G/DL) 10.4 L Hct (42 - 52 %) 30.7 L MCV (80.0 - 94.0 FL) 88.0 MCH (27.0 - 31.0 PG) 29.8 MCHC (33.0 - 37.0 G/DL) 33.9 RDW (11.5 - 14.5 %) 13.8 Plt Count (130 - 400 /CUMM) 249 MPV (7.4 - 10.4 FL) 7.1 L Gran % (42.2 - 75.2 %) 66.1 Lymphocytes % (20.5 - 51.1 %) 16.8 L Monocytes % (1.7 - 9.3 %) 12.5 H Eosinophils % (0 - 5 %) 3.9 Basophils % (0.0 - 2.0 %) 0.7 Absolute Granulocytes (1.4 - 6.5 /CUMM) 4.8 Absolute Lymphocytes (1.2 - 3.4 /CUMM) 1.2 Absolute Monocytes (0.10 - 0.60 /CUMM) 0.9 H Absolute Eosinophils (0.0 - 0.7 /CUMM) 0.3 Absolute Basophils (0.0 - 0.2 /CUMM) 0 Vital Signs Date Time Temp Pulse Resp B/P B/P Pulse O2 O2 Flow FiO2 Mean Ox Delivery Rate 07/17 0805 72 152/60 07/17 0619 97.6 66 18 146/57 96 07/16 2218 97.9 62 20 142/60 98 Room Air 07/16 2014 78 122/54 07/16 2013 78 122/54 07/16 1518 Room Air 07/16 1433 97.8 67 20 122/60 97 Room Air Intake & Output 07/17 1600 07/17 0800 07/17 0000 Intake Total 582 Output Total 200 475 Balance -200 107 Intake, Oral 582 Output, Urine 200 475 Patient 193 lb Weight Physical Exam: Gen apperance: AOx2, no evidence of acute distress, slightly pale CV: normal s1&s2, 3/6 cresendo type holosystolic ejection murmur heard throughout precordium best heard at the apex with radiation to the right carotid artery, no evidence of JVD, no palpable thrill or heave, PMI <2cm non displaced felt in midaxillary line at the 5th intercostal space Pulm: posterior lung garcia clear to ausculatation, no evidence of rubs, rales, ronchi or wheezing Abd: slight lower abdominal distension, normal bowel sounds, slight tenderness on palpation of hypogastric region that elicits the urge to urinate Ext: no evidence of peripheral edema, dorsal pedis, posterior tibal, and radial pulses bilaterally 2+ Skin: Patient has approx 3 cm scar along right side of face in the preauricular region s/p Moh's procedure on 07/08/17 with suture removal yesterday, no evidence of erythema, warmth, discharge or drainage Results Results: Laboratory Tests 07/17/17 0716: Anion Gap 11, Estimated GFR 34 L, BUN/Creatinine Ratio 22.6, PT 22.5 H, INR 2.05 H, CBC w Diff NO MAN DIFF REQ, RBC 3.49 L, MCV 88.0, MCH 29.8, MCHC 33.9, RDW 13.8, MPV 7.1 L, Gran % 66.1, Lymphocytes % 16.8 L, Monocytes % 12.5 H, Eosinophils % 3.9, Basophils % 0.7, Absolute Granulocytes 4.8, Absolute Lymphocytes 1.2, Absolute Monocytes 0.9 H, Absolute Eosinophils 0.3, Absolute Basophils 0 07/16/17 0745: PT 33.8 H, INR 3.07 H 07/16/17 0615: Anion Gap 11, Estimated GFR 30 L, BUN/Creatinine Ratio 19.0, CBC w Diff NO MAN DIFF REQ, RBC 3.80 L, MCV 87.8, MCH 29.8, MCHC 33.9, RDW 13.9, MPV 7.5, Gran % 72.6, Lymphocytes % 14.0 L, Monocytes % 12.8 H, Eosinophils % 0.3, Basophils % 0.3, Absolute Granulocytes 7.2 H, Absolute Lymphocytes 1.4, Absolute Monocytes 1.3 H, Absolute Eosinophils 0, Absolute Basophils 0 07/15/17 0850: CBC w Diff NO MAN DIFF REQ, RBC 3.69 L, MCV 87.4, MCH 29.8, MCHC 34.0, RDW 13.6 , MPV 7.2 L, Gran % 80.3 H, Lymphocytes % 9.0 L, Monocytes % 10.4 H, Eosinophils % 0, Basophils % 0.3, Absolute Granulocytes 8.9 H, Absolute Lymphocytes 1.0 L, Absolute Monocytes 1.1 H, Absolute Eosinophils 0, Absolute Basophils 0 07/15/17 0630: Anion Gap 14, Estimated GFR 27 L, BUN/Creatinine Ratio 15.7, Magnesium 1.9, PT 45.3 *H, INR 4.10 *H 07/15/17 0050: Troponin I 0.08 07/14/17 1845: Troponin I 0.06 07/14/17 1845: Lactic Acid 1.2 Assessment/Plan Assessment: Mr. Lau is an 81 year old man with a PMHx signigicant for A. fib, SSS, CAD s/p CABG 1992, moderate , HTN, hyperlipidemia, DM, CKD stage III, prostate cancer s/p radiologic seed implantation and skin cancer presented to the ED on with increasing confusion and weakness. These symptoms were noticed by his neice with which Mr. Lau lives with. Mr. Lau was admited to the telemtry unit for observation on 07/14/17 and over the course of his hospitalization has had increasing improvement in mentation as well as appetite. However due to pending urologic procedure to be performed today (07/17/17) the patient was made NPO since midnight. The procedure was discussed with his neice who is PA and consented via the urology team. As he is medically stable currently, pending surgical procedure he will likely be able to discharge tomorrow. Plan: Problem List: 1. EKG changes 2. ARYA 3. Confusion 4. Elevated INR 5. Normocytic Anemia 6. Chronic medical conditions #EKG changes: Dr. West was consulted and previous EKGs in his office do show T wave inversion in anterior leads. He also stated that a nuclear stress test performed after the patient's NE in April showed an old inferolateral infarct but no evidence of ischemia. Although the patient's INR is currently below 3, his coumadin will still be held as he is to undergo surgical placement of ureteral stent by urology today. Also on the differential, these EKG changes may be the result of Mr. Lau's pacemaker no longer firing for some reason. Either the sensory setting is such that his heart is overiding the need for pacing or the pacemaker itself is not operational. As he remains hemodynamically stable it would be appropriate for this to be investigated in an outpatient setting. -continue to monitor coagulation studies -continue cardiac monitoring -Restart Coumadin after procedure -f/u with cardiology when discharged #ARYA: There has been slight improvement in patient's creatinine however his BUN is still elevated with slight increase. This may also be related to the patient' s poor oral intake and state of dehydration. However the patient's urine did also indicate proteinuria, which given his history of DM may be contributing to the patient's ARYA. As the patient has been hypertensive and is excreting protein in the urine, he might benefit from the addition of an ACEI or ARB. This also may be influenced by the fact the patient may have some issue with urinary outlet obstruction. On PE the patient did have a tender, slightly distended lower abdomen that when pressed on did elicit the urge to urinate. Given his elevated INR, hematuria and blood draining from the meatus it was determined that the risk of traumatic dela cruz outweighed the benefit. However the patient's INR is downtrending towards the normal limit. Urology did see the patient yesterday and concluded that Mr. Lau would benefit with ureteral stent placement as the patient has a stone obstruction contributing to hydrouretronephrosis and post renal ARYA. -appreciate urology recommendations -prep for surgical placement of ureteral stent -continue to monitor INR -continue to monitor I&O's -consider ACEI/ARB initiation #Confusion: Patient had an acute onset of confusion for a few days in duration. However Mr. Lau is more alert and is oriented x2 today just not oriented to time, this is an improvement from when he first presented to the hospital. On the differential was infectious causes however there was no evidence of fever or marked leukocytosis. Mr. Lau also had some urinary incontenince along with a history of unsteady gate and confusion which prompted NPH to be included on the differential as well, however CT of the head did not show overt enlargment of his ventricles. CT of the head also did not show any evidence of bleeding. Mr. Armando has had some lower abdominal tenderness on palpation, and when palpated states that he feels as if he needs to urinate. Given his history of Prostate cancer s/p seed implantation, he may have some outlet obstruction leading to urinary retention, thus leading to his hydrouretronephrosis and prompting a delerium type state. Due to patient's increased INR, evidence of hematuria, and blood coming from the penile meatus, it was determined the risk of a traumatic dela cruz outweighed the benefit, as Mr. Lau has been able to urinate. Urology will place a ureteral stent in today and will likely help improve patient's urinary outflow as well as possibly improving his mentation. -Appreciate urology recommendations -OR prep for ureteral stent placement -continue to monitor for mental status changes #Elevated INR: Coagulation studies are improving off of coumadin, continue to withold coumadin and monitor INR, PT, PTT. Mr. Lau's INR when he first presented indicated supratherapeutic range due to coumadin. He did have evidence of hematuria, and blood coming from his penile meatus during his hospitalization. However there has been no indication of fresh or dried blood around his penile or scrotal region for the last 2 days. -Continue to monitor coagulation studies -Restart coumadin after procedure #Normocytic Anemia: Labs today indicate improvement and is likely related to the hematuria he first presented with. As the patient has , Heyde's syndrome was thought of, however he did not have any indication of a GI bleed. 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 Anemia of chronic disease and Iron deficiency anemia are also on the differential, however with improvement in his hematolgic work up it is likely the combination of poor oral intake and hematuria contributed to these findings. -continue to monitor CBC -f/u with PCP #Chronic medical conditions -hold coumadin until after surgical procedure despite INR being below 3 -avoid nephrotoxins -After discussion with Dr. Dorsey's office, 3 running sutures removed yesterday s/p Moh's procedure performed on 07/08/17 no evidence of infection, wound edges are intact DVT ppx: ALPS Diet: ADA/heart healthy diet full code
[2017-07-17 14:09] VITALS: BP 124/76
--- NOTE | 2017-07-17 15:20 | Patient Discharge Instructions ---
Discharge Instructions General Discharge Information You were seen/treated for: Hydroureteronephrosis. Watch for these problems: edy bleeding severe shortness of bleeding Special Instructions: Please follow up with your primary care within two of weeks of disharge Please follow up with your urologist within one week of dishcharge Please follow up with your commercial energy rater within two weeks of discharge Diet Continue normal diet: Yes Recommended Diet: Heart Healthy Acute Coronary Syndrome Inclusion Criteria At DC or during hospital stay patient has or had the following: ACS DIAGNOSIS No Discharge Core Measures Meds if any: Prescribed or Continued at Discharge Meds if any: NOT Prescribed or Continued at Discharge Congestive Heart Failure Inclusion Criteria At DC or during hospital stay patient has or had the following: CHF DIAGNOSIS No Discharge Core Measures Meds if any: Prescribed or Continued at Discharge Meds if any: NOT Prescribed or Continued at Discharge Cerebrovascular accident Inclusion Criteria At DC or during hospital stay patient has or had the following: CVA/TIA Diagnosis No Discharge Core Measures Meds if any: Prescribed or Continued at Discharge Meds if any: NOT Prescribed or Continued at Discharge Venous thromboembolism Inclusion Criteria VTE Diagnosis No VTE Type NONE VTE Confirmed by (Test) NONE Discharge Core Measures - Per Current guidelines, there needs to be overlap - treatment for the first 5 days of Warfarin therapy. - If discharged on Warfarin prior to 5 days of - overlap therapy, the patient will need to be - assessed for post discharge needs including - *Post discharge parental anticoagulation - *Warfarin and/or parental anticoagulation education - *Follow up date to check INR post discharge At least 5 days overlap therapy as Inpatient No Meds if any: Prescribed or Continued at Discharge Note: Overlap Therapy is Warfarin and Anticoagulant Meds if any: NOT Prescribed or Continued at Discharge
--- NOTE | 2017-07-17 18:57 | Operative Report ---
Operative/Inv Procedure Report Surgery Date: 07/17/17 Name of Procedure: left ureteroscopy with laser lithotripsy and stent placement Pre-Operative Diagnosis: presumed left ureteral stone with hydroureteronephrosis. left LP stone as well 5mm Post-Operative Diagnosis: same Estimated Blood Loss: scant Surgeon/Budget And Policy Analyst: Mark Robertson MD Anesthesia: laryngeal mask airway Drains: 6x 26cm stent Specimens: stones Complications: none Condition: stable Operative Indication: left ureterohydronephrosis Operative/Procedure Note Note: This an 81-year-old male with multiple medical problems with a history of bilateral kidney stones. He presented with mental status changes and change in behavior and was brought to [facility] by his niece. He has had loss of appetite and CT scan imaging revealed left hydroureteronephrosis with no stone appreciated on CAT scan causing the obstruction but he did have a 5 mm lower pole left kidney stone. Given his history of kidney stones bilaterally and hydroureteronephrosis with a K I on CK DD it was deemed appropriate to place a ureteral stent versus possible stone management prior to discharge. His niece was given the risks benefits and alternatives of the surgery and all questions were answered. Consent was obtained over the phone with the nurse Kinsey as a witness. Patient was identified in the holding area. Patient was brought to the operating placed on the operating table in supine position. IV antibiotics were infused. Timeout was performed. Patient was placed in the dorsolithotomy position and prepped and draped in standard sterile fashion. Cystoscopy was performed and bladder was globally inspected. There were 3 stones in the bladder that were removed with the graspers. The bladder was globally inspected and grade 1 trabeculation and no tumors or masses. Solo guidewire was placed into the left ureteral orifice up into the renal pelvis with fluoroscopic guidance. A semirigid ureteroscope was attempted to be passed but was unable to due to J hooking. A dual-lumen catheter was then used to place a superstiff wire. There was some difficulty in passing the dual-lumen catheter so a retropyelogram was performed. There was narrowing in the mid to lower ureter as well as J hooking at the UPJ. The superstiff wire was left in place and used to pass the 35 cm ureteral access sheath in hopes that the J hooking would be straightened out with the superstiff wire. 35 cm ureteral access sheath was then placed with the inner sheath first followed by the inner and outer sheath together over the Super Stiff wire. The digital flexible ureteroscope was then placed up into the renal pelvis and the calyces were examined. There were multiple stones seen in the midpole was one larger stone. The smaller stones were removed with the 0 tip basket first a total of approximately 15 stones. The larger stone was then fragmented with a 276 fiber and the fragments were removed with the 0 tip basket. The calyces were examined again upper middle and lower pole and no remaining stones or fragments were appreciated. The flexible ureteroscope was removed along with the access sheath as the ureter was examined on the way out. No remaining stones were appreciated. The Solo wire was then used to place a 6 x 26 cm ureteral access sheath using the cystoscopy. Stent was seen to be in good position and the wire was removed. KUB was taken. The bladder was emptied and there was no remaining stones in the bladder. Stones were sent for stone analysis. The patient tolerated the procedure well. He was transferred to the recovery room in stable condition. Findings: No ureteral stones. Multiple bladder stones and multiple midpole kidney stones. They were yellow in color and brittle in nature.
[2017-07-17 22:27] VITALS: BP 136/60
[2017-07-18 02:11] VITALS: BP 132/60
[2017-07-18 06:49] VITALS: BP 140/66
[2017-07-18 08:42] LABS: ABSOLUTE BASOPHIL COUNT 0.1 /CUMM (0.0-0.2); ABSOLUTE EOSINOPHIL COUNT 0.2 /CUMM (0.0-0.7); ABSOLUTE MONOCYTE COUNT 0.9 /CUMM (0.10-0.60); BASOPHIL % 0.8 % (0.0-2.0); EOSINOPHIL % 2.2 % (0-5); GRANULOCYTE % 73.9 % (42.2-75.2); HEMATOCRIT 30.3 % (42-52); MEAN CORPUSCULAR HGB 29.8 PG (27.0-31.0); MEAN CORPUSCULAR VOLUME 87.7 FL (80.0-94.0); PLATELET COUNT 280 /CUMM (130-400); RBC DISTRIBUTION WIDTH 14.1 % (11.5-14.5); RED BLOOD CELL CT 3.45 /CUMM (4.70-6.10); WHITE BLOOD CELL COUNT 8.1 /CUMM (4.8-10.8)
--- NOTE | 2017-07-18 08:52 | PN- Housestaff ---
Sonia Medina 07/18/17 0852: Subjective Follow-up For: Hydroureteronephrosis Supratherapeutic INR Tele-Events Since Last Visit: Paced rhythm HR 60s70s Subjective: seen and examined at bedside. He was resting comfortably. He had no acute events overnight. Offers no complaints. Answering questions appropriately. Denies any abdominal pain, chest pain, palpitations, shortness of breath, vomiting, fever, chills. Review of Systems Constitutional: Reports: see HPI. Objective Last 24 Hrs of Vital Signs/I&O Vital Signs Date Time Temp Pulse Resp B/P B/P Pulse O2 O2 Flow FiO2 Mean Ox Delivery Rate 07/18 0800 Room Air 07/18 0649 98.1 70 18 140/66 98 Room Air 07/18 0211 98.0 70 18 132/60 98 Room Air 07/17 2227 98.3 84 18 136/60 94 Room Air 07/17 2215 80 136/60 07/17 1600 93 Room Air 07/17 1409 97.6 69 18 124/76 93 Intake & Output 07/18 1600 07/18 0800 07/18 0000 Intake Total 120 170 Output Total 200 Balance 120 -30 Intake, IV 50 Intake, Oral 120 120 Output, Urine 200 Patient 188 lb Weight Physical Exam General Appearance: Alert, Cooperative, No Acute Distress Cardiovascular: Normal S1, Normal S2, systolic murmur loudest in aortic area with radiation to left carotids Lungs: Normal Air Movement Abdomen: Normal Bowel Sounds, Soft, No Tenderness Extremities: No Edema Last 24 Hrs of Lab/Ace Results Last 24 Hrs of Labs/Mics: Laboratory Tests 07/18/17 0655: Anion Gap 10, Estimated GFR 39 L, BUN/Creatinine Ratio 21.2, PT Pending, INR Pending, CBC w Diff Pending, WBC Pending, RBC Pending, Hgb Pending, Hct Pending, MCV Pending, MCH Pending, MCHC Pending, RDW Pending, Plt Count Pending, MPV Pending Assessment/Plan Assessment: 81-year-old male with a PMH significant for A. fib on Coumadin, sick sinus syndrome status post pacemaker placement, CAD status post CABG approximately 20 25 years ago, moderate aortic stenosis, HTN, HLD, DM, CKD stage III, prostate cancer admitted to [facility] for [facility] and altered mental status. Found to have a cat CKD as well as left hydroureteronephrosis. Currently postop day 1 status post laser lithotripsy and stent placement. #Acute EKG changes Patient requires no further cardiac workup. Troponins were mildly elevated but have plateaued. -Patient will follow up with Dr. West as an outpatient #ARYA on CKD Renal function improving CT scan showed hydroureteronephrosis. POD 1s/p left ureteroscopy with laser lithotripsy and stent placement. Patient tolerated the procedure well. #Worsening cognitive decline in the setting of dementia At baseline. PT is recommending STR #Supratherapeutic INR, with hematuria Hematuria has resolved, INR 2.21 today. Will dose coumdin 3 mg today #surgical scar on the right side of face Patient had a Mohs procedure approximately 2 weeks prior to admission. Discussion was had with the office of Dr. Dorsey about suture removal, and sutures removed. NovoLog sliding scale, Accu-Cheks 3 times daily before meals and at bedtime Diet: Diabetic diet, heart healthy DVT prophylaxis: Supratherapeutic INR, Alps CODE STATUS: Full code discharge to STR today Problem List: 1. Altered mental status 2. Hydroureteronephrosis Pain Ratin Pain Location: na Pain Goal: Pain 4 or less Pain Plan: current regimen Tomorrow's Labs & Rationales: none required Puneet Randhawa MD 07/18/17 1350: Attending MD Review Statement Attending Statement Attending MD Statement: examined this patient, discuss w/resident/PA/HEALTH ANALYTICS CONSULTANT, agreed w/resident/PA/HEALTH ANALYTICS CONSULTANT, reviewed EMR data (avail), discussed with nursing, amended to note Attending Assessment/Plan: The patient was seen and discussed with house staff. Status post ureteral stent. Doing well. OK to discharge to STR as planned.
[2017-07-18 09:00] LABS: PT 24.3 SEC (9.4-12.5)
[2017-07-18 09:56] VITALS: BP 112/70
[2017-07-18 14:26] VITALS: BP 148/62
[2017-07-18 14:49] VITALS: BP 148/62
== END 2017-07-18 16:20 | DRG 660 ==
LOC: ERH 10:44 → ERHI 16:29 → 1NO 16:29 → ENRESERV 16:52 → ENTRNSPT 17:55 → EDTRNSPT 18:04 → EDTRNSPTSTS 18:04 → 1NO 18:20 → CMPTRNSPT 18:27 → 1NO 07-17 21:04 → ENTRNSPT 07-17 21:48 → EDTRNSPTSTS 07-17 21:52 → CMPTRNSPT 07-17 22:11 → 1NO 07-18 16:20
PROVIDERS: Dermatology; Internal Medicine; Physician Assistant Medical
PROC: 0TCB8ZZ Extirpation of Matter from Bladder, Via Natural or Artificial Opening Endoscopic (ICD-10-PCS; principal; 2017-07-17)
PROC: 0TC18ZZ Extirpation of Matter from Left Kidney, Via Natural or Artificial Opening Endoscopic (ICD-10-PCS; 2017-07-17)
PROC: 0T778DZ Dilation of Left Ureter with Intraluminal Device, Via Natural or Artificial Opening Endoscopic (ICD-10-PCS; 2017-07-17)
DX: N17.9 Acute kidney failure, unspecified (principal); F05 Delirium due to known physiological condition; D68.9 Coagulation defect, unspecified; I48.91 Unspecified atrial fibrillation; E11.22 Type 2 diabetes mellitus with diabetic chronic kidney disease; E86.0 Dehydration; D63.1 Anemia in chronic kidney disease; E78.5 Hyperlipidemia, unspecified; E80.6 Other disorders of bilirubin metabolism; I12.9 Hypertensive chronic kidney disease with stage 1 through stage 4 chronic kidney disease, or unspecified chronic kidney disease; I25.10 Atherosclerotic heart disease of native coronary artery without angina pectoris; R94.31 Abnormal electrocardiogram [ECG] [EKG]; N13.30 Unspecified hydronephrosis; T45.515A Adverse effect of anticoagulants, initial encounter; Z79.01 Long term (current) use of anticoagulants; N18.3 Chronic kidney disease, stage 3 (moderate); Z79.4 Long term (current) use of insulin; F03.90 Unspecified dementia, unspecified severity, without behavioral disturbance, psychotic disturbance, mood disturbance, and anxiety; Z95.0 Presence of cardiac pacemaker; W19.XXXA Unspecified fall, initial encounter; Y92.009 Unspecified place in unspecified non-institutional (private) residence as the place of occurrence of the external cause; Z95.1 Presence of aortocoronary bypass graft; I35.0 Nonrheumatic aortic (valve) stenosis; Z85.46 Personal history of malignant neoplasm of prostate; Z79.82 Long term (current) use of aspirin
CPT/HCPCS: 1NSP; 36415; 36592; 74176; 81001; 82436; 87040; 87086; 93005; 93010; 97110-GO; 97116-GO; 97161-GP; 97530-GO; C2617; J0690; J1815; J7042

== ENCOUNTER 2017-09-04 13:48 | Inpatient (IN) | payer OTHER ==
[~2017-09-04] VITALS: Ht 177.8 cm; Wt 88.1 kg
[~2017-09-04 13:48] MED LIST changes: +VITAMIN D31000 UNI2 PO
--- NOTE | 2017-09-04 14:23 | ED GENERAL ADULT ---
History of Present Illness General Chief Complaint: Dizziness Stated Complaint: GEN WEAKNESS, DIABETIC, DIZZY Source: patient, NIECE Exam Limitations: poor historian Vital Signs & Intake/Output Vital Signs & Intake/Output Vital Signs Date Time Temp Pulse Resp B/P B/P Pulse O2 O2 Flow FiO2 Mean Ox Delivery Rate 09/09 0800 99 Room Air Room Air 09/09 0800 97.6 67 18 114/58 99 Room Air Room Air 09/09 0000 97 Room Air 09/08 2300 97.6 70 17 110/58 97 Room Air 09/08 2040 98.6 68 14 117/50 07/ 2040 98.1 68 14 117/50 09/08 1806 98.1 87 20 136/52 98 Room Air 09/08 1600 Room Air 09/08 1341 67 136/68 ED Intake and Output 09/09 0000 09/08 1200 Intake Total 510 0 Output Total 650 450 Balance -140 -450 Intake, IV 20 Intake, Oral 490 0 Number 0 Bowel Movements Output, Urine 650 450 Patient 185 lb Weight Weight Bed scale Measurement Method Allergies Coded Allergies: NO KNOWN ALLERGIES (NONE 04/06/17) Reconcile Medications Allopurinol 100 MG TABLET 1 TAB PO DAILY GOUT (Reported) Aspirin (Ecotrin*) 81 MG TABLET.DR 1 TAB PO QAM HEART/BLOOD (Reported) Cholecalciferol (Vitamin D3) 1,000 UNIT TABLET 1 TAB PO DAILY VITAMIN SUPPORT (Reported) Clopidogrel Bisulfate (Plavix) 75 MG TABLET 75 MG PO DAILY CAD Ezetimibe (Zetia) 10 MG TABLET 1 TAB PO QPM CHOLESTEROL (Reported) Hydralazine HCl 10 MG TABLET 20 MG PO TID CAD HOLD FOR SBP < 100 Insulin Aspart, Recombinant (Novolog Flexpen) 100 UNIT/ML INSULN.PEN DIABETES ( Reported) BEFORE MEALS Blood Insulin Sugar Units <80 0 81-150 0 151-200 2 251-300 4 301-350 6 351-400 8 >400 10 call MD >400 Call Doctor Insulin Degludec (Tresiba Flextouch U-200) 200 UNIT/ML (3 ML) INSULN.PEN 12 UNITS SQ DAILY DIABETES (Reported) Metoprolol Tartrate 25 MG TABLET 25 MG PO BID heart Nitroglycerin (Nitroglycerin Patch) 0.2 MG/HOUR PATCH.TD24 0.2 MG TOP DAILY CAD ON FOR 12 HOURS DAILY, HOLD FOR SBP <100 Rosuvastatin Calcium (Crestor) 10 MG TABLET 1 TAB PO QPM CHOLESTEROL ( Reported) Warfarin Sodium (Coumadin) 3 MG TABLET 1 TAB PO DAILY Blood thinner Please check INR on 05/31/17 and dose accordingly to keep INR in therapeutic range(2-3). THANKS Triage Note: 81M BIBA FROM HOME FOR INCREASED WEAKNESS, LETHARGY, ?AMS. ACCUCHECK 218. PT ENDORSES INCREASED INCONTINENCE, DENIES DYSURIA. SMELL STRONGLY OF MALODOROUS URINE. PALE ON ARRIVAL. DENIES CP/SOB BUT HYPOXIC ON RA FOR EMS IN HIGH 80'S - 91% ON ROOM AIR ON ARRIVAL. PLACED ON SUPPLIMENTAL O2 2L W GOOD EFFECT. APPEARS VERY WEAK, DIFFICULTY ANSWERING QUESTIONS DUE TO ENERGY EXERTED UPON ARRIVAL, PT STRAIGHT CATHED FOR 800CC CONCENTRATED KHADIJAH URINE. ALSO PT WAS FOUND TO BE INCONTINENT OF SOFT BROWN STOOL. GUIAIC NEGATIVE. Triage Nurses Notes Reviewed? yes Onset: Abrupt Duration: hour(s):, constant, continues in ED, waxing and waning Severity: severe HPI: Patient presents for evaluation of generalized weakness beginning this morning. Patient states he had trouble getting out of bed. Patient was evaluated by his primary care physician about 3 weeks ago due to tremors and a shuffling gait. Past History Travel History Traveled to [place] past 21 day No Medical History Any Pertinent Medical History? see below for history Neurological: NONE EENT: NONE Cardiovascular: AFIB, CAD, hypertension, hyperlipidemia, PACEMAKER Respiratory: NONE Gastrointestinal: NONE Hepatic: NONE Renal: Prostate cancer ckd Musculoskeletal: NONE Psychiatric: NONE Endocrine: diabetes Blood Disorders: NONE Cancer(s): NONE HOME CARE PHYSICAL THERAPIST/Reproductive: NONE History of MRSA: No History of VRE: No History of CDIFF: No Surgical History Surgical History: cholecystectomy, BYPASS PACEMAKER Psychosocial History Who do you live with Other (see notes) Services at Home Physical Therapy What is your primary language [place] Tobacco Use: Cognitive Impairment Family History Family History, If Any: FATHER FH: myocardial infarction, Onset: 60+. MOTHER FH: cholecystectomy BROTHER FH: myocardial infarction, Onset: 50-60. Hx Contributory? No Review of Systems Review of Systems Constitutional: Reports: weakness. EENTM: Reports: no symptoms. Respiratory: Reports: no symptoms. Cardiovascular: Reports: no symptoms. GI: Reports: no symptoms. Genitourinary: Reports: no symptoms. Musculoskeletal: Reports: no symptoms. Skin: Reports: no symptoms. Neurological/Psychological: Reports: no symptoms. Hematologic/Endocrine: Reports: no symptoms. Immunologic/Allergic: Reports: no symptoms. All Other Systems: Reviewed and Negative Physical Exam Physical Exam General Appearance: SEE BELOW Comments: Gen.: Well-nourished, well-developed, no acute respiratory distress. Head: Normocephalic, atraumatic. Eyes: Normal inspection bilaterally Ears: Normal inspection bilaterally Nose: Normal inspection Throat/mouth : Tacky mucosa Neck: Supple, full range of motion, no goiter Heart: Irregular rate and rhythm with systolic murmur throughout the precordium Lungs: Mild bibasilar crackles posteriorly with otherwise good air entry ( relatively poor inspiratory effort). Chest: Nontender Back: Normal range of motion Abdomen: Soft, nontender, nondistended, normal bowel sounds Extremities: Normal range of motion grossly, equal radial pulses, no cyanosis clubbing or edema Neurologic: Cranial nerves grossly intact, speech is clear, no apparent aphasia Skin: warm and dry Psychiatric: Calm, cooperative, no apparent delusions or hallucinations Core Measures ACS in differential dx? Yes CVA/TIA Diagnosis: No Sepsis Present: No Sepsis Focused Exam Completed? No Progress Differential Diagnoses I considered the following diagnoses in my evaluation of the patient: Plan of Care: Orders Procedure Date/time Status PROTHROMBIN TIME 09/09 0500 Complete CBC WITHOUT DIFFERENTIAL 09/09 0500 Complete BASIC ELECTROLYTES PLUS BUN&CR 09/09 0500 Complete Consistent Carbohydrate 2 09/08 L Active Dominique, Insertion/Removal/Asses 09/08 1059 Active Therapeutic Exercise 09/08 UNK Complete Gait Training 09/08 UNK Complete Nursing Misc 09/08 UNK Active Current Medications Sig/Maribel Start time Last Medication Dose Stop Time Status Admin Insulin Aspart 0 TIDAC 09/08 1700 AC 09/08 (NovoLOG) 1816 Nitroglycerin 0.2 MG DAILY 09/08 09 AC 09/08 (Transderm Nitro 5MG 09 (0.2MG/Hr)) Hydralazine HCl 20 MG TID 09/07 2100 AC 09/08 (Apresoline) 2040 Aspirin Buffered 325 MG QAM 09/06 899 AC 09/08 (Ecotrin) 0901 Clopidogrel Bisulfate 75 MG DAILY 09/06 899 AC 09/08 (Plavix) 09 Docusate Sodium 100 MG BID 09/06 899 AC 09/08 (Colace) 204 Polyethylene Glycol 17 GM DAILY 09/06 09 AC 09/08 (Miralax) 0901 Atorvastatin Calcium 40 MG 1700 09/05 1700 AC 09/08 (Lipitor) 181 Metoprolol Tartrate 25 MG BID 09/04 2099 AC 09/08 (Lopressor) 204 Acetaminophen 1,000 MG Q6H PRN 09/04 1944 AC (Ofirmev) N/A 1 UNIT (No Carrier) Morphine Sulfate 2 MG Q4P PRN 09/04 1944 AC (MORPHINE SULFATE) Laboratory Tests 09/09/17 0543: Anion Gap 8, Estimated GFR 49 L, BUN/Creatinine Ratio 27.9 H, PT 26.9 H, INR 2.45 H, CBC w Diff NO MAN DIFF REQ, RBC 3.36 L, MCV 87.3, MCH 29.7, MCHC 34.1, RDW 15.0 H, MPV 7.3 L, Gran % 68.0, Lymphocytes % 18.0 L, Monocytes % 10.5 H , Eosinophils % 2.8, Basophils % 0.7, Absolute Granulocytes 4.2, Absolute Lymphocytes 1.1 L, Absolute Monocytes 0.6, Absolute Eosinophils 0.2, Absolute Basophils 0 Diagnostic Imaging: Discussed w/RAD: Radiology Read. CXR Impression: PATIENT: BOOM NICK PRESENT AGE: 81 PATIENT ACCOUNT NO: [id number] : 34 LOCATION: [facility] [place] ORDERING PHYSICIAN: Tyron Golden MD SERVICE DATE: 09/04/17 EXAM TYPE: RAD - XRY-PORTABLE CHEST XRAY EXAMINATION: XR PORTABLE CHEST CLINICAL INFORMATION: Infiltrate CHF weakness COMPARISON: CT chest June 2017. Portable chest April 2017. TECHNIQUE: Portable frontal view of the chest was obtained. FINDINGS: Lungs and pleural spaces: There is hazy opacity to both lungs suspicious for mild edema no focal opacity. Sternotomy wires and dual-lead pacer again noted unchanged. Cardiac silhouette and pulmonary vascularity are normal. Aorta unremarkable. IMPRESSION: Findings suspicious for bilateral airspace disease likely pulmonary edema\E\CHF Postsurgical changes and pacer again noted. DICTATED BY: Puneet Alston MD DATE/TIME DICTATED:09/04/171517 MASTER FISHER:NATALI DATE/TIME TRANSCRIBED:07/06/18 / 1518 CONFIDENTIAL, DO NOT COPY WITHOUT APPROPRIATE AUTHORIZATION. <Electronically signed in Other Vendor System> SIGNED BY: Puneet Alston MD 09/04/17 1524 Initial ED EKG: rate (79), AFIB, nonspecific ST T wave chg Prior EKG: unchanged Comments: asa,plavix,heparin,nitro Departure Departure Disposition: STILL A PATIENT Condition: Stable Clinical Impression Primary Impression: Acute coronary syndrome Secondary Impressions: Elevated troponin Referrals: Koko MCCORMACK,Dayron Suarez (PCP/Family) Departure Forms: Customer Survey General Discharge Information Prescriptions: Current Visit Scripts Clopidogrel Bisulfate (Plavix) 75 MG PO DAILY #30 TAB Hydralazine HCl 20 MG PO TID #90 TAB HOLD FOR SBP < 100 Nitroglycerin (Nitroglycerin Patch) 0.2 MG TOP DAILY #30 PAT ON FOR 12 HOURS DAILY, HOLD FOR SBP <100 Admission Note Spoke With: Mario Watson MD Documentation of Exam: Documentation of any treatments & extenuating circumstances including Concerns Regarding Discharge (functional status, medication knowledge or non-compliance, living conditions, etc.) that warrant an admission rather than observation: Patient presented for generalized weakness. His emergency department evaluation reveals an elevated troponin level potentially indicating a non-ST segment elevation myocardial infarction. He is at high risk of dysrhythmias ongoing cardiac ischemia and mortality. He requires continuous cardiac monitoring and therefore cannot be treated safely as an outpatient. While in the hospital a patient should be treated with aspirin, beta blockers, IV heparin and nitroglycerin. Cardiology consultation should be considered. Serial troponins and EKGs should be obtained and treated accordingly. Echocardiogram and cardiac catheterization should be considered. Patient's medications should be reviewed and optimized. Given his generalized weakness physical therapy evaluation should be considered the patient is considered cardiovascularly stable. I feel this patient will require multiple day hospitalization. Critical Care Note Critical Care Note Critical Care Time: 30-74 min
[2017-09-04 15:13] LABS: PT 18.5 SEC (9.4-12.5); PTT 34 SEC (25-37)
[2017-09-04 15:18] LABS: ABSOLUTE BASOPHIL COUNT 0 /CUMM (0.0-0.2); ABSOLUTE EOSINOPHIL COUNT 0 /CUMM (0.0-0.7); ABSOLUTE GRANULOCYTE CT 7.8 /CUMM (1.4-6.5); ABSOLUTE LYMPH COUNT 0.7 /CUMM (1.2-3.4); ABSOLUTE MONOCYTE COUNT 0.7 /CUMM (0.10-0.60); BASOPHIL % 0.1 % (0.0-2.0); EOSINOPHIL % 0 % (0-5); GRANULOCYTE % 84.4 % (42.2-75.2); HEMATOCRIT 33.2 % (42-52); MEAN CORPUSCULAR HGB 29.6 PG (27.0-31.0); MEAN CORPUSCULAR HGB CONC 33.5 G/DL (33.0-37.0); MEAN CORPUSCULAR VOLUME 88.3 FL (80.0-94.0); MEAN PLATELET VOLUME 7.9 FL (7.4-10.4); PLATELET COUNT 185 /CUMM (130-400); RBC DISTRIBUTION WIDTH 15.1 % (11.5-14.5); RED BLOOD CELL CT 3.76 /CUMM (4.70-6.10); WHITE BLOOD CELL COUNT 9.2 /CUMM (4.8-10.8)
--- NOTE | 2017-09-04 15:25 | RADIOLOGY REPORT ---
EXAMINATION: XR PORTABLE CHEST CLINICAL INFORMATION: Infiltrate CHF weakness COMPARISON: CT chest June 2017. Portable chest April 2017. TECHNIQUE: Portable frontal view of the chest was obtained. FINDINGS: Lungs and pleural spaces: There is hazy opacity to both lungs suspicious for mild edema no focal opacity. Sternotomy wires and dual-lead pacer again noted unchanged. Cardiac silhouette and pulmonary vascularity are normal. Aorta unremarkable. IMPRESSION: Findings suspicious for bilateral airspace disease likely pulmonary edema\E\CHF Postsurgical changes and pacer again noted.
[2017-09-04] MEDS ORDERED: ALLOPURINOL100 M1 PO (15:26)
--- NOTE | 2017-09-04 19:24 | History & Physical ---
Venkata MCCORMACK,[facility] 09/04/171922: General Information and HPI MD Statement: I have seen and personally examined BOOM NICK and documented this H&P. The patient is a 81 year old M who presented with a patient stated chief complaint of lethargy. Source of Information: patient, old records Exam Limitations: poor historian History of Present Illness: 81 year old male with pmhx of CAD s/p CABG (more than 20 years ago), SSS status post permanent pacemaker placement, afib on coumadin, moderate aortic stenosis, HTN, HLP, DM, CKD 3, NSTEMI on 04/2017, is BIBA for evaluation of increased weakness/lethargy. Patient appears to be a very poor historian and when asked why he is at the hospital he replies "not really sure". He however does report a seven-day history of generalized weakness including having difficulties ambulating to the bathroom. At baseline patient uses a walker to ambulate around the house and lives with his niece. He denies any fever, chills , cough, abdominal pain, diarrhea, dysuria, sick contacts or recent travel. He does not endorse any chest pain, palpitation, shortness of breath, dizziness, diaphoresis, lower extremity edema, orthopnea, or any unintentional weight gain. Regarding his extensive cardiac history, he did present to [facility] ED in April 2017 for an NSTEMI with trended troponins peaking at 29.5. His last echo was also in april 2017 which showed septal and inferior wall hypokinesis and an EF of 40-45%. Records indicate that there was a recent stress test done which showed old inferior lateral infarct. Patient's computer applications engineer is Dr. Suazo. Past History Travel History Traveled to [place] past 21 day No Medical History Neurological: NONE EENT: NONE Cardiovascular: AFIB, CAD, hypertension, hyperlipidemia, PACEMAKER Respiratory: NONE Gastrointestinal: NONE Hepatic: NONE Renal: Prostate cancer ckd Musculoskeletal: NONE Psychiatric: NONE Endocrine: diabetes Blood Disorders: NONE Cancer(s): NONE ANESTHESIOLOGY FACULTY/Reproductive: NONE History of MRSA: No History of VRE: No History of CDIFF: No Surgical History Surgical History: cholecystectomy, BYPASS PACEMAKER Past Family/Social History Family History Relations & Conditions if any FATHER FH: myocardial infarction, Onset: 60+. MOTHER FH: cholecystectomy BROTHER FH: myocardial infarction, Onset: 50-60. Psychosocial History Who Do You Live With? niece Services at Home: Physical Therapy Primary Language: Honduran Living Will? yes Functional Ability ADLs Independent: dressing, eating, toileting, bathing. Ambulation: cane, walker IADLs Independent: shopping. Review of Systems Review of Systems Constitutional: Reports: see HPI. Exam & Diagnostic Data Last 24 Hrs of Vital Signs/I&O Vital Signs Date Time Temp Pulse Resp B/P B/P Pulse O2 O2 Flow FiO2 Mean Ox Delivery Rate 09/05 2131 95 Nasal 4.0L Cannula 09/05 2131 98.4 75 25 150/72 95 Nasal 4.0L Cannula 09/04 2010 97.4 77 18 132/58 09/04 1945 97.4 77 18 132/58 95 Nasal 2.0L Cannula 09/04 1858 164/86 09/04 1759 96 Nasal 2.0L Cannula 09/04 1758 81 18 162/74 90 Room Air Room Air 09/04 1715 98.0 71 18 186/77 97 Nasal 2.0L Cannula 09/04 1645 76 18 166/76 97 Nasal 2.0L Cannula 09/04 1545 78 18 170/86 98 Nasal 2.0L Cannula 09/04 1420 97 Nasal 2.0L Cannula 09/04 1355 98.9 80 16 136/63 91 Room Air Intake & Output 09/04 1600 09/04 0800 09/04 0000 Intake Total Output Total 800 Balance -800 Output, Urine 800 Physical Exam General Appearance Alert, Oriented X3, mildly lethargic Skin No Significant Lesion Skin Temp/Moisture Exam: Warm/Dry HEENT Atraumatic, Mucous Membr. moist/pink Neck Supple, No JVD, No LAD Lymphatic Cervical nl Cardiovascular Regular Rate, systolic murmur 3/5 prominent at RUSB Lungs Clear to Auscultation, Normal Air Movement Abdomen Normal Bowel Sounds, Soft, No Tenderness Neurological Normal Speech, Strength at 5/5 X4 Ext, Normal Tone, Sensation Intact, Reflexes 2+ Extremities No Clubbing, No Cyanosis, No Edema, Normal Pulses, No Tenderness/ Swelling Vascular Pulses Symmetrical Last 24 Hrs of Labs/Ace: Laboratory Tests 09/04/17 1847: Troponin I 13.70 *H 09/04/17 1453: Anion Gap 12, Estimated GFR 36 L, BUN/Creatinine Ratio 26.1 H, Glucose 245 H, Calcium 10.2, Total Bilirubin 1.6 H, AST 52, ALT 36, Alkaline Phosphatase 57, Troponin I 8.31 *H, Myi-C-Jetlhzvivig Pept 01907 H, Total Protein 7.0, Albumin 3.7, Globulin 3.3, Albumin/Globulin Ratio 1.1, TSH 1.540, PT 18.5 H, INR 1.69 H, APTT 34, CBC w Diff MAN DIFF ORDERED, RBC 3.76 L, MCV 88.3, MCH 29.6, MCHC 33.5, RDW 15.1 H, MPV 7.9, Gran % 84.4 H, Lymphocytes % 7.7 L, Monocytes % 7.8, Eosinophils % 0, Basophils % 0.1, Absolute Granulocytes 7.8 H, Absolute Lymphocytes 0.7 L, Absolute Monocytes 0.7 H, Absolute Eosinophils 0, Absolute Basophils 0, Platelet Estimate VERIFIED BY SMEAR, Polychromasia 1+, Poikilocytosis 1+, Basophilic Stippling SLIGHT, Anisocytosis 1+ 09/04/17 1415: Urine Color YEL, Urine Clarity CLEAR, Urine pH 6.0, Ur Specific [place] >= 1.030 , Urine Protein 100 H, Urine Ketones TRACE H, Urine Nitrite NEG, Urine Bilirubin NEG@ICTO, Urine Urobilinogen 0.2, Ur Leukocyte Esterase NEG, Ur Microscopic SEDIMENT EXAMINED, Urine RBC 5-10 H, Ur Epithelial Cells OCCAS, Urine Hemoglobin SMALL H, Urine Glucose 100 H Microbiology 09/04 2114 URINE ROUT: Urine Culture - RECD 09/04 2114 UPPER RESP: Surveillance Culture - RECD 09/04 2114 GI: Surveillance Culture - RECD 09/04 1414 URINE ROUT: Urine Culture - RECD Diagnostic Data EKG Results Anterolateral T wave inversion (chronic) Prominent v2-v2 R waves Assessment/Plan Assessment: 81-year-old gentleman with an extensive cardiac history including CAD status post CABG about 20 years ago, atrial fibrillation on Coumadin, sick sinus syndrome status post permanent pacemaker placement, recent NSTEMI, diabetes, present to [facility] ED for evaluation of lethargy and is found to have elevated troponins. No chest pain or any new significant EKG changes. Impression * NSTEMI. * Weakness * History of cardiac diseases: CAD, atrial fibrillation, sick sinus syndrome, HLD, HTN. * History of diabetes * History of chronic kidney disease. * History of chronic anemia, normocytic. Plan Keep nothing by mouth for now Admit to ICU with close cardiac monitoring. Start heparin drip per ACS protocol Hold coumadin Aspirin 325 mg now, and then continue 81 mg daily dose starting tomorrow Continue metoprolol 25 mg twice a day Atorvastatin 40 mg (patient reports already taking a statin today in the morning ) Nitroglycerin paste every 4 hours O2 supplementation to keep sats above 90% Started on Plavix per cardiology recommendation (patient is Plavix jovani, will consult with cardiology regarding loading dose if needed) Will trend troponins and EKG every 6 hours Echocardiogram tomorrow morning Given extensive cardiac history, if patient chooses to pursue aggressive measures he'll be a candidate for cath rather than a stress test. Accu-Cheks every 6 hours Novolin nothing by mouth scale Morphine as needed for chest pain Keep Trip in DVT prophylaxis; addressed by her pain drip CODE STATUS: full code As Ranked By This Provider Problem List: 1. NSTEMI (non-ST elevated myocardial infarction) 2. Weakness Core Measures/Misc (11/16) Acute Coronary Syndrome ACS Diagnosis: Yes Last Known EF % 45 Congestive Heart Failure Congestive Heart Failure Diagnosis No Cerebrovascular Accident CVA/TIA Diagnosis: No VTE (View Protocol) VTE Risk Factors Acute Medical Illness No Mechanical VTE Prophylaxis d/t N/A MechProphylax Ordered No VTE Pharm Prophylaxis d/t Other (on heparin gtts) Sepsis (View protocol) Sepsis Present: No If YES complete Sepsis Event Note If YES complete Sepsis Event Note [place] 09/05/17 0133: General Information and HPI MD Statement: I have seen and personally examined BOOM NICK and documented this H&P. The patient is a 81 year old M who presented with a patient stated chief complaint of [elevated Trop]. Allergies/Medications Allergies: Coded Allergies: NO KNOWN ALLERGIES (NONE 04/06/17) Home Med list Allopurinol 100 MG TABLET 1 TAB PO DAILY GOUT (Reported) Aspirin (Ecotrin*) 81 MG TABLET.DR 1 TAB PO QAM HEART/BLOOD (Reported) Cholecalciferol (Vitamin D3) 1,000 UNIT TABLET 1 TAB PO DAILY VITAMIN SUPPORT (Reported) Ezetimibe (Zetia) 10 MG TABLET 1 TAB PO QPM CHOLESTEROL (Reported) Insulin Aspart, Recombinant (Novolog Flexpen) 100 UNIT/ML INSULN.PEN DIABETES ( Reported) BEFORE MEALS Blood Insulin Sugar Units <80 0 81-150 0 151-200 2 251-300 4 301-350 6 351-400 8 >400 10 call MD >400 Call Doctor Insulin Degludec (Tresiba Flextouch U-200) 200 UNIT/ML (3 ML) INSULN.PEN 12 UNITS SQ DAILY DIABETES (Reported) Metoprolol Tartrate 25 MG TABLET 25 MG PO BID heart Rosuvastatin Calcium (Crestor) 10 MG TABLET 1 TAB PO QPM CHOLESTEROL ( Reported) Warfarin Sodium (Coumadin) 3 MG TABLET 1 TAB PO DAILY Blood thinner Please check INR on 05/31/17 and dose accordingly to keep INR in therapeutic range(2-3). THANKS Past Family/Social History Psychosocial History Smoking Status: Former Smoker ETOH Use: denies use Employment History Employment Retired Review of Systems Review of Systems Constitutional: Reports: see HPI. Comments 12 point review with no other findings except what is noted in the HPI Exam & Diagnostic Data Last 24 Hrs of Vital Signs/I&O Vital Signs Date Time Temp Pulse Resp B/P B/P Pulse O2 O2 Flow FiO2 Mean Ox Delivery Rate 09/05 0000 93 Nasal 3.0L Cannula 09/05 0000 98.8 75 28 150/72 93 Nasal 3.0L Cannula 09/05 2131 95 Nasal 4.0L Cannula 09/05 2131 98.4 75 25 150/72 95 Nasal 4.0L Cannula 09/04 2010 97.4 77 18 132/58 07/06 1945 97.4 77 18 132/58 95 Nasal 2.0L Cannula 09/04 1858 164/86 / 1759 96 Nasal 2.0L Cannula 09/04 1758 81 18 162/74 90 Room Air Room Air 07 1715 98.0 71 18 186/77 97 Nasal 2.0L Cannula 09/04 1645 76 18 166/76 97 Nasal 2.0L Cannula 09/04 1545 78 18 170/86 98 Nasal 2.0L Cannula 09/04 1420 97 Nasal 2.0L Cannula 09/04 1355 98.9 80 16 136/63 91 Room Air Intake & Output 09/05 0800 07/07 0000 07/06 1600 Intake Total 40.2 Output Total 360 800 Balance -319.8 -800 Intake, IV 40.2 Intake, Oral 0 Number 1 Bowel Movements Output, Urine 360 800 Patient 185 lb Weight Weight Bed scale Measurement Method Physical Exam General Appearance mildly lethargic, Not orient to place Skin No Significant Lesion HEENT Atraumatic, PERRLA, EOMI, Mucous Membr. moist/pink Neck Supple, No JVD, No LAD Cardiovascular Normal S1 (Irreg Irreg Holosystolic murmu) Lungs Clear to Auscultation, Normal Air Movement Abdomen Normal Bowel Sounds, Soft, No Tenderness Extremities No Clubbing, No Cyanosis, No Edema Last 24 Hrs of Labs/Ace: Laboratory Tests 09/05/17 0018: Troponin I 14.40 *H 09/04/17 2345: Troponin I Cancelled 09/04/17 1847: Troponin I 13.70 *H 09/04/17 1453: Anion Gap 12, Estimated GFR 36 L, BUN/Creatinine Ratio 26.1 H, Glucose 245 H, Calcium 10.2, Total Bilirubin 1.6 H, AST 52, ALT 36, Alkaline Phosphatase 57, Troponin I 8.31 *H, Dlt-F-Hjcfajfkhwg Pept 13007 H, Total Protein 7.0, Albumin 3.7, Globulin 3.3, Albumin/Globulin Ratio 1.1, TSH 1.540, PT 18.5 H, INR 1.69 H, APTT 34, CBC w Diff MAN DIFF ORDERED, RBC 3.76 L, MCV 88.3, MCH 29.6, MCHC 33.5, RDW 15.1 H, MPV 7.9, Gran % 84.4 H, Lymphocytes % 7.7 L, Monocytes % 7.8, Eosinophils % 0, Basophils % 0.1, Absolute Granulocytes 7.8 H, Absolute Lymphocytes 0.7 L, Absolute Monocytes 0.7 H, Absolute Eosinophils 0, Absolute Basophils 0, Platelet Estimate VERIFIED BY SMEAR, Polychromasia 1+, Poikilocytosis 1+, Basophilic Stippling SLIGHT, Anisocytosis 1+ 09/04/17 1415: Urine Color YEL, Urine Clarity CLEAR, Urine pH 6.0, Ur Specific [place] >= 1.030 , Urine Protein 100 H, Urine Ketones TRACE H, Urine Nitrite NEG, Urine Bilirubin NEG@ICTO, Urine Urobilinogen 0.2, Ur Leukocyte Esterase NEG, Ur Microscopic SEDIMENT EXAMINED, Urine RBC 5-10 H, Ur Epithelial Cells OCCAS, Urine Hemoglobin SMALL H, Urine Glucose 100 H Microbiology 09/04 2114 URINE ROUT: Urine Culture - RECD 09/04 2114 UPPER RESP: Surveillance Culture - RECD 09/04 2114 GI: Surveillance Culture - RECD 09/04 1415 URINE ROUT: Urine Culture - RECD Core Measures/Misc (11/16) Sepsis (View protocol) If YES complete Sepsis Event Note If YES complete Sepsis Event Note Attending MD Review Statement Attending Statement Attending MD Statement: examined this patient, discuss w/resident/PA/RADIOLOGY CLERK, agreed w/resident/PA/RADIOLOGY CLERK Attending Assessment/Plan: This patient is an 81-year-old white male with extensive past medical history as noted above. The patient presents with a 7 day history of increasing weakness and ambulation. He felt particularly bad today and was brought to the hospital. He is a poor historian and no family members were available to review. While in the emergency department he was found to have changes in EKG which is consistent with prior and an elevation in his troponins. The troponins continue to elevate and cardiology was contacted. The recommend patient was to manage medically per ED. Assessment and plan NSTEMI Heparin drip Nitropaste Aspirin Beta blockers Watch for fluid overload Still a full code and was unable to contact POA.
[2017-09-04 21:32] VITALS: BP 150/72
[2017-09-05] VITALS: BP 150/72
[2017-09-05 02:18] LABS: ABSOLUTE BASOPHIL COUNT 0 /CUMM (0.0-0.2); ABSOLUTE EOSINOPHIL COUNT 0 /CUMM (0.0-0.7); ABSOLUTE GRANULOCYTE CT 9.5 /CUMM (1.4-6.5); ABSOLUTE LYMPH COUNT 0.7 /CUMM (1.2-3.4); ABSOLUTE MONOCYTE COUNT 0.6 /CUMM (0.10-0.60); BASOPHIL % 0.3 % (0.0-2.0); EOSINOPHIL % 0 % (0-5); GRANULOCYTE % 87.8 % (42.2-75.2); HEMATOCRIT 32.8 % (42-52); MEAN CORPUSCULAR HGB CONC 34.1 G/DL (33.0-37.0); MEAN PLATELET VOLUME 7.7 FL (7.4-10.4); PLATELET COUNT 187 /CUMM (130-400); RBC DISTRIBUTION WIDTH 14.9 % (11.5-14.5); RED BLOOD CELL CT 3.73 /CUMM (4.70-6.10)
[2017-09-05 02:27] LABS: PTT 52 SEC (25-37)
[2017-09-05 02:42] LABS: WHITE BLOOD CELL COUNT 10.8 /CUMM (4.8-10.8)
[2017-09-05 08:00] VITALS: BP 110/74
--- NOTE | 2017-09-05 08:38 | Cons- CRCU ---
Bg Villalobos 09/05/17 0837: General Information and HPI Consulting Request Date of Consult: 09/05/17 Requested By: Dr. Bj Watson History of Present Illness: 81 y/o M with a PMH of CAD s/p CABG, atrial fib on coumadin, aortic stenosis, HTN, DM, CKD stage 3, NSTEMI on 04/2017, that was brought over lethargic to the ED. Patient is not a reliable narrator, giving out different details to the story that brought him to the ED to different providers. No family member was around to obtain more history initially; most of it was gotten through the patient's medical records. Niece (POA) and retail greeter was in the room in the afternoon and more history was able to be obtained: Pt has been progressively getting weaker for weeks from his normal baseline in which he ambulates with a walker. He had a visit to his PCP (Dr. Sutherland) and his progressive hypophonia and shuffling gait were concerning for Parkinson's. An appointment with the neurologist was arranged for later this august. On (09/03) patient was at his baseline, oriented and awake; there was then a sharp decline in his cognitive status thursday morning, though he was oriented to time, person and place as per the niece on ambulance arrival. Niece denies any fever, recent URI, chills, cough, abdominal pain, diarrhea, dysuria, sick contacts or recent travel. His high density talc coater operator is Dr. Strauss. Pt denies any chest pain, SOB, edema, orthopnea, or any unintentional weight loss. Pt has had prior admits to [facility]. On 04/19 pt presented with a NSTEMI with troponins peaking at 29.5. His last echo was also in 04/19 which showed septal and inferior wall hypokinesis and an EF of 40-45%. On 07/17 pt came in with AMS after a fall and was found to have nephrolithiasis with hydronephrosis s/p ureteral stenting. Pt was transferred to the ICU for medical management of NSTEMI. Allergies/Medications Allergies: Coded Allergies: NO KNOWN ALLERGIES (NONE 04/06/17) Home Med List: Allopurinol 100 MG TABLET 1 TAB PO DAILY GOUT (Reported) Aspirin (Ecotrin*) 81 MG TABLET. 1 TAB PO QAM HEART/BLOOD (Reported) Cholecalciferol (Vitamin D3) 1,000 UNIT TABLET 1 TAB PO DAILY VITAMIN SUPPORT (Reported) Ezetimibe (Zetia) 10 MG TABLET 1 TAB PO QPM CHOLESTEROL (Reported) Insulin Aspart, Recombinant (Novolog Flexpen) 100 UNIT/ML INSULN.PEN DIABETES ( Reported) BEFORE MEALS Blood Insulin Sugar Units <80 0 81-150 0 151-200 2 251-300 4 301-350 6 351-400 8 >400 10 call MD >400 Call Doctor Insulin Degludec (Tresiba Flextouch U-200) 200 UNIT/ML (3 ML) INSULN.PEN 12 UNITS SQ DAILY DIABETES (Reported) Metoprolol Tartrate 25 MG TABLET 25 MG PO BID heart Rosuvastatin Calcium (Crestor) 10 MG TABLET 1 TAB PO QPM CHOLESTEROL ( Reported) Warfarin Sodium (Coumadin) 3 MG TABLET 1 TAB PO DAILY Blood thinner Please check INR on 05/31/17 and dose accordingly to keep INR in therapeutic range(2-3). THANKS Current Medications: Current Medications Sig/Maribel Start time Last Medication Dose Route Stop Time Status Admin Acetaminophen 1,000 MG Q6H PRN 09/04 1944 AC N/A 1 UNIT IV Aspirin 325 MG ONCE ONE 09/04 2014 DC 09/04 PO 09/04 Aspirin 0 .STK-MED ONE 09/05 2003 DC PO Aspirin Buffered 81 MG QAM 09/05 0900 AC 09/05 PO 0900 Atorvastatin Calcium 40 MG 1700 09/05 1700 AC PO Clopidogrel Bisulfate 75 MG ONCE ONE 09/04 1845 DC 09/04 PO 09/04 1846 1914 Heparin Sodium 2,520 UNIT BOLUS ONE 09/05 0230 DC 09/05 (Porcine) IV 09/05 0231 0306 Heparin Sodium 25,000 UNIT Q24H 09/04 1845 AC 09/04 (Porcine) IV 1950 Sodium Chloride 500 ML Insulin Human Regular 0 Q6 09/04 2359 AC 09/05 SC 0551 Metoprolol Tartrate 25 MG BID 09/04 2100 AC 09/05 PO 0900 Metoprolol Tartrate 0 .STK-MED ONE 09/05 2003 DC PO Morphine Sulfate 2 MG Q4P PRN 09/04 194 AC IV Nitroglycerin 0.5 GM Q6 09/04 2359 AC 09/05 TOP 0551 Nitroglycerin 0 .STK-MED ONE 09/04 2004 DC TOP Nitroglycerin 0.5 GM Q6 09/04 195 DC 09/04 TOP 2011 Nitroglycerin 25 MG ONCE ONE 09/04 1844 DC Dextrose/Water 250 ML IV 09/04 1845 Review of Systems Review of Systems Constitutional: Denies: see HPI. Cardiovascular: Denies: chest pain, orthopena. Respiratory: Denies: hemoptysis, orthopnea, short of breath. GI: Reports: no symptoms. Past History Travel History Traveled to [place] past 21 day No Medical History Blood Transfusion Hx: No Neurological: NONE EENT: NONE Cardiovascular: AFIB, CAD, hypertension, hyperlipidemia, PACEMAKER Respiratory: NONE Gastrointestinal: NONE Hepatic: NONE Renal: Prostate cancer ckd Musculoskeletal: NONE Psychiatric: NONE Endocrine: diabetes Blood Disorders: NONE Cancer(s): NONE MERCERIZING RANGE FEEDER/Reproductive: NONE Surgical History Surgical History: cholecystectomy, BYPASS PACEMAKER Family History Relations & Conditions If Any: FATHER FH: myocardial infarction, Onset: 60+. MOTHER FH: cholecystectomy BROTHER FH: myocardial infarction, Onset: 50-60. Psychosocial History Where Do You Live? Home Who Do You Live With? niece Services at Home: Physical Therapy Primary Language: Tajik Smoking Status: Former Smoker ETOH Use: denies use Living Will? yes Functional Ability ADLs Independent: dressing, eating, toileting, bathing. Ambulation: cane, walker IADLs Independent: shopping. Employment History Employment: Retired Exam & Diagnostic Data Last 24 Hrs of Vital Signs/I&O Vital Signs Date Time Temp Pulse Resp B/P B/P Pulse O2 O2 Flow FiO2 Mean Ox Delivery Rate 09/05 08 96 Nasal 3.0L Cannula 09/05 08 98.8 70 21 110/74 96 Nasal 3.0L Cannula 09/05 0400 96 Nasal 3.0L Cannula 09/05 0000 93 Nasal 3.0L Cannula 09/05 0000 98.8 75 28 150/72 93 Nasal 3.0L Cannula 09/05 2131 95 Nasal 4.0L Cannula 09/05 2131 98.4 75 25 150/72 95 Nasal 4.0L Cannula 09/04 2010 97.4 77 18 132/58 09/04 194 97.4 77 18 132/58 95 Nasal 2.0L Cannula 09/04 1858 164/86 09/04 175 96 Nasal 2.0L Cannula 09/04 1758 81 18 162/74 90 Room Air Room Air 09/04 1715 98.0 71 18 186/77 97 Nasal 2.0L Cannula 09/04 1645 76 18 166/76 97 Nasal 2.0L Cannula 09/04 1545 78 18 170/86 98 Nasal 2.0L Cannula Intake & Output 09/05 1600 09/05 0800 07 0000 Intake Total 152.6 40.2 Output Total 400 360 Balance -247.4 -319.8 Intake, IV 152.6 40.2 Intake, Oral 0 0 Number 2 1 Bowel Movements Output, Urine 400 360 Patient 185 lb Weight Weight Bed scale Measurement Method Physical Exam General Appearance: thin, drowsy, hypophonic Head: atraumatic, normal appearance Neck: normal inspection, supple Respiratory: no respiratory distress, crackles, rhonchi Cardiovascular: regular rate/rhythm, edema, murmur Last 48 Hrs of Labs/Ace: Laboratory Tests 09/05/17 1119: Troponin I 13.60 *H 09/05/17 0815: APTT 96 H 09/05/17 0628: Troponin I 14.40 *H 09/05/17 0204: Anion Gap 11, Estimated GFR 45 L, Glucose 215 H, Calcium 10.3 H, Phosphorus 2.7, Magnesium 3.3 H, Total Bilirubin 1.9 H, AST 98 H, ALT 42, Albumin 3.6, APTT 52 H, CBC w Diff NO MAN DIFF REQ, RBC 3.73 L, MCV 88.0, MCH 30.0, MCHC 34.1, RDW 14.9 H, MPV 7.7, Gran % 87.8 H, Lymphocytes % 6.1 L, Monocytes % 5.8, Eosinophils % 0, Basophils % 0.3, Absolute Granulocytes 9.5 H, Absolute Lymphocytes 0.7 L, Absolute Monocytes 0.6, Absolute Eosinophils 0, Absolute Basophils 0 09/05/17 0018: Troponin I 14.40 *H 09/04/17 2345: Troponin I Cancelled 09/04/17 1847: Troponin I 13.70 *H 09/04/17 1453: Anion Gap 12, Estimated GFR 36 L, BUN/Creatinine Ratio 26.1 H, Glucose 245 H, Calcium 10.2, Total Bilirubin 1.6 H, AST 52, ALT 36, Alkaline Phosphatase 57, Troponin I 8.31 *H, Rgc-S-Qwwajcbykem Pept 83384 H, Total Protein 7.0, Albumin 3.7, Globulin 3.3, Albumin/Globulin Ratio 1.1, TSH 1.540, PT 18.5 H, INR 1.69 H, APTT 34, CBC w Diff MAN DIFF ORDERED, RBC 3.76 L, MCV 88.3, MCH 29.6, MCHC 33.5, RDW 15.1 H, MPV 7.9, Gran % 84.4 H, Lymphocytes % 7.7 L, Monocytes % 7.8, Eosinophils % 0, Basophils % 0.1, Absolute Granulocytes 7.8 H, Absolute Lymphocytes 0.7 L, Absolute Monocytes 0.7 H, Absolute Eosinophils 0, Absolute Basophils 0, Platelet Estimate VERIFIED BY SMEAR, Polychromasia 1+, Poikilocytosis 1+, Basophilic Stippling SLIGHT, Anisocytosis 1+ 09/04/17 1415: Urine Color YEL, Urine Clarity CLEAR, Urine pH 6.0, Ur Specific Advance >= 1.030 , Urine Protein 100 H, Urine Ketones TRACE H, Urine Nitrite NEG, Urine Bilirubin NEG@ICTO, Urine Urobilinogen 0.2, Ur Leukocyte Esterase NEG, Ur Microscopic SEDIMENT EXAMINED, Urine RBC 5-10 H, Ur Epithelial Cells OCCAS, Urine Hemoglobin SMALL H, Urine Glucose 100 H Diagnostic Data Other Results ECHO 04/19 Assessment/Plan CRCU Impression/Plan: 81 y/o M with a PMH of CAD s/p CABG, atrial fib on coumadin, aortic stenosis, HTN, DM, CKD stage 3, NSTEMI on 04/2017, that was brought over lethargic to the ED. He was found to have elevated trops (8.31) on admit. He was transferred to the ICU for management of NSTEMI. Dr. Wilkinson spoke to niece (Vincenzo Bedoya) on the phone who is POA, code status changed to DNR/DNI. IMPRESSION AND PLAN VS: BP 110/74 // RR: 21 O2 SAT: 97% 3l Nasal Cannula // T: 98.8 Respiratory Pt on 3L with 97% O2 sat on nasal cannula - crackles heard on auscultation bilaterally, more prominent on the bases. This is likely related to cardiac dysfunction and poor ambulation. ABGs ordered to assess acid-base status. -f/u ABGs Infection Pt has been afebrile since admission. There is no leukocytosis or other finding suggestive of active infection. Cardiac Mr. Lau has an extensive cardiac history of CAD s/p CABG, atrial fib on coumadin, aortic stenosis, DM, HTN and NSTEMI on 04/19. Pt has not complained of chest pain/discomfort but troponin of admit was 8.31 with EKG changes that are consistent to his prior EKGs. Troponin was trended 8.31->13.70 ->14.4->13.60 showing a decreaasing trend. Pt was full code on admit - DR. Wilkinson discussed the patient's status with niece who is POA, and code status was changed to DNR/ DNI. As per niece, the goal of therapy should be focused on returning patient to his baseline, rather than purse more aggresive and invasive measures. These feelings were echoed to me upon meeting her at bedside. His latest echo was done on 04/19 and showed septal and inferior wall hypokinesis with an EF of 40-45%. Another was ordered and done on the ICU on 09/05. -cardio consulted -F/u ekg and trop -f/u echo -ASA 325 mg qD, Plavix 75 mg qD -IV Hep -Atorvastatin 40 mg PO -NTG paste 1in q6 -Metoprolol 25 mg BID -f/u d-dimer Hematological Pt with low Hb on latest CBC (11.2), his baseline appears to be around that. This might be related to his kidney dysfunction as evidenced by his high creatinines going back to August 2014. -cbc in am Metabolic The patient's lethargy and decreased cognitive function can be related to a metabolic derangement. Patient with CKD whose Cr trend 1.8-> 1.5 is better than his baseline usually around 2's. His glucose has maintained in the 200s, though no aggresive management is needed in this critically ill patient. -Continue insulin sq 6U q6 -f/u Cr and BMP -Continue accuchecks Alimentary Pt is NPO. Neurological Pt at his baseline ambulates and has preserved cognitive function. During the past few months, Mr. Lau has started to show a shuffling gait, hypophonia and exhibiting some signs of dementia as per the niece. His progression and signs are indicative of a parkinsonian syndrome, however other metabolic causes of dementia such as hypothyroidism or pseudodementia should also be ruled out. Neurology was consulted. -f/u non enhanced CT -PT/OT eval -f/u Serum B12 -TSH DNI/DNR DVT Prophylaxis NPO Consult Acknowledgment - Thank you for your consult request. Kanchan MCCORMACK,[facility] 09/05/17 0954: General Information and HPI Allergies/Medications Current Medications: Current Medications Sig/Maribel Start time Last Medication Dose Route Stop Time Status Admin Acetaminophen 1,000 MG Q6H PRN 09/04 1945 AC N/A 1 UNIT IV Aspirin 325 MG ONCE ONE 09/04 2014 DC 09/04 PO 09/04 Aspirin 0 .STK-MED ONE 09/05 2003 DC PO Aspirin Buffered 81 MG QAM 09/05 0900 AC 09/05 PO 0900 Atorvastatin Calcium 40 MG 1700 09/05 1700 AC PO Clopidogrel Bisulfate 75 MG ONCE ONE 09/04 184 DC 09/04 PO 09/04 184 1914 Heparin Sodium 2,520 UNIT BOLUS ONE 09/05 0230 DC 09/05 (Porcine) IV 09/05 0231 0306 Heparin Sodium 25,000 UNIT Q24H 09/04 1845 AC 09/04 (Porcine) IV 1950 Sodium Chloride 500 ML Insulin Human Regular 0 Q6 09/04 2359 AC 09/05 SC 0551 Metoprolol Tartrate 25 MG BID 09/04 2100 AC 09/05 PO 0900 Metoprolol Tartrate 0 .STK-MED ONE 09/05 2003 DC PO Morphine Sulfate 2 MG Q4P PRN 09/04 194 IV Nitroglycerin 0.5 GM Q6 09/04 2359 AC 09/05 TOP 0551 Nitroglycerin 0 .STK-MED ONE 09/05 2003 DC TOP Nitroglycerin 0.5 GM Q6 09/04 1956 DC 09/04 TOP 2011 Nitroglycerin 25 MG ONCE ONE 09/04 184 DC Dextrose/Water 250 ML IV 09/04 184 Assessment/Plan CRCU Other Findings/Comments: Attending addendum Seen and examined independently This patient is an 81-year-old white male with extensive past medical history as noted above. The patient presents with a 7 day history of increasing weakness and ambulation. He is a poor historian and no family members were available to review. Now in the ICU with elevated trop Assessment and plan NSTEMI with sig elevated trop and Dr Wilkinson aware pt now on Heparin drip, Nitropaste, Aspirin, Beta blockers Recent lithortripsy with ureter stent DM Dementia CKD PLAN Cont current meds Cardio to see Heparin and other meds Antiplatelet rx Cont statin Echo Accucheks Will follow Pt is critically ill tts 38 mins Consult Acknowledgment - Thank you for your consult request.
[2017-09-05 08:51] LABS: PTT 96 SEC (25-37)
--- NOTE | 2017-09-05 10:13 | Cons- Cardiology ---
General Information and HPI Consulting Request Date of Consult: 09/05/17 Requested By: Mario Watson MD History of Present Illness: This patient is an 81 year old male with history of hypertension, dyslipidemia, diabetes, coronary artery disease s/p CABG, prior [place], atrial fibrillation, permanent pacemaker for SSS and aortic stenosis. At his baseline, this patient can walk to a minimal extent and can respond with one word, but appropriate, answers to questions. Over the past week this patient has become weak to the point of not being able to walk and has become less verbal. There are no reports of chest pain, pressure, tightness, shortness of breath, ligtheadedness or palpitations by the patient or his niece who takes care of him and is his power of personal injury attorney. In a discussion with his niece it was felt that we should try to bring the patient back to his baseline using conservative measures but the patient will be a DNR and invasive procedures will not be pursued. In the ER the patient was noted to have an elevated troponin which has risen to about 14 and stablilized. He had precordial T wave inversions consistent with ischemia that are improving. He is also noted to have renal insufficiency and a subtherapeutic INR. This past April the patient also had a NSTEMI that was treated conservatively and had a subsequent stress test in the office of Dr. West that was reportedly negative for ischemia. Allergies/Medications Allergies: Coded Allergies: NO KNOWN ALLERGIES (NONE 04/06/17) Home Med List: Allopurinol 100 MG TABLET 1 TAB PO DAILY GOUT (Reported) Aspirin (Ecotrin*) 81 MG TABLET. 1 TAB PO QAM HEART/BLOOD (Reported) Cholecalciferol (Vitamin D3) 1,000 UNIT TABLET 1 TAB PO DAILY VITAMIN SUPPORT (Reported) Ezetimibe (Zetia) 10 MG TABLET 1 TAB PO QPM CHOLESTEROL (Reported) Insulin Aspart, Recombinant (Novolog Flexpen) 100 UNIT/ML INSULN.PEN DIABETES ( Reported) BEFORE MEALS Blood Insulin Sugar Units <80 0 81-150 0 151-200 2 251-300 4 301-350 6 351-400 8 >400 10 call MD >400 Call Doctor Insulin Degludec (Tresiba Flextouch U-200) 200 UNIT/ML (3 ML) INSULN.PEN 12 UNITS SQ DAILY DIABETES (Reported) Metoprolol Tartrate 25 MG TABLET 25 MG PO BID heart Rosuvastatin Calcium (Crestor) 10 MG TABLET 1 TAB PO QPM CHOLESTEROL ( Reported) Warfarin Sodium (Coumadin) 3 MG TABLET 1 TAB PO DAILY Blood thinner Please check INR on 05/31/17 and dose accordingly to keep INR in therapeutic range(2-3). THANKS Review of Systems Review of Systems: A review of systems is unobtainable from this patient. Past History Travel History Traveled to [place] past 21 day No Medical History Blood Transfusion Hx: No Neurological: NONE EENT: NONE Cardiovascular: AFIB, aortic stenosis (moderate), CAD, hypertension, hyperlipidemia, NSTEMI, PACEMAKER for SSS Respiratory: NONE Gastrointestinal: NONE Hepatic: NONE Renal: Prostate cancer ckd Musculoskeletal: NONE Psychiatric: NONE Endocrine: diabetes Blood Disorders: NONE Cancer(s): NONE ORTHOPAEDIC NURSE/Reproductive: NONE Surgical History Surgical History: cholecystectomy, BYPASS PACEMAKER Family History Relations & Conditions If Any: FATHER FH: myocardial infarction, Onset: 60+. MOTHER FH: cholecystectomy BROTHER FH: myocardial infarction, Onset: 50-60. Psychosocial History Where Do You Live? Home Who Do You Live With? niece Services at Home: Physical Therapy Primary Language: Stateless Smoking Status: Former Smoker ETOH Use: denies use Living Will? yes Functional Ability ADLs Independent: dressing, eating, toileting, bathing. Ambulation: cane, walker IADLs Independent: shopping. Employment History Employment: Retired Exam & Diagnostic Data Vital Signs and I&O Vital Signs Date Time Temp Pulse Resp B/P B/P Pulse O2 O2 Flow FiO2 Mean Ox Delivery Rate 09/05 0800 96 Nasal 3.0L Cannula 09/05 0800 98.8 70 21 110/74 96 Nasal 3.0L Cannula 09/05 0400 96 Nasal 3.0L Cannula 09/05 0000 93 Nasal 3.0L Cannula 09/05 0000 98.8 75 28 150/72 93 Nasal 3.0L Cannula 09/05 2131 95 Nasal 4.0L Cannula 09/05 2131 98.4 75 25 150/72 95 Nasal 4.0L Cannula 09/04 2010 97.4 77 18 132/58 09/04 1944 97.4 77 18 132/58 95 Nasal 2.0L Cannula 09/04 1858 164/86 09/04 175 96 Nasal 2.0L Cannula 09/04 1758 81 18 162/74 90 Room Air Room Air 09/04 1715 98.0 71 18 186/77 97 Nasal 2.0L Cannula 09/04 1645 76 18 166/76 97 Nasal 2.0L Cannula 09/04 1545 78 18 170/86 98 Nasal 2.0L Cannula 09/04 1420 97 Nasal 2.0L Cannula 09/04 1355 98.9 80 16 136/63 91 Room Air Intake & Output 09/05 1600 09/05 0800 09/05 0000 09/04 1600 09/04 0800 09/04 0000 Intake Total 152.6 40.2 Output Total 400 360 800 Balance -247.4 -319.8 -800 Intake, IV 152.6 40.2 Intake, Oral 0 0 Number 2 1 Bowel Movements Output, Urine 400 360 800 Patient 185 lb Weight Weight Bed scale Measurement Method Physical Exam: General: WD/WN male in NAD; awake and slowly responsive with single work answers to questions HEENT: NC/AT, PERRL, EOMI Neck: no JVD, left carotid bruit Heart: irregularly irregular with 3/6 systolic murmur at the LLSB and 2/6 systolic murmur at the apex and RUSB Lungs: crackles at the bases bilaterally Abdomen: soft, mildly tender, +ve bowel sounds Extremities: no edema Assessment/Plan Assessment/Plan * This patient appears to have progression of baseline dementia or possibly undiagnosed Parkinson's disease. He has become much worse over the past week and cannot stand and is now speaking very quietly and responding with one word answers. He does not know why he is here and has no specific complaints. He does appear to be ruling in for a NSTEMI, which is the second such event in 6 months. In discussion with the patient's niece, Maciej Bedoya, who is the power of personal injury attorney, the patient will be a DNR and invasive treatment will be deferred. * Will review patient's echocardiogram. * Follow another set of cardiac enzymes. * Continue aspirin 325mg daily, Plavix 75mg daily and IV heparin. * Continue a statin, Metoprolol 25mg BID and NTG paste 1 inch Q 6 hours. * In consideration of mental status changes in the setting of atrial fibrillation with a susbtherapeutic INR I recommend a neurological consult. * check and ABG and D-dimer. * Check TFT's Consult Acknowledgment - Thank you for your consult request.
--- NOTE | 2017-09-05 10:47 | Cons- Neurology ---
General Information and HPI Consulting Request Date of Consult: 09/05/17 Requested By: Mario Watson MD History of Present Illness: This is an 81-year-old male who what was asked to evaluate for questionable parkinsonism/dementia. The history is obtained entirely from the chart and Dr. Wilkinson as the patient is currently an unreliable historian. The patient lives with a niece and was admitted after at least a several day history of increasing lethargy and weakness. He has an extensive cardiac history. He was found to have significantly elevated troponins and is being managed as an NSTEMI. The patient apparently ambulates at home with a walker. He was noted to have a soft voice. To the best of my knowledge there has been no exposure to neuroleptic drugs and no known history of stroke. His baseline mental status is unknown to me. Allergies/Medications Allergies: Coded Allergies: NO KNOWN ALLERGIES (NONE 04/06/17) Home Med List: Allopurinol 100 MG TABLET 1 TAB PO DAILY GOUT (Reported) Aspirin (Ecotrin*) 81 MG TABLET. 1 TAB PO QAM HEART/BLOOD (Reported) Cholecalciferol (Vitamin D3) 1,000 UNIT TABLET 1 TAB PO DAILY VITAMIN SUPPORT (Reported) Ezetimibe (Zetia) 10 MG TABLET 1 TAB PO QPM CHOLESTEROL (Reported) Insulin Aspart, Recombinant (Novolog Flexpen) 100 UNIT/ML INSULN.PEN DIABETES ( Reported) BEFORE MEALS Blood Insulin Sugar Units <80 0 81-150 0 151-200 2 251-300 4 301-350 6 351-400 8 >400 10 call MD >400 Call Doctor Insulin Degludec (Tresiba Flextouch U-200) 200 UNIT/ML (3 ML) INSULN.PEN 12 UNITS SQ DAILY DIABETES (Reported) Metoprolol Tartrate 25 MG TABLET 25 MG PO BID heart Rosuvastatin Calcium (Crestor) 10 MG TABLET 1 TAB PO QPM CHOLESTEROL ( Reported) Warfarin Sodium (Coumadin) 3 MG TABLET 1 TAB PO DAILY Blood thinner Please check INR on 05/31/17 and dose accordingly to keep INR in therapeutic range(2-3). THANKS Review of Systems Review of Systems: Unreliable Past History Travel History Traveled to [place] past 21 day No Medical History Blood Transfusion Hx: No Neurological: NONE EENT: NONE Cardiovascular: AFIB, aortic stenosis (moderate), CAD, hypertension, hyperlipidemia, NSTEMI, PACEMAKER for SSS Respiratory: NONE Gastrointestinal: NONE Hepatic: NONE Renal: Prostate cancer ckd Musculoskeletal: NONE Psychiatric: NONE Endocrine: diabetes Blood Disorders: NONE Cancer(s): NONE DIRECTOR MUSIC/Reproductive: NONE Surgical History Surgical History: cholecystectomy, BYPASS PACEMAKER Family History Relations & Conditions If Any: FATHER FH: myocardial infarction, Onset: 60+. MOTHER FH: cholecystectomy BROTHER FH: myocardial infarction, Onset: 50-60. Psychosocial History Where Do You Live? Home Who Do You Live With? niece Services at Home: Physical Therapy Primary Language: Pashto Smoking Status: Former Smoker ETOH Use: denies use Living Will? yes Functional Ability ADLs Independent: dressing, eating, toileting, bathing. Ambulation: cane, walker IADLs Independent: shopping. Employment History Employment: Retired Exam & Diagnostic Data Vital Signs and I&O Vital Signs Date Time Temp Pulse Resp B/P B/P Pulse O2 O2 Flow FiO2 Mean Ox Delivery Rate 09/05 08 96 Nasal 3.0L Cannula 09/05 08 98.8 70 21 110/74 96 Nasal 3.0L Cannula 09/05 0400 96 Nasal 3.0L Cannula 09/05 0000 93 Nasal 3.0L Cannula 09/05 0000 98.8 75 28 150/72 93 Nasal 3.0L Cannula 09/042 95 Nasal 4.0L Cannula 09/05 2131 98.4 75 25 150/72 95 Nasal 4.0L Cannula 09/04 2010 97.4 77 18 132/58 07/06 1945 97.4 77 18 132/58 95 Nasal 2.0L Cannula 09/04 1858 164/86 / 1759 96 Nasal 2.0L Cannula 09/04 1758 81 18 162/74 90 Room Air Room Air 09/04 1715 98.0 71 18 186/77 97 Nasal 2.0L Cannula 09/04 1645 76 18 166/76 97 Nasal 2.0L Cannula 09/04 1545 78 18 170/86 98 Nasal 2.0L Cannula 09/04 1420 97 Nasal 2.0L Cannula 09/04 1355 98.9 80 16 136/63 91 Room Air Intake & Output 07 1600 07/07 0800 07/ 0000 Intake Total 152.6 40.2 Output Total 400 360 Balance -247.4 -319.8 Intake, IV 152.6 40.2 Intake, Oral 0 0 Number 2 1 Bowel Movements Output, Urine 400 360 Patient 185 lb Weight Weight Bed scale Measurement Method Lethargic, elderly male in no acute distress. He was arousable from sleep. He knew that he was in [facility] and that the president was Soniya. He was bradyphrenic. He could not tell me the current month. The head was normocephalic. Myerson sign was absent. Pupils were equal. Extraocular movements were full. Affect was flat and there was a paucity of facial expression. He was markedly hypophonic. There was increased tone at the wrists bilaterally with cogwheeling. No resting tremor was visualized. There was no gross lateralizing weakness. Deep tendon reflexes were diffusely hypoactive. Plantar responses were flexor. There was no gross ataxia on [id number] testing. The gait could not be evaluated. Assessment/Plan Assessment: As noted by Dr. Wilkinson, there does indeed appear to be some extrapyramidal features on examination in the way of hypophonia and heightened tone with cogwheeling. This may reflect Parkinson's disease or a parkinsonian syndrome however, prior to initiating medications, I would wish to get further history from the family, obtain blood work and a nonenhanced CAT scan of the head to rule out multi-infarct disease and be able to examine him more fully, specifically to observe his gait and to perform a more in-depth mental status test Recommendations: We would recommend #1 TSH and B12 level #2 nonenhanced CAT scan of the head #3 PT and OT evaluations. We would be happy to follow him after he has recuperated from his IN and to reevaluate him either here at [facility] or in the office setting. Please feel free to call with any further questions. Consult Acknowledgment - Thank you for your consult request.
[2017-09-05 16:00] VITALS: BP 124/68
[2017-09-05 17:07] LABS: PTT 68 SEC (25-37)
[2017-09-05 20:34] LABS: PT 23.9 SEC (9.4-12.5)
[2017-09-06] VITALS: BP 128/54
[2017-09-06 03:31] LABS: ABSOLUTE BASOPHIL COUNT 0.1 /CUMM (0.0-0.2); ABSOLUTE EOSINOPHIL COUNT 0 /CUMM (0.0-0.7); ABSOLUTE GRANULOCYTE CT 6.7 /CUMM (1.4-6.5); ABSOLUTE LYMPH COUNT 1.1 /CUMM (1.2-3.4); ABSOLUTE MONOCYTE COUNT 0.7 /CUMM (0.10-0.60); BASOPHIL % 0.7 % (0.0-2.0); EOSINOPHIL % 0.5 % (0-5); GRANULOCYTE % 77.5 % (42.2-75.2); HEMATOCRIT 29.6 % (42-52); MEAN CORPUSCULAR HGB 29.9 PG (27.0-31.0); MEAN CORPUSCULAR HGB CONC 33.9 G/DL (33.0-37.0); MEAN CORPUSCULAR VOLUME 88.3 FL (80.0-94.0); MEAN PLATELET VOLUME 7.7 FL (7.4-10.4); PLATELET COUNT 172 /CUMM (130-400); RBC DISTRIBUTION WIDTH 15.5 % (11.5-14.5); RED BLOOD CELL CT 3.35 /CUMM (4.70-6.10); WHITE BLOOD CELL COUNT 8.7 /CUMM (4.8-10.8)
[2017-09-06 03:40] LABS: PT 26.1 SEC (9.4-12.5)
[2017-09-06 03:41] LABS: PTT 52 SEC (25-37)
--- NOTE | 2017-09-06 07:19 | ECHOCARDIOGRAM REPORT ---
BOOM NICK Age: 81 : 1935 Gender: M Exam Date: 09/05/2017 08:25 Exam Location: [facility] Ht (in): 72 Wt (lb): 187 BSA: 2.09 BP: 150 / 72 Ordering Physician: Xiomara Soto MD Referring Physician: Xiomara Soto MD Technologist: Fabi Yadav [facility] Room Number: 107 Indications: Rhythm: Atrial fibrillation with ventricular pacing Technical Quality: fair FINDINGS Left Ventricle Normal left ventricular size with moderate left ventricular hypertrophy. Moderate to severely decreased systolic function with severe anterior wall hypokinesis. .The ejection fraction is visually estimated at 25-30%. Right Ventricle The right ventricle is normal in size and function. A pacemaker lead is noted. Right Atrium The right atrium is normal in size. Left Atrium The left atrium is normal in size. The interatrial septum is intact. Mitral Valve The mitral valve is normal in structure and function. There is mild mitral regurgitation. Aortic Valve Mildly thickend and moderately scleroticl aortic valve with moderate stenosis. There is no aortic regurgitation. Tricuspid Valve The tricuspid valve is normal in structure and function. There is mild tricuspid regurgitation. Pulmonary artery systolic pressure is normal. Pulmonic Valve Structurally normal pulmonic valve. There is trace pulmonic regurgitation. Pericardium Normal pericardium without effusion. No pleural effusion. Great Vessels Normal aortic root dimension. The aortic arch and great vessels are well seen and are normal. CONCLUSIONS 1. Moderate to severely decreased EF of 25-30%. 2. Moderate left ventricular hypertrophy. 3. Mild mitral regurgitation. 4. Mild tricuspid regurgitation. 5. Trace pulmonic regurgitation. 6. Pacemaker lead noted. 7. Moderate aortic stenosis. Rajesh Wilkinson M.D. (Electronically Signed) Final Date: 06 September 2017 07:18 MEASUREMENTS (Male / Female) Normal Values 2D ECHO LV Diastolic Diameter PLAX 4.4 cm 4.2 - 5.9 / 3.9 - 5.3 cm LV Systolic Diameter PLAX 3.5 cm 2.1 - 4.0 cm LV Fractional Shortening PLAX 20.5 % 25 - 46 % LV Ejection Fraction 2D Teich 42.0 % IVS Diastolic Thickness 1.4 cm LVPW Diastolic Thickness 1.9 cm LV Relative Wall Thickness 0.8 LVOT Diameter 2.6 cm Aortic Root Diameter 3.7 cm LA Systolic Diameter LX 3.0 cm 3.0 - 4.0 / 2.7 - 3.8 cm LA Volume 68.0 cm 18 - 58 / 22 - 52 cm DOPPLER AV Peak Velocity 277.0 cm/s AV Peak Gradient 30.7 mmHg AV Mean Velocity 206.0 cm/s AV Mean Gradient 19.0 mmHg AV Velocity Time Integral 59.5 cm LVOT Peak Velocity 56.4 cm/s LVOT Peak Gradient 1.3 mmHg LVOT Mean Velocity 35.7 cm/s LVOT Mean Gradient 1.0 mmHg LVOT Velocity Time Integral 10.0 cm LVOT Stroke Volume 53.1 cm AV Area Cont Eq vti 0.9 cm AV Area Cont Eq pk 1.1 cm Mitral E Point Velocity 114.0 cm/s Mitral A Point Velocity 40.0 cm/s Mitral E to A Ratio 2.9 MV Deceleration Time 271.0 ms TR Peak Velocity 302.0 cm/s TR Peak Gradient 36.5 mmHg PV Peak Velocity 117.0 cm/s PV Peak Gradient 5.5 mmHg LV E' Lateral Velocity 11.6 cm/s Mitral E to LV E' Lateral Ratio 9.8 LV E' Septal Velocity 6.0 cm/s Mitral E to LV E' Septal Ratio 18.9
[2017-09-06 08:00] VITALS: BP 130/72
--- NOTE | 2017-09-06 08:19 | PN- Resident CRCU ---
Subjective HPI/CRCU Issues: NSTEMI Lethargy Mild Hypernatremia Dementia CKD 24 Hour Events: Seen and examined at [facility]. He is sleepy and appears lethargic, but is awoken by verbal stimuli. He had just returned from a CT head scan. He denies any chest pain,palpitation or shortness of breath. No acute o//n event reported by nursing staff or clinical research manager. His INR is 2.37 which is therapeutic. Objective Vital Signs & I&O Last 8 Hrs of Vitals and I&O: Intake & Output 09/06 1600 Intake Total Output Total Balance Patient 82.611 kg Weight Weight Bed scale Measurement Method Exam General Appearance: lethargic, sleepy Head: atraumatic Neck: normal inspection, supple Respiratory: no respiratory distress, lungs clear Cardiovascular: systolic murmur prominet at RUSB. Gastrointestinal: normal bowel sounds, soft Extremities: normal inspection, normal capillary refill, no edema Current Medications: Current Medications Sig/Maribel Start time Last Medication Dose Route Stop Time Status Admin Acetaminophen 1,000 MG Q6H PRN 09/04 1944 AC N/A 1 UNIT IV Aspirin Buffered 325 MG QAM 09/06 899 AC PO Aspirin Buffered 81 MG QAM 09/05 0900 DC 09/05 PO 0900 Atorvastatin Calcium 40 MG 1700 09/05 1700 AC 09/05 PO 1648 Clopidogrel Bisulfate 75 MG DAILY 09/06 899 AC PO Docusate Sodium 100 MG BID 09/06 899 AC PO Heparin Sodium 2,520 UNIT BOLUS ONE 09/06 0400 DC 09/06 (Porcine) IV 09/06 0401 0425 Heparin Sodium 25,000 UNIT Q24H 09/04 184 AC 09/05 (Porcine) IV 2210 Sodium Chloride 500 ML Insulin Aspart 0 TIDAC 09/06 1200 AC SC Insulin Human Regular 0 Q6 09/04 2359 DC 09/05 SC 2317 Metoprolol Tartrate 25 MG BID 09/04 2100 AC 09/05 PO 204 Morphine Sulfate 2 MG Q4P PRN 09/04 194 AC IV Nitroglycerin 0.5 GM Q6 09/04 2359 AC 09/06 TOP 0614 Polyethylene Glycol 17 GM DAILY 09/06 899 AC PO Warfarin Sodium 4 MG COUMADIN 1700 ONE 09/05 184 DC 09/05 PO 09/05 ECHO Findings: CONCLUSIONS 1. Moderate to severely decreased EF of 25-30%. 2. Moderate left ventricular hypertrophy. 3. Mild mitral regurgitation. 4. Mild tricuspid regurgitation. 5. Trace pulmonic regurgitation. 6. Pacemaker lead noted. 7. Moderate aortic stenosis. Impression/Plan Impression/Problem List Impression: 81 yo gentleman with extensive multiple comorbidities including CAD s/p CABG, SSS s/p PPM, afib, aortic stenosis, and Diabetes presented with 7 day history of lethargy and NSTEMI. Impression * NSTEMI * Lethargy * CKD Plan * Continue ICU * Continue with ASA/Plavix/NTG/Metoprolol for ACS/Heparin * Consider transitioning off Heparing after 48 hrs * Continue warfarin for afib to maintian INR of 2-3 * In the setting of ischemic cardiomyopathy with Left ventricular dysfunction ( EF<40%), patient may benefit from ACEIs, atleast a low dose. His CKD with creatinine of 1.4 ideally should not preclude him as he is most likely to have mortality benefit rather than worsening CKD. However, his age however might provide a counter argument. Will consult with cardiology regarding this issue. * Awaiting CT head scan results. * Will switch from NPO to carb 2 diet (patient passed bedside eval yesterday), will be careful to minimize aspiration, will hold off oral feeding if patient continues to be lethargic. * Continue accu checks tid &hs * Novolog sliding scale,low dose * Prognosis: poor. * DVT PPX: Addressed by heparin gtts and Coumadin. * Code status: DNR/DNI Problem List: 1. NSTEMI (non-ST elevated myocardial infarction) Pain Ratin Tomorrow's Labs & Rationales: icu bundle bep Plan DVT/Prophylaxis: pharmacological
--- NOTE | 2017-09-06 08:35 | CT SCAN REPORT ---
EXAMINATION: CT HEAD WITHOUT CONTRAST CLINICAL INFORMATION: Neurocognitive decline. COMPARISON: Head CT from 07/14/2017. TECHNIQUE: Contiguous axial imaging was performed from the skull base to vertex without intravenous administration of contrast. DLP: 621.7 mGy-cm FINDINGS: There is no evidence of acute intracranial hemorrhage or territorial infarction. No abnormal mass effect or midline shift is seen. Yanes to white matter differentiation is well preserved. No extra-axial fluid collections are identified. Mild chronic white matter microangiopathic changes are noted and there is moderate diffuse parenchymal volume loss, not significantly changed compared to prior imaging. The osseous structures and soft tissues are normal. The mastoid air cells are well aerated. There is a small retention cyst in the right maxillary sinus. IMPRESSION: No acute intracranial hemorrhage or territorial infarction. Moderate diffuse parenchymal volume loss and mild chronic white matter microangiopathy.
[2017-09-06 10:43] LABS: PTT 82 SEC (25-37)
--- NOTE | 2017-09-06 11:00 | PN- CRCU ---
Subjective HPI/Critical Care Issues: Seen and examined at [facility]. He is sleepy and appears lethargic, but is awoken by verbal stimuli. He had just returned from a CT head scan. He denies any chest pain,palpitation or shortness of breath. No acute o//n event reported by nursing staff or second chef. His INR is 2.37 which is therapeutic. Objective Current Medications: Current Medications Sig/Maribel Start time Last Medication Dose Route Stop Time Status Admin Acetaminophen 1,000 MG Q6H PRN 09/04 194 AC N/A 1 UNIT IV Aspirin Buffered 325 MG QAM 09/06 0900 AC 09/06 PO 1012 Aspirin Buffered 81 MG QAM 09/05 09 DC 09/05 PO 0900 Atorvastatin Calcium 40 MG 1700 09/05 1700 AC 09/05 PO 1648 Clopidogrel Bisulfate 75 MG DAILY 09/06 899 AC 09/06 PO 1012 Docusate Sodium 100 MG BID 09/06 899 AC 09/06 PO 1013 Heparin Sodium 2,520 UNIT BOLUS ONE 09/06 0400 DC 09/06 (Porcine) IV 09/06 0401 0425 Heparin Sodium 25,000 UNIT Q24H 09/04 1845 AC 09/05 (Porcine) IV 2210 Sodium Chloride 500 ML Insulin Aspart 0 TIDAC 09/06 1200 AC SC Insulin Human Regular 0 Q6 09/04 2359 DC 09/05 SC 2317 Metoprolol Tartrate 25 MG BID 09/04 2100 AC 09/06 PO 1012 Morphine Sulfate 2 MG Q4P PRN 09/04 194 AC IV Nitroglycerin 0.5 GM Q6 09/04 2359 AC 09/06 TOP 0614 Polyethylene Glycol 17 GM DAILY 09/06 09 AC 09/06 PO 1013 Warfarin Sodium 4 MG COUMADIN 1700 ONE 09/06 1700 AC PO 09/06 1701 Warfarin Sodium 4 MG COUMADIN 1700 ONE 09/05 1845 DC 09/05 PO 09/05 1846 2049 Vital Signs & I&O Last 24 Hrs of Vitals and I&O: Vital Signs Date Time Temp Pulse Resp B/P B/P Pulse O2 O2 Flow FiO2 Mean Ox Delivery Rate 09/06 1012 147/68 09/07 799 97.8 76 16 130/72 99 Nasal 2.0L Cannula 09/07 799 99 Nasal 2.0L Cannula 09/06 0400 99 Nasal 3.0L Cannula 09/06 0000 98 Nasal 3.0L Cannula 09/06 0000 97.1 67 17 128/54 98 Nasal 3.0L Cannula 09/05 2048 73 20 159/76 09/06 1999 100 Nasal 3.0L Cannula 09/05 1600 98.3 62 20 124/68 96 Nasal 3.0L Cannula 09/05 1400 96 Nasal 3.0L Cannula Intake & Output 09/06 0800 09/06 0000 Intake Total 156.2 292.2 Output Total 250 250 Balance -93.8 42.2 Intake, IV 156.2 122.2 Intake, Oral 170 Number 1 1 Bowel Movements Output, Urine 250 250 Patient 182 lb Weight Weight Bed scale Measurement Method Laboratory Tests 09/06 09/06 09/06 1000 0312 0312 Chemistry Sodium (137 - 145 mmol/L) 147 H Potassium (3.5 - 5.1 mmol/L) 4.0 Chloride (98 - 107 mmol/L) 113 H Carbon Dioxide (22 - 30 mmol/L) 24 Anion Gap (5 - 16) 11 BUN (9 - 20 mg/dL) 46 H Creatinine (0.7 - 1.2 mg/dL) 1.4 H Estimated GFR (>60 ml/min) 49 L Glucose (65 - 99 mg/dL) 121 H Calcium (8.4 - 10.2 mg/dL) 9.3 Phosphorus (2.5 - 4.5 mg/dL) 2.4 L Magnesium (1.6 - 2.3 mg/dL) 2.5 H Total Bilirubin (0.2 - 1.3 mg/dL) 1.8 H AST (17 - 59 U/L) 71 H ALT (21 - 72 U/L) 47 Troponin I (<0.11 ng/ml) 8.25 *H Albumin (3.5 - 5.0 g/dL) 3.1 L Coagulation PT (9.4 - 12.5 SEC) 26.1 H INR (0.90 - 1.17) 2.37 H APTT (25 - 37 SEC) 82 H 52 H D-Dimer High Sensitivty (0 - 243 ng/ml) 262 H Hematology CBC w Diff NO MAN DIFF REQ WBC (4.8 - 10.8 /CUMM) 8.7 RBC (4.70 - 6.10 /CUMM) 3.35 L Hgb (14.0 - 18.0 G/DL) 10.0 L Hct (42 - 52 %) 29.6 L MCV (80.0 - 94.0 FL) 88.3 MCH (27.0 - 31.0 PG) 29.9 MCHC (33.0 - 37.0 G/DL) 33.9 RDW (11.5 - 14.5 %) 15.5 H Plt Count (130 - 400 /CUMM) 172 MPV (7.4 - 10.4 FL) 7.7 Gran % (42.2 - 75.2 %) 77.5 H Lymphocytes % (20.5 - 51.1 %) 12.9 L Monocytes % (1.7 - 9.3 %) 8.4 Eosinophils % (0 - 5 %) 0.5 Basophils % (0.0 - 2.0 %) 0.7 Absolute Granulocytes (1.4 - 6.5 /CUMM) 6.7 H Absolute Lymphocytes (1.2 - 3.4 /CUMM) 1.1 L Absolute Monocytes (0.10 - 0.60 /CUMM) 0.7 H Absolute Eosinophils (0.0 - 0.7 /CUMM) 0 Absolute Basophils (0.0 - 0.2 /CUMM) 0.1 09/05 1615 1520 1119 0815 Blood Gas pH (7.35 - 7.45 PH) 7.46 H pCO2 (35 - 45 TORR) 33 L pO2 (80 - 100 TORR) 86 HCO3 (21 - 28 MEQ/L) 23 ABG O2 Sat (Measured) (>96.0 %) 96.0 Carboxyhemoglobin (1.5 - 5.0 %) 0.1 L O2 Concentration % 2L Temperature (97.0 - 100.0 FARH) 98.6 O2 Delivery Method NC Chemistry Troponin I (<0.11 ng/ml) 13.60 *H Coagulation PT (9.4 - 12.5 SEC) 23.9 H INR (0.90 - 1.17) 2.18 H APTT (25 - 37 SEC) 68 H 96 H Miscellaneous Phlebotomy Draw Site RIGHT RADIAL 09/05 09/05 09/05 0628 0204 0018 Chemistry Sodium (137 - 145 mmol/L) 146 H Potassium (3.5 - 5.1 mmol/L) 4.7 Chloride (98 - 107 mmol/L) 112 H Carbon Dioxide (22 - 30 mmol/L) 23 Anion Gap (5 - 16) 11 BUN (9 - 20 mg/dL) 45 H Creatinine (0.7 - 1.2 mg/dL) 1.5 H Estimated GFR (>60 ml/min) 45 L Glucose (65 - 99 mg/dL) 215 H Calcium (8.4 - 10.2 mg/dL) 10.3 H Phosphorus (2.5 - 4.5 mg/dL) 2.7 Magnesium (1.6 - 2.3 mg/dL) 3.3 H Total Bilirubin (0.2 - 1.3 mg/dL) 1.9 H AST (17 - 59 U/L) 98 H ALT (21 - 72 U/L) 42 Troponin I (<0.11 ng/ml) 14.40 *H 14.40 *H Albumin (3.5 - 5.0 g/dL) 3.6 Vitamin B12 (239 - 931 pg/mL) 521 Coagulation APTT (25 - 37 SEC) 52 H Hematology CBC w Diff NO MAN DIFF REQ WBC (4.8 - 10.8 /CUMM) 10.8 RBC (4.70 - 6.10 /CUMM) 3.73 L Hgb (14.0 - 18.0 G/DL) 11.2 L Hct (42 - 52 %) 32.8 L MCV (80.0 - 94.0 FL) 88.0 MCH (27.0 - 31.0 PG) 30.0 MCHC (33.0 - 37.0 G/DL) 34.1 RDW (11.5 - 14.5 %) 14.9 H Plt Count (130 - 400 /CUMM) 187 MPV (7.4 - 10.4 FL) 7.7 Gran % (42.2 - 75.2 %) 87.8 H Lymphocytes % (20.5 - 51.1 %) 6.1 L Monocytes % (1.7 - 9.3 %) 5.8 Eosinophils % (0 - 5 %) 0 Basophils % (0.0 - 2.0 %) 0.3 Absolute Granulocytes (1.4 - 6.5 /CUMM) 9.5 H Absolute Lymphocytes (1.2 - 3.4 /CUMM) 0.7 L Absolute Monocytes (0.10 - 0.60 /CUMM) 0.6 Absolute Eosinophils (0.0 - 0.7 /CUMM) 0 Absolute Basophils (0.0 - 0.2 /CUMM) 0 09/04 09/04 1595 1847 Chemistry Troponin I (<0.11 ng/ml) Cancelled 13.70 *H 09/04 1453 Chemistry Sodium (137 - 145 mmol/L) 146 H Potassium (3.5 - 5.1 mmol/L) 4.8 Chloride (98 - 107 mmol/L) 110 H Carbon Dioxide (22 - 30 mmol/L) 24 Anion Gap (5 - 16) 12 BUN (9 - 20 mg/dL) 47 H Creatinine (0.7 - 1.2 mg/dL) 1.8 H Estimated GFR (>60 ml/min) 36 L BUN/Creatinine Ratio (7 - 25 %) 26.1 H Glucose (65 - 99 mg/dL) 245 H Calcium (8.4 - 10.2 mg/dL) 10.2 Total Bilirubin (0.2 - 1.3 mg/dL) 1.6 H AST (17 - 59 U/L) 52 ALT (21 - 72 U/L) 36 Alkaline Phosphatase (< 127 U/L) 57 Troponin I (<0.11 ng/ml) 8.31 *H [id number] Pept (<125 pg/mL) 01211 H Total Protein (6.3 - 8.2 g/dL) 7.0 Albumin (3.5 - 5.0 g/dL) 3.7 Globulin (1.9 - 4.2 gm/dL) 3.3 Albumin/Globulin Ratio (1.1 - 2.2 %) 1.1 TSH (0.270 - 4.200 uIU/mL) 1.540 Coagulation PT (9.4 - 12.5 SEC) 18.5 H INR (0.90 - 1.17) 1.69 H APTT (25 - 37 SEC) 34 Hematology CBC w Diff MAN DIFF ORDERED WBC (4.8 - 10.8 /CUMM) 9.2 RBC (4.70 - 6.10 /CUMM) 3.76 L Hgb (14.0 - 18.0 G/DL) 11.1 L Hct (42 - 52 %) 33.2 L MCV (80.0 - 94.0 FL) 88.3 MCH (27.0 - 31.0 PG) 29.6 MCHC (33.0 - 37.0 G/DL) 33.5 RDW (11.5 - 14.5 %) 15.1 H Plt Count (130 - 400 /CUMM) 185 MPV (7.4 - 10.4 FL) 7.9 Gran % (42.2 - 75.2 %) 84.4 H Lymphocytes % (20.5 - 51.1 %) 7.7 L Monocytes % (1.7 - 9.3 %) 7.8 Eosinophils % (0 - 5 %) 0 Basophils % (0.0 - 2.0 %) 0.1 Absolute Granulocytes (1.4 - 6.5 /CUMM) 7.8 H Absolute Lymphocytes (1.2 - 3.4 /CUMM) 0.7 L Absolute Monocytes (0.10 - 0.60 /CUMM) 0.7 H Absolute Eosinophils (0.0 - 0.7 /CUMM) 0 Absolute Basophils (0.0 - 0.2 /CUMM) 0 Platelet Estimate (ADEQUATE) VERIFIED BY SMEAR Polychromasia 1+ Poikilocytosis 1+ Basophilic Stippling SLIGHT Anisocytosis 1+ 09/04 141 Urines Urine Color (YEL,AMB,STR) YEL Urine Clarity (CLEAR) CLEAR Urine pH (5.0 - 8.0) 6.0 Ur Specific [place] (1.001 - 1.035) >= 1.030 Urine Protein (NEG,<30 MG/DL) 100 H Urine Ketones (NEG) TRACE H Urine Nitrite (NEG) NEG Urine Bilirubin (NEG) NEG@ICTO Urine Urobilinogen (0.1 - 1.0 EU/dl) 0.2 Ur Leukocyte Esterase (NEG) NEG Ur Microscopic SEDIMENT EXAMINED Urine RBC (0 - 5 /HPF) 5-10 H Ur Epithelial Cells (NONE,FEW) OCCAS Urine Hemoglobin (NEG) SMALL H Urine Glucose (N MG/DL) 100 H Microbiology Date/Time Procedure - Status Source Growth 09/05 722 Urine Culture - CAN URINE ROUT Cancelled: Cancelled via OE: Error 09/04 2114 Urine Culture - COMP URINE ROUT 09/04 2114 Surveillance Culture - COMP UPPER RESP 09/04 2114 Surveillance Culture - COMP GI 07/06 1415 Urine Culture - RES URINE ROUT Impression/Plan Impression/Plan Impression/Plan: General: WD/WN male in NAD; awake and slowly responsive with single work answers to questions HEENT: NC/AT, PERRL, EOMI Neck: no JVD, left carotid bruit Heart: irregularly irregular with 3/6 systolic murmur at the LLSB and 2/6 systolic murmur at the apex and RUSB Lungs: crackles at the bases bilaterally Abdomen: soft, mildly tender, +ve bowel sounds Extremities: no edema This patient is an 81-year-old white male with extensive past medical history as noted above. The patient presents with a 7 day history of increasing weakness and ambulation. He is a poor historian and no family members were available to review. Now in the ICU with elevated trop Assessment and plan NSTEMI with sig elevated trop and Dr Wilkinson aware pt now on Heparin drip, Nitropaste, Aspirin, Beta blockers Recent lithortripsy with ureter stent DM Dementia with parkinsonian features CKD PLAN Cont current meds Cardio to follow Heparin and other meds Antiplatelet rx Cont statin Echo Accucheks Will follow
[2017-09-06 12:00] VITALS: BP 118/58
--- NOTE | 2017-09-06 14:14 | PN- Cardiology ---
Subjective Subjective: * Patient is much more alert and verbal and denies any chest discomfort or shorntess of breath. * creatinine is 1.4 * troponin has trended down Objective Vital Signs and I&Os Vital Signs Date Time Temp Pulse Resp B/P B/P Pulse O2 O2 Flow FiO2 Mean Ox Delivery Rate 09/06 1200 94 Room Air 09/06 1200 98.1 66 14 118/58 93 Room Air 09/06 1012 147/68 09/06 08 97.8 76 16 130/72 99 Nasal 2.0L Cannula 09/06 0800 99 Nasal 2.0L Cannula 09/06 0400 99 Nasal 3.0L Cannula 09/06 0000 98 Nasal 3.0L Cannula 09/06 0000 97.1 67 17 128/54 98 Nasal 3.0L Cannula 09/05 2048 73 20 159/76 09/05 2000 100 Nasal 3.0L Cannula 09/05 1600 98.3 62 20 124/68 96 Nasal 3.0L Cannula Intake & Output 09/06 1600 09/06 0809/06 0000 09/05 1600 09/05 0809/05 0000 Intake Total 156.2 292.2 201.8 152.6 40.2 Output Total 250 250 400 360 Balance -93.8 42.2 201.8 -247.4 -319.8 Intake, IV 156.2 122.2 151.8 152.6 40.2 Intake, Oral 170 50 0 0 Number 1 1 0 2 1 Bowel Movements Output, Urine 250 250 400 360 Patient 182 lb 185 lb Weight Weight Bed scale Bed scale Measurement Method Physical Exam: General: WD/WN male in NAD; awake and responsive HEENT: NC/AT, PERRL, EOMI Neck: no JVD, left carotid bruit Heart: irregularly irregular with 3/6 systolic murmur at the LLSB and 2/6 systolic murmur at the apex and RUSB Lungs: crackles at the bases bilaterally Abdomen: soft, mildly tender, +ve bowel sounds Extremities: no edema Assessment/Plan Assessment/Plan * This patient appears to have progression of baseline dementia or possibly undiagnosed Parkinson's disease. He does appear better today than yesterday however. He has ruled in for a NSTEMI, which is the second such event in 6 months. In discussion with the patient's niece, Maciej Bedoya, who is the power of deputy county attorney, the patient will be a DNR and invasive treatment will be deferred. We will reconsider invasive therapy if the patient has active chest discomfort. * Continue aspirin 325mg daily, Plavix 75mg daily and IV heparin. * In consideration of this patient's low EF her should be on afterload reduction. This is typically accomplished with an ACEI or ARB, both of which are reasonable to use at his current creatinine. In this case however, the patient also demonstrated an elevated potassium. I would therefore avoid an ACEI or ARB and begin hydralazine 20mg TID which, in combination with NTG, typically gives the same morbidity and mortality benefit as an ACEI. * Continue a statin and Metoprolol 25mg BID. Change NTG to a patch at 0.4mg/hr for 12 hours daily. * Neurology to follow up as an outpatient. No evidence of a CVA. Continue coumadin to maintain an INR of 2-2.5. Continue telemetry? Yes
[2017-09-06 16:00] VITALS: BP 114/58
[2017-09-06 22:34] LABS: PTT 63 SEC (25-37)
[2017-09-07] VITALS: BP 146/64
[2017-09-07 05:12] LABS: ABSOLUTE BASOPHIL COUNT 0.1 /CUMM (0.0-0.2); ABSOLUTE EOSINOPHIL COUNT 0.1 /CUMM (0.0-0.7); ABSOLUTE GRANULOCYTE CT 6.1 /CUMM (1.4-6.5); ABSOLUTE LYMPH COUNT 0.9 /CUMM (1.2-3.4); ABSOLUTE MONOCYTE COUNT 0.7 /CUMM (0.10-0.60); BASOPHIL % 0.7 % (0.0-2.0); EOSINOPHIL % 1.1 % (0-5); GRANULOCYTE % 78.2 % (42.2-75.2); HEMATOCRIT 29.5 % (42-52); MEAN CORPUSCULAR HGB 29.6 PG (27.0-31.0); MEAN CORPUSCULAR HGB CONC 33.8 G/DL (33.0-37.0); MEAN CORPUSCULAR VOLUME 87.8 FL (80.0-94.0); MEAN PLATELET VOLUME 7.5 FL (7.4-10.4); PLATELET COUNT 205 /CUMM (130-400); RBC DISTRIBUTION WIDTH 15.1 % (11.5-14.5); RED BLOOD CELL CT 3.36 /CUMM (4.70-6.10); WHITE BLOOD CELL COUNT 7.8 /CUMM (4.8-10.8)
[2017-09-07 05:18] LABS: PT 33.3 SEC (9.4-12.5)
--- NOTE | 2017-09-07 07:28 | PN- Resident CRCU ---
Impression/Plan Plan DVT/Prophylaxis: pharmacological
--- NOTE | 2017-09-07 07:39 | PN- Resident CRCU ---
Subjective HPI/CRCU Issues: NSTEMI Lethargy Mild Hypernatremia Dementia CKD 24 Hour Events: patient was complaining of some difficulty voiding after having his dela cruz catheter recently discontinued, post void residual bladder scan showed > 800cc and Dela Cruz catheter was replaced this morning obtaining 850cc of urine. Patient's blood pressure dropped from 150 systolic to 90 from laying to sitting in the chair, nitropatch discontinued, antihypertensives held for now Objective Vital Signs & I&O Last 8 Hrs of Vitals and I&O: Temp 97.1 HR 92 BP 90/40 RR 22 SpO2 96 RA Exam General Appearance: well developed/nourished, no apparent distress, alert, awake , comfortable, tongue tremulous Cardiovascular: systolic murmur, irregularly irregular Gastrointestinal: normal bowel sounds, soft, non-tender Extremities: normal inspection, normal capillary refill, normal range of motion, no edema Current Medications: Current Medications Sig/Maribel Start time Last Medication Dose Route Stop Time Status Admin Acetaminophen 1,000 MG Q6H PRN 09/04 1945 AC N/A 1 UNIT IV Aspirin Buffered 325 MG QAM 09/06 899 AC 09/07 PO 0907 Atorvastatin Calcium 40 MG 1700 09/05 1700 AC 09/06 PO 1651 Clopidogrel Bisulfate 75 MG DAILY 09/06 09 AC 09/07 PO 0907 Docusate Sodium 100 MG BID 09/06 09 AC 09/07 PO 0907 Heparin Sodium 25,000 UNIT Q24H 09/04 1845 DC 09/05 (Porcine) IV 2210 Sodium Chloride 500 ML Hydralazine HCl 20 MG TID 09/06 1416 AC 09/06 PO 2141 Insulin Aspart 0 TIDAC 09/06 1200 AC 09/07 SC 0900 Metoprolol Tartrate 25 MG BID 09/04 2100 AC 09/06 PO 2141 Morphine Sulfate 2 MG Q4P PRN 09/04 1945 IV Nitroglycerin 0.4 MG DAILY 09/06 1416 AC 09/06 TOP 1652 Nitroglycerin 0.5 GM Q6 09/04 2359 DC 09/06 TOP 1150 Polyethylene Glycol 17 GM DAILY 09/06 0900 AC 09/07 PO 0907 Warfarin Sodium 4 MG COUMADIN 1700 ONE 09/06 1700 DC 09/06 PO 09/06 1701 1742 CXR Findings: Lungs and pleural spaces: There is hazy opacity to both lungs suspicious for mild edema no focal opacity. Sternotomy wires and dual-lead pacer again noted unchanged. Cardiac silhouette and pulmonary vascularity are normal. Aorta unremarkable. CT Scan Findings: IMPRESSION: No acute intracranial hemorrhage or territorial infarction. Moderate diffuse parenchymal volume loss and mild chronic white matter microangiopathy. ECHO Findings: CONCLUSIONS 1. Moderate to severely decreased EF of 25-30%. 2. Moderate left ventricular hypertrophy. 3. Mild mitral regurgitation. 4. Mild tricuspid regurgitation. 5. Trace pulmonic regurgitation. 6. Pacemaker lead noted. 7. Moderate aortic stenosis. Impression/Plan Impression/Problem List Impression: 81 year old male with past medical history significant for CAD s/p CABG, SSS s/ p PPM, atrial fibrillation on coumadin, aortic stenosis, and diabetes presented with a week of increasing lethargy and was found to have a significantly elevated troponin consistent with NSTEMI. Elevated troponin from type II NSTEMI History of CAD s/p CABG Ischemic cardiomyopathy HFrEF Continue aspirin and plavix Continue metoprolol. 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 Supratherapeutic INR 2. NSTEMI (non-ST elevated myocardial infarction) 3. Elevated troponin Pain Ratin Tomorrow's Labs & Rationales: cbc, icu, pt/inr Plan DVT/Prophylaxis: pharmacological
[2017-09-07 08:00] VITALS: BP 150/80
--- NOTE | 2017-09-07 09:32 | PN- CRCU ---
Subjective HPI/Critical Care Issues: patient was complaining of some difficulty voiding after having his dela cruz catheter recently discontinued, post void residual bladder scan showed > 800cc and Dela Cruz catheter was replaced this morning obtaining 850cc of urine. Patient's blood pressure dropped from 150 systolic to 90 from laying to sitting in the chair, nitropatch discontinued, antihypertensives held for now Objective Current Medications: Current Medications Sig/Maribel Start time Last Medication Dose Route Stop Time Status Admin Acetaminophen 1,000 MG Q6H PRN 09/04 194 AC N/A 1 UNIT IV Aspirin Buffered 325 MG QAM 09/06 09 AC 09/07 PO 0907 Atorvastatin Calcium 40 MG 1700 09/05 1700 AC 09/06 PO 1651 Clopidogrel Bisulfate 75 MG DAILY 09/06 899 AC 09/07 PO 0907 Docusate Sodium 100 MG BID 09/06 09 AC 09/07 PO 0907 Heparin Sodium 25,000 UNIT Q24H / 1845 DC 09/05 (Porcine) IV 2210 Sodium Chloride 500 ML Hydralazine HCl 20 MG TID 09/06 1416 AC 09/06 PO 2141 Insulin Aspart 0 TIDAC 09/06 1200 AC 09/07 SC 0900 Metoprolol Tartrate 25 MG BID 09/04 2100 AC 09/06 PO 2141 Morphine Sulfate 2 MG Q4P PRN 09/04 1945 IV Nitroglycerin 0.4 MG DAILY 09/06 1416 AC 09/06 TOP 1652 Nitroglycerin 0.5 GM Q6 / 2359 DC 09/06 TOP 1150 Polyethylene Glycol 17 GM DAILY 09/06 09 AC 09/07 PO 0907 Warfarin Sodium 4 MG COUMADIN 1700 ONE 09/06 1700 DC 09/06 PO 09/06 1701 1742 Vital Signs & I&O Last 24 Hrs of Vitals and I&O: Vital Signs Date Time Temp Pulse Resp B/P B/P Pulse O2 O2 Flow FiO2 Mean Ox Delivery Rate 09/07 0809 92 90/40 09/07 0909 85 90/40 09/07 08 96 Room Air Room Air 09/07 0800 97.1 84 22 150/80 93 Room Air Room Air / 0000 98.9 63 22 146/64 97 Room Air 09/06 1652 66 116/48 07/08 1600 98 Room Air / 1600 97.0 62 9 114/58 97 Room Air 09/06 1200 94 Room Air 09/06 1200 98.1 66 14 118/58 93 Room Air 09/06 1012 147/68 Intake & Output 09/07 1600 09/07 0800 07 0000 Intake Total 373 613 Output Total 400 250 Balance -27 363 Intake, IV 173 173 Intake, Oral 200 440 Number 2 3 Bowel Movements Output, Urine 400 250 Laboratory Tests 09/07 09/06 09/06 09/06 0500 2145 1000 0312 Chemistry Sodium (137 - 145 mmol/L) 142 Potassium (3.5 - 5.1 mmol/L) 4.1 Chloride (98 - 107 mmol/L) 107 Carbon Dioxide (22 - 30 mmol/L) 26 Anion Gap (5 - 16) 9 BUN (9 - 20 mg/dL) 41 H Creatinine (0.7 - 1.2 mg/dL) 1.3 H Estimated GFR (>60 ml/min) 53 L Glucose (65 - 99 mg/dL) 238 H Calcium (8.4 - 10.2 mg/dL) 9.1 Phosphorus (2.5 - 4.5 mg/dL) 2.4 L Magnesium (1.6 - 2.3 mg/dL) 2.3 Total Bilirubin (0.2 - 1.3 mg/dL) 1.7 H AST (17 - 59 U/L) 43 ALT (21 - 72 U/L) 48 Albumin (3.5 - 5.0 g/dL) 2.8 L Coagulation PT (9.4 - 12.5 SEC) 33.3 H 26.1 H INR (0.90 - 1.17) 3.02 H 2.37 H APTT (25 - 37 SEC) 63 H 82 H D-Dimer High Sensitivty (0 - 243 ng/ml) 262 H Hematology CBC w Diff NO MAN DIFF REQ WBC (4.8 - 10.8 /CUMM) 7.8 RBC (4.70 - 6.10 /CUMM) 3.36 L Hgb (14.0 - 18.0 G/DL) 10.0 L Hct (42 - 52 %) 29.5 L MCV (80.0 - 94.0 FL) 87.8 MCH (27.0 - 31.0 PG) 29.6 MCHC (33.0 - 37.0 G/DL) 33.8 RDW (11.5 - 14.5 %) 15.1 H Plt Count (130 - 400 /CUMM) 205 MPV (7.4 - 10.4 FL) 7.5 Gran % (42.2 - 75.2 %) 78.2 H Lymphocytes % (20.5 - 51.1 %) 11.3 L Monocytes % (1.7 - 9.3 %) 8.7 Eosinophils % (0 - 5 %) 1.1 Basophils % (0.0 - 2.0 %) 0.7 Absolute Granulocytes (1.4 - 6.5 /CUMM) 6.1 Absolute Lymphocytes (1.2 - 3.4 /CUMM) 0.9 L Absolute Monocytes (0.10 - 0.60 /CUMM) 0.7 H Absolute Eosinophils (0.0 - 0.7 /CUMM) 0.1 Absolute Basophils (0.0 - 0.2 /CUMM) 0.1 09/06 Chemistry Sodium (137 - 145 mmol/L) 147 H Potassium (3.5 - 5.1 mmol/L) 4.0 Chloride (98 - 107 mmol/L) 113 H Carbon Dioxide (22 - 30 mmol/L) 24 Anion Gap (5 - 16) 11 BUN (9 - 20 mg/dL) 46 H Creatinine (0.7 - 1.2 mg/dL) 1.4 H Estimated GFR (>60 ml/min) 49 L Glucose (65 - 99 mg/dL) 121 H Calcium (8.4 - 10.2 mg/dL) 9.3 Phosphorus (2.5 - 4.5 mg/dL) 2.4 L Magnesium (1.6 - 2.3 mg/dL) 2.5 H Total Bilirubin (0.2 - 1.3 mg/dL) 1.8 H AST (17 - 59 U/L) 71 H ALT (21 - 72 U/L) 47 Troponin I (<0.11 ng/ml) 8.25 *H Albumin (3.5 - 5.0 g/dL) 3.1 L Coagulation PT (9.4 - 12.5 SEC) 23.9 H INR (0.90 - 1.17) 2.18 H APTT (25 - 37 SEC) 52 H Hematology CBC w Diff NO MAN DIFF REQ WBC (4.8 - 10.8 /CUMM) 8.7 RBC (4.70 - 6.10 /CUMM) 3.35 L Hgb (14.0 - 18.0 G/DL) 10.0 L Hct (42 - 52 %) 29.6 L MCV (80.0 - 94.0 FL) 88.3 MCH (27.0 - 31.0 PG) 29.9 MCHC (33.0 - 37.0 G/DL) 33.9 RDW (11.5 - 14.5 %) 15.5 H Plt Count (130 - 400 /CUMM) 172 MPV (7.4 - 10.4 FL) 7.7 Gran % (42.2 - 75.2 %) 77.5 H Lymphocytes % (20.5 - 51.1 %) 12.9 L Monocytes % (1.7 - 9.3 %) 8.4 Eosinophils % (0 - 5 %) 0.5 Basophils % (0.0 - 2.0 %) 0.7 Absolute Granulocytes (1.4 - 6.5 /CUMM) 6.7 H Absolute Lymphocytes (1.2 - 3.4 /CUMM) 1.1 L Absolute Monocytes (0.10 - 0.60 /CUMM) 0.7 H Absolute Eosinophils (0.0 - 0.7 /CUMM) 0 Absolute Basophils (0.0 - 0.2 /CUMM) 0.1 09/05 09/05 09/05 1615 1520 1119 Blood Gas pH (7.35 - 7.45 PH) 7.46 H pCO2 (35 - 45 TORR) 33 L pO2 (80 - 100 TORR) 86 HCO3 (21 - 28 MEQ/L) 23 ABG O2 Sat (Measured) (>96.0 %) 96.0 Carboxyhemoglobin (1.5 - 5.0 %) 0.1 L O2 Concentration % 2L Temperature (97.0 - 100.0 FARH) 98.6 O2 Delivery Method NC Chemistry Troponin I (<0.11 ng/ml) 13.60 *H Coagulation APTT (25 - 37 SEC) 68 H Miscellaneous Phlebotomy Draw Site RIGHT RADIAL Microbiology Date/Time Procedure - Status Source Growth 09/07 828 Urine Culture - ORD URINE ROUT 09/05 722 Urine Culture - CAN URINE ROUT Cancelled: Cancelled via OE: Error 09/04 2114 Urine Culture - COMP URINE ROUT 09/04 2114 Surveillance Culture - COMP UPPER RESP 09/04 2114 Surveillance Culture - COMP GI 09/04 1415 Urine Culture - COMP URINE ROUT Impression/Plan Impression/Plan Impression/Plan: General: WD/WN male in NAD; awake and slowly responsive with single work answers to questions HEENT: NC/AT, PERRL, EOMI Neck: no JVD, left carotid bruit Heart: irregularly irregular with 3/6 systolic murmur at the LLSB and 2/6 systolic murmur at the apex and RUSB Lungs: crackles at the bases bilaterally Abdomen: soft, mildly tender, +ve bowel sounds Extremities: no edema CONCLUSIONS 1. Moderate to severely decreased EF of 25-30%. 2. Moderate left ventricular hypertrophy. 3. Mild mitral regurgitation. 4. Mild tricuspid regurgitation. 5. Trace pulmonic regurgitation. 6. Pacemaker lead noted. 7. Moderate aortic stenosis. This patient is an 81-year-old white male with extensive past medical history as noted above. The patient presents with a 7 day history of increasing weakness and ambulation. He is a poor historian and no family members were available to review. Now in the ICU with elevated trop Assessment and plan NSTEMI with sig elevated trop and Dr Wilkinson following and on max med rx Severe ischemic cardiomyopathy with low ef Mod Aortic stenosis Recent lithortripsy with ureter stent DM Dementia with parkinsonian features CKD PLAN Cont current meds Cardio to follow Antiplatelet rx Cont statin Echo Accucheks Will follow To tele if ok with cardio
[2017-09-07 16:00] VITALS: BP 96/48
--- NOTE | 2017-09-07 16:32 | PN- Cardiology ---
Subjective Subjective: * No complaints of chest discomfort, shortness of breath, lightheadedness or palpitations. * BP was transiently low earlier today. * atrial fibrillation with controlled heart rate. * creatinine improved to 1.3 * improved troponin * INR is 3 Objective Vital Signs and I&Os Vital Signs Date Time Temp Pulse Resp B/P B/P Pulse O2 O2 Flow FiO2 Mean Ox Delivery Rate 09/07 1421 Room Air Room Air 09/07 908 92 90/40 09/07 0809 85 90/40 09/08 799 96 Room Air Room Air 09/08 799 97.1 84 22 150/80 93 Room Air Room Air 09/07 0000 98.9 63 22 146/64 97 Room Air 09/06 1652 66 116/48 Intake & Output 09/07 1600 09/07 0000 09/06 1600 09/06 0000 Intake Total 475 373 613 773 156.2 292.2 Output Total 900 400 250 170 250 250 Balance -425 -27 363 603 -93.8 42.2 Intake, IV 25 173 173 173 156.2 122.2 Intake, Oral 450 200 440 600 170 Number 1 2 3 2 1 1 Bowel Movements Output, Urine 900 400 250 170 250 250 Patient 182 lb 182 lb Weight Weight Bed scale Measurement Method Physical Exam: General: WD/WN male in NAD; awake and responsive HEENT: NC/AT, PERRL, EOMI Neck: no JVD, left carotid bruit Heart: irregularly irregular with 3/6 systolic murmur at the LLSB and 2/6 systolic murmur at the apex and RUSB Lungs: clear bilaterally Abdomen: soft, mildly tender, +ve bowel sounds Extremities: no edema Assessment/Plan Assessment/Plan * This patient is much more lucid althought there is some baseline dementia. He has ruled in for a NSTEMI, which is the second such event in 6 months. In discussion with the patient's niece, Maciej Bedoya, who is the power of tax associate attorney, the patient will be a DNR and invasive treatment will be deferred. We will reconsider invasive therapy if his stress test shows evidence of a large or life threatening region of ischemia. * Continue aspirin 325mg daily and Plavix 75mg daily. No heparin. * In consideration of this patient's low EF her should be on afterload reduction. This is typically accomplished with an ACEI or ARB, both of which are reasonable to use at his current creatinine. In this case however, the patient also demonstrated an elevated potassium. I would therefore avoid an ACEI or ARB and begin hydralazine 20mg TID which, in combination with NTG, typically gives the same morbidity and mortality benefit as an ACEI. * Continue a statin. Continue Metoprolol 25mg BID with holding parameters and change NTG to a patch at 0.2mg/hr for 12 hours daily also with holding parameters. If medications require consistent holding then we will stop or decrease the dose as appropriate. * Neurology to follow up as an outpatient. No evidence of a CVA. * Continue coumadin to maintain an INR of 2-2.5. Continue telemetry? Yes
[2017-09-07 22:53] VITALS: BP 138/74
[2017-09-08 04:16] LABS: PT 42.6 SEC (9.4-12.5)
--- NOTE | 2017-09-08 07:27 | PN- Housestaff ---
Subjective Follow-up For: NSTEMI Lethargy Mild Hypernatremia Dementia CKD Subjective: NPO for nuclear stress test today no overnight events creatinine improved blood pressure improved from yesterday OOB to chair today Review of Systems Constitutional: Reports: see HPI. Objective Last 24 Hrs of Vital Signs/I&O Vital Signs Date Time Temp Pulse Resp B/P B/P Pulse O2 O2 Flow FiO2 Mean Ox Delivery Rate 09/08 0000 95 Room Air 09/07 2253 97.0 71 21 138/74 95 Room Air 09/07 2038 71 128/58 09/07 2038 71 20 128/58 09/07 1600 93 Room Air Room Air 09/07 1600 96.7 79 20 96/48 96 Room Air Room Air 09/07 1421 Room Air Room Air 09/07 0909 92 90/40 09/07 0909 85 90/40 Intake & Output 09/08 1600 09/08 0800 09/08 0000 Intake Total 0 240 Output Total 450 400 Balance -450 -160 Intake, Oral 0 240 Number 0 0 Bowel Movements Output, Urine 450 400 Physical Exam General Appearance: Alert, Cooperative, No Acute Distress Cardiovascular: 3/6 systolic murmur Lungs: Clear to Auscultation, Normal Air Movement Abdomen: Normal Bowel Sounds, Soft, No Tenderness, No Masses Extremities: No Clubbing, No Cyanosis, No Edema, Normal Pulses Current Medications: Current Medications Sig/Maribel Start time Last Medication Dose Route Stop Time Status Admin Acetaminophen 1,000 MG Q6H PRN 09/04 1945 AC N/A 1 UNIT IV Aspirin Buffered 325 MG QAM 09/06 899 AC 09/07 PO 0907 Atorvastatin Calcium 40 MG 1700 09/05 1700 AC 09/07 PO 1642 Clopidogrel Bisulfate 75 MG DAILY 09/06 899 AC 09/07 PO 0907 Docusate Sodium 100 MG BID 09/06 0900 AC 09/07 PO 203 Hydralazine HCl 20 MG TID 09/07 2100 AC 09/07 PO 203 Hydralazine HCl 20 MG TID 09/06 1416 DC 09/06 PO 2141 Insulin Aspart 0 TIDAC/HS 09/07 2100 DC 09/07 SC 07 0000 2037 Insulin Aspart 0 TIDAC 09/06 1200 DC 09/07 SC 1643 Insulin Human Regular 0 Q6 09/07 2359 AC 09/08 SC 0000 Metoprolol Tartrate 25 MG BID 09/04 2100 AC 09/07 PO 203 Morphine Sulfate 2 MG Q4P PRN 09/04 194 AC IV Nitroglycerin 0.2 MG DAILY 09/08 09 AC TOP Nitroglycerin 0.4 MG DAILY 09/06 1416 DC 09/06 TOP 1652 Phosphate 250 MG PC AND AT BEDTIME 09/07 1300 DC 09/07 PO 09/07 1801 1644 Polyethylene Glycol 17 GM DAILY 09/06 0900 AC 09/07 PO 0907 Warfarin Sodium 1 MG COUMADIN 1700 ONE 09/07 1700 DC 09/07 PO 09/07 1701 1643 Last 24 Hrs of Lab/Ace Results Last 24 Hrs of Labs/Mics: Laboratory Tests 09/08/17 0322: Anion Gap 11, Estimated GFR 58 L, Glucose 124 H, Calcium 9.2, Phosphorus 3.3, Magnesium 2.3, Total Bilirubin 1.4 H, AST 32, ALT 44, Albumin 3.0 L, PT 42.6 * H, INR 3.86 H 09/07/17 1030: Urinalysis MOD H, Urine Color YEL, Urine Clarity HAZY H, Urine pH 6.0, Ur Specific [place] 1.025, Urine Protein 30 H, Urine Ketones NEG, Urine Nitrite NEG, Urine Bilirubin NEG, Urine Urobilinogen 1.0, Ur Leukocyte Esterase TRACE H , Ur Microscopic SEDIMENT EXAMINED, Urine RBC >75 H, Urine WBC 15-25 H, Ur Epithelial Cells FEW, Urine Bacteria MOD H, Granular Casts 3-5 H, Urine Mucus FEW, Urine Hemoglobin LARGE H, Urine Glucose 500 H 09/07/17 1000: APTT Cancelled Microbiology 09/07 103 URINE ROUT: Urine Culture - RECD Assessment/Plan Assessment: 81 year old male with past medical history significant for CAD s/p CABG, SSS s/ p PPM, atrial fibrillation on coumadin, aortic stenosis, and diabetes presented with a week of increasing lethargy and was found to have a significantly elevated troponin consistent with NSTEMI. Elevated troponin from type II NSTEMI History of CAD s/p CABG Ischemic cardiomyopathy HFrEF Continue aspirin and plavix Continue metoprolol, hydralazine, and nitroglycerin hold for hypotension Heparin gtt stopped Echocardiogram-severe anterior wall hypokinesis, LVEF 25-30% Consider starting ACEi Troponins peaked at 14.4, trended down, asymptomatic Follow up cardiology recommendations NPO for nuclear stress testing today with cardiology Atrial fibrillation on coumadin: INR supratherapeutic today 3.86, hold coumadin Indirect Hyperbilirubinemia without transmitis: Total bilirubin mildly elevated to 1.4, trending down CKD: Creatinine continues to improve 1.2 today 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 Supratherapeutic INR 2. Acute kidney injury 3. Elevated troponin 4. NSTEMI (non-ST elevated myocardial infarction) Pain Ratin Pain Location: n/a Pain Goal: Pain 4 or less Pain Plan: prn Tomorrow's Labs & Rationales: cbc, icu, pt/inr
[2017-09-08 08:00] VITALS: BP 154/72
--- NOTE | 2017-09-08 08:52 | PN- Pulmonary ---
Subjective HPI/Critical Care Issues: Doing ok NPO for nuclear stress test today no overnight events creatinine improved blood pressure improved from yesterday OOB to chair today Review of Systems Constitutional: Reports: see HPI. Objective Current Medications: Current Medications Sig/Maribel Start time Last Medication Dose Route Stop Time Status Admin Acetaminophen 1,000 MG Q6H PRN 09/04 1944 AC N/A 1 UNIT IV Aspirin Buffered 325 MG QAM 09/06 899 AC 09/07 PO 09 Atorvastatin Calcium 40 MG 1700 09/05 1700 AC 09/07 PO 1642 Clopidogrel Bisulfate 75 MG DAILY 09/06 899 AC 09/07 PO 09 Docusate Sodium 100 MG BID 09/06 899 AC 09/07 PO 203 Hydralazine HCl 20 MG TID 09/07 2100 AC 09/07 PO 203 Hydralazine HCl 20 MG TID 09/06 1416 DC 09/06 PO 2141 Insulin Aspart 0 TIDAC/HS 09/07 2100 DC 09/07 SC 09/08 0000 2037 Insulin Aspart 0 TIDAC 09/06 1200 DC 09/07 SC 1643 Insulin Human Regular 0 Q6 09/07 2359 AC 09/08 SC 0000 Metoprolol Tartrate 25 MG BID 09/04 2100 AC 09/07 PO 2038 Morphine Sulfate 2 MG Q4P PRN 09/04 1944 AC IV Nitroglycerin 0.2 MG DAILY 09/08 899 AC TOP Nitroglycerin 0.4 MG DAILY 09/06 1416 DC 09/06 TOP 1652 Phosphate 250 MG PC AND AT BEDTIME 09/07 1300 DC 09/07 PO 09/07 1801 1644 Polyethylene Glycol 17 GM DAILY 09/06 899 AC 09/07 PO 09 Warfarin Sodium 1 MG COUMADIN 1700 ONE 09/07 1700 DC 09/07 PO 09/07 1701 1643 Laboratory Tests 09/08 09/07 09/07 0322 1030 1000 Chemistry Sodium (137 - 145 mmol/L) 142 Potassium (3.5 - 5.1 mmol/L) 4.0 Chloride (98 - 107 mmol/L) 105 Carbon Dioxide (22 - 30 mmol/L) 25 Anion Gap (5 - 16) 11 BUN (9 - 20 mg/dL) 35 H Creatinine (0.7 - 1.2 mg/dL) 1.2 Estimated GFR (>60 ml/min) 58 L Glucose (65 - 99 mg/dL) 124 H Calcium (8.4 - 10.2 mg/dL) 9.2 Phosphorus (2.5 - 4.5 mg/dL) 3.3 Magnesium (1.6 - 2.3 mg/dL) 2.3 Total Bilirubin (0.2 - 1.3 mg/dL) 1.4 H AST (17 - 59 U/L) 32 ALT (21 - 72 U/L) 44 Albumin (3.5 - 5.0 g/dL) 3.0 L Coagulation PT (9.4 - 12.5 SEC) 42.6 *H INR (0.90 - 1.17) 3.86 H APTT Cancelled Urines Urinalysis MOD H Urine Color (YEL,AMB,STR) YEL Urine Clarity (CLEAR) HAZY H Urine pH (5.0 - 8.0) 6.0 Ur Specific [place] (1.001 - 1.035) 1.025 Urine Protein (NEG,<30 MG/DL) 30 H Urine Ketones (NEG) NEG Urine Nitrite (NEG) NEG Urine Bilirubin (NEG) NEG Urine Urobilinogen (0.1 - 1.0 EU/dl) 1.0 Ur Leukocyte Esterase (NEG) TRACE H Ur Microscopic SEDIMENT EXAMINED Urine RBC (0 - 5 /HPF) >75 H Urine WBC (0 - 2 /HPF) 15-25 H Ur Epithelial Cells (NONE,FEW) FEW Urine Bacteria (NEG/NONE) MOD H Granular Casts (NONE /LPF) 3-5 H Urine Mucus (FEW,NONE) FEW Urine Hemoglobin (NEG) LARGE H Urine Glucose (N MG/DL) 500 H /09 0708 08 0500 2145 1000 Chemistry Sodium (137 - 145 mmol/L) 142 Potassium (3.5 - 5.1 mmol/L) 4.1 Chloride (98 - 107 mmol/L) 107 Carbon Dioxide (22 - 30 mmol/L) 26 Anion Gap (5 - 16) 9 BUN (9 - 20 mg/dL) 41 H Creatinine (0.7 - 1.2 mg/dL) 1.3 H Estimated GFR (>60 ml/min) 53 L Glucose (65 - 99 mg/dL) 238 H Calcium (8.4 - 10.2 mg/dL) 9.1 Phosphorus (2.5 - 4.5 mg/dL) 2.4 L Magnesium (1.6 - 2.3 mg/dL) 2.3 Total Bilirubin (0.2 - 1.3 mg/dL) 1.7 H Direct Bilirubin (< 0.4 mg/dL) 0.4 AST (17 - 59 U/L) 43 ALT (21 - 72 U/L) 48 Albumin (3.5 - 5.0 g/dL) 2.8 L Coagulation PT (9.4 - 12.5 SEC) 33.3 H INR (0.90 - 1.17) 3.02 H APTT (25 - 37 SEC) 63 H 82 H Hematology CBC w Diff NO MAN DIFF REQ WBC (4.8 - 10.8 /CUMM) 7.8 RBC (4.70 - 6.10 /CUMM) 3.36 L Hgb (14.0 - 18.0 G/DL) 10.0 L Hct (42 - 52 %) 29.5 L MCV (80.0 - 94.0 FL) 87.8 MCH (27.0 - 31.0 PG) 29.6 MCHC (33.0 - 37.0 G/DL) 33.8 RDW (11.5 - 14.5 %) 15.1 H Plt Count (130 - 400 /CUMM) 205 MPV (7.4 - 10.4 FL) 7.5 Gran % (42.2 - 75.2 %) 78.2 H Lymphocytes % (20.5 - 51.1 %) 11.3 L Monocytes % (1.7 - 9.3 %) 8.7 Eosinophils % (0 - 5 %) 1.1 Basophils % (0.0 - 2.0 %) 0.7 Absolute Granulocytes (1.4 - 6.5 /CUMM) 6.1 Absolute Lymphocytes (1.2 - 3.4 /CUMM) 0.9 L Absolute Monocytes (0.10 - 0.60 /CUMM) 0.7 H Absolute Eosinophils (0.0 - 0.7 /CUMM) 0.1 Absolute Basophils (0.0 - 0.2 /CUMM) 0.1 Microbiology Date/Time Procedure - Status Source Growth 09/07 1030 Urine Culture - RECD URINE ROUT Vital Signs & I&O Last 24 Hrs of Vitals and I&O: Vital Signs Date Time Temp Pulse Resp B/P B/P Pulse O2 O2 Flow FiO2 Mean Ox Delivery Rate 09/08 0000 95 Room Air 09/07 2253 97.0 71 21 138/74 95 Room Air 09/07 2038 71 128/58 09/07 2038 71 20 128/58 09/07 1600 93 Room Air Room Air 09/07 1600 96.7 79 20 96/48 96 Room Air Room Air 09/07 1421 Room Air Room Air 09/07 0909 92 90/40 09/07 0909 85 90/40 Intake & Output 09/08 1600 09/08 0800 09/08 0000 Intake Total 0 240 Output Total 450 400 Balance -450 -160 Intake, Oral 0 240 Number 0 0 Bowel Movements Output, Urine 450 400 Impression/Plan Impression/Plan Impression/Plan: General Appearance: Alert, Cooperative, No Acute Distress Cardiovascular: 05/05 systolic murmur Lungs: Clear to Auscultation, Normal Air Movement Abdomen: Normal Bowel Sounds, Soft, No Tenderness, No Masses Extremities: No Clubbing, No Cyanosis, No Edema, Normal Pulses ECHO CONCLUSIONS 1. Moderate to severely decreased EF of 25-30%. 2. Moderate left ventricular hypertrophy. 3. Mild mitral regurgitation. 4. Mild tricuspid regurgitation. 5. Trace pulmonic regurgitation. 6. Pacemaker lead noted. 7. Moderate aortic stenosis. This patient is an 81-year-old white male with extensive past medical history as noted above. The patient presents with a 7 day history of increasing weakness and ambulation. He is a poor historian and no family members were available to review. Now in the ICU with elevated trop Assessment and plan NSTEMI with sig elevated trop and Dr Wilkinson following and on max med rx Severe ischemic cardiomyopathy with low ef Mod Aortic stenosis Recent lithortripsy with ureter stent DM Dementia with parkinsonian features CKD PLAN Cont current meds for stress test Cardio to follow Antiplatelet rx Cont statin Accucheks Will follow To tele if ok with cardio
--- NOTE | 2017-09-08 15:56 | PN- Cardiology ---
Subjective Subjective: * No complaints * atrial fibrillation with ventricular pacing * creatinine 1.2 * LFT's improved * INR is 3.86 Objective Vital Signs and I&Os Vital Signs Date Time Temp Pulse Resp B/P B/P Pulse O2 O2 Flow FiO2 Mean Ox Delivery Rate 09/08 1341 67 136/68 / 0900 83 136/62 09/08 0900 83 136/62 09/08 0800 Room Air 09/08 0800 97.7 78 18 154/72 94 Room Air 09/08 0000 95 Room Air 09/07 2253 97.0 71 21 138/74 95 Room Air 09/07 2038 71 128/58 09/07 2038 71 20 128/58 09/07 1600 93 Room Air Room Air 09/07 1600 96.7 79 20 96/48 96 Room Air Room Air Intake & Output 09/08 1600 09/08 0800 09/08 0000 09/07 1600 09/07 0800 09/07 0000 Intake Total 270 0 240 475 373 613 Output Total 450 450 400 900 400 250 Balance -180 -450 -160 -425 -27 363 Intake, IV 20 25 173 173 Intake, Oral 250 0 240 450 200 440 Number 0 0 1 2 3 Bowel Movements Output, Urine 450 450 400 900 400 250 Patient 185 lb 182 lb Weight Weight Bed scale Measurement Method Physical Exam: General: WD/WN male in NAD; awake and responsive HEENT: NC/AT, PERRL, EOMI Neck: no JVD, left carotid bruit Heart: irregularly irregular with 3/6 systolic murmur at the LLSB and 2/6 systolic murmur at the apex and RUSB Lungs: clear bilaterally Abdomen: soft, mildly tender, +ve bowel sounds Extremities: no edema Assessment/Plan Assessment/Plan * This patient is much more lucid although there is some baseline dementia. He has ruled in for a NSTEMI, which is the second such event in 6 months. In discussion with the patient's niece, Maciej Bedoya, who is the power of county attorney, the patient will be a DNR and invasive treatment will be deferred. We will reconsider invasive therapy if his stress test shows evidence of a large or life threatening region of ischemia. His stress test results are pending. * Continue aspirin 325mg daily and Plavix 75mg daily. No heparin. * Continue hydralazine 20mg TID for afterload reduction which, in combination with NTG, typically gives the same morbidity and mortality benefit as an ACEI. * Continue a statin. Continue Metoprolol 25mg BID with holding parameters and change NTG to a patch at 0.2mg/hr for 12 hours daily also with holding parameters. If medications require consistent holding then we will stop or decrease the dose as appropriate. * Neurology to follow up as an outpatient. No evidence of a CVA. * This patient has a very high INR. He likely has a nutritional deficiency. Give 5mg of vitamin K. We will attempt to maintain an INR of 2-2.5. Continue telemetry? Yes
[2017-09-08 18:06] VITALS: BP 136/52
--- NOTE | 2017-09-08 18:40 | NUCLEAR MEDICINE REPORT ---
PERSANTINE STRESS AND RESTING SPECT MYOCARDIAL PERFUSION IMAGING STUDY WITH GATED SPECT IMAGES: CLINICAL INDICATION: NSTEMI PROCEDURE: Regional myocardial perfusion was assessed using a 1 day protocol. Stress images were obtained on 09/08/2017 following the intravenous administration of 19.1 mCi Tc 99m Myoview. Stress consisted of 45 mg Persantine given intravenously. Following the sestamibi injection, no aminophylline was given intravenously. Rest images were obtained 09/08/2017 following the intravenous administration of 32.4 mCi Technetium 99m Myoview. Single photon emission tomographic (SPECT) images were obtained. SPECT images were acquired in a 64 x 64 matrix of 64 projections over 180 degrees. These were reconstructed into standard short axis, horizontal and vertical long axis cardiac projections. FINDINGS: The stress images show the left ventricular chamber to be normal in size. There is markedly diminished activity in a moderately sized region involving the mid and basilar segments of the inferolateral and inferior tidwell. There also is a small region of moderately decreased activity in the mid anteroseptal wall. Activity in the other tidwell appears normal. The rest images are not significantly changed from the poststress images. The stress images were obtained using a gated SPECT technique, which permits visualization of wall motion and calculation of the left ventricular ejection fraction. The gated images are not available for review at the time of this dictation. The calculated left ventricular ejection fraction is 45% on the stress study. No previous study is available for comparison. IMPRESSION: Abnormal study. A moderately sized fixed perfusion abnormality is present that involves the mid and basal segments of the inferolateral and the adjacent inferior tidwell. An additional small fixed perfusion abnormality is also present in the mid anteroseptal wall. No reversible perfusion abnormalities are present. The left ventricular ejection fraction is at the lower limits of normal. The wall motion cannot be reviewed at the time of this dictation because the gated images are not available for review. An addendum will be added to this report when these images become available.
[2017-09-08 23:00] VITALS: BP 110/58
[2017-09-09 06:00] LABS: PT 26.9 SEC (9.4-12.5)
[2017-09-09 06:01] LABS: ABSOLUTE BASOPHIL COUNT 0 /CUMM (0.0-0.2); ABSOLUTE EOSINOPHIL COUNT 0.2 /CUMM (0.0-0.7); ABSOLUTE GRANULOCYTE CT 4.2 /CUMM (1.4-6.5); ABSOLUTE LYMPH COUNT 1.1 /CUMM (1.2-3.4); ABSOLUTE MONOCYTE COUNT 0.6 /CUMM (0.10-0.60); BASOPHIL % 0.7 % (0.0-2.0); EOSINOPHIL % 2.8 % (0-5); HEMATOCRIT 29.3 % (42-52); MEAN CORPUSCULAR HGB 29.7 PG (27.0-31.0); MEAN CORPUSCULAR HGB CONC 34.1 G/DL (33.0-37.0); MEAN CORPUSCULAR VOLUME 87.3 FL (80.0-94.0); MEAN PLATELET VOLUME 7.3 FL (7.4-10.4); PLATELET COUNT 218 /CUMM (130-400); RED BLOOD CELL CT 3.36 /CUMM (4.70-6.10); WHITE BLOOD CELL COUNT 6.1 /CUMM (4.8-10.8)
--- NOTE | 2017-09-09 07:17 | PN- Housestaff ---
Subjective Follow-up For: NSTEMI Lethargy Mild Hypernatremia Dementia CKD Subjective: patient says he feels sick today, feeling nauseous, didn't eat breakfast underwent nuclear stress test with some abnormalities with fixed but no reversible perfusion defects no overnight events received vit k yesterday for supratherapeutic INR, today INR therapeutic Review of Systems Constitutional: Reports: see HPI. Objective Last 24 Hrs of Vital Signs/I&O Vital Signs Date Time Temp Pulse Resp B/P B/P Pulse O2 O2 Flow FiO2 Mean Ox Delivery Rate 09/09 0000 97 Room Air 09/08 2300 97.6 70 17 110/58 97 Room Air 09/08 2040 98.6 68 14 117/50 09/08 2040 98.1 68 14 117/50 09/08 1806 98.1 87 20 136/52 98 Room Air 09/08 1600 Room Air 09/08 1341 67 136/68 09/08 0900 83 136/62 09/08 0900 83 136/62 09/08 0800 Room Air 09/08 0800 97.7 78 18 154/72 94 Room Air Intake & Output 09/09 0800 09/09 0000 09/08 1600 Intake Total 120 240 270 Output Total 250 200 450 Balance -130 40 -180 Intake, IV 0 20 Intake, Oral 120 240 250 Number 0 Bowel Movements Output, Urine 250 200 450 Patient 84.028 kg Weight Weight Bed scale Measurement Method Physical Exam General Appearance: Alert, Cooperative, No Acute Distress Cardiovascular: Regular Rate, Normal S1, Normal S2, 3/6 systolic murmur Lungs: Clear to Auscultation, Normal Air Movement Abdomen: Normal Bowel Sounds, Soft, No Tenderness, No Masses Extremities: No Clubbing, No Cyanosis, No Edema, Normal Pulses Current Medications: Current Medications Sig/Marible Start time Last Medication Dose Route Stop Time Status Admin Acetaminophen 650 MG ONCE ONE 09/08 164 DC 09/08 PO 09/08 1645 164 Acetaminophen 1,000 MG Q6H PRN 09/04 194 AC N/A 1 UNIT IV Aspirin Buffered 325 MG QAM 09/06 899 AC 09/08 PO 0901 Atorvastatin Calcium 40 MG 1700 09/05 1700 AC 09/08 PO 1816 Clopidogrel Bisulfate 75 MG DAILY 09/06 899 AC 09/08 PO 0900 Dipyridamole 45 MG ONE ONE 07/10 1200 DC Dextrose/Water 31 ML IV 09/08 1201 Docusate Sodium 100 MG BID 09/06 09 AC 09/08 PO 204 Hydralazine HCl 20 MG TID 09/07 2100 AC 09/08 PO 204 Insulin Aspart 0 TIDAC 09/08 1700 AC 09/08 SC 1816 Insulin Human Regular 0 Q6 09/07 2359 DC 09/08 SC 0000 Melatonin 5 MG ONCE ONE 09/08 2300 DC 09/08 PO 09/08 2301 2301 Metoprolol Tartrate 25 MG BID 09/04 2100 AC 09/08 PO 204 Morphine Sulfate 2 MG Q4P PRN 09/04 1945 AC IV Nitroglycerin 0.2 MG DAILY 09/08 09 AC 09/08 TOP 0901 Phytonadione 5 MG ONCE ONE 09/08 174 DC 09/08 PO 09/08 174 204 Polyethylene Glycol 17 GM DAILY 09/06 899 AC 09/08 PO 09 Last 24 Hrs of Lab/Ace Results Last 24 Hrs of Labs/Mics: Laboratory Tests 09/09/17 0543: Anion Gap 8, Estimated GFR 49 L, BUN/Creatinine Ratio 27.9 H, PT 26.9 H, INR 2.45 H, CBC w Diff NO MAN DIFF REQ, RBC 3.36 L, MCV 87.3, MCH 29.7, MCHC 34.1, RDW 15.0 H, MPV 7.3 L, Gran % 68.0, Lymphocytes % 18.0 L, Monocytes % 10.5 H , Eosinophils % 2.8, Basophils % 0.7, Absolute Granulocytes 4.2, Absolute Lymphocytes 1.1 L, Absolute Monocytes 0.6, Absolute Eosinophils 0.2, Absolute Basophils 0 Assessment/Plan Assessment: 81 year old male with past medical history significant for CAD s/p CABG, SSS s/ p PPM, atrial fibrillation on coumadin, aortic stenosis, and diabetes presented with a week of increasing lethargy and was found to have a significantly elevated troponin consistent with NSTEMI. Elevated troponin from type II NSTEMI History of CAD s/p CABG Ischemic cardiomyopathy HFrEF Continue aspirin and plavix Continue metoprolol, hydralazine, and nitroglycerin hold for hypotension Echocardiogram-severe anterior wall hypokinesis, LVEF 25-30% Consider starting ACEi Troponins peaked at 14.4, trended down, asymptomatic Follow up cardiology recommendations Nuclear stress test A moderately sized fixed perfusion abnormality is present that involves the mid and basal segments of the inferolateral and the adjacent inferior tidwell. An additional small fixed perfusion abnormality is also present in the mid anteroseptal wall. No reversible perfusion abnormalities are present. 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 NSTEMI (non-ST elevated myocardial infarction) 2. Elevated troponin 3. Altered mental status 4. Supratherapeutic INR Pain Ratin Pain Location: n/a Pain Goal: Pain 4 or less Pain Plan: prn Tomorrow's Labs & Rationales: bep, pt/inr
[2017-09-09 08:00] VITALS: BP 114/58
--- NOTE | 2017-09-09 08:22 | PN- Cardiology ---
Subjective Subjective: * No complaints. * atrial fibrillation with demand ventricular pacing. * Fixed defects noted on his stress test without any ischemia. * creatinine 1.4 * INR is 2.54 Objective Vital Signs and I&Os Vital Signs Date Time Temp Pulse Resp B/P B/P Pulse O2 O2 Flow FiO2 Mean Ox Delivery Rate 09/09 0000 97 Room Air 09/08 2300 97.6 70 17 110/58 97 Room Air 09/08 2040 98.6 68 14 117/50 09/08 2040 98.1 68 14 117/50 09/08 1806 98.1 87 20 136/52 98 Room Air 09/08 1600 Room Air 09/08 1341 67 136/68 09/08 0900 83 136/62 09/08 0900 83 136/62 Intake & Output 09/09 1600 09/09 0800 09/09 0000 09/08 1600 09/08 0800 09/08 0000 Intake Total 120 240 270 0 240 Output Total 250 200 450 450 400 Balance -130 40 -180 -450 -160 Intake, IV 0 20 Intake, Oral 120 240 250 0 240 Number 0 0 0 Bowel Movements Output, Urine 250 200 450 450 400 Patient 185 lb Weight Weight Bed scale Measurement Method Physical Exam: General: WD/WN male in NAD; awake and responsive HEENT: NC/AT, PERRL, EOMI Neck: no JVD, left carotid bruit Heart: irregularly irregular with 3/6 systolic murmur at the LLSB and 2/6 systolic murmur at the apex and RUSB Lungs: clear bilaterally Abdomen: soft, mildly tender, +ve bowel sounds Extremities: no edema Assessment/Plan Assessment/Plan * This patient is much more lucid although there is some baseline dementia. He has ruled in for a NSTEMI, which is the second such event in 6 months. In discussion with the patient's niece, Maciej Bedoya, who is the power of trade mark attorney, the patient will be a DNR and invasive treatment will be deferred. There is no ischemia on his stress test although fixed defects are noted. * Continue aspirin 325mg daily and Plavix 75mg daily. No heparin. * Continue hydralazine 20mg TID for afterload reduction which, in combination with NTG, typically gives the same morbidity and mortality benefit as an ACEI. * Continue a statin. Continue Metoprolol 25mg BID with holding parameters and change NTG to a patch at 0.2mg/hr for 12 hours daily also with holding parameters. If medications require consistent holding then we will stop or decrease the dose as appropriate. * Neurology to follow up as an outpatient. No evidence of a CVA. * This patient had a very high INR which improved with vitamin K. We will attempt to maintain an INR of 2-2.5. * Okay for patient to go to a STR. Continue telemetry? No
[2017-09-09] MEDS ORDERED: NITROGLYCERIN1 EAC3 TOP (08:49)
[2017-09-09] MEDS ORDERED: HYDRALAZINE HCL10 M1 PO (08:49)
[2017-09-09] MEDS ORDERED: PLAVIX75 M1 PO (08:49)
--- NOTE | 2017-09-09 08:52 | Patient Discharge Instructions ---
Discharge Instructions General Discharge Information You were seen/treated for: Heart attack (NSTEMI) Special Instructions: You were treated with medications for a heart attack and underwent a stress test that showed some abnormalities but no areas of potentially reversible damage to the heart. Your medications have been changed. Acute Coronary Syndrome Inclusion Criteria At DC or during hospital stay patient has or had the following: ACS DIAGNOSIS Yes Discharge Core Measures Meds if any: Prescribed or Continued at Discharge ALBARO/ARB if EF <40% No Aspirin Yes Beta-Ruperto Yes Statin Yes Meds if any: NOT Prescribed or Continued at Discharge No ALBARO/ARB d/t Medical Contraindication (ARYA, hyperkalemia) Congestive Heart Failure Inclusion Criteria At DC or during hospital stay patient has or had the following: CHF DIAGNOSIS No Discharge Core Measures Meds if any: Prescribed or Continued at Discharge Meds if any: NOT Prescribed or Continued at Discharge Cerebrovascular accident Inclusion Criteria At DC or during hospital stay patient has or had the following: CVA/TIA Diagnosis No Discharge Core Measures Meds if any: Prescribed or Continued at Discharge Meds if any: NOT Prescribed or Continued at Discharge Venous thromboembolism Inclusion Criteria VTE Diagnosis No VTE Type NONE VTE Confirmed by (Test) NONE Discharge Core Measures - Per Current guidelines, there needs to be overlap - treatment for the first 5 days of Warfarin therapy. - If discharged on Warfarin prior to 5 days of - overlap therapy, the patient will need to be - assessed for post discharge needs including - *Post discharge parental anticoagulation - *Warfarin and/or parental anticoagulation education - *Follow up date to check INR post discharge At least 5 days overlap therapy as Inpatient No Meds if any: Prescribed or Continued at Discharge Note: Overlap Therapy is Warfarin and Anticoagulant Meds if any: NOT Prescribed or Continued at Discharge Meds if any: NOT Prescribed or Continued at Discharge
--- NOTE | 2017-09-09 08:52 | Discharge Summary ---
Visit Information Visit Dates Admission Date: 09/04/17 Discharge Date: 09/11/17 Hospital Course Course Attending Physician: Mario Watson MD Primary Care Physician: Dayron Sutherland MD Hospital Course: 81 year old male with past medical history significant for CAD s/p CABG, SSS s/p PPM, atrial fibrillation on coumadin, ischemic cardiomyopathy with reduced ejection fraction, CKD Stage IIIA2, moderate aortic stenosis, nephrolithiasis with recent left ureteral stent placement, prostate cancer, and diabetes presented with a week of increasing lethargy and was found to have a significantly elevated troponin and admitted to intensive care for management of NSTEMI. This past April the patient also had a NSTEMI that was treated conservatively. At the time of admission, he denied any chest pain, pressure, tightness, shortness of breath, ligtheadedness or palpitations. His troponins zulay quickly and peaked around 14 with associated precordial T wave inversions. He was started on maximal medical therapy with aspirin, plavix, heparin gtt, statin, and beta blockade. His care was discussed with his niece (power of erisa attorney) with conservative measures and no invasive therapies. He underwent an echocardiogram that showed anterior wall hypokinesis, moderate aortic stenosis, moderate LVH, mild TR/MR, with an estimated LVEF of 30%. He underwent a nuclear stress test that showed no areas of reversible ischemia, fixed perfusion defects in the mid and basal segments of the inferolateral, adjacent inferior tidwell, and mid anteroseptal wall, with an estimated LVEF of 45%. He also had a subtherapeutic INR, which was dosed to therapeutic levels before discontinuation of heparin therapy after 48 hours. Due to his elevated creatinine and previous hyperkalemia on labs, ACEi/ARB therapy was withheld, instead adding nitrates and hydralazine. These medications needed to be held periodically for orthostatic hypotension. The patient's hospital course was complicated by urinary retention , requiring straight catheterization. Patient urine culture grew enterococcus and staph coagulase likely contaminant. Initially he was started on treatment with Amoxicillin 500mg PO BID x 5 days for enterococcus and coagulase negative staph aureus on urine culture but this was discontinued in view of possible contamination [patient was afebrile/no leukocytosis].. His INRs were labile during his hospital stay, initially the gave him Coumadin which was eventually changed to Eliquis 2.5 twice daily as per cardiology. Also neurology was consulted for increasing dementia and possibly Parkinson's. He did have some extrapyramidal signs and head CT findings of moderate diffuse parenchymal loss with mild chronic microangiopathic without acute infarction. He had normal TSH and B12, and can follow up with Dr. Roberts as an outpatient for further workup and treatment. He was evaluated by physical therapy for deconditioning. He will benefit from rehabilitation for physical therapy, nursing care, and medication management. He was instructed to follow up with his load tester, primary care physician after discharge, and other specialists as necessary. Allergies: Coded Allergies: NO KNOWN ALLERGIES (NONE 04/06/17) Significant Procedures: Echocardiogram FINDINGS Left Ventricle Normal left ventricular size with moderate left ventricular hypertrophy. Moderate to severely decreased systolic function with severe anterior wall hypokinesis. .The ejection fraction is visually estimated at 25-30%. Right Ventricle The right ventricle is normal in size and function. A pacemaker lead is noted. Right Atrium The right atrium is normal in size. Left Atrium The left atrium is normal in size. The interatrial septum is intact. Mitral Valve The mitral valve is normal in structure and function. There is mild mitral regurgitation. Aortic Valve Mildly thickend and moderately scleroticl aortic valve with moderate stenosis. There is no aortic regurgitation. Tricuspid Valve The tricuspid valve is normal in structure and function. There is mild tricuspid regurgitation. Pulmonary artery systolic pressure is normal. Pulmonic Valve Structurally normal pulmonic valve. There is trace pulmonic regurgitation. Pericardium Normal pericardium without effusion. No pleural effusion. Great Vessels Normal aortic root dimension. The aortic arch and great vessels are well seen and are normal. CONCLUSIONS 1. Moderate to severely decreased EF of 25-30%. 2. Moderate left ventricular hypertrophy. 3. Mild mitral regurgitation. 4. Mild tricuspid regurgitation. 5. Trace pulmonic regurgitation. 6. Pacemaker lead noted. 7. Moderate aortic stenosis. Nuclear stress test EXAM TYPE: NUC - MYOCARDIAL PERFUSION IMAGING PERSANTINE STRESS AND RESTING SPECT MYOCARDIAL PERFUSION IMAGING STUDY WITH GATED SPECT IMAGES: CLINICAL INDICATION: NSTEMI PROCEDURE: Regional myocardial perfusion was assessed using a 1 day protocol. Stress images were obtained on 09/08/2017 following the intravenous administration of 19.1 mCi Tc 99m Myoview. Stress consisted of 45 mg Persantine given intravenously. Following the sestamibi injection, no aminophylline was given intravenously. Rest images were obtained 09/08/2017 following the intravenous administration of 32.4 mCi Technetium 99m Myoview. Single photon emission tomographic (SPECT) images were obtained. SPECT images were acquired in a 64 x 64 matrix of 64 projections over 180 degrees. These were reconstructed into standard short axis, horizontal and vertical long axis cardiac projections. FINDINGS: The stress images show the left ventricular chamber to be normal in size. There is markedly diminished activity in a moderately sized region involving the mid and basilar segments of the inferolateral and inferior tidwell. There also is a small region of moderately decreased activity in the mid anteroseptal wall. Activity in the other tidwell appears normal. The rest images are not significantly changed from the poststress images. The stress images were obtained using a gated SPECT technique, which permits visualization of wall motion and calculation of the left ventricular ejection fraction. The gated images are not available for review at the time of this dictation. The calculated left ventricular ejection fraction is 45% on the stress study. No previous study is available for comparison. IMPRESSION: Abnormal study. A moderately sized fixed perfusion abnormality is present that involves the mid and basal segments of the inferolateral and the adjacent inferior tidwell. An additional small fixed perfusion abnormality is also present in the mid anteroseptal wall. No reversible perfusion abnormalities are present. The left ventricular ejection fraction is at the lower limits of normal. The wall motion cannot be reviewed at the time of this dictation because the gated images are not available for review. An addendum will be added to this report when these images become available. Chest x-ray FINDINGS: Lungs and pleural spaces: There is hazy opacity to both lungs suspicious for mild edema no focal opacity. Sternotomy wires and dual-lead pacer again noted unchanged. Cardiac silhouette and pulmonary vascularity are normal. Aorta unremarkable. Noncontrast Head CT FINDINGS: There is no evidence of acute intracranial hemorrhage or territorial infarction. No abnormal mass effect or midline shift is seen. Yanes to white matter differentiation is well preserved. No extra-axial fluid collections are identified. Mild chronic white matter microangiopathic changes are noted and there is moderate diffuse parenchymal volume loss, not significantly changed compared to prior imaging. The osseous structures and soft tissues are normal. The mastoid air cells are well aerated. There is a small retention cyst in the right maxillary sinus. IMPRESSION: No acute intracranial hemorrhage or territorial infarction. Moderate diffuse parenchymal volume loss and mild chronic white matter microangiopathy. Disposition Summary Disposition Principal Diagnosis: Elevated troponin from type II NSTEMI Urinary retention requiring straight catheterization History of previous NSTEMI History of CAD s/p CABG Ischemic cardiomyopathy HFrEF Hypernatremia Hypophosphatemia Hypermagnesia HTN DM Additional Diagnosis: CKD Stage IIIA2 Moderate aortic stenosis Indirect hyperbilirubinemia Prostate cancer Sick sinus syndrome s/p pacemaker History of nephrolithiasis and ureteral stent placement Discharge Disposition: SNF Discharge Instructions General Discharge Information Code Status: Do Not Resucitate/Intubat Patient's Diet: Diabetic diet Patient's Activity: Physical therapy, assistance, and rolling walker Follow-Up Instructions/Appts: Please follow up with your primary care physician and load tester. Medications at Discharge Discharge Medications: Stop taking the following medications: Warfarin Sodium (Coumadin) 3 MG TABLET ORAL DAILY Qty = 30 Continue taking these medications: Aspirin (Ecotrin*) 81 MG TABLET.DR 1 Tablet ORAL Every Morning Comments: Last Taken: 09/11/17 Time: 0820 AM Rosuvastatin Calcium (Crestor) 10 MG TABLET 1 Tablet ORAL Every night Comments: Last Taken: 09/11/17 Time: 5 PM PT GIVEN ATORVASTATIN Ezetimibe (Zetia) 10 MG TABLET 1 Tablet ORAL Every night Comments: NOT GIVEN IN HOSPITAL. Insulin Degludec (Tresiba Flextouch U-200) 200 UNIT/ML (3 ML) INSULN.PEN 8 Units SUB-Q DAILY Qty = 6 Comments: NOT GIVEN IN HOSPITAL Insulin Aspart, Recombinant (Novolog Flexpen) 100 UNIT/ML INSULN.PEN Units SUB-Q THREE TIMES DAILY Qty = 15 Instructions: BEFORE MEALS Blood Insulin Sugar Units <80 0 81-150 0 151-200 2 251-300 4 301-350 6 351-400 8 >400 10 call MD >400 Call Doctor Comments: Last Taken: 09/11/17 Time: 0820 PER SLIDING SCALE. Metoprolol Tartrate (Metoprolol Tartrate) 25 MG TABLET 25 Milligram ORAL TWICE DAILY Qty = 60 Comments: Last Taken: 09/11/17 Time: 08:20 AM Cholecalciferol (Vitamin D3) 1,000 UNIT TABLET 1 Tablet ORAL DAILY Comments: NOT GIVEN IN HOSPITAL. Allopurinol (Allopurinol) 100 MG TABLET 1 Tablet ORAL DAILY Comments: Last Taken: 09/11/17 Time: 0820 AM Start taking the following new medications: Hydralazine HCl (Hydralazine HCl) 10 MG TABLET 20 Milligram ORAL THREE TIMES DAILY Qty = 90 No Refills Instructions: HOLD FOR SBP < 100 Comments: Last Taken: 09/11/17 Time: 0820 AM Nitroglycerin (Nitroglycerin Patch) 0.2 MG/HOUR PATCH.TD24 0.2 Milligram On the skin DAILY Qty = 30 No Refills Instructions: ON FOR 12 HOURS DAILY, HOLD FOR SBP <100 Comments: Last Taken: 09/11/17 Time: 08;20 AM Apixaban (Eliquis) 2.5 MG TABLET 2.5 Milligram ORAL TWICE DAILY Qty = 60 No Refills Comments: Last Taken: 09/11/17 Time: 0820 AM Clopidogrel Bisulfate (Plavix) 75 MG TABLET 75 Milligram ORAL DAILY Qty = 30 No Refills Comments: Last Taken: 09/11/17 Time: 0820 AM Copies To: Koko MCCORMACK,Dayron Suarez; Jenna MCCORMACK,Asif Attending Review Statement Documenting Attending: Catrina Reddy MD Other Findings: Discharged in stable condition.
--- NOTE | 2017-09-09 09:58 | PN- Pulmonary ---
Subjective HPI/Critical Care Issues: Stable Heart rate is 74 Sleepy today Had nausea this am and did receive zofran Laboratory Tests 09/09 09/08 0588 0327 Chemistry Sodium (137 - 145 mmol/L) 139 142 Potassium (3.5 - 5.1 mmol/L) 4.1 4.0 Chloride (98 - 107 mmol/L) 106 105 Carbon Dioxide (22 - 30 mmol/L) 26 25 Anion Gap (5 - 16) 8 11 BUN (9 - 20 mg/dL) 39 H 35 H Creatinine (0.7 - 1.2 mg/dL) 1.4 H 1.2 Estimated GFR (>60 ml/min) 49 L 58 L BUN/Creatinine Ratio (7 - 25 %) 27.9 H Glucose (65 - 99 mg/dL) 124 H Calcium (8.4 - 10.2 mg/dL) 9.2 Phosphorus (2.5 - 4.5 mg/dL) 3.3 Magnesium (1.6 - 2.3 mg/dL) 2.3 Total Bilirubin (0.2 - 1.3 mg/dL) 1.4 H AST (17 - 59 U/L) 32 ALT (21 - 72 U/L) 44 Albumin (3.5 - 5.0 g/dL) 3.0 L Coagulation PT (9.4 - 12.5 SEC) 26.9 H 42.6 *H INR (0.90 - 1.17) 2.45 H 3.86 H Hematology CBC w Diff NO MAN DIFF REQ WBC (4.8 - 10.8 /CUMM) 6.1 RBC (4.70 - 6.10 /CUMM) 3.36 L Hgb (14.0 - 18.0 G/DL) 10.0 L Hct (42 - 52 %) 29.3 L MCV (80.0 - 94.0 FL) 87.3 MCH (27.0 - 31.0 PG) 29.7 MCHC (33.0 - 37.0 G/DL) 34.1 RDW (11.5 - 14.5 %) 15.0 H Plt Count (130 - 400 /CUMM) 218 MPV (7.4 - 10.4 FL) 7.3 L Gran % (42.2 - 75.2 %) 68.0 Lymphocytes % (20.5 - 51.1 %) 18.0 L Monocytes % (1.7 - 9.3 %) 10.5 H Eosinophils % (0 - 5 %) 2.8 Basophils % (0.0 - 2.0 %) 0.7 Absolute Granulocytes (1.4 - 6.5 /CUMM) 4.2 Absolute Lymphocytes (1.2 - 3.4 /CUMM) 1.1 L Absolute Monocytes (0.10 - 0.60 /CUMM) 0.6 Absolute Eosinophils (0.0 - 0.7 /CUMM) 0.2 Absolute Basophils (0.0 - 0.2 /CUMM) 0 09/07 09/07 1030 1000 Coagulation APTT Cancelled Urines Urinalysis MOD H Urine Color (YEL,AMB,STR) YEL Urine Clarity (CLEAR) HAZY H Urine pH (5.0 - 8.0) 6.0 Ur Specific [place] (1.001 - 1.035) 1.025 Urine Protein (NEG,<30 MG/DL) 30 H Urine Ketones (NEG) NEG Urine Nitrite (NEG) NEG Urine Bilirubin (NEG) NEG Urine Urobilinogen (0.1 - 1.0 EU/dl) 1.0 Ur Leukocyte Esterase (NEG) TRACE H Ur Microscopic SEDIMENT EXAMINED Urine RBC (0 - 5 /HPF) >75 H Urine WBC (0 - 2 /HPF) 15-25 H Ur Epithelial Cells (NONE,FEW) FEW Urine Bacteria (NEG/NONE) MOD H Granular Casts (NONE /LPF) 3-5 H Urine Mucus (FEW,NONE) FEW Urine Hemoglobin (NEG) LARGE H Urine Glucose (N MG/DL) 500 H Microbiology Date/Time Procedure - Status Source Growth 09/07 1030 Urine Culture - RES URINE ROUT ENTEROCOCCUS STAPH COAGULASE NEGATIVE Objective Vital Signs & I&O Last 24 Hrs of Vitals and I&O: Vital Signs Date Time Temp Pulse Resp B/P B/P Pulse O2 O2 Flow FiO2 Mean Ox Delivery Rate 09/09 0800 99 Room Air Room Air 09/09 0800 97.6 67 18 114/58 99 Room Air Room Air 09/09 0000 97 Room Air 09/08 2300 97.6 70 17 110/58 97 Room Air 09/08 2040 98.6 68 14 117/50 09/08 2040 98.1 68 14 117/50 09/08 1806 98.1 87 20 136/52 98 Room Air 09/08 1600 Room Air 09/08 1341 67 136/68 Intake & Output 09/09 1600 09/09 0800 09/09 0000 Intake Total 120 240 Output Total 250 200 Balance -130 40 Intake, IV 0 Intake, Oral 120 240 Number 0 Bowel Movements Output, Urine 250 200 Impression/Plan Impression/Plan Impression/Plan: General Appearance: Alert, Cooperative, No Acute Distress Cardiovascular: 05/05 systolic murmur Lungs: Clear to Auscultation, Normal Air Movement Abdomen: Normal Bowel Sounds, Soft, No Tenderness, No Masses Extremities: No Clubbing, No Cyanosis, No Edema, Normal Pulses ECHO CONCLUSIONS 1. Moderate to severely decreased EF of 25-30%. 2. Moderate left ventricular hypertrophy. 3. Mild mitral regurgitation. 4. Mild tricuspid regurgitation. 5. Trace pulmonic regurgitation. 6. Pacemaker lead noted. 7. Moderate aortic stenosis. This patient is an 81-year-old white male with extensive past medical history as noted above. The patient presents with a 7 day history of increasing weakness and ambulation. He is a poor historian and no family members were available to review. Now in the ICU with elevated trop Assessment and plan NSTEMI with sig elevated trop and Dr Wilkinson following and on max med rx, Fixed defects in the stress test Severe ischemic cardiomyopathy with low ef Mod Aortic stenosis Recent lithortripsy with ureter stent DM Dementia with parkinsonian features CKD Lung nodule stabel by ct in 07/17 compared to pet from 2016 needs follow up in june (previously followed by Dr. Clarke) Mild nausea and lethargy today Altered lfts better prob uti Pafib on warfarin PLAN Cont current meds for stress test Amox bid for five days 500 Cardio to follow Lfts in am Pt is on triple rx for Fixed defect, Would consider stopping plavix and continue asa 81 and warfarin Cont statin Accucheks Will follow To tele if ok with cardio
[2017-09-09] MEDS ORDERED: AMOXICILLIN500 M3 PO ×2 (15:50→15:51)
[2017-09-09 15:55] VITALS: BP 124/72
[2017-09-09 22:04] VITALS: BP 118/50
[2017-09-09 22:27] VITALS: BP 120/64
--- NOTE | 2017-09-10 06:57 | PN- Housestaff ---
Anny Whitlock 09/10/17 0657: Subjective Follow-up For: NSTEMI Complaints: he feels tired this morning and would like to get some more rest Tele-Events Since Last Visit: Sinus pacing. Heart rate 61-78 Subjective: no Acute events overnight. Review of Systems Constitutional: Reports: see HPI. Objective Last 24 Hrs of Vital Signs/I&O Vital Signs Date Time Temp Pulse Resp B/P B/P Pulse O2 O2 Flow FiO2 Mean Ox Delivery Rate 09/10 1536 98.3 70 20 144/70 97 09/10 1440 138/70 09/10 0921 86 92/50 09/10 0920 85 92/50 09/10 0724 98.7 65 16 130/64 95 09/10 0000 Room Air 09/09 2228 66 120/64 09/09 2227 120/64 09/09 2204 98.3 80 16 118/50 95 11 2136 69 118/50 Intake & Output 09/10 1600 09/10 0800 09/10 0000 Intake Total 240 220 335 Output Total 210 350 300 Balance 30 -130 35 Intake, IV 10 Intake, Oral 240 220 325 Number 0 Bowel Movements Output, Urine 210 350 300 Patient 186 lb Weight Physical Exam General Appearance: Alert, Oriented X3, Cooperative Skin Temp/Moisture Exam: Cool/Dry HEENT: Atraumatic Neck: Supple Cardiovascular: Regular Rate, Normal S1, Normal S2 Lungs: Clear to Auscultation, Normal Air Movement Abdomen: Normal Bowel Sounds, Soft, No Tenderness, No Hepatospenomegaly Neurological: Normal Speech Extremities: No Clubbing, No Cyanosis, No Edema Assessment/Plan Assessment: 81 year old male with past medical history significant for CAD s/p CABG, SSS s/ p PPM, atrial fibrillation on coumadin, aortic stenosis, and diabetes presented with a week of increasing lethargy and was found to have a significantly elevated troponin consistent with NSTEMI. Problems: 1. Non-STEMI 2. Ischemic cardiomyopathy; HFrEF 3. CAD 4. A fib on Coumadin 5. Aortic stenosis 6. DM 7. Urinary tract infection status post instrumentation with stent placement earlier this year. Plan: * To be to discharged to snf tomorrow * D/c antibiotics for Enterococcus and coag -ve staph in urine. He is asympto, afebrile, and wbcs are not elevated. It was most likely a contamination * Given the metoprolol and hydralazine because his blood pressure was 92/50 today * He was on triple therapy with aspirin, Plavix and Coumadin. Plavix has been discontinued due to increased risk of bleeding without significant added cardioprotective risk * His INR was 1.159 PT was 12.6. We gave him 1 dose of warfarin per oral 5 mg. He will follow-up with INR tomorrow and then dose him. * Patient has a UTI. His urine cultures grew enterococcus sensitive to ampicillin, nitrofurantoin, vancomycin and staph coccus coagulase negative sensitive to nitrofurantoin, tetracycline, vancomycin. This is day 2 of 5 of amoxicillin 500 mg per oral twice daily. * Diet carbohydrate consistent. * Status: DNR/DNI * DVT prophylaxis: Coumadin. Problem List: 1. NSTEMI (non-ST elevated myocardial infarction) 2. Weakness 3. Elevated troponin Pain Ratin Pain Location: none Pain Goal: Remain pain free Pain Plan: n/a Tomorrow's Labs & Rationales: inr, pt Catrina Reddy MD 09/10/17 1212: Attending MD Review Statement Attending Statement Attending MD Statement: examined this patient, discuss w/resident/PA/PROFILER HAND, agreed w/resident/PA/PROFILER HAND, reviewed EMR data (avail), discussed with nursing, discussed with case mgmt, amended to note Attending Assessment/Plan: Patient seen and examined. Each are reviewed. Case discussed with Errol Hemphill MD. Currently sitting up comfortably in the chair not in acute distress. Answers simple questions. Denies chest pain or shortness of breath. Denies palpitations. Blood pressure was low at this morning. Also reports that he was very lethargic this morning he appears improved as the morning progressed. The critical care team reported that patient was very drowsy yesterday as well. Problems: 1. Non-ST elevation PA 2. Ischemic cardiomyopathy; heart failure with reduced ejection fraction. 3. Coronary artery disease 4. Atrial fibrillation on anticoagulant Coumadin 5. Aortic stenosis 6. Diabetes mellitus. 7. Bacteuria; likely contaminant. Plan: -Patient was on metoprolol and hydralazine. Blood pressure today is in the 90s. Recommend holding his medications for now. Please follow-up with the cardiology service regarding his antihypertensive regimen. -Family have declined to move forward with any further invasive testing or management. -Patient was on triple therapy with aspirin Plavix and Coumadin. Plavix has been discontinued due to increased risk of bleeding without significant added cardioprotective risk. -He was started on antibiotic therapy yesterday for presumed UTI. He does have bacteriuria but is afebrile. He is growing different organisms. He is afebrile with no leucocytosis. Monitor off antibiotics.
[2017-09-10 07:24] VITALS: BP 130/64
--- NOTE | 2017-09-10 09:12 | IV DIPYRIDAMOLE NUCLEAR STRESS ---
Clinical Diagnosis: CAD, NSTEMI, HTN Sr. Social Media & Mobile Manager: Irene Allen IV DIPYRIDAMOLE INFUSED: 45 mg IV AMINOPHYLLINE INFUSED: 0 mg PATIENT WEIGHT: 182 lbs INTERPRETATION: The patient's baseline EKG showed normal sinus rhythm with diffuse T wave inversions at 77 BPM. Baseline B/P 144/68. The patient received 45 mg of dipyridamole infused intravenously over a 4 minute period. TC99M Myoview was injected after dipyridamole infusion. The patient tolerated the infusion well. There were no EKG changes seen following pharmacologic infusion. Arrhythmias: None IMPRESSION: The test was supervised by the interpreting [place] Assessor, who was in attendance during the entire test. No EKG evidence of stress induced myocardial ischemia. See separately dictated Nuclear Report.
[2017-09-10 10:03] LABS: PT 12.6 SEC (9.4-12.5)
--- NOTE | 2017-09-10 15:25 | PN- Cardiology ---
Subjective Subjective: * Patient is verbal and feels improved. * atrial fibrillation with good rate control. Objective Vital Signs and I&Os Vital Signs Date Time Temp Pulse Resp B/P B/P Pulse O2 O2 Flow FiO2 Mean Ox Delivery Rate 09/10 1440 138/70 09/10 0921 86 92/50 09/10 0920 85 92/50 09/10 0724 98.7 65 16 130/64 95 09/10 0000 Room Air 09/09 2228 66 120/64 09/09 2227 120/64 09/09 2204 98.3 80 16 118/50 95 09/09 2136 69 118/50 09/09 1555 98.5 61 16 124/72 96 09/09 1535 72 100/50 Intake & Output 09/10 1600 09/10 0809/10 0000 09/09 1600 09/09 0800 09/09 0000 Intake Total 240 220 335 200 120 240 Output Total 210 350 300 175 250 200 Balance 30 -130 35 25 -130 40 Intake, IV 10 0 Intake, Oral 240 220 325 200 120 240 Number 0 0 Bowel Movements Output, Urine 210 350 300 175 250 200 Patient 186 lb Weight Physical Exam: General: WD/WN male in NAD; awake and responsive HEENT: NC/AT, PERRL, EOMI Neck: no JVD, left carotid bruit Heart: irregularly irregular with 3/6 systolic murmur at the LLSB and 2/6 systolic murmur at the apex and RUSB Lungs: clear bilaterally Abdomen: soft, mildly tender, +ve bowel sounds Extremities: no edema Assessment/Plan Assessment/Plan * This patient is much more lucid although there is some baseline dementia. He has ruled in for a NSTEMI, which is the second such event in 6 months. In discussion with the patient's niece, Maciej Bedoya, who is the power of assistant county attorney, the patient will be a DNR and invasive treatment will be deferred. There is no ischemia on his stress test although fixed defects are noted. * Change aspirin to 81mg daily. Please restart Plavix at 75mg daily. Start Eliquis at 2.5mg BID. * Continue hydralazine 20mg TID for afterload reduction which, in combination with NTG, typically gives the same morbidity and mortality benefit as an ACEI. * Continue a statin. Continue Metoprolol 25mg BID with holding parameters and change NTG to a patch at 0.2mg/hr for 12 hours daily also with holding parameters. If medications require consistent holding then we will stop or decrease the dose as appropriate. * Neurology to follow up as an outpatient. No evidence of a CVA. * Okay for patient to go to a STR. Continue telemetry? No
[2017-09-10 15:36] VITALS: BP 144/70
[2017-09-10 22:02] VITALS: BP 146/88
[2017-09-11 06:13] VITALS: BP 134/64
--- NOTE | 2017-09-11 06:50 | PN- Housestaff ---
Anny Whitlock 09/11/17 0650: Subjective Follow-up For: NSTEMI Complaints: no complaints Tele-Events Since Last Visit: Sinus pacing. Heart rate 66-87 Subjective: no complaints. no acute events overnight Review of Systems Constitutional: Reports: see HPI. Objective Last 24 Hrs of Vital Signs/I&O stable Physical Exam General Appearance: Alert, Oriented X3, Cooperative Skin Temp/Moisture Exam: Cool/Dry HEENT: PERRLA, EOMI Neck: Supple Cardiovascular: Regular Rate, Normal S1, Normal S2, No Murmurs Lungs: Clear to Auscultation, Normal Air Movement Abdomen: Normal Bowel Sounds, Soft, No Tenderness Neurological: Normal Gait, Normal Speech, Strength at 5/5 X4 Ext Extremities: No Clubbing, No Cyanosis, No Edema, Normal Pulses Assessment/Plan Assessment: 81 year old male with past medical history significant for CAD s/p CABG, SSS s/ p PPM, atrial fibrillation on coumadin, aortic stenosis, and diabetes presented with a week of increasing lethargy and was found to have a significantly elevated troponin consistent with NSTEMI. Vitals: Stable. Problems: 1. Non-STEMI 2. Ischemic cardiomyopathy; HFrEF 3. CAD 4. A fib on Coumadin 5. Aortic stenosis 6. DM 7. Urinary tract infection status post instrumentation with stent placement earlier this year. Plan: * To be to discharged to snf today * Patient was suspected of having a UTI. His urine cultures grew enterococcus sensitive to ampicillin, nitrofurantoin, vancomycin and staph coccus coagulase negative sensitive to nitrofurantoin, tetracycline, vancomycin. d/c antibiotics as they are thought to be contamiantion, because pt is afebrile and no leukocytosis * He will benefit from rehabilitation for physical therapy, nursing care, and medication management. * follow up with his manager advanced, primary care physician after discharge, and other specialists as necessary. * Diet carbohydrate consistent * Status: DNR/DNI * DVT prophylaxis: Coumadin Problem List: 1. NSTEMI (non-ST elevated myocardial infarction) 2. Weakness 3. Elevated troponin Pain Ratin Pain Location: none Pain Goal: Remain pain free Pain Plan: follow pain pathway Tomorrow's Labs & Rationales: cbc, bep
[2017-09-11 08:16] LABS: PT 12.8 SEC (9.4-12.5)
[2017-09-11] MEDS ORDERED: ELIQUIS2.5 M1 PO (08:32)
[2017-09-11] MEDS ORDERED: PLAVIX75 M1 PO (10:01)
[2017-09-11 11:25] VITALS: BP 134/64
== END 2017-09-11 13:30 | DRG 281 ==
LOC: ERH 13:48 → CRI 19:07 → ERHI 19:07 → ENRESERV 19:51 → ERHI 20:18 → CRI 20:57 → ENTRNSPT 09-09 15:19 → EDTRNSPTSTS 09-09 15:27 → EDTRNSPT 09-09 15:27 → 1NO 09-09 15:47 → CMPTRNSPT 09-09 15:53 → 1NO 09-10 09:19 → ENPENDDIS 09-11 11:10 → 1NO 09-11 13:30
PROVIDERS: Emergency Medicine; Internal Medicine; Internal Medicine Endocrinology, Diabetes & Metabolism; Internal Medicine Infectious Disease; Ophthalmology; Preventive Medicine Public Health & General Preventive Medicine; Student in an Organized Health Care Education/Training Program
PROC: 4A12XM4 Monitoring of Cardiac Stress, External Approach (ICD-10-PCS; principal; 2017-09-08)
PROC: 3E033HZ Introduction of Radioactive Substance into Peripheral Vein, Percutaneous Approach (ICD-10-PCS; 2017-09-08)
DX: I21.4 Non-ST elevation (NSTEMI) myocardial infarction (principal); E87.0 Hyperosmolality and hypernatremia; I50.22 Chronic systolic (congestive) heart failure; I13.0 Hypertensive heart and chronic kidney disease with heart failure and stage 1 through stage 4 chronic kidney disease, or unspecified chronic kidney disease; I48.91 Unspecified atrial fibrillation; Z79.01 Long term (current) use of anticoagulants; E11.22 Type 2 diabetes mellitus with diabetic chronic kidney disease; N18.3 Chronic kidney disease, stage 3 (moderate); Z79.4 Long term (current) use of insulin; I25.10 Atherosclerotic heart disease of native coronary artery without angina pectoris; Z95.1 Presence of aortocoronary bypass graft; Z95.0 Presence of cardiac pacemaker; Z90.49 Acquired absence of other specified parts of digestive tract; F17.210 Nicotine dependence, cigarettes, uncomplicated; Z66 Do not resuscitate; G31.83 Neurocognitive disorder with Lewy bodies; F02.80 Dementia in other diseases classified elsewhere, unspecified severity, without behavioral disturbance, psychotic disturbance, mood disturbance, and anxiety; R79.1 Abnormal coagulation profile; Z96.0 Presence of urogenital implants; E80.6 Other disorders of bilirubin metabolism; R53.83 Other fatigue; I35.0 Nonrheumatic aortic (valve) stenosis; E83.41 Hypermagnesemia; E83.39 Other disorders of phosphorus metabolism; I49.5 Sick sinus syndrome; B95.8 Unspecified staphylococcus as the cause of diseases classified elsewhere; B95.2 Enterococcus as the cause of diseases classified elsewhere; R33.9 Retention of urine, unspecified
CPT/HCPCS: 1NSP; 87184; CCU; 36415; 36592; 71045; 78452; 81001; 82436; 87086; 87147; 93005; 93010; 93016; 93017; 93306; 96374; 97110-GO; 97116-GO; 97161-GP; 97165-GO; 97530-GO; 99291; A9502; J0131; J1245; J1644; J1815; J2405; J7060